=== PATIENT | male | born 1955 | race Caucasian/White ===

== ENCOUNTER 2018-10-15 19:15 | Inpatient (IN) | payer MEDICARE, OTHER ==
[2018-10-15] MEDS ORDERED: Propofol* 100 ML ONE (20:39)
[2018-10-15] MEDS ORDERED: NS 0.9% 1000 ML* 1,000 ML IV SCH (20:45)
[2018-10-15] MEDS: Norepinephrine VIAL* 4 MG in NS 0.9% 250 ML* 246 ML IV SCH (21:00)
[2018-10-15] MEDS ORDERED: Vancomycin(*) 1,000 MG in NS 0.9% 250 ML* 250 ML IVPB ONE (21:04)
--- NOTE | 2018-10-15 21:12 | ADMNOTE ---
Subjective Date of Service: 10/15/18 Interval History: code status full as per daughter source icu dr grant from transfer center and daughter unable due to concurrent intubation hpi this is a 63 yr old wm with copd on home oxygen was brought in to [facility] due to unresponsiveness. according to daughter, pt has not been getting home visit company for about one week and pt's was not the greatest provider for pt when home service is n/a. pt was intubated in the field. intial abg showed ph/pc02 7.12/80. initial head ct is neg. trop is 0.13 but no acute ekg change from [facility]. pt got versed 5/fentanyl 50 and lasix 20 mg iv from [facility]. came into icu with intial sbp 70-80s upon arrival 10/14 10- 11 pm ( called pharmacy to place levophed ) ---> pt was ordered with levophed but was never given any presssors until 510 am 10/15/2018. head ct was neg but he was not found to have a strong gag refelx or fighting against exam. as per staff, his left semiautomatic taper operator was much weaker compare to r semiautomatic taper operator ---> pt was able to raise his left hand after he was wakened up with verbal command and was unable to hold min on to this principal technical writer's hand but raise his lue against gravity about 20- 30 degree for 10 second. his inital abg done upon arrival. abg was 7.27/78/72/ 97 percent on pressure support at 2230 pm this am abg on same setting was 7.28/ 77/110/99.7 ---> spoke with pul who will call respiratory directly reg vent setting. pt got rocephin/z pack/laxis 20 iv/solumderol/versed/fentanyl 50 from [facility] copd on home oxygen arielle but non compliant with cpap dementia hyperlipidemia htn schizophrenia pshx none social hx cig smoker no etoh comes from home lives with fhx father + cad Review of Systems - Review of Systems General Comments: unable due to concurrent intubation and sedation Objective Oxygen Devices in Use Now: Mechanical Ventilator Appearance: nad Eyes: No Scleral Icterus, PERRLA Neck: NL Appearance and Movements; NL JVP, Trachea Midline, No Thyroid Enlargement, Masses Respiratory: - - equal chest wall expansion distant breath sounds throughout Cardiovascular: NL Sounds; No Murmurs; No JVD, RRR Abdominal: NL Sounds; No Tenderness; No Distention Extremities: - - trace pedal edema Result Diagrams: 10/16/18 05:00 10/16/18 05:00 EKG Data: ordered but not done was told was done in the [facility] did not show acute change ---> unable to find it in the pile Assess/Plan/Problems-Billing Assessment: this is a 63 yr old wm with hx of dementia copd on home oxygen arielle but non compliant with arielle at home was brought in due to worsening ms ---> as per daughter he has not been getting his resp treatment and follow up from the [facility]na service for at least one week. inital abg showed ph 7.12/80---> hypercapnic respiratory failure - Patient Problems (1) Acute and chronic respiratory failure ([id number]) Current Visit: Yes Status: Acute Code(s): J96.20 - ACUTE AND CHR RESP FAILURE, UNSP W HYPOXIA OR HYPERCAPNIA SNOMED Code(s): 85212188 Comment: vent support repeat abg at 5 am does not show improvement ---> called pul to contact respiratory directly for vent setting respiratory treatment solumderol instead of solucortef ( sbp wnl--- > PRESSORS WAS ORDERED AT 2200 PM BUT WAS NOT ON IT UNTIL 510 AM ---> STAFF DOES NOT START PRESSOR DESPITE ORDER IS THERE AND THIS PLASMA CUTTING MACHINE OPERATOR WAS NOT CALLED TO CANCEL OR HOLD IT ) continue zosyn ( got one dose of rocephin/ z pack from other hospital ) (2) Hypercapnic respiratory failure Current Visit: Yes Status: Acute Code(s): J96.92 - RESPIRATORY FAILURE, UNSPECIFIED WITH HYPERCAPNIA SNOMED Code(s): 892453097 Comment: vent adjustment as per pul (3) Schizophrenia Current Visit: Yes Status: Acute Code(s): F20.9 - SCHIZOPHRENIA, UNSPECIFIED SNOMED Code(s): 56004374 Comment: og tube placed will order his normal meds via og (4) AIRELLE and COPD overlap syndrome Current Visit: Yes Status: Acute Code(s): G47.33 - OBSTRUCTIVE SLEEP APNEA ( ADULT) (PEDIATRIC); J44.9 - CHRONIC OBSTRUCTIVE PULMONARY DISEASE, UNSPECIFIED SNOMED Code(s): 46291360 Comment: non compliant with his home setting machine continue intubation vent adjustment as per icu (5) Noncompliance Current Visit: Yes Status: Acute Code(s): Z91.19 - PATIENT'S NONCOMPLIANCE W OTH MEDICAL TREATMENT AND REGIMEN SNOMED Code(s): 5337625 Comment: supportive care (6) Acute respiratory acidosis Current Visit: Yes Status: Acute Code(s): E87.2 - ACIDOSIS SNOMED Code(s) : 28417030 Comment: vent support and adjustment (7) Hypotension Current Visit: Yes Status: Acute Comment: pressor was ordered at 2200 but was not on that until 510 am continue pressor/target map 55 above (8) Full code status Current Visit: Yes Status: Acute Code(s): Z78.9 - OTHER SPECIFIED HEALTH STATUS SNOMED Code(s): 277591937 (9) DVT prophylaxis Current Visit: Yes Status: Acute Code(s): VWF6218 - SNOMED Code(s): 948761935 Comment: per hospital protocol (10) LUE weakness Current Visit: Yes Status: Acute Code(s): R29.898 - OT SYMPTOMS AND SIGNS INVOLVING THE MUSCULOSKELETAL SYSTEM SNOMED Code(s): 042106861 Comment: head ct neg it is not tpa case no matter what asa 325 via og then 81 mg daily repeat head ct cartoid tele with lucina Status and Disposition: total critical care admisison 60 min followup 30 min total 90 min
[2018-10-15] MEDS ORDERED: Zosyn per Pharmacy* NOTE FOLLOW UP PRN (21:46)
[2018-10-15] MEDS ORDERED: Vancomycin per Pharmacy* NOTE FOLLOW UP PRN (21:51)
[2018-10-15] MEDS ORDERED: Piperacillin/Tazobac ADVAN(*) 3.375 GM in NS 0.9% 100 ML* 100 ML IVPB SCH (22:00)
[2018-10-15] MEDS ORDERED: Dexamethasone IV* 4 MG in NS 0.9% 50 ML* 50 ML IVPB SCH (22:00)
[2018-10-15] MEDS ORDERED: Hydrocortisone INJ* 100 MG VIAL IM SCH (22:00)
[2018-10-15] MEDS ORDERED: Dexamethasone IV* 4 MG/ML 1 ML (4 MG) IV SLOW PU SCH (22:00)
[2018-10-15] MEDS ORDERED: ZOSYN 3.375 GM x ONE DOSE over 30 miuntes IVPB ×2 (22:00)
[2018-10-15] MEDS ORDERED: Vancomycin(*) 2,000 MG in NS 0.9% 500 ML* 500 ML IVPB ONE (22:30)
[2018-10-15] MEDS: Heparin VIAL(*) 5000 UNITS/ML VIAL (FIVE THOUSAND) SUBCUT SCH (23:47)
[2018-10-15 23:57] LABS: ABS Basophils 0 10^3/ul (0-0.2); ABS Eosinophils 0 10^3/ul (0-0.6); ABS Lymphocytes 0.2 10^3/ul (1.0-4.8); ABS Monocytes 0.5 10^3/ul (0-0.8); ABS Neutrophils 14.1 10^3/ul (1.5-7.7); ABS Nucleated RBC 0 10^3/ul; Eosinophil % 0 %; Hematocrit 39 % (42-52); Hemoglobin 12.1 g/dl (14.0-18.0); Lymphocyte % 1.1 %; Mean Corpuscular HGB Conc 31 g/dl (31-36); Mean Corpuscular Hemoglobin 28 pg (27-31); Mean Corpuscular Volume 90 fL (80-94); Mean Platelet Volume 8.7 fL (7.4-10.4); Nucleated Red Blood Cells % 0.1; Platelet Count 203 10^3/ul (150-450); Red Blood Count 4.34 10^6/ul (4.00-5.40); Red Cell Distribution Width 15 % (10.5-15); White Blood Count 14.8 10^3/ul (3.5-10.8)
[2018-10-16] MEDS: Propofol* 1000 MG (10 MG/ML 100 ml) @ Per Protocol (in ICU Pyxis) IV SCH ×6 (00:02→22:05)
[2018-10-16 00:08] LABS: Albumin 3.3 g/dL (3.2-5.2); Albumin/Globulin Ratio 1.3 (1-3); BUN/Creatinine Ratio 16.1 (8-20); Calcium 8.3 mg/dL (8.6-10.3); EGFR African American 57.8 (>60); EGFR Non-African American 47.8 (>60); Globulin 2.6 g/dL (2-4); Potassium 4.2 mmol/L (3.5-5.0); Total Bilirubin 0.3 mg/dL (0.2-1.0); Total Protein 5.9 g/dL (6.4-8.9)
[2018-10-16] MEDS: Albuterol 2.5 MG/3 ML NEB.SOL* (0.083%) INH SCH ×2 (00:10→03:25)
[2018-10-16 00:14] LABS: CKMB ng/mL 6.6 ng/mL (0.6-6.3); Troponin I 0.04 ng/mL (<0.04)
[2018-10-16] MEDS ORDERED: Pantoprazole IV* 40 MG IV SCH (03:00)
[2018-10-16] MEDS: ZOSYN 3.375 GM Q8H per EXTENDED INFUSION IVPB SCH ×6 (03:06→17:38)
[2018-10-16] MEDS ORDERED: Aspirin TAB* 325 MG NG TUBE ONE (03:15)
[2018-10-16] MEDS: methylPREDNISolone SOD 40 MG* 1 ML VIAL IV SCH ×3 (03:38→18:39)
[2018-10-16] MEDS: Pantoprazole IV* 40 MG IV SCH ×2 (04:48→21:40)
[2018-10-16] MEDS: Heparin VIAL(*) 5000 UNITS/ML VIAL (FIVE THOUSAND) SUBCUT SCH ×3 (05:00→21:40)
[2018-10-16 05:29] LABS: ABS Basophils 0 10^3/ul (0-0.2); ABS Eosinophils 0 10^3/ul (0-0.6); ABS Lymphocytes 0.2 10^3/ul (1.0-4.8); ABS Monocytes 0.2 10^3/ul (0-0.8); ABS Nucleated RBC 0 10^3/ul; Eosinophil % 0 %; Hematocrit 36 % (42-52); Lymphocyte % 1.5 %; Mean Corpuscular HGB Conc 30 g/dl (31-36); Mean Corpuscular Hemoglobin 27 pg (27-31); Mean Corpuscular Volume 91 fL (80-94); Mean Platelet Volume 8.9 fL (7.4-10.4); Nucleated Red Blood Cells % 0.1; Platelet Count 189 10^3/ul (150-450); Red Blood Count 4.01 10^6/ul (4.00-5.40); Red Cell Distribution Width 15 % (10.5-15); White Blood Count 12.5 10^3/ul (3.5-10.8)
[2018-10-16 05:49] LABS: BUN/Creatinine Ratio 17.1 (8-20); Calcium 8.2 mg/dL (8.6-10.3); EGFR African American 49.7 (>60); Magnesium 1.9 mg/dL (1.9-2.7)
[2018-10-16 06:04] LABS: TSH (Thyroid Stimulating Horm) 0.14 mcIU/mL (0.34-5.60)
[2018-10-16] MEDS: Tiotropium CAP.INH* CAP.INH/18 MCG (USE ORDER SET !) INH SCH (07:33)
[2018-10-16 08:14] LABS: Troponin I 0.04 ng/mL (<0.04)
[2018-10-16] MEDS: Vancomycin(*) 1,000 MG in NS 0.9% 250 ML* 250 ML IVPB SCH ×3 (08:45→23:38)
[2018-10-16] MEDS: Aspirin 81 mg CHEW TAB* 81 MG TAB.CHEW NG TUBE SCH (08:54)
[2018-10-16] MEDS ORDERED: Spiriva Inhaler DEVICE* 1 EACH DEVICE INH ONE (09:00)
[2018-10-16] MEDS ORDERED: NS 0.9% IVPB SCH (09:00)
[2018-10-16] MEDS ORDERED: FAMOTIDINE IVPB SCH (09:00)
--- NOTE | 2018-10-16 10:25 | PN ---
Date of Service: 10/16/18 - [facility] note Critical Care Services: 10/16/18 at 10:22 am Pt seen and examined at bedside. Overnight events noted. Admission records reviewed. Case was discussed over telephone with night hospitalist and necessary ordered were provided. Pt is 63 y o m, former smoker with h/o severe COPD on home O2, delusional disorder, dementia. Pt with prior hospitalizations for hypercapnic resp failure. Pt was hospitalized at [facility] in 2016 for similar episiode with acute hypercapnic and hypoxic resp failure. Pt was transferred from [facility] ED last night. He has chronic COPD, not much functional at baseline. He has been managing with home care. As per daughter , home care services were stopped recently due to lack of insurance coverage. Pt needs frequent nebulizer therapy which was interrupted since visiting nurse services were discontinued. He is not able to care for himself given dementia and psych disorder. He has been deteriorating over past few weeks as per daughter. He was found to be unresponsive whe his arrived at home, he was less responsive in the morning when she wa leaving for work however she thought thats normal for him. EMS arrived at home and found pt to unresponsive and was having gurgling breath sounds. He was intubated in field. He had blood pressure with systolics in 80`s. He was taken to [facility]. His troponin was mildly elevated at 0.4 and no other significant lab abnormality was noted. His EKG didnot show acute ST-T wave changes. He remained hemodynamically stable with no need for pressors. His initial ABG showed severe resp acidosis with pCO2 of 143, pH of 7.11. Rpt ABG shortly after arrival in ICU showed improvement with pH of 7.27 and pCO2 of 78. Pt was moving extremities spontaneouslyy and was transferred to [facility] ICU, intubated with prn Versed and Fentanyl for sedation/pain. Ventilator settings were adjusted to improve hypercapnia. His BP dropped slightly and was given 1L IVF, was started on Levophed this am. He was noted to be not very strong with camp coordinator on right side as per overnight RN however was withdrawing all extremities to pain. Vital Signs: Temp Pulse Resp BP SpO2 FiO2 100.2 F 78 22 129/79 95 60 10/16/18 08:00 10/16/18 09:45 10/16/18 09:00 10/16/18 09:45 10/16/18 09:45 10/16 08:13 Physical Exam: Gen: Pt is sedated HEENT:Pupils pinpoint, sluggishly reactive Lungs: Rhonchi+ on auscultation Cardiac: S1, S2, regular Abdomen: Soft, BS+ Extremities: No edema Neuro: Sedated, has gag reflex, unable to assess complete neuro exam due to being on Propofol Skin: No rash Fluid Balance (Past 24 Hours): Q=2642 O= 170 Net 1977 Intake & Output 10/14/18 10/15/18 10/16/18 10/17/18 06:59 06:59 06:59 06:59 Intake Total 2148 Output Total 170 61 Balance 1977 Weight 248 lb 0.321 oz Intake: IV Fluids 1844 NSS W/ ABX 1844 Medicated IV 304 LEVOPHED 29 PROPOFOL 275 Oral 0 Output: Juarez 170 61 Labs: Laboratory Results - last 24 hr 10/15/18 10/15/18 10/15/18 22:20 23:30 23:30 WBC 14.8 H RBC 4.34 Hgb 12.1 L Hct 39 L MCV 90 MCH 28 MCHC 31 RDW 15 Plt Count 203 MPV 8.7 Neut % (Auto) 95.6 Lymph % (Auto) 1.1 Taney % (Auto) 3.2 Eos % (Auto) 0 Baso % (Auto) 0.1 Absolute Neuts (auto) 14.1 H Absolute Lymphs (auto) 0.2 L Absolute Monos (auto) 0.5 Absolute Eos (auto) 0 Absolute Basos (auto) 0 Absolute Nucleated RBC 0 Nucleated RBC % 0.1 Patient Temperature Not Reportable ABG pH 7.27 L ABG pH (Temp Correct) Not Reportable ABG pCO2 78 H* ABG pCO2 (Temp Corrct Not Reportable ABG pO2 72 L ABG pO2 (Temp Correct Not Reportable ABG HCO3 29.5 ABG O2 Saturation 97.2 ABG Base Excess 6.0 H Respiration Rate 18 O2 Delivery Device vent Ventilator Type Not Reportable Vent Mode Pcv FiO2 70 Inspiratory Time 0.8 PEEP 5 Pressure Support Not Reportable Pressure Control 25 EPAP Not Reportable IPAP Not Reportable BiPAP Not Reportable Sodium 143 Potassium 4.2 Chloride 100 L Carbon Dioxide 36 H Anion Gap 7 BUN 24 Creatinine 1.49 H Est GFR ( Amer) 57.8 Est GFR (Non-Af Amer) 47.8 BUN/Creatinine Ratio 16.1 Glucose 130 H Lactic Acid Calcium 8.3 L Magnesium Total Bilirubin 0.30 AST 13 ALT 13 Alkaline Phosphatase 55 CK-MB (CK-2) 6.6 H Troponin I 0.04 H* B-Natriuretic Peptide Total Protein 5.9 L Albumin 3.3 Globulin 2.6 Albumin/Globulin Ratio 1.3 TSH Cortisol 10/15/18 10/16/18 10/16/18 23:30 05:00 05:00 WBC 12.5 H RBC 4.01 Hgb 11.0 L Hct 36 L MCV 91 MCH 27 MCHC 30 L RDW 15 Plt Count 189 MPV 8.9 Neut % (Auto) 96.4 Lymph % (Auto) 1.5 Taney % (Auto) 1.9 Eos % (Auto) 0 Baso % (Auto) 0.2 Absolute Neuts (auto) 12.0 H Absolute Lymphs (auto) 0.2 L Absolute Monos (auto) 0.2 Absolute Eos (auto) 0 Absolute Basos (auto) 0 Absolute Nucleated RBC 0 Nucleated RBC % 0.1 Patient Temperature ABG pH ABG pH (Temp Correct) ABG pCO2 ABG pCO2 (Temp Corrct ABG pO2 ABG pO2 (Temp Correct ABG HCO3 ABG O2 Saturation ABG Base Excess Respiration Rate O2 Delivery Device Ventilator Type Vent Mode FiO2 Inspiratory Time PEEP Pressure Support Pressure Control EPAP IPAP BiPAP Sodium 142 Potassium 4.0 Chloride 102 Carbon Dioxide 36 H Anion Gap 4 BUN 29 H Creatinine 1.70 H Est GFR ( Amer) 49.7 Est GFR (Non-Af Amer) 41.0 BUN/Creatinine Ratio 17.1 Glucose 162 H Lactic Acid 1.1 Calcium 8.2 L Magnesium 1.9 Total Bilirubin AST ALT Alkaline Phosphatase CK-MB (CK-2) Troponin I 0.04 H* B-Natriuretic Peptide Total Protein Albumin Globulin Albumin/Globulin Ratio TSH 0.14 L Cortisol 6.64 10/16/18 10/16/18 05:00 05:40 WBC RBC Hgb Hct MCV MCH MCHC RDW Plt Count MPV Neut % (Auto) Lymph % (Auto) Taney % (Auto) Eos % (Auto) Baso % (Auto) Absolute Neuts (auto) Absolute Lymphs (auto) Absolute Monos (auto) Absolute Eos (auto) Absolute Basos (auto) Absolute Nucleated RBC Nucleated RBC % Patient Temperature Not Reportable ABG pH 7.28 L ABG pH (Temp Correct) Not Reportable ABG pCO2 77 H* ABG pCO2 (Temp Corrct Not Reportable ABG pO2 110 H ABG pO2 (Temp Correct Not Reportable ABG HCO3 30.1 ABG O2 Saturation 99.7 H ABG Base Excess 6.6 H Respiration Rate 18 O2 Delivery Device vent Ventilator Type Not Reportable Vent Mode pcv FiO2 75 Inspiratory Time 0.8 PEEP 5 Pressure Support Not Reportable Pressure Control 30 EPAP Not Reportable IPAP Not Reportable BiPAP Not Reportable Sodium Potassium Chloride Carbon Dioxide Anion Gap BUN Creatinine Est GFR ( Amer) Est GFR (Non-Af Amer) BUN/Creatinine Ratio Glucose Lactic Acid Calcium Magnesium Total Bilirubin AST ALT Alkaline Phosphatase CK-MB (CK-2) Troponin I B-Natriuretic Peptide 125 H Total Protein Albumin Globulin Albumin/Globulin Ratio TSH Cortisol Studies: Ct brain at outside facility: No acute abnormality noted. 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 Pt was admitted for AMS, hypercapnic and hypoxic resp failure requiring intubation 1. AMS- Metabolic versus CVA 2. Acute on chronic hypoxic and hypercapnic resp failure 3. Acute COPD exacerbatio 4. PNA, possible aspiration 5. Hypotension sec to sepsis 6.Acute Renal failure 7.Low TSH likely sick euthyroid 8.Elevated troponin- Likely demand ischemia 9. Elevated bl sugar, no known h/o DM Plan: 1. Neuro: Pt found unresponsive at home, has h/o admissions for hypercapnic resp failure, unclear if sec to hypercapnic resp failure or had trigerred by CVA. No focal findings on neuro exam. CT brain was negative, rpt CT brain pending. Received 325 mg of ASA. Is currently sedated, will do sedation vacation to assess neuro status. Keep head of bed elevated to 30 degrees. No signs of seizure. Ordered f/u CT, CTA head/neck and bubble ECHO. c/w ASA. Pt with h/o Schizophrenia and dementia. 2.Resp: Intubated for acute hypercapnic/hypoxic resp failure and AMS. Currently on PC ventialtor, PC of 33, PEEP 5, FiO2 of 50%, rate of 22, ETCO2 of 45. PPlateau of less than 30. Vent bundle ordered. Having thick secretions through ETT. 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 Will obtain CT chest, c/w ETCO 2 monitoring. Will rpt ABG and adjust vent settings accordingly. c/w nebs q 6hrs prn. 3. CVS: Hypotensive this am, requiring small dose of Levophed, not requiring now. Received 1L IVF last night. Will titrate Levophed to achieve MAP of 65. Will c/w IVF at 100cc/hr. ECHO pending. No acute changes on EKG. Cardiac history unknown at this time. Troponins mildly elevated-likely demand ischemia, rpt value unchanged. 4. GI: NPO for now. Will start feeds later today. Pt on Propofol and receiving IVF for hydration. GI PPx ordered. 5. Renal: UO picked up this am. Elevated cr with acute renal failure. No electrolyte abnormalities. Last lactate within normal limits. Monitor UO closely. Will check CK. UA ordered. 6. Endo: Bl sugars mildly elevated, will monitor closely and cover with Insulin SS if needed. On Solumedrol for acute COPD exacerbation 7. Haem: Leucocytosis sec to sepsis. Normocytic anemia, likely chronic. Monitor H&H closely 8. Musculoskeletal: Frequent turning to prevent skin breakdown. 9. Psychosocial: Family at bedside- , 2 daughters. Updated on pts condition and all questions and concerns adressed Code status: Full code, Pt has MOLST forms filled from other facility in the past for CPR and trial intubation however would not want to continue on mechanical ventilation if unable to be liberated. IV access: Rt IJ CVC(date 10/16/18) Juarez catheter to prevent skin break down and to prevent bedsores DVT px: Heparin Sq GI PPX: PPI Critical Care Time: 60 min excluding procedures most of which is spent with performing physical, adjusting vent settings, reviewing tests, updating pt`s family at bedside
--- NOTE | 2018-10-16 10:57 | PN ---
Progress Note - Progress Note Date of Service: 10/16/18 - Rt IJ central line placement Note: Procedure: Rt IJ Central Line Performed by: Gricel Daniels MD Indication: Administration of vasopressors Anesthesia: 2% Lidocaine- 3cc Procedure: A time-out was completed, verifying correct patient, procedure, site , positioning. Patients right IJ area was prepped and draped in usual sterile fashion. 2% Lidocaine was used to anesthetize the area. A Triple lumen central line was introduced over a wire via the Seldinger technique, then sutured in place. Good blood flow was noted from all ports. The patient tolerated the procedure well. Chest x-ray was ordered to assess for pneumothorax and catheter placement. No PTX noted and catheter tip at optimal position. Complications: None Blood loss: Minimal
[2018-10-16] MEDS ORDERED: Iodixanol* (CONTRAST) 320 MG/ML 100 ML SDV IV ONE (11:37)
[2018-10-16] MEDS: Chlorhexidine MOUTHWASH 0.12%* 15 ML UDC TOPICAL SCH ×4 (12:27→23:38)
[2018-10-16 12:50] LABS: ABS Basophils 0 10^3/ul (0-0.2); ABS Eosinophils 0 10^3/ul (0-0.6); ABS Lymphocytes 0.3 10^3/ul (1.0-4.8); ABS Monocytes 0.4 10^3/ul (0-0.8); ABS Neutrophils 10.5 10^3/ul (1.5-7.7); ABS Nucleated RBC 0 10^3/ul; Eosinophil % 0 %; Hematocrit 34 % (42-52); Hemoglobin 10.7 g/dl (14.0-18.0); Lymphocyte % 2.5 %; Mean Corpuscular HGB Conc 32 g/dl (31-36); Mean Corpuscular Hemoglobin 28 pg (27-31); Mean Corpuscular Volume 89 fL (80-94); Mean Platelet Volume 8.2 fL (7.4-10.4); Nucleated Red Blood Cells % 0.1; Platelet Count 196 10^3/ul (150-450); Red Blood Count 3.79 10^6/ul (4.00-5.40); Red Cell Distribution Width 15 % (10.5-15); White Blood Count 11.3 10^3/ul (3.5-10.8)
[2018-10-16 13:07] LABS: Albumin 2.9 g/dL (3.2-5.2); Albumin/Globulin Ratio 1.3 (1-3); BUN/Creatinine Ratio 20.1 (8-20); Calcium 8.2 mg/dL (8.6-10.3); EGFR African American 51.8 (>60); EGFR Non-African American 42.8 (>60); Globulin 2.3 g/dL (2-4); Potassium 3.5 mmol/L (3.5-5.0); Total Bilirubin 0.3 mg/dL (0.2-1.0); Total Protein 5.2 g/dL (6.4-8.9)
[2018-10-16 13:59] LABS: Urine Appearance Cloudy; Urine Bacteria 1+ (Absent); Urine Bilirubin Negative (Negative); Urine Blood 1+ (Negative); Urine Color Yellow; Urine Glucose Negative (Negative); Urine Ketones Negative (Negative); Urine Nitrite Negative (Negative); Urine Protein Negative (Negative); Urine Red Blood Cell 3+(>10/hpf) (Absent); Urine Specific Gravity 1.046 (1.010-1.030); Urine Squamous Epithelial Cell Present (Absent); Urine Urobilinogen Negative (Negative); Urine White Blood Cell 1+(6-10/hpf) (Absent)
[2018-10-16 13:59] LABS: Troponin I 0.05 ng/mL (<0.04)
[2018-10-16] MEDS: Norepinephrine VIAL* 4 MG in NS 0.9% 250 ML* 246 ML IV SCH (17:02)
[2018-10-16] MEDS: Acetaminophen ADULT LIQ* 650 MG/20.3 ML UDC NG TUBE PRN (21:40)
[2018-10-17] MEDS: Propofol* 1000 MG (10 MG/ML 100 ml) @ Per Protocol (in ICU Pyxis) IV SCH ×2 (01:26→07:45)
[2018-10-17] MEDS: ZOSYN 3.375 GM Q8H per EXTENDED INFUSION IVPB SCH ×6 (02:11→17:02)
[2018-10-17] MEDS: Chlorhexidine MOUTHWASH 0.12%* 15 ML UDC TOPICAL SCH ×6 (03:58→23:22)
[2018-10-17] MEDS: methylPREDNISolone SOD 40 MG* 1 ML VIAL IV SCH ×3 (03:58→21:45)
[2018-10-17] MEDS: Norepinephrine VIAL* 4 MG in NS 0.9% 250 ML* 246 ML IV SCH (05:06)
[2018-10-17] MEDS: Heparin VIAL(*) 5000 UNITS/ML VIAL (FIVE THOUSAND) SUBCUT SCH ×3 (06:47→21:44)
[2018-10-17 06:56] LABS: Hematocrit 33 % (42-52); Hemoglobin 10.4 g/dl (14.0-18.0); Mean Corpuscular HGB Conc 32 g/dl (31-36); Mean Corpuscular Hemoglobin 28 pg (27-31); Mean Corpuscular Volume 87 fL (80-94); Mean Platelet Volume 8.7 fL (7.4-10.4); Platelet Count 178 10^3/ul (150-450); Red Blood Count 3.78 10^6/ul (4.00-5.40); Red Cell Distribution Width 15 % (10.5-15); White Blood Count 12.7 10^3/ul (3.5-10.8)
[2018-10-17 07:15] LABS: BUN/Creatinine Ratio 29.4 (8-20); Calcium 8.3 mg/dL (8.6-10.3); EGFR African American 70.2 (>60); Potassium 3.5 mmol/L (3.5-5.0)
[2018-10-17 07:21] LABS: Troponin I 0.05 ng/mL (<0.04)
[2018-10-17 07:33] LABS: ABS Basophils 0 10^3/ul (0-0.2); ABS Eosinophils 0 10^3/ul (0-0.6); ABS Lymphocytes 0.4 10^3/ul (1.0-4.8); ABS Monocytes 0.6 10^3/ul (0-0.8); ABS Neutrophils 11.6 10^3/ul (1.5-7.7); ABS Nucleated RBC 0 10^3/ul; Nucleated Red Blood Cells % 0
[2018-10-17 07:36] LABS: Lymphocytes % 6 %; Monocytes % 3 %; Neutrophil % 91 %
[2018-10-17 07:38] LABS: ABS Neutrophils 11.5 10^3/ul (1.5-7.7)
[2018-10-17] MEDS: Tiotropium CAP.INH* CAP.INH/18 MCG (USE ORDER SET !) INH SCH (07:39)
[2018-10-17] MEDS: Pantoprazole IV* 40 MG IV SCH (07:41)
[2018-10-17] MEDS: Aspirin 81 mg CHEW TAB* 81 MG TAB.CHEW NG TUBE SCH (07:41)
[2018-10-17] MEDS ORDERED: Vancomycin Trough Check NOTE FOLLOW UP ONE (08:00)
[2018-10-17] MEDS: Vancomycin(*) 1,000 MG in NS 0.9% 250 ML* 250 ML IVPB SCH (09:12)
--- NOTE | 2018-10-17 09:49 | PN ---
Date of Service: 10/17/18 Critical Care Services: 63M with htn, hld, schizophrena, severe copd on home o2, ild presents with respiratory failure and was intubated at [place]. 10/17: propofol stopped this am. Patient unresponsive. Vital Signs: Temp Pulse Resp BP SpO2 FiO2 99.7 F 63 21 142/82 95 50 10/17/18 09:00 10/17/18 09:00 10/17/18 08:00 10/17/18 09:00 10/17/18 09:00 10/17 07:36 Physical Exam: Gen - intubated and sedated heent - ncat, perrl, left gaze preference? neck - no jvd cv - s1/s2, no murmur lungs - cta, no wheeze abd - soft, nt, nd ext - no cce neuro - unresponsive to verbal or painful stimuli, possible intermittent left gaze preference Fluid Balance (Past 24 Hours): I= O= Net Intake & Output 10/15/18 10/16/18 10/17/18 10/18/18 06:59 06:59 06:59 06:59 Intake Total 2148 3805.6 0 Output Total 170 1155 195 Balance 1978 2650.6 -195 Weight 112.5 kg 114.5 kg Intake: IV Fluids 1844 2118.6 ABX - VANCOMYCIN 305 ABX - ZOSYN 51.6 NSS W/ ABX 1844 1762 IVPB 817 ABX - VANCOMYCIN 537 ABX - ZOSYN 280 Medicated IV 304 840 LEVOPHED 29 132 PROPOFOL 275 708 Oral 0 0 NG Tube Irrigate Amount 30 Output: Bennett 170 1155 195 Labs: Laboratory Results - last 24 hr 10/16/18 10/16/18 10/16/18 05:00 12:40 12:40 WBC 11.3 H RBC 3.79 L Hgb 10.7 L Hct 34 L MCV 89 MCH 28 MCHC 32 RDW 15 Plt Count 196 MPV 8.2 Neut % (Auto) 93.5 Lymph % (Auto) 2.5 [place] % (Auto) 4.0 Eos % (Auto) 0 Baso % (Auto) 0 Absolute Neuts (auto) 10.5 H Absolute Lymphs (auto) 0.3 L Absolute Monos (auto) 0.4 Absolute Eos (auto) 0 Absolute Basos (auto) 0 Absolute Nucleated RBC 0 Neutrophils % Lymphocytes % Monocytes % Nucleated RBC % 0.1 Abs Neuts (Manual) Abs Lymphs (Manual) Abs Monocytes (Manual) Normal RBC Morphology Patient Temperature ABG pH ABG pH (Temp Correct) ABG pCO2 ABG pCO2 (Temp Corrct ABG pO2 ABG pO2 (Temp Correct ABG HCO3 ABG O2 Saturation ABG Base Excess Respiration Rate O2 Delivery Device Ventilator Type Vent Mode FiO2 Inspiratory Time PEEP Pressure Support Pressure Control EPAP IPAP BiPAP Sodium 141 Potassium 3.5 Chloride 103 Carbon Dioxide 33 H Anion Gap 5 BUN 33 H Creatinine 1.64 H Est GFR ( Amer) 51.8 Est GFR (Non-Af Amer) 42.8 BUN/Creatinine Ratio 20.1 H Glucose 184 H POC Glucose (mg/dL) Hemoglobin A1c 6.1 H Lactic Acid Calcium 8.2 L Total Bilirubin 0.30 AST 14 ALT 11 Alkaline Phosphatase 43 Total Creatine Kinase 294 H Troponin I 0.05 H* Total Protein 5.2 L Albumin 2.9 L Globulin 2.3 Albumin/Globulin Ratio 1.3 Urine Color Urine Appearance Urine pH Ur Specific [place] Urine Protein Urine Ketones Urine Blood Urine Nitrate Urine Bilirubin Urine Urobilinogen Ur Leukocyte Esterase Urine WBC (Auto) Urine RBC (Auto) Ur Squamous Epith Cells Urine Bacteria Urine Glucose Urine Ascorbic Acid Vancomycin Trough 10/16/18 10/16/18 10/16/18 12:40 13:00 13:23 WBC RBC Hgb Hct MCV MCH MCHC RDW Plt Count MPV Neut % (Auto) Lymph % (Auto) [place] % (Auto) Eos % (Auto) Baso % (Auto) Absolute Neuts (auto) Absolute Lymphs (auto) Absolute Monos (auto) Absolute Eos (auto) Absolute Basos (auto) Absolute Nucleated RBC Neutrophils % Lymphocytes % Monocytes % Nucleated RBC % Abs Neuts (Manual) Abs Lymphs (Manual) Abs Monocytes (Manual) Normal RBC Morphology Patient Temperature Not Reportable ABG pH 7.39 ABG pH (Temp Correct) Not Reportable ABG pCO2 56 H ABG pCO2 (Temp Corrct Not Reportable ABG pO2 80 ABG pO2 (Temp Correct Not Reportable ABG HCO3 30.4 ABG O2 Saturation 98.5 H ABG Base Excess 7.1 H Respiration Rate 22 O2 Delivery Device mech. vent Ventilator Type Not Reportable Vent Mode pcv FiO2 50 Inspiratory Time 0.7 PEEP 5 Pressure Support Not Reportable Pressure Control 33 EPAP Not Reportable IPAP Not Reportable BiPAP Not Reportable Sodium Potassium Chloride Carbon Dioxide Anion Gap BUN Creatinine Est GFR ( Amer) Est GFR (Non-Af Amer) BUN/Creatinine Ratio Glucose POC Glucose (mg/dL) Hemoglobin A1c Lactic Acid 1.1 Calcium Total Bilirubin AST ALT Alkaline Phosphatase Total Creatine Kinase Troponin I Total Protein Albumin Globulin Albumin/Globulin Ratio Urine Color Yellow Urine Appearance Cloudy Urine pH 5.0 Ur Specific [place] 1.046 H Urine Protein Negative Urine Ketones Negative Urine Blood 1+ A Urine Nitrate Negative Urine Bilirubin Negative Urine Urobilinogen Negative Ur Leukocyte Esterase Trace A Urine WBC (Auto) 1+(6-10/hpf) A Urine RBC (Auto) 3+(>10/hpf) A Ur Squamous Epith Cells Present A Urine Bacteria 1+ A Urine Glucose Negative Urine Ascorbic Acid * A Vancomycin Trough 10/16/18 10/16/18 10/17/18 18:09 20:20 00:34 WBC RBC Hgb Hct MCV MCH MCHC RDW Plt Count MPV Neut % (Auto) Lymph % (Auto) [place] % (Auto) Eos % (Auto) Baso % (Auto) Absolute Neuts (auto) Absolute Lymphs (auto) Absolute Monos (auto) Absolute Eos (auto) Absolute Basos (auto) Absolute Nucleated RBC Neutrophils % Lymphocytes % Monocytes % Nucleated RBC % Abs Neuts (Manual) Abs Lymphs (Manual) Abs Monocytes (Manual) Normal RBC Morphology Patient Temperature ABG pH ABG pH (Temp Correct) ABG pCO2 ABG pCO2 (Temp Corrct ABG pO2 ABG pO2 (Temp Correct ABG HCO3 ABG O2 Saturation ABG Base Excess Respiration Rate O2 Delivery Device Ventilator Type Vent Mode FiO2 Inspiratory Time PEEP Pressure Support Pressure Control EPAP IPAP BiPAP Sodium Potassium Chloride Carbon Dioxide Anion Gap BUN Creatinine Est GFR ( Amer) Est GFR (Non-Af Amer) BUN/Creatinine Ratio Glucose POC Glucose (mg/dL) 176 H 205 H Hemoglobin A1c Lactic Acid Calcium Total Bilirubin AST ALT Alkaline Phosphatase Total Creatine Kinase Troponin I 0.06 H* Total Protein Albumin Globulin Albumin/Globulin Ratio Urine Color Urine Appearance Urine pH Ur Specific [place] Urine Protein Urine Ketones Urine Blood Urine Nitrate Urine Bilirubin Urine Urobilinogen Ur Leukocyte Esterase Urine WBC (Auto) Urine RBC (Auto) Ur Squamous Epith Cells Urine Bacteria Urine Glucose Urine Ascorbic Acid Vancomycin Trough 10/17/18 10/17/18 10/17/18 06:35 06:44 06:45 WBC RBC Hgb Hct MCV MCH MCHC RDW Plt Count MPV Neut % (Auto) Lymph % (Auto) [place] % (Auto) Eos % (Auto) Baso % (Auto) Absolute Neuts (auto) Absolute Lymphs (auto) Absolute Monos (auto) Absolute Eos (auto) Absolute Basos (auto) Absolute Nucleated RBC Neutrophils % Lymphocytes % Monocytes % Nucleated RBC % Abs Neuts (Manual) Abs Lymphs (Manual) Abs Monocytes (Manual) Normal RBC Morphology Patient Temperature Not Reportable ABG pH 7.47 H ABG pH (Temp Correct) Not Reportable ABG pCO2 45 ABG pCO2 (Temp Corrct Not Reportable ABG pO2 78 L ABG pO2 (Temp Correct Not Reportable ABG HCO3 31.1 H ABG O2 Saturation 98.3 H ABG Base Excess 8.0 H Respiration Rate 22 O2 Delivery Device vent Ventilator Type Not Reportable Vent Mode pcv FiO2 50 Inspiratory Time 0.7 PEEP 5 Pressure Support Not Reportable Pressure Control 33 EPAP Not Reportable IPAP Not Reportable BiPAP Not Reportable Sodium 144 Potassium 3.5 Chloride 106 Carbon Dioxide 32 Anion Gap 6 BUN 37 H Creatinine 1.26 H Est GFR ( Amer) 70.2 Est GFR (Non-Af Amer) 58.0 BUN/Creatinine Ratio 29.4 H Glucose 174 H POC Glucose (mg/dL) 176 H Hemoglobin A1c Lactic Acid Calcium 8.3 L Total Bilirubin AST ALT Alkaline Phosphatase Total Creatine Kinase Troponin I 0.05 H* Total Protein Albumin Globulin Albumin/Globulin Ratio Urine Color Urine Appearance Urine pH Ur Specific [place] Urine Protein Urine Ketones Urine Blood Urine Nitrate Urine Bilirubin Urine Urobilinogen Ur Leukocyte Esterase Urine WBC (Auto) Urine RBC (Auto) Ur Squamous Epith Cells Urine Bacteria Urine Glucose Urine Ascorbic Acid Vancomycin Trough 10/17/18 10/17/18 06:45 07:54 WBC 12.7 H RBC 3.78 L Hgb 10.4 L Hct 33 L MCV 87 MCH 28 MCHC 32 RDW 15 Plt Count 178 MPV 8.7 Neut % (Auto) Not Reportable Lymph % (Auto) Not Reportable Kerr % (Auto) Not Reportable Eos % (Auto) Not Reportable Baso % (Auto) Not Reportable Absolute Neuts (auto) 11.6 H Absolute Lymphs (auto) 0.4 L Absolute Monos (auto) 0.6 Absolute Eos (auto) 0 Absolute Basos (auto) 0 Absolute Nucleated RBC 0 Neutrophils % 91 Lymphocytes % 6 Monocytes % 3 Nucleated RBC % 0 Abs Neuts (Manual) 11.5 H Abs Lymphs (Manual) 0.8 L Abs Monocytes (Manual) 0.4 Normal RBC Morphology Normal Patient Temperature ABG pH ABG pH (Temp Correct) ABG pCO2 ABG pCO2 (Temp Corrct ABG pO2 ABG pO2 (Temp Correct ABG HCO3 ABG O2 Saturation ABG Base Excess Respiration Rate O2 Delivery Device Ventilator Type Vent Mode FiO2 Inspiratory Time PEEP Pressure Support Pressure Control EPAP IPAP BiPAP Sodium Potassium Chloride Carbon Dioxide Anion Gap BUN Creatinine Est GFR ( Amer) Est GFR (Non-Af Amer) BUN/Creatinine Ratio Glucose POC Glucose (mg/dL) Hemoglobin A1c Lactic Acid Calcium Total Bilirubin AST ALT Alkaline Phosphatase Total Creatine Kinase Troponin I Total Protein Albumin Globulin Albumin/Globulin Ratio Urine Color Urine Appearance Urine pH Ur Specific [place] Urine Protein Urine Ketones Urine Blood Urine Nitrate Urine Bilirubin Urine Urobilinogen Ur Leukocyte Esterase Urine WBC (Auto) Urine RBC (Auto) Ur Squamous Epith Cells Urine Bacteria Urine Glucose Urine Ascorbic Acid Vancomycin Trough 21.7 Studies: CXR 10/15 IMPRESSION: #. Stigmata of chronic obstructive pulmonary disease. Linear basilar atelectasis. CT Chest 10/16 IMPRESSION: #. The constellation of findings is most consistent with advanced chronic obstructive pulmonary disease with associated interstitial fibrosis. The appearance is similar to a chest radiograph from December 22, 2015. #. Trace bilateral dependent pleural effusions and proportional basilar atelectasis. CTA Head 10/16 HEAD ANGIOGRAM IMPRESSION: Negative CT angiogram of the head. Impression: 63M with htn, hld, schizophrena, severe copd on home o2, ild presents with respiratory failure and was intubated at [place]. Plan: Neuro - AMS - thought to be 2/2 hypercapnea, however, pco2 improved and patient remains unresponsive - will check EEG, MRI brain - neuro consult when testing completed CV - htn, hld - bp elevated this am - will restart home meds pulm - respiratory failure - 2/2 copd/ild - c/w nebs q4h - steroids - wean vent as tolerated id - gram+ bacteremia - unclear source - awaiting speciation - empiric vanco/zosyn gi - start tube feeds renal - ckd? - monitor lytes - monitor i/o heme - monitor cbc endo - check fs, niss lines - rij tlc, bennett ppx - gi/dvt full code Critical Care Time: 65 mins
[2018-10-17] MEDS: Atorvastatin* 20 MG TAB PO SCH (10:18)
[2018-10-17] MEDS: Donepezil TAB* 5 MG PO SCH (10:18)
[2018-10-17] MEDS: Sertraline* 100 MG TAB PO SCH (10:18)
[2018-10-17] MEDS: Metoprolol Tartrate TAB* 25 MG PO SCH ×2 (10:30→20:40)
[2018-10-17] MEDS ORDERED: Lisinopril TAB* 10 MG PO ONE (10:34)
[2018-10-17] MEDS ORDERED: fentaNYL INFUSION 50 MCG/ML* 2,500 MCG/50 ML BAG IV SCH (11:00)
[2018-10-17] MEDS ORDERED: Lisinopril TAB* 10 MG PO SCH (11:00)
[2018-10-17] MEDS: Vancomycin(*) 750 MG in NS 0.9% 250 ML* 250 ML IVPB SCH ×2 (14:27→21:45)
[2018-10-17] MEDS: OLANzapine TAB* 10 MG PO SCH (20:40)
[2018-10-18] MEDS: ZOSYN 3.375 GM Q8H per EXTENDED INFUSION IVPB SCH ×4 (02:18→10:59)
[2018-10-18 04:53] LABS: ABS Basophils 0 10^3/ul (0-0.2); ABS Eosinophils 0.1 10^3/ul (0-0.6); ABS Lymphocytes 0.5 10^3/ul (1.0-4.8); ABS Monocytes 0.9 10^3/ul (0-0.8); ABS Neutrophils 8.5 10^3/ul (1.5-7.7); ABS Nucleated RBC 0 10^3/ul; Eosinophil % 0.5 %; Hematocrit 34 % (42-52); Lymphocyte % 4.6 %; Mean Corpuscular HGB Conc 32 g/dl (31-36); Mean Corpuscular Hemoglobin 28 pg (27-31); Mean Corpuscular Volume 87 fL (80-94); Mean Platelet Volume 8.4 fL (7.4-10.4); Nucleated Red Blood Cells % 0; Platelet Count 165 10^3/ul (150-450); Red Blood Count 3.93 10^6/ul (4.00-5.40); Red Cell Distribution Width 15 % (10.5-15)
[2018-10-18 05:00] LABS: Calcium 8.3 mg/dL (8.6-10.3); Magnesium 2.4 mg/dL (1.9-2.7); Potassium 3.9 mmol/L (3.5-5.0)
[2018-10-18 05:05] LABS: BUN/Creatinine Ratio 36.4 (8-20); EGFR African American 92.7 (>60); EGFR Non-African American 76.6 (>60)
[2018-10-18] MEDS: Heparin VIAL(*) 5000 UNITS/ML VIAL (FIVE THOUSAND) SUBCUT SCH ×3 (05:37→20:56)
[2018-10-18] MEDS: Vancomycin(*) 750 MG in NS 0.9% 250 ML* 250 ML IVPB SCH ×3 (05:37→20:57)
[2018-10-18] MEDS: Chlorhexidine MOUTHWASH 0.12%* 15 ML UDC TOPICAL SCH ×2 (05:37→09:02)
[2018-10-18] MEDS: Tiotropium CAP.INH* CAP.INH/18 MCG (USE ORDER SET !) INH SCH (08:43)
--- NOTE | 2018-10-18 08:45 | PN ---
Date of Service: 10/18/18 Critical Care Services: 63M with htn, hld, schizophrena, severe copd on home o2, ild presents with respiratory failure and was intubated at [place]. 10/17: propofol stopped this am. Patient unresponsive. 10/18: Patient more responsive this am. Will try for sbt and extubation if possible. Vital Signs: Temp Pulse Resp BP SpO2 FiO2 98.1 F 72 20 162/101 96 40 10/18/18 07:00 10/18/18 07:00 10/18/18 07:42 10/18/18 07:00 10/18/18 07:00 10/18 07:42 Physical Exam: Gen - intubated and sedated heent - ncat, perrl neck - no jvd cv - s1/s2, no murmur lungs - cta, no wheeze abd - soft, nt, nd ext - no cce neuro - lethargic, arousable, following commands Fluid Balance (Past 24 Hours): I= O= Net Intake & Output 10/16/18 10/17/18 10/18/18 10/19/18 06:59 06:59 06:59 06:59 Intake Total 2148 3805.6 2475 Output Total 170 1155 2035 100 Balance 1977 2650.6 440 -100 Weight 112.5 kg 114.5 kg 115.5 kg Intake: IV Fluids 1844 2118.6 1803 ABX - VANCOMYCIN 305 500 ABX - ZOSYN 51.6 323 NS 902 NSS W/ ABX 1844 1762 78 IVPB 817 285 ABX - VANCOMYCIN 537 285 ABX - ZOSYN 280 Medicated IV 304 840 57 LEVOPHED 29 132 PROPOFOL 275 708 57 Oral 0 200 Tube Feeding Flush Amount 100 NG Tube Irrigate Amount 30 30 Output: Bennett 170 1155 2035 100 Other: Date of Last Bowel 10/18/18 10/18/18 Movement # Bowel Movements 1 Estimated Stool Amount Large Labs: Laboratory Results - last 24 hr 10/17/18 10/17/18 10/17/18 07:54 12:31 18:13 WBC RBC Hgb Hct MCV MCH MCHC RDW Plt Count MPV Neut % (Auto) Lymph % (Auto) [place] % (Auto) Eos % (Auto) Baso % (Auto) Absolute Neuts (auto) Absolute Lymphs (auto) Absolute Monos (auto) Absolute Eos (auto) Absolute Basos (auto) Absolute Nucleated RBC Nucleated RBC % Sodium Potassium Chloride Carbon Dioxide Anion Gap BUN Creatinine Est GFR ( Amer) Est GFR (Non-Af Amer) BUN/Creatinine Ratio Glucose POC Glucose (mg/dL) 160 H 190 H Calcium Magnesium Vancomycin Trough 21.7 10/17/18 10/18/18 10/18/18 23:22 04:35 04:35 WBC 10.0 RBC 3.93 L Hgb 11.0 L Hct 34 L MCV 87 MCH 28 MCHC 32 RDW 15 Plt Count 165 MPV 8.4 Neut % (Auto) 85.1 Lymph % (Auto) 4.6 [place] % (Auto) 9.5 Eos % (Auto) 0.5 Baso % (Auto) 0.3 Absolute Neuts (auto) 8.5 H Absolute Lymphs (auto) 0.5 L Absolute Monos (auto) 0.9 H Absolute Eos (auto) 0.1 Absolute Basos (auto) 0 Absolute Nucleated RBC 0 Nucleated RBC % 0 Sodium 149 H Potassium 3.9 Chloride 112 H Carbon Dioxide 33 H Anion Gap 4 BUN 36 H Creatinine 0.99 Est GFR ( Amer) 92.7 Est GFR (Non-Af Amer) 76.6 BUN/Creatinine Ratio 36.4 H Glucose 204 H POC Glucose (mg/dL) 154 H Calcium 8.3 L Magnesium 2.4 Vancomycin Trough Studies: CXR 10/15 IMPRESSION: #. Stigmata of chronic obstructive pulmonary disease. Linear basilar atelectasis. CT Chest 10/16 IMPRESSION: #. The constellation of findings is most consistent with advanced chronic obstructive pulmonary disease with associated interstitial fibrosis. The appearance is similar to a chest radiograph from December 22, 2015. #. Trace bilateral dependent pleural effusions and proportional basilar atelectasis. CTA Head 10/16 HEAD ANGIOGRAM IMPRESSION: Negative CT angiogram of the head. Impression: 63M with htn, hld, schizophrena, severe copd on home o2, ild presents with respiratory failure and was intubated at [place]. Plan: Neuro - AMS - improved mental status this am - c/w olanzapine/seertraline/donepezil CV - htn, hld - bp elevated - c/w asa/statin/acei/betablocker - tte pending pulm - respiratory failure - 2/2 copd/ild - c/w nebs q4h - steroid taper - wean vent as tolerated id - gram+ bacteremia - unclear source - awaiting speciation - empiric vanco/zosyn gi - start tube feeds renal - ckd?, hypernatremia - monitor lytes - monitor i/o - increase free water via ogt heme - monitor cbc endo - check fs, niss lines - rij tlc, bennett ppx - gi/dvt full code Critical Care Time: 50 mins
[2018-10-18] MEDS ORDERED: Lansoprazole susp Kit 3 MG/ML (15 MG = 5 ML) PO SCH (09:00)
[2018-10-18] MEDS: methylPREDNISolone SOD 40 MG* 1 ML VIAL IV SCH ×2 (09:02→20:56)
[2018-10-18] MEDS: Lisinopril TAB* 10 MG PO SCH (09:02)
[2018-10-18] MEDS: Atorvastatin* 20 MG TAB PO SCH (09:02)
[2018-10-18] MEDS: OLANzapine TAB* 10 MG PO SCH ×2 (09:03→20:56)
[2018-10-18] MEDS: Aspirin 81 mg CHEW TAB* 81 MG TAB.CHEW NG TUBE SCH (09:03)
[2018-10-18] MEDS: Metoprolol Tartrate TAB* 25 MG PO SCH (09:03)
[2018-10-18] MEDS: Donepezil TAB* 5 MG PO SCH (09:04)
[2018-10-18] MEDS: Sertraline* 100 MG TAB PO SCH (09:05)
--- NOTE | 2018-10-18 10:27 | ECHO ---
Patient: KIRAN OH [facility] Rec#: [id number] : 1955 Date: 10/18/2018 Age: 63y Height: 168 cm / 66.1 in Weight: 112.5 kg / 248.0 lbs Sex: M BSA: 2.2 Room#: ICU 1 Admit Date#: 10/15/2018 Type: Inpatient Referring: KARLA BROOKS Reading: Donovan Cortez MD [employer] Educator: Vanessa Brush RN RDCS Transthoracic Echocardiogram Indication: CVA BP: 162/101 HR: 80 Rhythm: NSR Findings History: HTN, HLD, schizophrenia, severe COPD, [place], dementia Technical Comments: The study is technically limited due to the patient's history of COPD. The study is technically limited due to patient being intubated and on a ventilator. Left Ventricle: The left ventricular chamber size is normal. Mild concentric left ventricular hypertrophy is observed. Global left ventricular wall motion and contractility are within normal limits. There is normal left ventricular systolic function. The estimated ejection fraction is 55-60%. The assessment of diastolic function is non-diagnostic. Left Atrium: The left atrium is mild to moderately dilated. Right Ventricle: The right ventricular chamber size and systolic function are within normal limits. Right Atrium: The right atrium is mildly dilated. The bubble study is negative. A patent foramen ovale is not demonstrated with color Doppler and agitated contrast. Aortic Valve: The aortic valve structure is not well visualized. The aortic valve leaflets are mildly thickened. There is no evidence of aortic regurgitation. There is mild aortic stenosis. The mean gradient of the aortic valve is 10 mmHg. The peak instantaneous gradient of the aortic valve is 20 mmHg. The aortic valve area, by VTI's, is calculated at 1.9 cm2. Mitral Valve: The mitral valve leaflets are mildly thickened. There is trace to mild mitral regurgitation. Tricuspid Valve: The tricuspid valve leaflets are normal. There is mild tricuspid regurgitation. There is evidence of severe pulmonary hypertension. Pulmonic Valve: The pulmonic valve structure is not well visualized. There is no evidence of pulmonic regurgitation. There is no pulmonic stenosis. Pericardium: There is no significant pericardial effusion. A pericardial fat pad is visualized. Aorta: The ascending aorta is not well visualized. The aortic arch is not well visualized. There is mild dilatation of the aortic root. Pulmonary Artery: The main pulmonary artery is not well visualized. Venous: Unable to accurately comment on the size collapsibility of the IVC as the patient in known to be on mechanical ventilation. Contrast: Normal saline was used as contrast for the bubble study. Image 1. Conclusions There is normal left ventricular systolic function. The estimated ejection fraction is 55-60%. Global left ventricular wall motion and contractility are within normal limits. The left ventricular chamber size is normal. Mild concentric left ventricular hypertrophy is observed. The left atrium is mild to moderately dilated. The right atrium is mildly dilated. A patent foramen ovale is not demonstrated with color Doppler and agitated contrast. There is mild aortic stenosis. There is mild tricuspid regurgitation. There is evidence of severe pulmonary hypertension with estimated PA systolic pressure of 69 mm Hg. There is mild dilatation of the aortic root. There is no prior echocardiogram available to compare with at this time. Measurements Name Value Normal Range RVDdMajor (2D) 3.6 cm (2.2 - 4.4) RAd ISD 4CH 5.1 cm (3.4 - 4.9) RA (A4C)W 4.3 cm (2.9 - 4.6) IVSd (2D) 1.1 cm (0.6 - 1) LVPWd (2D) 1.1 cm (0.6 - 1) LVIDd (2D) 4.6 cm (3.6 - 5.4) Aortic Annulus 2.1 cm (1.4 - 2.6) Ao root diameter (2D) 3.6 cm (2.1 - 3.5) LA dimension (AP) 2D 4.6 cm (2.3 - 3.8) LAd ISD 4CH 6.1 cm (2.9 - 5.3) LA ISD 4CH W 4.2 cm (2.5 - 4.5) Name Value Normal Range LA ESV BP (A/L) index 28.5 ml/m2 - Name Value Normal Range MV E-wave Vmax 0.89 m/sec - MV deceleration time 190 msec - MV A-wave Vmax 1.1 m/sec - MV E:A ratio 0.8 ratio - LV septal e' Vmax 0.08 m/sec - LV lateral e' Vmax 0.09 m/sec - LV E:e' septal ratio 11.1 ratio - LV E:e' lateral ratio 9.9 ratio - Name Value Normal Range AV Vmax 2.2 m/sec - AV VTI 40.5 cm - AV peak gradient 20 mmHg - AV mean gradient 10 mmHg - LVOT diameter 2 cm - LVOT Vmax 1.2 m/sec - LVOT VTI 24.2 cm - LVOT peak gradient 6 mmHg - LVOT mean gradient 3 mmHg - DOI (VTI) 0.6 ratio - DOI (Vmax) 0.55 ratio - BERTRAND (continuity Vmax) 1.7 cm2 - BERTRAND (continuity VTI) 1.9 cm2 - Name Value Normal Range TR Vmax 3.9 m/sec - TR peak gradient 61 mmHg - RAP 8 mmHg - RVSP 69 mmHg - Name Value Normal Range PV Vmax 1.1 m/sec -
[2018-10-18] MEDS: Metoprolol Succinate XL TAB* 25 MG PO SCH (10:56)
[2018-10-18] MEDS: hydrALAZINE IV* 20 MG/ML VIAL IV SLOW PU PRN ×3 (10:59→23:34)
[2018-10-18] MEDS ORDERED: Hydrochlorothiazide TAB* 25 MG PO SCH (11:00)
[2018-10-18] MEDS ORDERED: Furosemide IV* 10 MG/ML VIAL (40 MG) IV SLOW PU ONE (13:51)
[2018-10-18] MEDS ORDERED: NS 0.45% 1000 ML BAG* 1,000 ML IV SCH (14:00)
[2018-10-19] MEDS ORDERED: Metoprolol Tartrate IV* 1 MG/ML 5 ML VIAL IV PRN (01:37)
[2018-10-19] MEDS: Heparin VIAL(*) 5000 UNITS/ML VIAL (FIVE THOUSAND) SUBCUT SCH ×3 (05:21→21:07)
[2018-10-19] MEDS: hydrALAZINE IV* 20 MG/ML VIAL IV SLOW PU PRN (05:22)
[2018-10-19 05:24] LABS: Hematocrit 37 % (42-52); Hemoglobin 11.7 g/dl (14.0-18.0); Mean Corpuscular HGB Conc 32 g/dl (31-36); Mean Corpuscular Hemoglobin 28 pg (27-31); Mean Corpuscular Volume 87 fL (80-94); Mean Platelet Volume 8.4 fL (7.4-10.4); Platelet Count 179 10^3/ul (150-450); Red Blood Count 4.24 10^6/ul (4.00-5.40); Red Cell Distribution Width 15 % (10.5-15); White Blood Count 12.5 10^3/ul (3.5-10.8)
[2018-10-19 05:41] LABS: BUN/Creatinine Ratio 35.6 (8-20); Calcium 8.8 mg/dL (8.6-10.3); EGFR African American 107.6 (>60); EGFR Non-African American 88.9 (>60); Magnesium 2.3 mg/dL (1.9-2.7); Potassium 3.3 mmol/L (3.5-5.0)
[2018-10-19 05:58] LABS: Vancomycin Trough 17.2 mcg/mL
[2018-10-19] MEDS ORDERED: Vancomycin Trough Check NOTE FOLLOW UP ONE (06:00)
[2018-10-19] MEDS: Vancomycin(*) 750 MG in NS 0.9% 250 ML* 250 ML IVPB SCH ×3 (06:07→21:07)
[2018-10-19 06:49] LABS: ABS Basophils 0 10^3/ul (0-0.2); ABS Eosinophils 0 10^3/ul (0-0.6); ABS Lymphocytes 0.9 10^3/ul (1.0-4.8); ABS Monocytes 1.7 10^3/ul (0-0.8); ABS Neutrophils 10.5 10^3/ul (1.5-7.7); ABS Nucleated RBC 0 10^3/ul; Eosinophil % 0 %; Lymphocyte % 7.2 %; Nucleated Red Blood Cells % 0
[2018-10-19] MEDS: Tiotropium CAP.INH* CAP.INH/18 MCG (USE ORDER SET !) INH SCH (07:14)
--- NOTE | 2018-10-19 08:13 | PN ---
Date of Service: 10/19/18 Critical Care Services: 63M with htn, hld, schizophrena, severe copd on home o2, ild presents with respiratory failure and was intubated at [place]. 10/17: propofol stopped this am. Patient unresponsive. 10/18: Patient more responsive this am. Will try for sbt and extubation if possible. 10/19: extubated yesterday to bipap. becoming hypernatremic. Vital Signs: Temp Pulse Resp BP SpO2 FiO2 98.4 F 87 17 164/90 96 30 10/19/18 03:40 10/19/18 06:00 10/19/18 06:00 10/19/18 06:00 10/19/18 06:00 10/19 03:12 Physical Exam: Gen - on bipap, lethargic heent - ncat, perrl neck - no jvd cv - s1/s2, no murmur lungs - cta, no wheeze abd - soft, nt, nd ext - no cce neuro - lethargic, arousable, following commands Fluid Balance (Past 24 Hours): I= O= Net Intake & Output 10/17/18 10/18/18 10/19/18 10/20/18 06:59 06:59 06:59 06:59 Intake Total 3805.6 2475 1077 Output Total 1155 2035 4985 Balance 2650.6 440 -3908 Weight 114.5 kg 115.5 kg 110.4 kg Intake: IV Fluids 2118.6 1803 403 ABX - VANCOMYCIN 305 500 265 ABX - ZOSYN 51.6 323 NS 902 138 NSS W/ ABX 1762 78 IVPB 817 285 674 ABX - VANCOMYCIN 537 285 570 ABX - ZOSYN 280 104 Medicated IV 840 57 LEVOPHED 132 PROPOFOL 708 57 Oral 200 Tube Feeding Flush Amount 100 NG Tube Irrigate Amount 30 30 Output: Bennett 1155 2035 4985 Other: Date of Last Bowel 10/18/18 10/18/18 Movement # Bowel Movements 1 Estimated Stool Amount Large Medium Labs: Laboratory Results - last 24 hr 10/17/18 10/18/18 10/18/18 06:45 12:09 18:24 WBC RBC Hgb Hct MCV MCH MCHC RDW Plt Count MPV Neut % (Auto) Lymph % (Auto) [place] % (Auto) Eos % (Auto) Baso % (Auto) Absolute Neuts (auto) Absolute Lymphs (auto) Absolute Monos (auto) Absolute Eos (auto) Absolute Basos (auto) Absolute Nucleated RBC Nucleated RBC % Hem Pathologist Commnt Sodium Potassium Chloride Carbon Dioxide Anion Gap BUN Creatinine Est GFR ( Amer) Est GFR (Non-Af Amer) BUN/Creatinine Ratio Glucose POC Glucose (mg/dL) 127 H 131 H Calcium Magnesium Vancomycin Trough 10/19/18 10/19/18 10/19/18 00:37 05:05 05:05 WBC 12.5 H RBC 4.24 Hgb 11.7 L Hct 37 L MCV 87 MCH 28 MCHC 32 RDW 15 Plt Count 179 MPV 8.4 Neut % (Auto) 79.7 Lymph % (Auto) 7.2 [place] % (Auto) 12.7 Eos % (Auto) 0 Baso % (Auto) 0.4 Absolute Neuts (auto) 10.5 H Absolute Lymphs (auto) 0.9 L Absolute Monos (auto) 1.7 H Absolute Eos (auto) 0 Absolute Basos (auto) 0 Absolute Nucleated RBC 0 Nucleated RBC % 0 Hem Pathologist Commnt Sodium 155 H Potassium 3.3 L Chloride 110 Carbon Dioxide 40 H Anion Gap 5 BUN 31 H Creatinine 0.87 Est GFR ( Amer) 107.6 Est GFR (Non-Af Amer) 88.9 BUN/Creatinine Ratio 35.6 H Glucose 127 H POC Glucose (mg/dL) 129 H Calcium 8.8 Magnesium 2.3 Vancomycin Trough 17.2 Studies: CXR 10/15 IMPRESSION: #. Stigmata of chronic obstructive pulmonary disease. Linear basilar atelectasis. CT Chest 10/16 IMPRESSION: #. The constellation of findings is most consistent with advanced chronic obstructive pulmonary disease with associated interstitial fibrosis. The appearance is similar to a chest radiograph from December 22, 2015. #. Trace bilateral dependent pleural effusions and proportional basilar atelectasis. CTA Head 10/16 HEAD ANGIOGRAM IMPRESSION: Negative CT angiogram of the head. Impression: 63M with htn, hld, schizophrena, severe copd on home o2, ild presents with respiratory failure and was intubated at [place]. Plan: Neuro - AMS - improved mental status this am - c/w olanzapine/seertraline/donepezil CV - htn, hld, pulm htn - bp elevated - c/w asa/statin/acei/betablocker - pulm htn on tte, likely 2/2 lung disease - normal ef - responded well to lasix yesterday pulm - respiratory failure - 2/2 copd/ild - c/w nebs q4h - steroid taper - extubated to bipap id - staph epi and hominis in 3/4 bottles - likely contaminant but will treat for 7 days with vanco - zosyn stopped gi - swallow eval renal - ckd?, hypernatremia - monitor lytes - monitor i/o - d5w @50/hr, repeat bmp in afternoon - replete potassium heme - monitor cbc endo - check fs, niss lines - rij tlc, bennett ppx - gi/dvt full code Critical Care Time: 45 mins
[2018-10-19] MEDS ORDERED: D5W 500 ML BAG* 500 ML IV SCH (09:00)
[2018-10-19] MEDS: methylPREDNISolone SOD 40 MG* 1 ML VIAL IV SCH (09:05)
[2018-10-19] MEDS ORDERED: D5W 1000 ML BAG* 500 ML IV SCH (09:05)
[2018-10-19] MEDS ORDERED: D5W 1000 ML BAG* 1,000 ML IV SCH (09:06)
[2018-10-19] MEDS: KCL 20 MEQ/100 ML IVPREMIX* 20 MEQ/100 ML BAG IV SCH ×3 (09:07→11:38)
[2018-10-19] MEDS: OLANzapine TAB* 10 MG PO SCH ×2 (10:05→20:08)
[2018-10-19] MEDS: Lisinopril TAB* 10 MG PO SCH (10:05)
[2018-10-19] MEDS: Donepezil TAB* 5 MG PO SCH (10:05)
[2018-10-19] MEDS: Atorvastatin* 20 MG TAB PO SCH (10:05)
[2018-10-19] MEDS: Sertraline* 100 MG TAB PO SCH (10:05)
[2018-10-19] MEDS: Metoprolol Succinate XL TAB* 25 MG PO SCH (10:05)
[2018-10-19] MEDS: Aspirin 81 mg CHEW TAB* 81 MG TAB.CHEW NG TUBE SCH (10:05)
[2018-10-19] MEDS: Albuterol/Ipratropium NEB.SOL* Albuterol 2.5 MG/Ipratropium 0.5 MG 3 ML INH PRN (13:56)
[2018-10-19 14:21] LABS: BUN/Creatinine Ratio 34.4 (8-20); Calcium 9.1 mg/dL (8.6-10.3); EGFR African American 99.6 (>60); EGFR Non-African American 82.3 (>60); Potassium 3.8 mmol/L (3.5-5.0)
[2018-10-19] MEDS: Metoprolol Tartrate TAB* 25 MG PO SCH (20:08)
[2018-10-20] MEDS: Heparin VIAL(*) 5000 UNITS/ML VIAL (FIVE THOUSAND) SUBCUT SCH ×3 (05:19→20:34)
[2018-10-20] MEDS: Vancomycin(*) 750 MG in NS 0.9% 250 ML* 250 ML IVPB SCH ×3 (05:19→21:24)
[2018-10-20 05:35] LABS: Hematocrit 34 % (42-52); Mean Corpuscular HGB Conc 32 g/dl (31-36); Mean Corpuscular Hemoglobin 28 pg (27-31); Mean Corpuscular Volume 87 fL (80-94); Mean Platelet Volume 8.4 fL (7.4-10.4); Platelet Count 150 10^3/ul (150-450); Red Blood Count 3.94 10^6/ul (4.00-5.40); Red Cell Distribution Width 15 % (10.5-15); White Blood Count 12.5 10^3/ul (3.5-10.8)
[2018-10-20 05:50] LABS: Calcium 8.6 mg/dL (8.6-10.3); EGFR Non-African American 92.6 (>60); Magnesium 2.1 mg/dL (1.9-2.7); Potassium 3.2 mmol/L (3.5-5.0)
[2018-10-20 06:25] LABS: Immature Granulocytes 3 % (0-9); Lymphocytes % 7 %; Metamyelocytes % 2 % (0-2); Microcytosis 1+; Monocytes % 6 %; Myelocytes % 1 % (0-1); Neutrophil % 82 %
[2018-10-20 06:26] LABS: ABS Basophils 0.1 10^3/ul (0-0.2); ABS Eosinophils 0.2 10^3/ul (0-0.6); ABS Lymphocytes 1.3 10^3/ul (1.0-4.8); ABS Monocytes 1.7 10^3/ul (0-0.8); ABS Neutrophils 9.4 10^3/ul (1.5-7.7); ABS Nucleated RBC 0 10^3/ul
[2018-10-20] MEDS: ZOSYN 3.375 GM Q8H per EXTENDED INFUSION IVPB SCH ×4 (07:24→07:25)
[2018-10-20] MEDS: Tiotropium CAP.INH* CAP.INH/18 MCG (USE ORDER SET !) INH SCH (08:05)
--- NOTE | 2018-10-20 08:31 | PN ---
Date of Service: 10/20/18 Critical Care Services: 63M with htn, hld, schizophrena, severe copd on home o2, ild presents with respiratory failure and was intubated at [facility]. 10/17: propofol stopped this am. Patient unresponsive. 10/18: Patient more responsive this am. Will try for sbt and extubation if possible. 10/19: extubated yesterday to bipap. becoming hypernatremic. 10/20: did well on NC most of yesterday. Went back on bipap in afternoon. overall improving. Vital Signs: Temp Pulse Resp BP SpO2 FiO2 98.6 F 76 18 167/105 95 30 10/20/18 07:47 10/20/18 08:05 10/20/18 08:05 10/20/18 07:00 10/20/18 08:05 10/19 17:26 Physical Exam: Gen - nad heent - ncat, perrl neck - no jvd cv - s1/s2, no murmur lungs - cta, no wheeze abd - soft, nt, nd ext - no cce neuro - confused, but following commands Fluid Balance (Past 24 Hours): I= O= Net Intake & Output 10/18/18 10/19/18 10/20/18 10/21/18 06:59 06:59 06:59 06:59 Intake Total 2475 1077 4571 240 Output Total 2034 4985 2054 Balance 440 -3905 2516 240 Weight 115.5 kg 110.4 kg 112.1 kg Intake: IV Fluids 7597 902 8498 ABX - VANCOMYCIN 500 265 ABX - ZOSYN 323 D5W 1207 NS 902 138 306 NSS W/ ABX 78 IVPB 285 674 788 ABX - VANCOMYCIN 285 570 788 ABX - ZOSYN 104 Medicated IV 57 PROPOFOL 57 Oral 200 2270 240 Tube Feeding Flush Amount 100 NG Tube Irrigate Amount 30 Output: Bennett 2034 4984 2054 Other: Date of Last Bowel 10/18/18 10/18/18 Movement # Bowel Movements 1 Estimated Stool Amount Large Medium Large Labs: Laboratory Results - last 24 hr 10/19/18 10/19/18 10/19/18 13:07 13:54 18:02 WBC RBC Hgb Hct MCV MCH MCHC RDW Plt Count MPV Neut % (Auto) Lymph % (Auto) [place] % (Auto) Eos % (Auto) Baso % (Auto) Absolute Neuts (auto) Absolute Lymphs (auto) Absolute Monos (auto) Absolute Eos (auto) Absolute Basos (auto) Absolute Nucleated RBC Immature Gran % Neutrophils % Lymphocytes % Monocytes % Eosinophils % Metamyelocytes % Myelocytes % Nucleated RBC % Normal RBC Morphology Microcytosis Sodium 152 H Potassium 3.8 Chloride 110 Carbon Dioxide 37 H Anion Gap 5 BUN 32 H Creatinine 0.93 Est GFR ( Amer) 99.6 Est GFR (Non-Af Amer) 82.3 BUN/Creatinine Ratio 34.4 H Glucose 272 H POC Glucose (mg/dL) 147 H 162 H Calcium 9.1 Magnesium 10/19/18 10/20/18 10/20/18 23:40 05:17 05:18 WBC RBC Hgb Hct MCV MCH MCHC RDW Plt Count MPV Neut % (Auto) Lymph % (Auto) [place] % (Auto) Eos % (Auto) Baso % (Auto) Absolute Neuts (auto) Absolute Lymphs (auto) Absolute Monos (auto) Absolute Eos (auto) Absolute Basos (auto) Absolute Nucleated RBC Immature Gran % Neutrophils % Lymphocytes % Monocytes % Eosinophils % Metamyelocytes % Myelocytes % Nucleated RBC % Normal RBC Morphology Microcytosis Sodium 153 H Potassium 3.2 L Chloride 108 Carbon Dioxide 40 H Anion Gap 5 BUN 26 H Creatinine 0.84 Est GFR ( Amer) 112.0 Est GFR (Non-Af Amer) 92.6 BUN/Creatinine Ratio 31.0 H Glucose 121 H POC Glucose (mg/dL) 92 121 H Calcium 8.6 Magnesium 2.1 10/20/18 05:18 WBC 12.5 H RBC 3.94 L Hgb 11.0 L Hct 34 L MCV 87 MCH 28 MCHC 32 RDW 15 Plt Count 150 MPV 8.4 Neut % (Auto) Not Reportable Lymph % (Auto) Not Reportable [place] % (Auto) Not Reportable Eos % (Auto) Not Reportable Baso % (Auto) Not Reportable Absolute Neuts (auto) 9.4 H Absolute Lymphs (auto) 1.3 Absolute Monos (auto) 1.7 H Absolute Eos (auto) 0.2 Absolute Basos (auto) 0.1 Absolute Nucleated RBC 0 Immature Gran % 3 Neutrophils % 82 Lymphocytes % 7 Monocytes % 6 Eosinophils % 2 Metamyelocytes % 2 Myelocytes % 1 Nucleated RBC % Not Reportable Normal RBC Morphology Not Reportable Microcytosis 1+ Sodium Potassium Chloride Carbon Dioxide Anion Gap BUN Creatinine Est GFR ( Amer) Est GFR (Non-Af Amer) BUN/Creatinine Ratio Glucose POC Glucose (mg/dL) Calcium Magnesium Studies: CXR 10/15 IMPRESSION: #. Stigmata of chronic obstructive pulmonary disease. Linear basilar atelectasis. CT Chest 10/16 IMPRESSION: #. The constellation of findings is most consistent with advanced chronic obstructive pulmonary disease with associated interstitial fibrosis. The appearance is similar to a chest radiograph from December 22, 2015. #. Trace bilateral dependent pleural effusions and proportional basilar atelectasis. CTA Head 10/16 HEAD ANGIOGRAM IMPRESSION: Negative CT angiogram of the head. Impression: 63M with htn, hld, schizophrena, severe copd on home o2, ild presents with respiratory failure and was intubated at [facility]. Plan: Neuro - AMS - improved mental status this am - c/w olanzapine/seertraline/donepezil CV - htn, hld, pulm htn - bp elevated - c/w asa/statin/acei/betablocker - pulm htn on tte, likely 2/2 lung disease - normal ef pulm - respiratory failure - 2/2 copd/ild - c/w nebs q4h - steroid taper - bipap prn id - staph epi and hominis in 3/4 bottles - likely contaminant but will treat for 7 days with vanco - zosyn stopped gi - swallow eval renal - hypernatremia - monitor lytes - monitor i/o - d5w - encourage po intake heme - monitor cbc endo - check fs, niss lines - rij tlc, bennett ppx - gi/dvt full code Possible transfer to floor today
[2018-10-20] MEDS: KCL 20 MEQ/100 ML IVPREMIX* 20 MEQ/100 ML BAG IV SCH ×3 (08:50→13:09)
[2018-10-20] MEDS: OLANzapine TAB* 10 MG PO SCH ×2 (08:53→20:34)
[2018-10-20] MEDS: Atorvastatin* 20 MG TAB PO SCH (08:53)
[2018-10-20] MEDS: Metoprolol Tartrate TAB* 25 MG PO SCH ×2 (08:53→20:30)
[2018-10-20] MEDS: methylPREDNISolone SOD 40 MG* 1 ML VIAL IV SCH (08:54)
[2018-10-20] MEDS: Donepezil TAB* 5 MG PO SCH (08:54)
[2018-10-20] MEDS: Lisinopril TAB* 10 MG PO SCH (08:54)
[2018-10-20] MEDS: Sertraline* 100 MG TAB PO SCH (08:54)
[2018-10-20] MEDS: Aspirin 81 mg CHEW TAB* 81 MG TAB.CHEW NG TUBE SCH (08:54)
[2018-10-20] MEDS ORDERED: D5W 500 ML BAG* 500 ML IV SCH (09:00)
[2018-10-21] MEDS: hydrALAZINE IV* 20 MG/ML VIAL IV SLOW PU PRN (01:42)
[2018-10-21] MEDS: Vancomycin(*) 750 MG in NS 0.9% 250 ML* 250 ML IVPB SCH ×3 (05:27→22:07)
[2018-10-21] MEDS: Heparin VIAL(*) 5000 UNITS/ML VIAL (FIVE THOUSAND) SUBCUT SCH ×3 (05:27→22:07)
[2018-10-21 06:10] LABS: BUN/Creatinine Ratio 23.5 (8-20); Calcium 8.7 mg/dL (8.6-10.3); EGFR African American 116.8 (>60); EGFR Non-African American 96.6 (>60); Magnesium 1.9 mg/dL (1.9-2.7); Potassium 3.3 mmol/L (3.5-5.0)
[2018-10-21] MEDS: Donepezil TAB* 5 MG PO SCH (07:43)
[2018-10-21] MEDS: Aspirin 81 mg CHEW TAB* 81 MG TAB.CHEW NG TUBE SCH (07:43)
[2018-10-21] MEDS: Lisinopril TAB* 10 MG PO SCH (07:43)
[2018-10-21] MEDS: Metoprolol Tartrate TAB* 25 MG PO SCH ×2 (07:43→20:42)
[2018-10-21] MEDS: Atorvastatin* 20 MG TAB PO SCH (07:44)
[2018-10-21] MEDS: Sertraline* 100 MG TAB PO SCH (07:44)
[2018-10-21] MEDS: methylPREDNISolone SOD 40 MG* 1 ML VIAL IV SCH (07:45)
[2018-10-21] MEDS: OLANzapine TAB* 10 MG PO SCH ×2 (07:54→20:42)
[2018-10-21] MEDS: Acetaminophen ADULT LIQ* 650 MG/20.3 ML UDC NG TUBE PRN (08:14)
[2018-10-21] MEDS: Tiotropium CAP.INH* CAP.INH/18 MCG (USE ORDER SET !) INH SCH (08:17)
--- NOTE | 2018-10-21 08:45 | PN ---
Date of Service: 10/21/18 Critical Care Services: 63M with htn, hld, schizophrena, severe copd on home o2, ild presents with respiratory failure and was intubated at [place]. 10/17: propofol stopped this am. Patient unresponsive. 10/18: Patient more responsive this am. Will try for sbt and extubation if possible. 10/19: extubated yesterday to bipap. becoming hypernatremic. 10/20: did well on NC most of yesterday. Went back on bipap in afternoon. overall improving. 10/21: up for transfer Vital Signs: Temp Pulse Resp BP SpO2 FiO2 99.2 F 82 30 169/118 90 37 10/21/18 07:30 10/21/18 08:00 10/21/18 08:00 10/21/18 07:01 10/21/18 08:00 10/21 03:16 Physical Exam: Gen - nad heent - ncat, perrl neck - no jvd cv - s1/s2, no murmur lungs - cta, no wheeze abd - soft, nt, nd ext - no cce neuro - non-focal Fluid Balance (Past 24 Hours): I= O= Net Intake & Output 10/19/18 10/20/18 10/21/18 10/22/18 06:59 06:59 06:59 06:59 Intake Total 1077 4571 3959 Output Total 4985 2055 1870 Balance -3902 7526 2089 Weight 110.4 kg 112.1 kg 115 kg Intake: IV Fluids 403 1513 637 ABX - VANCOMYCIN 265 D5W 1207 611 NS 138 306 26 IVPB 674 788 813 ABX - VANCOMYCIN 570 788 813 ABX - ZOSYN 104 Medicated IV 309 KCL 20 mEq 309 Oral 2270 2200 Output: Urine 1525 Juarez 4985 2055 345 Other: Date of Last Bowel 10/18/18 10/21/18 Movement # Bowel Movements 1 1 Estimated Stool Amount Medium Large Medium Medium Labs: Laboratory Results - last 24 hr 10/20/18 10/20/18 10/21/18 05:18 12:10 05:35 Hem Pathologist Commnt Sodium 148 H Potassium 3.3 L Chloride 105 Carbon Dioxide 37 H Anion Gap 6 BUN 19 Creatinine 0.81 Est GFR ( Amer) 116.8 Est GFR (Non-Af Amer) 96.6 BUN/Creatinine Ratio 23.5 H Glucose 105 H POC Glucose (mg/dL) 185 H Calcium 8.7 Magnesium 1.9 Studies: CXR 10/15 IMPRESSION: #. Stigmata of chronic obstructive pulmonary disease. Linear basilar atelectasis. CT Chest 10/16 IMPRESSION: #. The constellation of findings is most consistent with advanced chronic obstructive pulmonary disease with associated interstitial fibrosis. The appearance is similar to a chest radiograph from December 22, 2015. #. Trace bilateral dependent pleural effusions and proportional basilar atelectasis. CTA Head 10/16 HEAD ANGIOGRAM IMPRESSION: Negative CT angiogram of the head. Impression: 63M with htn, hld, schizophrena, severe copd on home o2, ild presents with respiratory failure and was intubated at [place]. Plan: Neuro - AMS - improved mental status this am - c/w olanzapine/seertraline/donepezil CV - htn, hld, pulm htn - bp elevated - c/w asa/statin/acei/betablocker - pulm htn on tte, likely 2/2 lung disease - normal ef pulm - respiratory failure - 2/2 copd/ild - c/w nebs q4h - steroid taper - bipap prn id - staph epi and hominis in 3/4 bottles - likely contaminant but will treat for 7 days with vanco - zosyn stopped gi - diet as tolerated renal - hypernatremia - monitor lytes - monitor i/o - sodium improving heme - monitor cbc endo - check fs, niss lines - piv ppx - gi/dvt full code transfer to floor today
[2018-10-21] MEDS: Potassium Chloride LIQUID* 20 MEQ PACKET PO SCH ×2 (09:45→13:52)
[2018-10-21] MEDS ORDERED: Potassium Chlor TAB* 20 MEQ TAB.ER PO ONE (16:44)
[2018-10-22] MEDS: hydrALAZINE IV* 20 MG/ML VIAL IV SLOW PU PRN (02:22)
[2018-10-22] MEDS: Acetaminophen ADULT LIQ* 650 MG/20.3 ML UDC NG TUBE PRN (04:09)
[2018-10-22 05:06] LABS: Calcium 8.3 mg/dL (8.6-10.3); Magnesium 1.8 mg/dL (1.9-2.7); Potassium 3.5 mmol/L (3.5-5.0)
[2018-10-22 05:11] LABS: BUN/Creatinine Ratio 25.9 (8-20); EGFR African American 116.8 (>60); EGFR Non-African American 96.6 (>60)
[2018-10-22] MEDS: Heparin VIAL(*) 5000 UNITS/ML VIAL (FIVE THOUSAND) SUBCUT SCH ×3 (06:16→21:32)
[2018-10-22] MEDS ORDERED: Magnesium Sulfate 1 GM IV* 1 GM/100 ML BAG IV ONE (08:33)
--- NOTE | 2018-10-22 08:37 | PN ---
Date of Service: 10/22/18 Critical Care Services: 63M with htn, hld, schizophrena, severe copd on home o2, ild presents with respiratory failure and was intubated at [place]. 10/17: propofol stopped this am. Patient unresponsive. 10/18: Patient more responsive this am. Will try for sbt and extubation if possible. 10/19: extubated yesterday to bipap. becoming hypernatremic. 10/20: did well on NC most of yesterday. Went back on bipap in afternoon. overall improving. 10/21: up for transfer 10/22: doing well. awaiting floor bed. Vital Signs: Temp Pulse Resp BP SpO2 FiO2 98.6 F 83 27 154/93 90 36 10/22/18 07:33 10/22/18 07:00 10/22/18 07:00 10/22/18 04:01 10/22/18 07:00 10/22 03:38 Physical Exam: Gen - nad heent - ncat, perrl neck - no jvd cv - s1/s2, no murmur lungs - cta, no wheeze abd - soft, nt, nd ext - no cce neuro - non-focal Fluid Balance (Past 24 Hours): I= O= Net Intake & Output 10/20/18 10/21/18 10/22/18 10/23/18 06:59 06:59 06:59 06:59 Intake Total 4571 3959 1039.4 Output Total 2055 1870 1475 Balance 2516 2089 -435.6 Weight 112.1 kg 115 kg Intake: IV Fluids 1513 637 9.4 D5W 1207 611 NS 306 26 9.4 IVPB 788 813 250 ABX - VANCOMYCIN 788 813 250 Medicated IV 309 KCL 20 mEq 309 Oral 2270 2200 780 Output: Urine 1525 1475 Juarez 2055 345 Other: Date of Last Bowel 10/21/18 Movement # Bowel Movements 1 1 Estimated Stool Amount Large Medium Medium Labs: Laboratory Results - last 24 hr 10/22/18 04:47 Sodium 142 Potassium 3.5 Chloride 105 Carbon Dioxide 31 Anion Gap 6 BUN 21 Creatinine 0.81 Est GFR ( Amer) 116.8 Est GFR (Non-Af Amer) 96.6 BUN/Creatinine Ratio 25.9 H Glucose 129 H Calcium 8.3 L Magnesium 1.8 L Studies: CXR 10/15 IMPRESSION: #. Stigmata of chronic obstructive pulmonary disease. Linear basilar atelectasis. CT Chest 10/16 IMPRESSION: #. The constellation of findings is most consistent with advanced chronic obstructive pulmonary disease with associated interstitial fibrosis. The appearance is similar to a chest radiograph from December 22, 2015. #. Trace bilateral dependent pleural effusions and proportional basilar atelectasis. CTA Head 10/16 HEAD ANGIOGRAM IMPRESSION: Negative CT angiogram of the head. Impression: 63M with htn, hld, schizophrena, severe copd on home o2, ild presents with respiratory failure and was intubated at [place]. Plan: Neuro - AMS - improved mental status this am - c/w olanzapine/seertraline/donepezil CV - htn, hld, pulm htn - bp elevated - c/w asa/statin/acei/betablocker - pulm htn on tte, likely 2/2 lung disease - normal ef pulm - respiratory failure - 2/2 copd/ild - c/w nebs q4h - steroid taper - bipap prn id - staph epi and hominis in 3/4 bottles - completed 7 days of vanco gi - diet as tolerated renal - - monitor lytes - monitor i/o heme - monitor cbc endo - fs ok lines - piv ppx - gi/dvt full code transfer to floor today
[2018-10-22] MEDS: Tiotropium CAP.INH* CAP.INH/18 MCG (USE ORDER SET !) INH SCH (08:43)
[2018-10-22] MEDS: Atorvastatin* 20 MG TAB PO SCH (09:17)
[2018-10-22] MEDS: Donepezil TAB* 5 MG PO SCH (09:17)
[2018-10-22] MEDS: Aspirin 81 mg CHEW TAB* 81 MG TAB.CHEW NG TUBE SCH (09:17)
[2018-10-22] MEDS: Lisinopril TAB* 10 MG PO SCH (09:17)
[2018-10-22] MEDS: Sertraline* 100 MG TAB PO SCH (09:17)
[2018-10-22] MEDS: OLANzapine TAB* 10 MG PO SCH ×2 (09:17→20:18)
[2018-10-22] MEDS: Potassium Chloride LIQUID* 20 MEQ PACKET PO SCH ×2 (09:17→13:46)
[2018-10-22] MEDS: Metoprolol Tartrate TAB* 25 MG PO SCH ×2 (09:17→20:18)
[2018-10-22] MEDS ORDERED: Benzocaine/Menthol LOZ* 1 LOZENGE PO PRN (18:10)
--- NOTE | 2018-10-23 05:57 | PN ---
Progress Note - Progress Note Date of Service: 10/23/18 Note: Event note: Called to see patient, desaturated to 84% oxygen. Post nebulizer and 30 l/min oxygen maintaining O2sat 90%. Patient able to say a few words, seems confused. Says he is a little SOB, no chest pain. Has not been tolerating BiPAP on the floor, tears it off. Selected Entries 10/23/18 10/23/18 00:03 01:12 Temperature 36.3 C Pulse Rate 82 81 Respiratory 32 20 Rate Blood Pressure 139/80 (mmHg) O2 Sat by Pulse 84 94 Oximetry Oxygen Flow 4 Rate Lungs: rales at bases bilat, no wheezes Heart: RRR, no murmur No resp distress, no diaphoresis. Discussed case w/ Dr. Davies. He will accept back in ICU on NIPPV.
[2018-10-23] MEDS: Heparin VIAL(*) 5000 UNITS/ML VIAL (FIVE THOUSAND) SUBCUT SCH ×3 (05:59→21:38)
[2018-10-23] MEDS ORDERED: Haloperidol INJ IV/IM* 5 MG/ML AMP IV SLOW PU ONE (06:00)
[2018-10-23] MEDS: Albuterol/Ipratropium NEB.SOL* Albuterol 2.5 MG/Ipratropium 0.5 MG 3 ML INH PRN (06:35)
[2018-10-23] MEDS: Tiotropium CAP.INH* CAP.INH/18 MCG (USE ORDER SET !) INH SCH (07:00)
[2018-10-23 07:13] LABS: BUN/Creatinine Ratio 17.2 (8-20); Calcium 8.4 mg/dL (8.6-10.3); EGFR African American 99.6 (>60); EGFR Non-African American 82.3 (>60); Magnesium 1.9 mg/dL (1.9-2.7); Potassium 3.5 mmol/L (3.5-5.0)
[2018-10-23 08:10] LABS: Hematocrit 34 % (42-52); Hemoglobin 10.9 g/dl (14.0-18.0); Mean Corpuscular HGB Conc 32 g/dl (31-36); Mean Corpuscular Hemoglobin 28 pg (27-31); Mean Corpuscular Volume 87 fL (80-94); Mean Platelet Volume 9.9 fL (7.4-10.4); Platelet Count 141 10^3/ul (150-450); Red Blood Count 3.93 10^6/ul (4.00-5.40); Red Cell Distribution Width 15 % (10.5-15); White Blood Count 15.9 10^3/ul (3.5-10.8)
[2018-10-23] MEDS ORDERED: Piperacillin/Tazobac ADVAN(*) 3.375 GM in NS 0.9% 100 ML* 100 ML IVPB ONE (08:28)
--- NOTE | 2018-10-23 08:41 | PN ---
Date of Service: 10/23/18 Critical Care Services: 63M with htn, hld, schizophrena, severe copd on home o2, ild presents with respiratory failure and was intubated at [facility]. 10/17: propofol stopped this am. Patient unresponsive. 10/18: Patient more responsive this am. Will try for sbt and extubation if possible. 10/19: extubated yesterday to bipap. becoming hypernatremic. 10/20: did well on NC most of yesterday. Went back on bipap in afternoon. overall improving. 10/21: up for transfer 10/22: doing well. awaiting floor bed. 10/23: Did not wear bipap on the floor and decompensated requiring transfer back to ICU. New infiltrate on CXR. Vital Signs: Temp Pulse Resp BP SpO2 FiO2 98.3 F 89 26 154/89 90 100 10/23/18 07:42 10/23/18 07:31 10/23/18 07:31 10/23/18 07:31 10/23/18 07:10/23 06:33 Physical Exam: Gen - nad heent - ncat, perrl neck - no jvd cv - s1/s2, no murmur lungs - cta, no wheeze abd - soft, nt, nd ext - no cce neuro - non-focal Fluid Balance (Past 24 Hours): I= O= Net Intake & Output 10/21/18 10/22/18 10/23/18 10/24/18 06:59 06:59 06:59 06:59 Intake Total 3959 1039.4 840 Output Total 1870 1475 2100 Balance 2089 -435.6 -1260 Weight 115 kg Intake: IV Fluids 637 9.4 D5W 611 NS 26 9.4 IVPB 813 250 ABX - VANCOMYCIN 813 250 Medicated IV 309 KCL 20 mEq 309 Oral 2200 780 840 Output: Urine 1525 1475 2100 Juarez 345 Other: Date of Last Bowel 10/21/18 10/22/18 Movement # Bowel Movements 1 1 0 Estimated Stool Amount Medium Medium Small Labs: Laboratory Results - last 24 hr 10/23/18 10/23/18 10/23/18 06:33 06:40 06:45 WBC 15.9 H RBC 3.93 L Hgb 10.9 L Hct 34 L MCV 87 MCH 28 MCHC 32 RDW 15 Plt Count 141 L MPV 9.9 Patient Temperature Not Reportable ABG pH 7.45 ABG pCO2 54 H ABG pO2 130 H ABG HCO3 33.8 H ABG O2 Saturation 99.6 H ABG Base Excess 11.4 H Respiration Rate Not Reportable O2 Delivery Device bipap Ventilator Type Not Reportable Vent Mode Not Reportable FiO2 100 Inspiratory Time Not Reportable PEEP Not Reportable Pressure Support Not Reportable Pressure Control Not Reportable EPAP 5 IPAP 10 BiPAP Not Reportable Sodium 145 Potassium 3.5 Chloride 105 Carbon Dioxide 33 H Anion Gap 7 BUN 16 Creatinine 0.93 Est GFR ( Amer) 99.6 Est GFR (Non-Af Amer) 82.3 BUN/Creatinine Ratio 17.2 Glucose 114 H Calcium 8.4 L Magnesium 1.9 Studies: CXR 10/15 IMPRESSION: #. Stigmata of chronic obstructive pulmonary disease. Linear basilar atelectasis. CT Chest 10/16 IMPRESSION: #. The constellation of findings is most consistent with advanced chronic obstructive pulmonary disease with associated interstitial fibrosis. The appearance is similar to a chest radiograph from December 22, 2015. #. Trace bilateral dependent pleural effusions and proportional basilar atelectasis. CTA Head 10/16 HEAD ANGIOGRAM IMPRESSION: Negative CT angiogram of the head. Impression: 63M with htn, hld, schizophrena, severe copd on home o2, ild presents with respiratory failure and was intubated at [facility]. Plan: Neuro - AMS - improved mental status this am - c/w olanzapine/seertraline/donepezil CV - htn, hld, pulm htn - bp elevated - c/w asa/statin/acei/betablocker - pulm htn on tte, likely 2/2 lung disease - normal ef pulm - respiratory failure - 2/2 copd/ild - c/w nebs q4h - steroid taper - bipap prn id - new infiltrate on cxr - wbc increased - restart vanc zosyn - repeat cultures gi - diet as tolerated renal - - monitor lytes - monitor i/o heme - monitor cbc endo - fs ok lines - piv ppx - gi/dvt full code Critical Care Time: 55 mins
[2018-10-23] MEDS ORDERED: Zosyn per Pharmacy* NOTE FOLLOW UP SCH (09:00)
[2018-10-23] MEDS ORDERED: Vancomycin(*) 1,000 MG VIAL IVPB SCH (09:00)
[2018-10-23] MEDS ORDERED: Vancomycin(*) 1,750 MG in NS 0.9% 500 ML* 500 ML IVPB ONE (09:30)
[2018-10-23] MEDS: Metoprolol Tartrate TAB* 25 MG PO SCH ×2 (09:57→21:38)
[2018-10-23] MEDS: Lisinopril TAB* 10 MG PO SCH (09:57)
[2018-10-23] MEDS: Donepezil TAB* 5 MG PO SCH (09:57)
[2018-10-23] MEDS: Aspirin 81 mg CHEW TAB* 81 MG TAB.CHEW NG TUBE SCH (09:57)
[2018-10-23] MEDS: Sertraline* 100 MG TAB PO SCH (09:57)
[2018-10-23] MEDS: Atorvastatin* 20 MG TAB PO SCH (09:57)
[2018-10-23] MEDS ORDERED: Furosemide IV* 10 MG/ML 2 ML VIAL (20 MG) IV SLOW PU ONE (10:06)
[2018-10-23] MEDS: OLANzapine TAB* 10 MG PO SCH ×2 (11:22→21:38)
[2018-10-23] MEDS ORDERED: Vancomycin per Pharmacy* NOTE FOLLOW UP PRN (11:47)
[2018-10-23] MEDS: ZOSYN 3.375 GM Q8H per EXTENDED INFUSION IVPB SCH ×4 (15:17→23:32)
[2018-10-23] MEDS: Vancomycin(*) 750 MG in NS 0.9% 250 ML* 250 ML IVPB SCH (21:35)
[2018-10-24] MEDS: Vancomycin(*) 750 MG in NS 0.9% 250 ML* 250 ML IVPB SCH ×3 (05:08→20:46)
[2018-10-24 05:32] LABS: Hematocrit 32 % (42-52); Hemoglobin 10.2 g/dl (14.0-18.0); Mean Corpuscular HGB Conc 32 g/dl (31-36); Mean Corpuscular Hemoglobin 28 pg (27-31); Mean Corpuscular Volume 88 fL (80-94); Mean Platelet Volume 9.3 fL (7.4-10.4); Platelet Count 154 10^3/ul (150-450); Red Blood Count 3.67 10^6/ul (4.00-5.40); Red Cell Distribution Width 15 % (10.5-15); White Blood Count 14.8 10^3/ul (3.5-10.8)
[2018-10-24 05:46] LABS: BUN/Creatinine Ratio 15.5 (8-20); Calcium 8.2 mg/dL (8.6-10.3); EGFR African American 88.5 (>60); EGFR Non-African American 73.2 (>60); Magnesium 1.9 mg/dL (1.9-2.7); Potassium 3.4 mmol/L (3.5-5.0)
[2018-10-24 05:52] LABS: ABS Basophils 0.1 10^3/ul (0-0.2); ABS Eosinophils 0.3 10^3/ul (0-0.6); ABS Lymphocytes 1.3 10^3/ul (1.0-4.8); ABS Monocytes 1.5 10^3/ul (0-0.8); ABS Neutrophils 11.6 10^3/ul (1.5-7.7)
[2018-10-24 05:54] LABS: Lymphocytes % 7 %; Monocytes % 7 %; Neutrophil % 86 %
[2018-10-24 05:55] LABS: ABS Neutrophils 12.7 10^3/ul (1.5-7.7)
[2018-10-24] MEDS: Heparin VIAL(*) 5000 UNITS/ML VIAL (FIVE THOUSAND) SUBCUT SCH ×3 (06:39→20:41)
[2018-10-24] MEDS: ZOSYN 3.375 GM Q8H per EXTENDED INFUSION IVPB SCH ×6 (06:39→22:37)
--- NOTE | 2018-10-24 09:46 | PN ---
Date of Service: 10/24/18 - HD 9 Critical Care Services: 63 yo M with HTN, HLD, schizophrenia, severe COPD on home O2 presented on 10/16 to [facility] with acute on chronic hypercapneic respiratory failure requiring intubation 10/17: Sedation vacation, remains unresponsive 10/18: improving mental status. Passed SBT and extubated 10/19: on BiPAP. increasing hypernatremia 10/20: weaned to NC. 10/22: transfer to floor 10/23: did not wear BiPAP overnight with subsequent decompensation. Transferred back to ICU. New infiltrate on CXR 10/24: no overnight events Vital Signs: Temp Pulse Resp BP SpO2 FiO2 98.9 F 70 22 108/74 97 70 10/24/18 03:20 10/24/18 08:01 10/24/18 08:01 10/24/18 08:01 10/24/18 08:00 10/24 04:00 Physical Exam: Gen:resting comfortably HEENT: intact, moist mucus membranes Lungs: clear, distant bilaterally Cardiac: RRR Abdomen: soft, nontender Extremities: warm, dry, bilateral edema present Neuro: alert and oriented. conversant Fluid Balance (Past 24 Hours): I= O= Net Intake & Output 10/22/18 10/23/18 10/24/18 10/25/18 06:59 06:59 06:59 06:59 Intake Total 1039.4 840 1775 Output Total 1475 2100 1999 Balance -435.6 -1260 -225 Weight 257 lb 15.053 oz Intake: IV Fluids 9.4 615 ABX 500 NS 9.4 115 IVPB 250 760 ABX - VANCOMYCIN 250 550 ABX - ZOSYN 210 Oral 780 840 400 Output: Urine 1475 2100 1999 Other: Estimated Void Medium Date of Last Bowel 10/21/18 10/22/18 Movement # Bowel Movements 1 0 Estimated Stool Amount Medium Small # Voids 1 ADLs: Meal Record Start: 10/15/18 20: 48 Freq: , Status: Inactive Protocol: Created 10/15/18 20:48 System (Rec: 10/15/18 20:48 System ICU-C12) Document 10/17/18 09:00 AYJ2481 (Rec: 10/17/18 09:16 SMD5633 ICU-C10) Document 10/17/18 13:00 BCY0284 (Rec: 10/17/18 14:02 BAB9322 ICU-C10) Document 10/17/18 18:00 ZVT2197 (Rec: 10/17/18 18:04 UDQ1047 ICU-C10) Document 10/18/18 12:51 JCB8000 (Rec: 10/18/18 12:51 AXU1253 ICU-C16) Document 10/18/18 18:00 XUJ2085 (Rec: 10/18/18 18:16 BWE8415 ICU-C16) Document 10/19/18 13:20 YRL1365 (Rec: 10/19/18 13:26 SFE5846 ICU-C14) Document 10/19/18 18:00 MAL9048 (Rec: 10/19/18 18:29 FZH9728 ICU-C06) Document 10/20/18 09:00 YGO0556 (Rec: 10/20/18 10:50 NRW3175 ICU-C10) Document 10/20/18 14:12 SBD5045 (Rec: 10/20/18 14:13 EBU2467 ICU-C10) Document 10/20/18 18:00 LRT6050 (Rec: 10/20/18 18:02 CEN5929 ICU-C10) Document 10/21/18 09:00 CPB9413 (Rec: 10/21/18 11:29 URT5457 ICU-C16) ADLs: Meal Record Start: 10/21/18 12: 46 Freq: DAILY@0900,1400,1800 Status: Complete Protocol: Created 10/21/18 12:46 GTM1118 (Rec: 10/21/18 12:46 PGR8371 ICU-C06) Document 10/21/18 14:00 RJZ7738 (Rec: 10/21/18 14:12 NND2817 ICU-C06) Document 10/21/18 18:00 LYN1577 (Rec: 10/21/18 19:31 LKX5218 ICU-C07) Document 10/22/18 09:00 OYR4287 (Rec: 10/22/18 12:47 WUE1487 MED-C13) Document 10/22/18 14:00 AVQ5855 (Rec: 10/22/18 15:02 STK3505 MED-C15) Document 10/22/18 18:00 HBP7378 (Rec: 10/22/18 22:38 CFC6119 MED-C02) ADLs: Meal Record Start: 10/23/18 06: 30 Freq: 09,13,18 Status: Active Protocol: Created 10/23/18 06:30 VRG0872 (Rec: 10/23/18 06:30 LTH2774 ICU-M30) Document 10/23/18 10:00 VEW8749 (Rec: 10/23/18 10:57 LHM3348 ICU-C15) Document 10/23/18 13:00 LXY4680 (Rec: 10/23/18 18:22 TVM6926 ICU-C15) Document 10/23/18 20:00 GRD5496 (Rec: 10/23/18 21:14 AYM2665 ICU-C15) Intake and Output Start: 10/15/18 20: 48 Freq: Q4HR Status: Inactive Protocol: Created 10/15/18 20:48 System (Rec: 10/15/18 20:48 System ICU-C12) Document 10/15/18 23:00 XKP9685 (Rec: 10/16/18 00:36 TLZ4872 ICU-C16) Document 10/16/18 00:00 HUI8661 (Rec: 10/16/18 00:36 JVU4789 ICU-C16) Document 10/16/18 00:41 YOG8977 (Rec: 10/16/18 00:41 YNX4797 ICU-C16) Document 10/16/18 02:00 HRK3302 (Rec: 10/16/18 02:18 MFZ9124 ICU-C16) Document 10/16/18 03:00 LRU0747 (Rec: 10/16/18 04:15 KMI9352 ICU-C16) Document 10/16/18 04:00 MBF8140 (Rec: 10/16/18 04:15 QXP2114 ICU-C16) Document 10/16/18 05:00 QPQ1954 (Rec: 10/16/18 06:00 PBT6179 ICU-C16) Document 10/16/18 06:00 HKK1576 (Rec: 10/16/18 06:56 TAO7858 ICU-C16) Document 10/16/18 07:00 XAD6901 (Rec: 10/16/18 07:00 MQW4703 ICU-C15) Document 10/16/18 07:42 XWC9061 (Rec: 12/29/18 07:42 BMN2821 ICU-M28) Document 10/16/18 08:00 ANJ6078 (Rec: 10/16/18 09:56 RCH9402 ICU-C15) Document 10/16/18 11:00 NWT2363 (Rec: 10/16/18 13:11 GYU9133 ICU-M28) Document 10/16/18 12:00 YQZ0683 (Rec: 10/16/18 13:21 QCU8756 ICU-M28) Document 10/16/18 13:00 EAL6517 (Rec: 10/16/18 13:41 OYJ4501 ICU-M28) Document 10/16/18 14:00 KBQ6687 (Rec: 10/16/18 14:35 NVX9004 ICU-C15) Document 10/16/18 15:00 CHT7448 (Rec: 10/16/18 16:54 BOC5384 ICU-M28) Document 10/16/18 16:00 XDM3787 (Rec: 10/16/18 16:54 NLY9550 ICU-M28) Document 10/16/18 17:00 SYE2563 (Rec: 10/16/18 17:12 FVI7123 ICU-C15) Document 10/16/18 18:00 DMZ3388 (Rec: 10/16/18 18:15 TEB6288 ICU-C15) Document 10/16/18 20:00 VBG9153 (Rec: 10/16/18 20:23 TCK5663 ICU-M28) Document 10/16/18 21:00 JPU6499 (Rec: 10/16/18 22:03 UBN4408 ICU-C10) Document 10/16/18 22:00 PSZ0984 (Rec: 10/16/18 22:03 AWF8714 ICU-C10) Document 10/16/18 23:00 UYR7153 (Rec: 10/17/18 00:45 OXR4755 ICU-C10) Document 10/17/18 00:00 MLR5646 (Rec: 10/17/18 00:45 YBY3209 ICU-C10) Document 10/17/18 01:00 AZF4351 (Rec: 10/17/18 01:08 LLZ8768 ICU-C10) Document 10/17/18 02:00 DZV5822 (Rec: 10/17/18 02:02 ZER3308 ICU-C10) Document 10/17/18 03:00 QQC6227 (Rec: 10/17/18 04:15 OVN4854 ICU-C10) Document 10/17/18 04:00 TAH5608 (Rec: 10/17/18 04:15 CPS1929 ICU-C10) Document 10/17/18 05:00 SXJ4639 (Rec: 10/17/18 07:05 OTC6075 ICU-C10) Document 10/17/18 06:00 KES7716 (Rec: 10/17/18 07:05 VGK4682 ICU-C10) Document 10/17/18 07:00 AHA3473 (Rec: 10/17/18 07:05 AEE0385 ICU-C10) Document 10/17/18 08:00 QWT6333 (Rec: 10/17/18 09:11 DSM7480 ICU-C10) Document 10/17/18 09:00 GKE7602 (Rec: 10/17/18 09:11 ICX2726 ICU-C10) Document 10/17/18 10:00 HMX2735 (Rec: 10/17/18 10:51 NWA1206 ICU-M28) Document 10/17/18 10:51 KBV7365 (Rec: 10/17/18 10:51 LEJ9235 ICU-M28) Document 10/17/18 13:04 XTN4728 (Rec: 10/17/18 13:06 KAY6472 ICU-C25) Document 10/17/18 14:00 ZUR0171 (Rec: 10/17/18 14:02 WFA0529 ICU-C10) Document 10/17/18 15:00 JUV1609 (Rec: 10/17/18 15:02 YER0466 ICU-M28) Document 10/17/18 16:00 TWM4243 (Rec: 10/17/18 17:05 HPE7333 ICU-M28) Document 10/17/18 17:00 HIA1265 (Rec: 10/17/18 17:05 HIP7415 ICU-M28) Document 10/17/18 18:00 TMH3786 (Rec: 10/17/18 18:15 FQB3018 ICU-M28) Document 10/17/18 19:00 AWT0566 (Rec: 10/17/18 20:54 PNX7724 ICU-C15) Document 10/17/18 20:00 IOH9404 (Rec: 10/17/18 23:39 SUZ1298 ICU-C15) Document 10/17/18 21:00 HVX7290 (Rec: 10/17/18 23:40 KSG4714 ICU-C15) Document 10/17/18 22:00 YPT7695 (Rec: 10/17/18 23:43 RLT6976 ICU-C15) Document 10/17/18 23:00 MPU1114 (Rec: 10/17/18 23:44 HCO0469 ICU-C15) Document 10/18/18 01:00 LRV4359 (Rec: 10/18/18 01:10 NPF6482 ICU-C15) Document 10/18/18 02:00 VSB0999 (Rec: 10/18/18 02:13 HMP7631 ICU-C15) Document 10/18/18 03:00 AUV0274 (Rec: 10/18/18 03:03 ULV3051 ICU-C15) Document 10/18/18 04:00 LDP4837 (Rec: 10/18/18 04:46 IBV2504 ICU-C15) Document 10/18/18 05:00 XLZ9322 (Rec: 10/18/18 05:37 BQK6973 ICU-M28) Document 10/18/18 06:00 VVP3230 (Rec: 10/18/18 06:09 JIX8756 ICU-C15) Document 10/18/18 07:00 AWW6764 (Rec: 10/18/18 07:41 TTE5454 ICU-C16) Document 10/18/18 07:42 AEY2786 (Rec: 10/18/18 07:56 GVD9476 ICU-C16) Document 10/18/18 09:00 BKC4679 (Rec: 10/18/18 10:17 HZV7987 ICU-C16) Document 10/18/18 10:00 FRF7382 (Rec: 10/18/18 10:17 YXB0126 ICU-C16) Document 10/18/18 11:00 MVB7529 (Rec: 10/18/18 12:18 ERG0626 ICU-C16) Document 10/18/18 12:00 KTH6787 (Rec: 10/18/18 12:18 NLQ7424 ICU-C16) Document 10/18/18 13:00 FGI8871 (Rec: 10/18/18 14:12 TJC0830 ICU-C16) Document 10/18/18 14:00 SWZ5194 (Rec: 10/18/18 14:12 AWV9427 ICU-C16) Document 10/18/18 15:00 JOP9617 (Rec: 10/18/18 15:00 ONP2003 ICU-C16) Document 10/18/18 15:34 AUE8502 (Rec: 10/18/18 16:11 CZE1206 ICU-C16) Document 10/18/18 16:24 VVC7256 (Rec: 10/18/18 16:24 IHM1817 ICU-C16) Document 10/18/18 17:00 OUS2369 (Rec: 10/18/18 18:14 NFP4535 ICU-C16) Document 10/18/18 18:00 NLO6079 (Rec: 10/18/18 18:14 VIJ5495 ICU-C16) Document 10/18/18 19:00 ZAD9135 (Rec: 10/18/18 19:04 DMY9203 ICU-C16) Document 10/18/18 20:00 CRR5734 (Rec: 10/18/18 21:09 PGW0713 ICU-C16) Document 10/18/18 21:00 XPK1146 (Rec: 10/18/18 21:09 LJB0117 ICU-C16) Document 10/18/18 22:00 FRZ3337 (Rec: 10/18/18 22:30 AIJ7464 ICU-C16) Document 10/18/18 23:41 TPO1772 (Rec: 10/18/18 23:41 WIV1069 ICU-M28) Document 10/19/18 00:38 JQU3352 (Rec: 10/19/18 00:39 TWK4842 ICU-M28) Document 10/19/18 01:28 ZLJ7203 (Rec: 10/19/18 01:28 LRD2233 ICU-C10) Document 10/19/18 03:13 NUL3069 (Rec: 10/19/18 03:13 MZQ2895 ICU-C10) Document 10/19/18 04:42 VAP7371 (Rec: 10/19/18 04:43 OPC3787 ICU-C10) Document 10/19/18 06:23 TMZ0718 (Rec: 10/19/18 06:23 PKD6920 ICU-C10) Document 10/19/18 09:00 GLN2803 (Rec: 10/19/18 09:01 ZUG2700 ICU-C10) Document 10/19/18 11:00 AXV9655 (Rec: 10/19/18 11:12 LRP1998 ICU-C10) Document 10/19/18 13:00 VUV3911 (Rec: 10/19/18 13:12 IUJ5101 ICU-M28) Document 10/19/18 14:00 PWJ3240 (Rec: 10/19/18 18:18 OGB4141 ISDEMO-M03 ) Document 10/19/18 16:21 OXK3513 (Rec: 10/19/18 16:22 QMH2306 ICU-C10) Document 10/19/18 19:00 XXW9017 (Rec: 10/19/18 19:22 LGX7611 ICU-C16) Document 10/19/18 20:00 NYO6087 (Rec: 10/19/18 20:51 DEQ4554 ICU-C16) Document 10/19/18 21:00 DAO4570 (Rec: 10/19/18 21:21 JOB9117 ICU-C16) Document 10/19/18 22:00 OJC2722 (Rec: 10/19/18 22:15 SJL4606 ICU-C16) Document 10/19/18 23:00 VYJ6613 (Rec: 10/20/18 00:14 FVY6834 ICU-C16) Document 10/20/18 00:00 HUS7541 (Rec: 10/20/18 00:20 CNJ0304 ICU-C16) Document 10/20/18 00:57 DIR1700 (Rec: 10/20/18 00:57 TXG2373 ICU-C16) Document 10/20/18 01:53 BBM2451 (Rec: 10/20/18 01:53 JPU9940 ICU-C16) Document 10/20/18 02:28 KYP5884 (Rec: 10/20/18 02:28 OWE0331 ICU-C16) Document 10/20/18 03:00 LJC3209 (Rec: 10/20/18 03:26 OOA3783 ICU-C16) Document 10/20/18 03:26 ASM4459 (Rec: 10/20/18 03:26 TAP9337 ICU-C16) Document 10/20/18 05:25 NJS4117 (Rec: 10/20/18 05:25 XXR3285 ICU-C16) Document 10/20/18 06:00 DOL6378 (Rec: 10/20/18 06:19 NYD8638 ICU-C16) Document 10/20/18 07:00 EPL3954 (Rec: 10/20/18 07:43 NOJ5064 ICU-C10) Document 10/20/18 10:48 SCX9660 (Rec: 10/20/18 10:48 CMZ9573 ICU-C10) Document 10/20/18 17:38 QXO3052 (Rec: 10/20/18 17:40 ZZZ6656 ICU-C10) Document 10/20/18 19:52 NKZ7712 (Rec: 10/20/18 20:10 NAR4092 ICU-C16) Document 10/20/18 23:33 GKJ6664 (Rec: 10/20/18 23:33 DYE8581 ICU-C16) Document 10/21/18 04:00 OPT4559 (Rec: 10/21/18 04:07 ZEH4757 ICU-C16) Document 10/21/18 05:42 CQT4237 (Rec: 10/21/18 05:42 MFX8380 ICU-M28) Document 10/21/18 08:34 ODE5591 (Rec: 10/21/18 08:34 GKT1361 ICU-C16) Intake and Output Start: 10/21/18 12: 46 Freq: DAILY@0600,1400,2200 Status: Complete Protocol: Created 10/21/18 12:46 SKO0044 (Rec: 10/21/18 12:46 CIZ2007 ICU-C06) Document 10/21/18 14:00 ZJN0695 (Rec: 10/21/18 15:26 VIF7028 ICU-C56) Document 10/22/18 06:00 QJQ5081 (Rec: 10/22/18 06:16 CPE9640 ICU-C07) Document 10/22/18 10:21 ETR5753 (Rec: 10/22/18 10:21 QGC3875 ICU-C07) Document 10/22/18 14:00 BUE3929 (Rec: 10/22/18 15:23 BDD4676 MED-C13) Document 10/22/18 22:00 UDX5000 (Rec: 10/22/18 22:43 TIY3709 MED-C02) Intake and Output Start: 10/23/18 06: 30 Freq: Q1HR Status: Active Protocol: Created 10/23/18 06:30 IKJ9571 (Rec: 10/23/18 06:30 CJP9653 ICU-M30) Document 10/23/18 10:00 PRB0648 (Rec: 10/23/18 10:57 HIR6807 ICU-C15) Document 10/23/18 12:00 FWY4730 (Rec: 10/23/18 12:23 HZQ0133 ICU-C20) Document 10/23/18 16:00 KVN4186 (Rec: 10/23/18 17:48 GOV7627 ICU-C15) Document 10/23/18 21:00 MVU8286 (Rec: 10/23/18 21:14 DKX8950 ICU-C15) Document 10/23/18 22:00 DEY3458 (Rec: 10/23/18 22:57 QTS4161 ICU-C15) Document 10/23/18 23:07 ZOM1581 (Rec: 10/23/18 23:07 BEA1549 ICU-M32) Document 10/24/18 05:00 VFP7936 (Rec: 10/24/18 05:38 HMP4118 ICU-C15) Document 10/24/18 06:00 XBL7175 (Rec: 10/24/18 06:19 TYU8330 ICU-C15) Labs: Laboratory Results - last 24 hr 10/23/18 10/24/18 10/24/18 09:20 05:22 05:22 WBC 14.8 H RBC 3.67 L Hgb 10.2 L Hct 32 L MCV 88 MCH 28 MCHC 32 RDW 15 Plt Count 154 MPV 9.3 Neut % (Auto) Not Reportable Lymph % (Auto) Not Reportable [place] % (Auto) Not Reportable Eos % (Auto) Not Reportable Baso % (Auto) Not Reportable Absolute Neuts (auto) 11.6 H Absolute Lymphs (auto) 1.3 Absolute Monos (auto) 1.5 H Absolute Eos (auto) 0.3 Absolute Basos (auto) 0.1 Absolute Nucleated RBC Not Reportable Neutrophils % 86 Lymphocytes % 7 Monocytes % 7 Nucleated RBC % Not Reportable Abs Neuts (Manual) 12.7 H Abs Lymphs (Manual) 1.0 Abs Monocytes (Manual) 1.0 H Normal RBC Morphology Normal Sodium 144 Potassium 3.4 L Chloride 104 Carbon Dioxide 36 H Anion Gap 4 BUN 16 Creatinine 1.03 Est GFR ( Amer) 88.5 Est GFR (Non-Af Amer) 73.2 BUN/Creatinine Ratio 15.5 Glucose 114 H Lactic Acid 0.8 Calcium 8.2 L Magnesium 1.9 Nutrition: Bedside swallow eval to assess for aspiration. heart healthy diet if passes. Impression: 63 yo M with HTN, HLD, shcizophrenia, severe COPD with home O2 requirement, presented with acute on chronic hypercapneic respiratory failure; intubated at [facility]. Plan: Acute on chronic hypercapneic respiratory failure - improving ABG 7.45/54/130/33.8/11.4/99.6, at baseline continue BiPAP at night and as needed. COPD exacerbation - improving continue bronchodilators, steroids, antibiotics New aspiration pneumonia with sepsis- stable WBC 14.8 from 15.9 CXR on 10/23 with increased RLL infiltrate as compared to 10/16 CXR continue Zosyn and Vancomycin. Repeat cultures pending. Nursing bedside swallow eval today. If fails, will plan for speech eval tomorrow. Schizophrenia, chronic - stable continue home olanzapine, sertraline, donepezil HTN - stable continue home Lisinopril and Metoprolol Pulmonary HTN identified on TTE, felt to be likely secondary to chronic, advanced lung disease HLD - continue home Atorvastatin Anemia - stable Hgb 10.2 from 10.9; follow trend Hypernatremia - resolved Na 144 from 145, follow trend Hypokalemia K 3.4, replace Hyperglycemia - BG 114, monitor, start SSI if > 180 Pulmonary edema received Lasix x 1 yesterday, repeat today check ProBNP DVT prophylaxis: SQ Heparin Critical Care Time: 45 min
[2018-10-24] MEDS: Aspirin 81 mg CHEW TAB* 81 MG TAB.CHEW NG TUBE SCH (09:54)
[2018-10-24] MEDS: Lisinopril TAB* 10 MG PO SCH (09:54)
[2018-10-24] MEDS: Sertraline* 100 MG TAB PO SCH (09:54)
[2018-10-24] MEDS: Atorvastatin* 20 MG TAB PO SCH (09:54)
[2018-10-24] MEDS: OLANzapine TAB* 10 MG PO SCH ×2 (09:54→20:40)
[2018-10-24] MEDS: Donepezil TAB* 5 MG PO SCH (09:54)
[2018-10-24] MEDS: Metoprolol Tartrate TAB* 25 MG PO SCH ×2 (09:54→20:40)
[2018-10-24] MEDS ORDERED: Furosemide IV* 10 MG/ML VIAL (40 MG) IV ONE (10:27)
[2018-10-24] MEDS ORDERED: Vancomycin Trough Check NOTE FOLLOW UP ONE (13:00)
[2018-10-24] MEDS: Tiotropium CAP.INH* CAP.INH/18 MCG (USE ORDER SET !) INH SCH (13:19)
[2018-10-24] MEDS: Docusate CAP* 100 MG PO SCH ×2 (14:00→20:40)
[2018-10-24 22:59] LABS: Activated Partial Thrombo Time 30.2 seconds (26.0-36.3); INR 1.13 (0.77-1.02)
[2018-10-25] MEDS: Vancomycin(*) 750 MG in NS 0.9% 250 ML* 250 ML IVPB SCH ×3 (05:19→21:32)
[2018-10-25] MEDS: Heparin VIAL(*) 5000 UNITS/ML VIAL (FIVE THOUSAND) SUBCUT SCH ×3 (06:21→21:32)
--- NOTE | 2018-10-25 07:28 | PN ---
Date of Service: 10/25/18 - HD 11 Critical Care Services: 63 yo M with HTN, HLD, schizophrenia, severe COPD on home O2 presented on 10/16 to [facility] with acute on chronic hypercapneic respiratory failure requiring intubation 10/17: Sedation vacation, remains unresponsive 10/18: Improving mental status. Passed SBT and extubated 10/19: On BiPAP, increasing hypernatremia 10/20: Weaned to NC 10/22: Transferred to floor 10/23: Did not wear BiPAP overnight with subsequent decompensation. Transferred back to ICU. New infiltrate on CXR 10/25: Overnight developed hemoptysis. Switched from BiPAP to Highflow/ vapotherm. INR normal. ASA and Heparin SQ held. Vital Signs: Temp Pulse Resp BP SpO2 FiO2 97.9 F 97 29 127/84 92 100 10/25/18 04:00 10/25/18 06:01 10/25/18 06:01 10/25/18 06:00 10/25/18 06:01 10/25 04:00 Physical Exam: Gen: alert, conversant HEENT: Vapotherm cannula in place Lungs: distant but clear bilaterally Cardiac: RRR Abdomen: soft, nontender Extremities: warm, dry, moderate edema Neuro: alert and oriented Fluid Balance (Past 24 Hours): I= O= Net Intake & Output 10/23/18 10/24/18 10/25/18 10/26/18 06:59 06:59 06:59 06:59 Intake Total 840 1775 2730 Output Total 2099 1999 2949 Balance -1260 -225 -220 Weight 257 lb 15.053 oz 257 lb 7.999 oz Intake: IV Fluids 615 63 ABX 500 NS 115 63 IVPB 760 747 ABX - VANCOMYCIN 550 512 ABX - ZOSYN 210 235 Oral 276 775 1534 Output: Urine 2099 1999 2950 Other: Estimated Void Medium Medium Date of Last Bowel 10/22/18 Movement # Bowel Movements 0 Estimated Stool Amount Small Large # Voids 1 0 ADLs: Meal Record Start: 10/15/18 20: 48 Freq: ,, Status: Inactive Protocol: Created 10/15/18 20:48 System (Rec: 10/15/18 20:48 System ICU-C12) Document 10/17/18 09:00 JYF1570 (Rec: 10/17/18 09:16 CWA5603 ICU-C10) Document 10/17/18 13:00 CNK4451 (Rec: 10/17/18 14:02 MOO5992 ICU-C10) Document 10/17/18 18:00 NKP5827 (Rec: 10/17/18 18:04 CLI9967 ICU-C10) Document 10/18/18 12:51 VLO6460 (Rec: 10/18/18 12:51 HTC6238 ICU-C16) Document 10/18/18 18:00 RYQ8768 (Rec: 10/18/18 18:16 DIP9217 ICU-C16) Document 10/19/18 13:20 LIP7864 (Rec: 10/19/18 13:26 NRE5025 ICU-C14) Document 10/19/18 18:00 ZLL7496 (Rec: 10/19/18 18:29 PLV1866 ICU-C06) Document 10/20/18 09:00 FFK9011 (Rec: 10/20/18 10:50 QTQ0695 ICU-C10) Document 10/20/18 14:12 UWN3105 (Rec: 10/20/18 14:13 TPH9023 ICU-C10) Document 10/20/18 18:00 IQY1034 (Rec: 10/20/18 18:02 VIB6781 ICU-C10) Document 10/21/18 09:00 TPN8958 (Rec: 10/21/18 11:29 NGP1289 ICU-C16) ADLs: Meal Record Start: 10/21/18 12: 46 Freq: DAILY@0900,1400,1800 Status: Complete Protocol: Created 10/21/18 12:46 BFU1150 (Rec: 10/21/18 12:46 HDV4212 ICU-C06) Document 10/21/18 14:00 XWP9665 (Rec: 10/21/18 14:12 VJV0682 ICU-C06) Document 10/21/18 18:00 RNP6913 (Rec: 10/21/18 19:31 DME9937 ICU-C07) Document 10/22/18 09:00 PHF1014 (Rec: 10/22/18 12:47 TTG1621 MED-C13) Document 10/22/18 14:00 QYL5583 (Rec: 10/22/18 15:02 HBU3036 MED-C15) Document 10/22/18 18:00 RSJ2074 (Rec: 10/22/18 22:38 ALA7530 MED-C02) ADLs: Meal Record Start: 10/23/18 06: 30 Freq: 09,13,18 Status: Active Protocol: Created 10/23/18 06:30 NOW9832 (Rec: 10/23/18 06:30 HQC4171 ICU-M30) Document 10/23/18 10:00 ZLG5253 (Rec: 10/23/18 10:57 BKJ2062 ICU-C15) Document 10/23/18 13:00 YSH9712 (Rec: 10/23/18 18:22 LNT1879 ICU-C15) Document 10/23/18 20:00 MDB3528 (Rec: 10/23/18 21:14 AEX4148 ICU-C15) Document 10/24/18 10:54 FWN0888 (Rec: 10/24/18 10:54 TCP3060 ICU-C15) Document 10/24/18 13:00 CPH1825 (Rec: 10/24/18 14:21 BLY8087 ICU-C15) Document 10/24/18 19:13 YIE8541 (Rec: 10/24/18 19:14 GXF5370 ICU-C16) Intake and Output Start: 10/15/18 20: 48 Freq: Q4HR Status: Inactive Protocol: Created 10/15/18 20:48 System (Rec: 10/15/18 20:48 System ICU-C12) Document 10/15/18 23:00 YCA3792 (Rec: 10/16/18 00:36 BXK2659 ICU-C16) Document 10/16/18 00:00 YCD8299 (Rec: 10/16/18 00:36 GUV3133 ICU-C16) Document 10/16/18 00:41 WIR2900 (Rec: 10/16/18 00:41 CXD6759 ICU-C16) Document 10/16/18 02:00 AON7575 (Rec: 10/16/18 02:18 SDG9629 ICU-C16) Document 10/16/18 03:00 XVI3078 (Rec: 10/16/18 04:15 BNL4282 ICU-C16) Document 10/16/18 04:00 CXD7931 (Rec: 10/16/18 04:15 FQQ4588 ICU-C16) Document 10/16/18 05:00 DMG2183 (Rec: 10/16/18 06:00 GUF2579 ICU-C16) Document 10/16/18 06:00 PXH8393 (Rec: 10/16/18 06:56 QJA9711 ICU-C16) Document 10/16/18 07:00 GEY8340 (Rec: 10/16/18 07:00 MWI2523 ICU-C15) Document 10/16/18 07:42 EAZ7784 (Rec: 10/16/18 07:42 LEG3978 ICU-M28) Document 10/16/18 08:00 UKS9010 (Rec: 10/16/18 09:56 EZW9785 ICU-C15) Document 10/16/18 11:00 YKL9564 (Rec: 10/16/18 13:11 CBR8099 ICU-M28) Document 10/16/18 12:00 AXW4219 (Rec: 10/16/18 13:21 BAJ0335 ICU-M28) Document 10/16/18 13:00 XTL0837 (Rec: 10/16/18 13:41 TWV5513 ICU-M28) Document 10/16/18 14:00 APE0963 (Rec: 10/16/18 14:35 OXX3835 ICU-C15) Document 10/16/18 15:00 KSE2107 (Rec: 10/16/18 16:54 PDX1827 ICU-M28) Document 10/16/18 16:00 TFF8850 (Rec: 10/16/18 16:54 WWR3783 ICU-M28) Document 10/16/18 17:00 JAU0457 (Rec: 10/16/18 17:12 HDB0202 ICU-C15) Document 10/16/18 18:00 QCY3524 (Rec: 10/16/18 18:15 ARS7391 ICU-C15) Document 10/16/18 20:00 TCI3446 (Rec: 10/16/18 20:23 QKX7756 ICU-M28) Document 10/16/18 21:00 TEV9434 (Rec: 10/16/18 22:03 UMX6211 ICU-C10) Document 10/16/18 22:00 HWA4686 (Rec: 10/16/18 22:03 UYD9713 ICU-C10) Document 10/16/18 23:00 IDB9540 (Rec: 10/17/18 00:45 CDB2086 ICU-C10) Document 10/17/18 00:00 USU3826 (Rec: 10/17/18 00:45 PRA7746 ICU-C10) Document 10/17/18 01:00 UJM4977 (Rec: 10/17/18 01:08 AYW0715 ICU-C10) Document 10/17/18 02:00 JPZ2879 (Rec: 10/17/18 02:02 NSJ5049 ICU-C10) Document 10/17/18 03:00 KRT5229 (Rec: 10/17/18 04:15 IYX8458 ICU-C10) Document 10/17/18 04:00 SSB6204 (Rec: 10/17/18 04:15 FUQ2732 ICU-C10) Document 10/17/18 05:00 VLD7068 (Rec: 10/17/18 07:05 LEZ8059 ICU-C10) Document 10/17/18 06:00 WRU5819 (Rec: 10/17/18 07:05 ISZ8183 ICU-C10) Document 10/17/18 07:00 LIQ3353 (Rec: 10/17/18 07:05 VAL2102 ICU-C10) Document 10/17/18 08:00 IUW9515 (Rec: 10/17/18 09:11 PHW5289 ICU-C10) Document 10/17/18 09:00 JWR2776 (Rec: 10/17/18 09:11 RDB5621 ICU-C10) Document 10/17/18 10:00 LIF5588 (Rec: 10/17/18 10:51 VCQ6436 ICU-M28) Document 10/17/18 10:51 PKC6483 (Rec: 10/17/18 10:51 PFV7455 ICU-M28) Document 10/17/18 13:04 PJP4981 (Rec: 10/17/18 13:06 IKX5033 ICU-C25) Document 10/17/18 14:00 FEF6445 (Rec: 10/17/18 14:02 FXJ0144 ICU-C10) Document 10/17/18 15:00 NFD8007 (Rec: 10/17/18 15:02 LVR0855 ICU-M28) Document 10/17/18 16:00 MDQ4818 (Rec: 10/17/18 17:05 SKI7895 ICU-M28) Document 10/17/18 17:00 YVS4762 (Rec: 10/17/18 17:05 ONE3961 ICU-M28) Document 10/17/18 18:00 RCL2131 (Rec: 10/17/18 18:15 QQP6616 ICU-M28) Document 10/17/18 19:00 KZP4351 (Rec: 10/17/18 20:54 LWR9558 ICU-C15) Document 10/17/18 20:00 NYC4943 (Rec: 10/17/18 23:39 PQP7491 ICU-C15) Document 10/17/18 21:00 JJR6955 (Rec: 10/17/18 23:40 IEU8713 ICU-C15) Document 10/17/18 22:00 XOC6936 (Rec: 10/17/18 23:43 EVJ7642 ICU-C15) Document 10/17/18 23:00 IXX1018 (Rec: 10/17/18 23:44 ZMH5378 ICU-C15) Document 10/18/18 01:00 FPR1267 (Rec: 10/18/18 01:10 XOJ3010 ICU-C15) Document 10/18/18 02:00 DMS7206 (Rec: 10/18/18 02:13 AGK2034 ICU-C15) Document 10/18/18 03:00 KDK8223 (Rec: 10/18/18 03:03 KAY5973 ICU-C15) Document 10/18/18 04:00 SLY4789 (Rec: 10/18/18 04:46 LFO1304 ICU-C15) Document 10/18/18 05:00 ATI8836 (Rec: 10/18/18 05:37 UTO7227 ICU-M28) Document 10/18/18 06:00 MTV1699 (Rec: 10/18/18 06:09 VRE7299 ICU-C15) Document 10/18/18 07:00 HUD9148 (Rec: 10/18/18 07:41 VRZ2555 ICU-C16) Document 10/18/18 07:42 CHI2401 (Rec: 10/18/18 07:56 MRS0846 ICU-C16) Document 10/18/18 09:00 ZIV3798 (Rec: 10/18/18 10:17 YVQ2995 ICU-C16) Document 10/18/18 10:00 RXN4275 (Rec: 10/18/18 10:17 DQB4605 ICU-C16) Document 10/18/18 11:00 RBB8920 (Rec: 10/18/18 12:18 ONO0216 ICU-C16) Document 10/18/18 12:00 EMF3291 (Rec: 10/18/18 12:18 EMN8629 ICU-C16) Document 10/18/18 13:00 CSK4873 (Rec: 10/18/18 14:12 MAE6320 ICU-C16) Document 10/18/18 14:00 HQC0913 (Rec: 10/18/18 14:12 FTR6915 ICU-C16) Document 10/18/18 15:00 JRH2645 (Rec: 10/18/18 15:00 OMB8376 ICU-C16) Document 10/18/18 15:34 BHC6836 (Rec: 10/18/18 16:11 HKT9676 ICU-C16) Document 10/18/18 16:24 ABK1864 (Rec: 10/18/18 16:24 EOS2170 ICU-C16) Document 10/18/18 17:00 OWG4653 (Rec: 10/18/18 18:14 NLL6667 ICU-C16) Document 10/18/18 18:00 IGV9263 (Rec: 10/18/18 18:14 OOQ4215 ICU-C16) Document 10/18/18 19:00 VOE4866 (Rec: 10/18/18 19:04 PBJ2733 ICU-C16) Document 10/18/18 20:00 AEG5894 (Rec: 10/18/18 21:09 BBF8078 ICU-C16) Document 10/18/18 21:00 NXK9209 (Rec: 10/18/18 21:09 WZL8348 ICU-C16) Document 10/18/18 22:00 WXG5885 (Rec: 10/18/18 22:30 SUF6721 ICU-C16) Document 10/18/18 23:41 WIQ4295 (Rec: 10/18/18 23:41 FGM9921 ICU-M28) Document 10/19/18 00:38 FGW1995 (Rec: 10/19/18 00:39 JOO2604 ICU-M28) Document 10/19/18 01:28 ZII4592 (Rec: 10/19/18 01:28 HZT4448 ICU-C10) Document 10/19/18 03:13 MUT0747 (Rec: 10/19/18 03:13 ZNL1156 ICU-C10) Document 10/19/18 04:42 TPP3331 (Rec: 10/19/18 04:43 FVM7246 ICU-C10) Document 10/19/18 06:23 ARR6189 (Rec: 10/19/18 06:23 VOH6521 ICU-C10) Document 10/19/18 09:00 DUW5207 (Rec: 10/19/18 09:01 JMG5788 ICU-C10) Document 10/19/18 11:00 OFG7000 (Rec: 10/19/18 11:12 HCV2567 ICU-C10) Document 10/19/18 13:00 BGI0646 (Rec: 10/19/18 13:12 UZA9091 ICU-M28) Document 10/19/18 14:00 CCE4731 (Rec: 10/19/18 18:18 YHS9564 ISDECT-M03 ) Document 10/19/18 16:21 SWD7729 (Rec: 10/19/18 16:22 EEB7628 ICU-C10) Document 10/19/18 19:00 ODF5861 (Rec: 10/19/18 19:22 AIE8922 ICU-C16) Document 10/19/18 20:00 BDR3442 (Rec: 10/19/18 20:51 VFF1673 ICU-C16) Document 10/19/18 21:00 LWT5103 (Rec: 10/19/18 21:21 CIN5939 ICU-C16) Document 10/19/18 22:00 NNX5830 (Rec: 10/19/18 22:15 OUR6539 ICU-C16) Document 10/19/18 23:00 AYO6510 (Rec: 10/20/18 00:14 UEK2403 ICU-C16) Document 10/20/18 00:00 TIF1311 (Rec: 10/20/18 00:20 NHS5984 ICU-C16) Document 10/20/18 00:57 KRX4696 (Rec: 10/20/18 00:57 YWV2619 ICU-C16) Document 10/20/18 01:53 OZZ2735 (Rec: 10/20/18 01:53 EYS3011 ICU-C16) Document 10/20/18 02:28 RWD9439 (Rec: 10/20/18 02:28 JTB8879 ICU-C16) Document 10/20/18 03:00 PLS7632 (Rec: 10/20/18 03:26 ZJO9878 ICU-C16) Document 10/20/18 03:26 HQH8917 (Rec: 10/20/18 03:26 OOA6189 ICU-C16) Document 10/20/18 05:25 FBJ5592 (Rec: 10/20/18 05:25 EBS3647 ICU-C16) Document 10/20/18 06:00 WNS1782 (Rec: 10/20/18 06:19 EIY0491 ICU-C16) Document 10/20/18 07:00 FUN6149 (Rec: 10/20/18 07:43 GTT7229 ICU-C10) Document 10/20/18 10:48 UJI6208 (Rec: 10/20/18 10:48 FTP5569 ICU-C10) Document 10/20/18 17:38 PEI5714 (Rec: 10/20/18 17:40 MMG6094 ICU-C10) Document 10/20/18 19:52 AFR5715 (Rec: 10/20/18 20:10 KVB2008 ICU-C16) Document 10/20/18 23:33 SCO5826 (Rec: 10/20/18 23:33 ENU8692 ICU-C16) Document 10/21/18 04:00 LSQ2265 (Rec: 10/21/18 04:07 NNQ0139 ICU-C16) Document 10/21/18 05:42 DQO5329 (Rec: 10/21/18 05:42 RWB5176 ICU-M28) Document 10/21/18 08:34 ZEZ4909 (Rec: 10/21/18 08:34 AWH8428 ICU-C16) Intake and Output Start: 10/21/18 12: 46 Freq: DAILY@0600,1400,2200 Status: Complete Protocol: Created 10/21/18 12:46 FMG9125 (Rec: 10/21/18 12:46 MCT1081 ICU-C06) Document 10/21/18 14:00 BNI2984 (Rec: 10/21/18 15:26 IUY1636 ICU-C56) Document 10/22/18 06:00 VQY9211 (Rec: 10/22/18 06:16 ODD7193 ICU-C07) Document 10/22/18 10:21 YHP5937 (Rec: 10/22/18 10:21 AXN1102 ICU-C07) Document 10/22/18 14:00 THZ6563 (Rec: 10/22/18 15:23 LQK5405 MED-C13) Document 10/22/18 22:00 RBK5339 (Rec: 10/22/18 22:43 FUU2427 MED-C02) Intake and Output Start: 10/23/18 06: 30 Freq: Q1HR Status: Active Protocol: Created 10/23/18 06:30 PZC3511 (Rec: 10/23/18 06:30 ZSP4262 ICU-M30) Document 10/23/18 10:00 ZXK7581 (Rec: 10/23/18 10:57 DWF4792 ICU-C15) Document 10/23/18 12:00 NAJ0654 (Rec: 10/23/18 12:23 NRE5229 ICU-C20) Document 10/23/18 16:00 MNE1275 (Rec: 10/23/18 17:48 SKI3936 ICU-C15) Document 10/23/18 21:00 IQP6241 (Rec: 10/23/18 21:14 CLQ3525 ICU-C15) Document 10/23/18 22:00 MYZ1120 (Rec: 10/23/18 22:57 JYW7184 ICU-C15) Document 10/23/18 23:07 LZM0600 (Rec: 10/23/18 23:07 TQZ6537 ICU-M32) Document 10/24/18 05:00 PPF9304 (Rec: 10/24/18 05:38 BEP3353 ICU-C15) Document 10/24/18 06:00 ERE4294 (Rec: 10/24/18 06:19 WTT1372 ICU-C15) Document 10/24/18 10:00 MXD8495 (Rec: 10/24/18 10:13 WPG4792 ICU-C15) Document 10/24/18 12:00 ATY0473 (Rec: 10/24/18 12:25 PEF6492 ICU-C15) Document 10/24/18 14:44 PXX8470 (Rec: 10/24/18 14:44 FLT2955 ICU-C15) Document 10/24/18 17:29 PFE3250 (Rec: 10/24/18 17:30 QCJ9478 ICU-C15) Document 10/25/18 01:18 LNQ0298 (Rec: 10/25/18 01:18 PED5376 ICU-C16) Document 10/25/18 02:00 VHJ5315 (Rec: 10/25/18 02:05 GVD6953 ICU-C16) Document 10/25/18 03:00 OCY7669 (Rec: 10/25/18 03:17 BRM9232 ICU-C16) Document 10/25/18 04:00 MJT8802 (Rec: 10/25/18 04:34 KOL7093 ICU-C16) Document 10/25/18 05:00 WPN0796 (Rec: 10/25/18 05:43 JLK9927 ICU-C16) Document 10/25/18 05:56 XKM3368 (Rec: 10/25/18 05:56 PUS8196 ICU-C16) Labs: Laboratory Results - last 24 hr 10/24/18 10/24/18 10/25/18 12:35 22:45 06:35 INR (Anticoag Therapy) 1.13 H APTT 30.2 B-Natriuretic Peptide 280 H Vancomycin Trough 17.3 Studies: 1/7 AM CXR completed, prelim review shows improving left sided interstitial infitrates. Increased left perihilar density. Final read pending 10/24 venous duplex bilateral lower extremities - no DVT. 10/23 CXR - worsening pulmonary edema as compared to 10/16 vs early pneumonitis or ARDS 10/16 CT head - NAD 10/16 CTA head - NAD 10/16 CT chest - advanced COPD with associated interstitial fibrosis. Trace bilateral pleural effusions and atelectasis Nutrition: NPO until respiratory status improved Impression: 63 yo M admitted 10/16 with acute on chronic respiratory failure requiring intubation secondary to COPD exacerbation. Initially did well and was weaned from vent on 10/18 however developed pulmonary edema secondary to CHF and was transferred back to ICU 10/23 for BiPAP. Overnight has developed hemoptysis. Plan: Cardiovascular: (1) Sinus tachycardia; (2) Labile BPs; (3) Chronic HTN; (4) Pulmonary HTN secondary to advanced lung disease; (5) HLD; (6) Likely acute on chronic diastolic CHF -- HR 73-119 -- SBP 92-156 -- Telemetry -- TTE 10/16: LVEF 55-60%. Unable to assess diastolic dysfunction. Pulmonary artery HTN -- ProBNP 280, follow trend -- ASA - held -- Atorvastatin -- Lisinopril, Metoprolol -- PRN Hydralazine for goal SBP < 160 -- Schedule Lasix BID x 3 days for diuresis Home meds: None Pulmonary: (1) Acute on chronic hypoxic and hypercapneic respiratory failure; ( 2) COPD exacerbation; (3) aspirationpneumonia; (4) H[place]; (5) Hemoptysis; (6) Pulmonary edema, cardiac cause -- RR 17-41 -- sats 80-98 -- Switched to vapotherm from BiPAP after onset of hemoptysis, wean as able -- CXR: Increased RLL perihilar density. improvement in left intersitital infiltrates -- PRN Duonebs -- Spiriva -- Continue bronchodilators, steriods and antibiotics for COPD exacerbation -- continue broadspectrum abx for aspiration pneumonia Home meds: Mometasone/formoterol, Spiriva, albuterol Gastrointestinal: No acute issues -- diet: NPO until respiratory status stabilized -- bowel regimen: Colace -- ulcer prophylaxis: Protonix Home meds: Colace Endocrine: (1) Hyperglycemia -- monitor BGs -- start SSI if BG> 180 -- Solumedrol for COPD exacerbation Home meds: Prednisone Renal: (1) Hypernatremia, resolved; (2) Hypokalemia -- UOP: 123 ml/hr -- I/O:2730/2950 -- BMP pending -- IVF: HL Home meds: None Infectious disease: (1) Sepsis; (2) Aspiration pneumonia -- Tmax 99.6 -- WBC 14.8 yesterday, repeat pending -- Micro 10/23 Blood NGTD 10/16 blood Negative Urine negative Sputum Normal estefanía Blood staph. likely contaminant -- ABX Zosyn Vancomycin Home meds: None Neurologic: (1) Chronic delusional disorder/schizophrenia -- Tylenol as needed -- Aricept -- Zyprexa -- Zoloft Home meds: Zoloft, Zyprexa, Tylenol Hematological: (1) Anemia -- CBC pending -- Coags PT 30.2 INR 1.13 -- DVT prophylaxis: SCDs. Heparin held secondary to hemoptysis Home meds: None Metabolic: No acute issues Home meds: None Deep vein thrombosis prophylaxis: SCDs. Heparin held secondary to hemoptysis Dietary: Protonix Condition: Critical Prognosis: Guarded Code status: Full Disposition: continue ICU Care. If hemoptysis worsens will need to assess for transfer needs as no angioembolization available at [place] Cumulative time spent in the care of this patient (excluding any procedure time) : at least 60 minutes. Patient care included clinical interview (with patient and/or family), bedside exam of the patient, review of labs, x-rays, and other ancillary data, coordination of (respiratory, nursing care, review of patient's records, discussion regarding patients management with involved consultants, primary physician, pharmacists, and other healthcare personnel (dietary, case management , physical/occupational therapy etc.) Critical Care Time:
[2018-10-25] MEDS: Aspirin 81 mg CHEW TAB* 81 MG TAB.CHEW NG TUBE SCH (07:39)
[2018-10-25] MEDS: Acetaminophen ADULT LIQ* 650 MG/20.3 ML UDC NG TUBE PRN (07:58)
[2018-10-25] MEDS: ZOSYN 3.375 GM Q8H per EXTENDED INFUSION IVPB SCH ×2 (07:58)
[2018-10-25] MEDS ORDERED: hydrALAZINE IV* 20 MG/ML VIAL IV SLOW PU PRN (08:03)
[2018-10-25] MEDS: Tiotropium CAP.INH* CAP.INH/18 MCG (USE ORDER SET !) INH SCH (08:08)
[2018-10-25] MEDS: Furosemide IV* 10 MG/ML VIAL (40 MG) IV SCH ×2 (08:37→16:16)
[2018-10-25] MEDS: methylPREDNISolone SOD 40 MG* 1 ML VIAL IV SCH ×2 (08:37→16:16)
[2018-10-25] MEDS: Lisinopril TAB* 10 MG PO SCH (09:28)
[2018-10-25] MEDS: Donepezil TAB* 5 MG PO SCH (09:28)
[2018-10-25] MEDS: Pantoprazole TAB * 40 MG TAB PO SCH (09:29)
[2018-10-25] MEDS: OLANzapine TAB* 10 MG PO SCH ×2 (09:29→21:31)
[2018-10-25] MEDS: Docusate CAP* 100 MG PO SCH ×2 (09:29→21:31)
[2018-10-25] MEDS: Atorvastatin* 20 MG TAB PO SCH (09:29)
[2018-10-25] MEDS: Sertraline* 100 MG TAB PO SCH (09:29)
[2018-10-25] MEDS: Metoprolol Tartrate TAB* 25 MG PO SCH ×2 (09:29→21:31)
[2018-10-25] MEDS: Cefepime* 2 GM in Dextrose 50mL Q12H (Duplex) IV SCH (14:10)
[2018-10-25] MEDS ORDERED: Morphine VIAL* 4 MG/ML VIAL (1 ml vial) ONE (17:27)
[2018-10-25] MEDS ORDERED: Morphine VIAL* 4 MG/ML VIAL (1 ml vial) IV ONE (18:00)
[2018-10-26] MEDS: methylPREDNISolone SOD 40 MG* 1 ML VIAL IV SCH ×3 (01:23→15:41)
[2018-10-26] MEDS: Cefepime* 2 GM in Dextrose 50mL Q12H (Duplex) IV SCH ×2 (01:26→14:27)
[2018-10-26] MEDS ORDERED: Vancomycin Trough Check NOTE FOLLOW UP ONE (04:30)
[2018-10-26] MEDS: Vancomycin(*) 750 MG in NS 0.9% 250 ML* 250 ML IVPB SCH ×3 (05:00→20:52)
[2018-10-26] MEDS: Heparin VIAL(*) 5000 UNITS/ML VIAL (FIVE THOUSAND) SUBCUT SCH (05:56)
[2018-10-26 06:09] LABS: Hematocrit 29 % (42-52); Mean Corpuscular HGB Conc 31 g/dl (31-36); Mean Corpuscular Hemoglobin 27 pg (27-31); Mean Corpuscular Volume 87 fL (80-94); Mean Platelet Volume 9.5 fL (7.4-10.4); Platelet Count 221 10^3/ul (150-450); Red Cell Distribution Width 15 % (10.5-15); White Blood Count 16.5 10^3/ul (3.5-10.8)
[2018-10-26 06:29] LABS: INR 1.05 (0.77-1.02)
[2018-10-26 06:47] LABS: BUN/Creatinine Ratio 21.5 (8-20); EGFR African American 99.6 (>60); EGFR Non-African American 82.3 (>60); Magnesium 2.1 mg/dL (1.9-2.7); Potassium 3.2 mmol/L (3.5-5.0)
--- NOTE | 2018-10-26 08:19 | PN ---
Date of Service: 10/26/18 - 12 Critical Care Services: 63 yo M with HTN, HLD, schizophrenia, severe COPD on home O2 presented on 10/16 to [facility] with acute on chronic hypercapneic respiratory failure requiring intubation 10/17: Sedation vacation, remains unresponsive 10/18: Improving mental status. Passed SBT and extubated 10/19: On BiPAP, increasing hypernatremia 10/20: Weaned to NC 10/22: Transferred to floor 10/23: Did not wear BiPAP overnight with subsequent decompensation. Transferred back to ICU. New infiltrate on CXR 10/25: Overnight developed hemoptysis. Switched from BiPAP to Highflow/ vapotherm. INR normal. ASA and Heparin SQ held. Family updated at beside 10/26: Required BiPAP again overnight for low sats. No further hemoptysis. Vital Signs: Temp Pulse Resp BP SpO2 FiO2 98.5 F 81 17 144/106 90 100 10/26/18 07:37 10/26/18 07:00 10/26/18 07:00 10/26/18 07:00 10/26/18 07:00 10/26 04:00 Physical Exam: Gen: alert, conversant. asking for water HEENT: BiPAP mask in place Lungs: distant bilaterally. no wheezing or crackles Cardiac: RRR Abdomen: soft, obese, nontender Extremities: warm, dry, edema present Neuro: alert and oriented Fluid Balance (Past 24 Hours): I= O= Net Intake & Output 10/24/18 10/25/18 10/26/18 10/27/18 06:59 06:59 06:59 06:59 Intake Total 177 2730 1138 Output Total 1999 2950 3750 250 Balance -225 -220 -2612 -250 Weight 257 lb 15.053 oz 257 lb 7.999 oz 250 lb 14.177 oz Intake: IV Fluids 615 63 171 ABX 500 NS 115 63 171 IVPB 760 747 767 ABX - VANCOMYCIN 550 512 607 ABX - ZOSYN 210 235 160 Oral 400 1920 200 Output: Urine 1999 2950 2950 250 Juarez 800 Other: Estimated Void Medium Medium Date of Last Bowel 10/25/18 Movement # Bowel Movements 1 Estimated Stool Amount Large Large # Voids 1 0 0 ADLs: Meal Record Start: 12/28/18 20: 48 Freq: 09,13,18 Status: Inactive Protocol: Created 10/15/18 20:48 System (Rec: 10/15/18 20:48 System ICU-C12) Document 10/17/18 09:00 TUT2501 (Rec: 10/17/18 09:16 AWP4890 ICU-C10) Document 10/17/18 13:00 OTO7311 (Rec: 10/17/18 14:02 RNL3631 ICU-C10) Document 10/17/18 18:00 ZRK2304 (Rec: 10/17/18 18:04 LNF7736 ICU-C10) Document 10/18/18 12:51 TMS3129 (Rec: 10/18/18 12:51 NDA0090 ICU-C16) Document 10/18/18 18:00 LSU2789 (Rec: 10/18/18 18:16 ADO8771 ICU-C16) Document 10/19/18 13:20 QTC3466 (Rec: 10/19/18 13:26 RRW3658 ICU-C14) Document 10/19/18 18:00 SVA4777 (Rec: 10/19/18 18:29 INN6745 ICU-C06) Document 10/20/18 09:00 ZPV8490 (Rec: 10/20/18 10:50 DMD6999 ICU-C10) Document 10/20/18 14:12 GLJ1382 (Rec: 10/20/18 14:13 DIV7966 ICU-C10) Document 10/20/18 18:00 MLZ3366 (Rec: 10/20/18 18:02 FRK0423 ICU-C10) Document 10/21/18 09:00 CNX8555 (Rec: 10/21/18 11:29 CUE1149 ICU-C16) ADLs: Meal Record Start: 10/21/18 12: 46 Freq: DAILY@0900,1400,1800 Status: Complete Protocol: Created 10/21/18 12:46 ATY0349 (Rec: 10/21/18 12:46 JQG8835 ICU-C06) Document 10/21/18 14:00 PVG2620 (Rec: 10/21/18 14:12 MPP4610 ICU-C06) Document 10/21/18 18:00 KCB5789 (Rec: 10/21/18 19:31 UHO1047 ICU-C07) Document 10/22/18 09:00 ZVW0406 (Rec: 10/22/18 12:47 RAE6301 MED-C13) Document 10/22/18 14:00 MJB5829 (Rec: 10/22/18 15:02 FVZ6922 MED-C15) Document 10/22/18 18:00 NHL9070 (Rec: 10/22/18 22:38 UKO3168 MED-C02) ADLs: Meal Record Start: 10/23/18 06: 30 Freq: 09,13,18 Status: Active Protocol: Created 10/23/18 06:30 DWE1575 (Rec: 10/23/18 06:30 BTV9454 ICU-M30) Document 10/23/18 10:00 QMN6659 (Rec: 10/23/18 10:57 ZLA9467 ICU-C15) Document 10/23/18 13:00 JIZ0531 (Rec: 10/23/18 18:22 IZD7255 ICU-C15) Document 10/23/18 20:00 TDV4105 (Rec: 10/23/18 21:14 OHJ7783 ICU-C15) Document 10/24/18 10:54 GHA5292 (Rec: 10/24/18 10:54 CKS6762 ICU-C15) Document 10/24/18 13:00 HKP9971 (Rec: 10/24/18 14:21 SKC3599 ICU-C15) Document 10/24/18 19:13 RBL4520 (Rec: 10/24/18 19:14 PPK2373 ICU-C16) Document 10/25/18 08:27 FBC5164 (Rec: 10/25/18 08:27 LON5086 ICU-C15) Document 10/25/18 13:00 RAT1004 (Rec: 10/25/18 13:04 TZK2679 ICU-C15) Document 10/25/18 14:04 HAD3832 (Rec: 10/25/18 14:05 CXC7784 ICU-C20) Document 10/25/18 19:50 AIW0319 (Rec: 10/25/18 19:50 OBY6538 ICU-C16) Intake and Output Start: 10/15/18 20: 48 Freq: Q4HR Status: Inactive Protocol: Created 10/15/18 20:48 System (Rec: 10/15/18 20:48 System ICU-C12) Document 10/15/18 23:00 OFF8774 (Rec: 10/16/18 00:36 NZG0419 ICU-C16) Document 10/16/18 00:00 QFX9084 (Rec: 10/16/18 00:36 DVA9512 ICU-C16) Document 10/16/18 00:41 FJH6666 (Rec: 10/16/18 00:41 ZLU7222 ICU-C16) Document 10/16/18 02:00 ONX7810 (Rec: 10/16/18 02:18 HDN0486 ICU-C16) Document 10/16/18 03:00 TPQ3218 (Rec: 10/16/18 04:15 JHV6260 ICU-C16) Document 10/16/18 04:00 RIW3535 (Rec: 10/16/18 04:15 CBA1499 ICU-C16) Document 10/16/18 05:00 ESV0343 (Rec: 10/16/18 06:00 PMX6710 ICU-C16) Document 10/16/18 06:00 KAM5007 (Rec: 10/16/18 06:56 PSP2566 ICU-C16) Document 10/16/18 07:00 KHP2913 (Rec: 10/16/18 07:00 NQS0663 ICU-C15) Document 10/16/18 07:42 APD1751 (Rec: 10/16/18 07:42 OQZ6687 ICU-M28) Document 10/16/18 08:00 IKR5131 (Rec: 10/16/18 09:56 GLQ3518 ICU-C15) Document 10/16/18 11:00 VTZ4682 (Rec: 10/16/18 13:11 RUP4187 ICU-M28) Document 10/16/18 12:00 YMW9337 (Rec: 10/16/18 13:21 SRR2612 ICU-M28) Document 10/16/18 13:00 LWX1989 (Rec: 10/16/18 13:41 YMQ6848 ICU-M28) Document 10/16/18 14:00 ZDM1128 (Rec: 10/16/18 14:35 YHL4924 ICU-C15) Document 10/16/18 15:00 CTZ2743 (Rec: 10/16/18 16:54 GZA6035 ICU-M28) Document 10/16/18 16:00 USO1368 (Rec: 10/16/18 16:54 BAO1549 ICU-M28) Document 10/16/18 17:00 KGX1390 (Rec: 10/16/18 17:12 ZKP4027 ICU-C15) Document 10/16/18 18:00 KSZ9964 (Rec: 10/16/18 18:15 CUR6350 ICU-C15) Document 10/16/18 20:00 IZC2283 (Rec: 10/16/18 20:23 XZR6994 ICU-M28) Document 10/16/18 21:00 JUF1786 (Rec: 10/16/18 22:03 BVI8527 ICU-C10) Document 10/16/18 22:00 QSL1019 (Rec: 10/16/18 22:03 KJI4549 ICU-C10) Document 10/16/18 23:00 TJN9598 (Rec: 10/17/18 00:45 RHX8699 ICU-C10) Document 10/17/18 00:00 XSA3255 (Rec: 10/17/18 00:45 RXC9136 ICU-C10) Document 10/17/18 01:00 NUV8345 (Rec: 10/17/18 01:08 BOE0020 ICU-C10) Document 10/17/18 02:00 TIS6538 (Rec: 10/17/18 02:02 GZG0155 ICU-C10) Document 10/17/18 03:00 AAE8241 (Rec: 10/17/18 04:15 CSX2350 ICU-C10) Document 10/17/18 04:00 XUJ6881 (Rec: 10/17/18 04:15 TXH0994 ICU-C10) Document 10/17/18 05:00 VCN1318 (Rec: 10/17/18 07:05 PFO4123 ICU-C10) Document 10/17/18 06:00 ZQO8308 (Rec: 10/17/18 07:05 VWR2015 ICU-C10) Document 10/17/18 07:00 PZR8621 (Rec: 10/17/18 07:05 YKM6679 ICU-C10) Document 10/17/18 08:00 KZK0726 (Rec: 10/17/18 09:11 EMD8316 ICU-C10) Document 10/17/18 09:00 SSM6132 (Rec: 10/17/18 09:11 EGE8172 ICU-C10) Document 10/17/18 10:00 UPJ8804 (Rec: 10/17/18 10:51 DSP2894 ICU-M28) Document 10/17/18 10:51 KDB3006 (Rec: 10/17/18 10:51 LZE6405 ICU-M28) Document 10/17/18 13:04 OKL4379 (Rec: 10/17/18 13:06 ATT8657 ICU-C25) Document 10/17/18 14:00 MLC3540 (Rec: 10/17/18 14:02 KDQ8504 ICU-C10) Document 10/17/18 15:00 OAF1080 (Rec: 10/17/18 15:02 XOU8491 ICU-M28) Document 10/17/18 16:00 AYG6180 (Rec: 10/17/18 17:05 GOE4102 ICU-M28) Document 10/17/18 17:00 KRE4386 (Rec: 10/17/18 17:05 GVN3788 ICU-M28) Document 10/17/18 18:00 OUQ8712 (Rec: 10/17/18 18:15 DEO5417 ICU-M28) Document 10/17/18 19:00 RIY0569 (Rec: 10/17/18 20:54 GCP9253 ICU-C15) Document 10/17/18 20:00 LGU5973 (Rec: 10/17/18 23:39 OOD9394 ICU-C15) Document 10/17/18 21:00 WJS3822 (Rec: 10/17/18 23:40 YNK9411 ICU-C15) Document 10/17/18 22:00 STV8608 (Rec: 10/17/18 23:43 ARE4113 ICU-C15) Document 10/17/18 23:00 LFF8034 (Rec: 10/17/18 23:44 UUF2667 ICU-C15) Document 10/18/18 01:00 VNN0150 (Rec: 10/18/18 01:10 VAA2728 ICU-C15) Document 10/18/18 02:00 OJE2600 (Rec: 10/18/18 02:13 CYP8032 ICU-C15) Document 10/18/18 03:00 ZSF3302 (Rec: 10/18/18 03:03 AYJ7245 ICU-C15) Document 10/18/18 04:00 SAF6166 (Rec: 10/18/18 04:46 HSF3756 ICU-C15) Document 10/18/18 05:00 SMD4130 (Rec: 10/18/18 05:37 KFW0571 ICU-M28) Document 10/18/18 06:00 VOU6585 (Rec: 10/18/18 06:09 HPL4295 ICU-C15) Document 10/18/18 07:00 QMI4252 (Rec: 10/18/18 07:41 DQY9348 ICU-C16) Document 10/18/18 07:42 BOA8311 (Rec: 10/18/18 07:56 BSW2673 ICU-C16) Document 10/18/18 09:00 EAF7653 (Rec: 10/18/18 10:17 HTZ3828 ICU-C16) Document 10/18/18 10:00 TDA4978 (Rec: 10/18/18 10:17 GRY1359 ICU-C16) Document 10/18/18 11:00 OMW3968 (Rec: 10/18/18 12:18 JUK2395 ICU-C16) Document 10/18/18 12:00 XBS6310 (Rec: 10/18/18 12:18 URN9467 ICU-C16) Document 10/18/18 13:00 YLG8374 (Rec: 10/18/18 14:12 KPR1338 ICU-C16) Document 10/18/18 14:00 GJL0753 (Rec: 10/18/18 14:12 SAH5478 ICU-C16) Document 10/18/18 15:00 NEV8157 (Rec: 10/18/18 15:00 QRK4112 ICU-C16) Document 10/18/18 15:34 TUB2806 (Rec: 10/18/18 16:11 DOZ3893 ICU-C16) Document 10/18/18 16:24 ELJ4390 (Rec: 10/18/18 16:24 RTK2700 ICU-C16) Document 10/18/18 17:00 NFF6672 (Rec: 10/18/18 18:14 FYZ7115 ICU-C16) Document 10/18/18 18:00 FYG2354 (Rec: 10/18/18 18:14 JSP0721 ICU-C16) Document 10/18/18 19:00 EPN1228 (Rec: 10/18/18 19:04 BDE8844 ICU-C16) Document 10/18/18 20:00 RNF4417 (Rec: 10/18/18 21:09 ZDM9796 ICU-C16) Document 10/18/18 21:00 KMM7498 (Rec: 10/18/18 21:09 TPP5430 ICU-C16) Document 10/18/18 22:00 DKQ4921 (Rec: 10/18/18 22:30 OVK3542 ICU-C16) Document 10/18/18 23:41 PXG6578 (Rec: 10/18/18 23:41 ASP0827 ICU-M28) Document 10/19/18 00:38 UIH8737 (Rec: 10/19/18 00:39 ITQ8362 ICU-M28) Document 10/19/18 01:28 BUI2599 (Rec: 10/19/18 01:28 IKB3226 ICU-C10) Document 10/19/18 03:13 CZZ7864 (Rec: 10/19/18 03:13 RIB6838 ICU-C10) Document 10/19/18 04:42 OEN8988 (Rec: 10/19/18 04:43 IGM3044 ICU-C10) Document 10/19/18 06:23 CAF6685 (Rec: 10/19/18 06:23 FLN4033 ICU-C10) Document 10/19/18 09:00 FAU5856 (Rec: 10/19/18 09:01 DTE9183 ICU-C10) Document 10/19/18 11:00 MWB7185 (Rec: 10/19/18 11:12 KBB8144 ICU-C10) Document 10/19/18 13:00 GGG6351 (Rec: 10/19/18 13:12 JQW1128 ICU-M28) Document 10/19/18 14:00 IWL4045 (Rec: 10/19/18 18:18 FEW5905 ISDEMO-M03 ) Document 10/19/18 16:21 QEL4884 (Rec: 10/19/18 16:22 LOM8801 ICU-C10) Document 10/19/18 19:00 IFZ8215 (Rec: 10/19/18 19:22 CIA1157 ICU-C16) Document 10/19/18 20:00 VUZ4041 (Rec: 10/19/18 20:51 RHB9882 ICU-C16) Document 10/19/18 21:00 NDD3595 (Rec: 10/19/18 21:21 MDP0543 ICU-C16) Document 10/19/18 22:00 DET0891 (Rec: 10/19/18 22:15 LCU7592 ICU-C16) Document 10/19/18 23:00 CJI2700 (Rec: 10/20/18 00:14 KXG4892 ICU-C16) Document 10/20/18 00:00 IJY6730 (Rec: 10/20/18 00:20 DZU0283 ICU-C16) Document 10/20/18 00:57 FVU7628 (Rec: 10/20/18 00:57 KMJ6757 ICU-C16) Document 10/20/18 01:53 UNN7058 (Rec: 10/20/18 01:53 RPA2229 ICU-C16) Document 10/20/18 02:28 GPN2253 (Rec: 10/20/18 02:28 JYD6317 ICU-C16) Document 10/20/18 03:00 MMZ7415 (Rec: 10/20/18 03:26 AYS5967 ICU-C16) Document 10/20/18 03:26 KGW7416 (Rec: 10/20/18 03:26 RDE1407 ICU-C16) Document 10/20/18 05:25 HCZ3348 (Rec: 10/20/18 05:25 HKU6912 ICU-C16) Document 10/20/18 06:00 ADE9894 (Rec: 10/20/18 06:19 JRV7791 ICU-C16) Document 10/20/18 07:00 BPD2649 (Rec: 10/20/18 07:43 RJB1975 ICU-C10) Document 10/20/18 10:48 PVG0457 (Rec: 10/20/18 10:48 ATT7367 ICU-C10) Document 10/20/18 17:38 ADO3925 (Rec: 10/20/18 17:40 YQL7445 ICU-C10) Document 10/20/18 19:52 ZVI8961 (Rec: 10/20/18 20:10 XVX6371 ICU-C16) Document 10/20/18 23:33 DSU3072 (Rec: 10/20/18 23:33 PQA3691 ICU-C16) Document 10/21/18 04:00 OEN5609 (Rec: 10/21/18 04:07 APB5856 ICU-C16) Document 10/21/18 05:42 RZQ3486 (Rec: 10/21/18 05:42 WTM8970 ICU-M28) Document 10/21/18 08:34 OJA5104 (Rec: 10/21/18 08:34 ONB1770 ICU-C16) Intake and Output Start: 10/21/18 12: 46 Freq: DAILY@0600,1400,2200 Status: Complete Protocol: Created 10/21/18 12:46 SLG0451 (Rec: 10/21/18 12:46 LTL7806 ICU-C06) Document 10/21/18 14:00 BAQ1810 (Rec: 10/21/18 15:26 BUU1611 ICU-C56) Document 10/22/18 06:00 SAA0435 (Rec: 10/22/18 06:16 WSD9876 ICU-C07) Document 10/22/18 10:21 URB6482 (Rec: 10/22/18 10:21 AHQ8585 ICU-C07) Document 10/22/18 14:00 KJY9691 (Rec: 10/22/18 15:23 SUL1712 MED-C13) Document 10/22/18 22:00 PJQ5986 (Rec: 10/22/18 22:43 MWV2456 MED-C02) Intake and Output Start: 10/23/18 06: 30 Freq: Q4HR Status: Active Protocol: Created 10/23/18 06:30 SWP8865 (Rec: 10/23/18 06:30 RQS5621 ICU-M30) Document 10/23/18 10:00 HGC1557 (Rec: 10/23/18 10:57 KUG5591 ICU-C15) Document 10/23/18 12:00 KFE6719 (Rec: 10/23/18 12:23 LEQ7244 ICU-C20) Document 10/23/18 16:00 MET7985 (Rec: 10/23/18 17:48 BCV1785 ICU-C15) Document 10/23/18 21:00 PSZ7377 (Rec: 10/23/18 21:14 OKR9422 ICU-C15) Document 10/23/18 22:00 GRN5217 (Rec: 10/23/18 22:57 YRE4873 ICU-C15) Document 10/23/18 23:07 OEZ6439 (Rec: 10/23/18 23:07 IDZ1782 ICU-M32) Document 10/24/18 05:00 AXB2766 (Rec: 10/24/18 05:38 HFX2687 ICU-C15) Document 10/24/18 06:00 MZK8630 (Rec: 10/24/18 06:19 BVU1387 ICU-C15) Document 10/24/18 10:00 PEZ9599 (Rec: 10/24/18 10:13 YHB0423 ICU-C15) Document 10/24/18 12:00 QPG5636 (Rec: 10/24/18 12:25 MFQ2044 ICU-C15) Document 10/24/18 14:44 GSW1387 (Rec: 10/24/18 14:44 WPI1259 ICU-C15) Document 10/24/18 17:29 CFN0884 (Rec: 10/24/18 17:30 BOY7300 ICU-C15) Document 10/25/18 01:18 MNR4790 (Rec: 10/25/18 01:18 DFM5708 ICU-C16) Document 10/25/18 02:00 YBS5649 (Rec: 10/25/18 02:05 EWM5834 ICU-C16) Document 10/25/18 03:00 FVQ2523 (Rec: 10/25/18 03:17 ABF9271 ICU-C16) Document 10/25/18 04:00 NWF0983 (Rec: 10/25/18 04:34 HBG9824 ICU-C16) Document 10/25/18 05:00 MSX3310 (Rec: 10/25/18 05:43 BYP7666 ICU-C16) Document 10/25/18 05:56 BZH4740 (Rec: 10/25/18 05:56 DZI2521 ICU-C16) Document 10/25/18 09:33 KVP4696 (Rec: 10/25/18 09:33 FGZ9829 ICU-C15) Document 10/25/18 09:36 ZNF1933 (Rec: 10/25/18 09:36 GPB2615 ICU-C15) Document 10/25/18 12:36 DJL5903 (Rec: 10/25/18 12:36 FOP8658 ICU-C15) Document 10/25/18 17:44 SAD7506 (Rec: 10/25/18 17:44 UYB9692 ICU-C15) Document 10/25/18 18:31 PIF4551 (Rec: 10/25/18 18:31 OOA9233 ICU-C15) Document 10/25/18 20:00 FIT6927 (Rec: 10/25/18 20:45 GNZ1874 ICU-C16) Document 10/26/18 00:00 YCC3970 (Rec: 10/26/18 01:05 CLY4812 ICU-C16) Document 10/26/18 04:00 LLI0810 (Rec: 10/26/18 04:12 UWU1075 ICU-C16) Document 10/26/18 05:08 MIP8501 (Rec: 10/26/18 05:08 EXR0829 ICU-C16) Document 10/26/18 08:00 AGU0940 (Rec: 10/26/18 08:09 FEW2668 ICU-C14) Labs: Laboratory Results - last 24 hr 10/24/18 10/26/18 10/26/18 05:22 04:00 05:55 WBC RBC Hgb Hct MCV MCH MCHC RDW Plt Count MPV Hem Pathologist Commnt INR (Anticoag Therapy) Sodium 143 Potassium 3.2 L Chloride 99 L Carbon Dioxide 37 H Anion Gap 7 BUN 20 Creatinine 0.93 Est GFR ( Amer) 99.6 Est GFR (Non-Af Amer) 82.3 BUN/Creatinine Ratio 21.5 H Glucose 168 H Calcium 8.0 L Magnesium 2.1 B-Natriuretic Peptide Vancomycin Trough 18.9 10/26/18 10/26/18 10/26/18 05:55 05:55 05:55 WBC 16.5 H RBC 3.30 L Hgb 9.0 L Hct 29 L MCV 87 MCH 27 MCHC 31 RDW 15 Plt Count 221 MPV 9.5 Hem Pathologist Commnt INR (Anticoag Therapy) 1.05 H Sodium Potassium Chloride Carbon Dioxide Anion Gap BUN Creatinine Est GFR ( Amer) Est GFR (Non-Af Amer) BUN/Creatinine Ratio Glucose Calcium Magnesium B-Natriuretic Peptide 264 H Vancomycin Trough Studies: 10/26 CXR - Bronchopneumonia with signficant interval worsening. Underlying advanced COPD 10/25 CXR -pulmonary edema vs multifocal pneumonia. Pleural effusion +/- consolidation of LLL. Aeration unchanged from 10/23 10/24 venous duplex bilateral lower extremities - no DVT. 10/23 CXR - worsening pulmonary edema as compared to 10/16 vs early pneumonitis or ARDS 10/16 CT head - NAD 10/16 CTA head - NAD 10/16 CT chest - advanced COPD with associated interstitial fibrosis. Trace bilateral pleural effusions and atelectasis Nutrition: NPO while on BiPAP. Impression: 63 yo M admitted 10/16 with acute on chronic respiratory failure requiring intubation secondary to COPD exacerbation. Initially did well and was weaned from vent on 10/18 however developed pulmonary edema secondary to CHF and was transferred back to ICU 10/23 for BiPAP. Developed Hemoptysis on 10/25 which resolved later that day with transition to vapotherm. Required return to BiPAP again last evening for hypoxia. Plan: Cardiovascular: (1) Sinus tachycardia; (2) Labile BPs, resolved; (3) Chronic HTN; (4) Pulmonary HTN secondary to advanced lung disease; (5) HLD; (6) Likely acute on chronic diastolic CHF -- HR 72-101 -- SBP 99-148 -- Telemetry -- TTE 10/16: LVEF 55-60%. Unable to assess diastolic dysfunction. Pulmonary artery HTN -- ProBNP 264 from 280, follow trend -- ASA - discontinued secondary to hemopthysis -- Atorvastatin -- Lisinopril, Metoprolol -- PRN Hydralazine for goal SBP < 160 -- Schedule Lasix BID x 3 days for diuresis Home meds: None Pulmonary: (1) Acute on chronic hypoxic and hypercapneic respiratory failure; ( 2) COPD exacerbation; (3) aspiration pneumonia; (4) HAMILTON; (5) Hemoptysis, resolved; (6) Pulmonary edema, cardiac cause -- RR 17- 34 -- sats 87-95 on BiPAP overnight -- Switched to vapotherm from BiPAP after onset of hemoptysis, wean as able -- CXR: Increased RLL perihilar density. improvement in left intersitital infiltrates -- PRN Duonebs -- Spiriva -- Continue bronchodilators, steriods and antibiotics for COPD exacerbation -- continue broadspectrum abx for aspiration pneumonia Home meds: Mometasone/formoterol, Spiriva, albuterol Gastrointestinal: No acute issues -- diet: NPO until respiratory status stabilized -- bowel regimen: Colace -- ulcer prophylaxis: Protonix Home meds: Colace Endocrine: (1) Hyperglycemia -- monitor BGs -- start SSI if BG> 180 -- Solumedrol for COPD exacerbation Home meds: Prednisone Renal: (1) Hypernatremia, resolved; (2) Hypokalemia; (3) Hypocalemia; (4) hypervolemia -- UOP: 156 ml/hr -- I/O:1138/3750. Net (-) 2L -- Cr 0.93 from 1.03 -- Lytes Na 143 from 144 K 3.2, replacement ordered Ca 8.0, replacement ordered Mag 2.1 -- IVF: HL -- Lasix for diuresis Home meds: None Infectious disease: (1) Sepsis; (2) Aspiration pneumonia -- Tmax 98.5 -- WBC 16.5 from 14.8 -- Micro / Blood NGTD 10/16 blood Negative Urine negative Sputum Normal estefanía Blood staph. likely contaminant -- ABX Cefepime Vancomycin Home meds: None Neurologic: (1) Chronic delusional disorder/schizophrenia -- Tylenol as needed -- Aricept -- Zyprexa -- Zoloft Home meds: Zoloft, Zyprexa, Tylenol Hematological: (1) Anemia -- Hgb 9.0 from 10.2 -- Plt 221 from 154 -- Coags INR 1.05 -- DVT prophylaxis: SCDs. Heparin held secondary to hemoptysis Home meds: None Metabolic: No acute issues Home meds: None Deep vein thrombosis prophylaxis: SCDs. Heparin held secondary to hemoptysis Dietary: Protonix Condition: Critical Prognosis: Guarded Code status: Full Disposition: continue ICU Care. Cumulative time spent in the care of this patient (excluding any procedure time) : at least 50 minutes. Patient care included clinical interview (with patient and/or family), bedside exam of the patient, review of labs, x-rays, and other ancillary data, coordination of (respiratory, nursing care, review of patient's records, discussion regarding patients management with involved consultants, primary physician, pharmacists, and other healthcare personnel (dietary, case management , physical/occupational therapy etc.) Critical Care Time: 50
[2018-10-26] MEDS ORDERED: Calcium Gluconate INJ* 1 GM in NS 0.9% 50 ML* 50 ML IVPB ONE (08:26)
[2018-10-26] MEDS: Atorvastatin* 20 MG TAB PO SCH (08:36)
[2018-10-26] MEDS: Donepezil TAB* 5 MG PO SCH (08:37)
[2018-10-26] MEDS: Furosemide IV* 10 MG/ML VIAL (40 MG) IV SCH ×2 (08:37→20:49)
[2018-10-26] MEDS: Sertraline* 100 MG TAB PO SCH (08:37)
[2018-10-26] MEDS: Pantoprazole TAB * 40 MG TAB PO SCH (08:37)
[2018-10-26] MEDS: Metoprolol Tartrate TAB* 25 MG PO SCH ×2 (08:37→20:47)
[2018-10-26] MEDS: Lisinopril TAB* 10 MG PO SCH (08:37)
[2018-10-26] MEDS: Docusate CAP* 100 MG PO SCH ×2 (08:37→20:47)
[2018-10-26] MEDS: KCL 10 MEQ/50 ML IVPREMIX* 10 MEQ/50 ML BAG IV SCH ×4 (08:47→13:22)
[2018-10-26] MEDS: OLANzapine TAB* 10 MG PO SCH ×2 (08:47→20:47)
[2018-10-26] MEDS: Tiotropium CAP.INH* CAP.INH/18 MCG (USE ORDER SET !) INH SCH (09:34)
--- NOTE | 2018-10-26 11:50 | PN ---
Progress Note - Progress Note Date of Service: 10/26/18 - clarification of documentation Note: Chart reviewed regarding question of sepsis on admission While the patient did have a minimally elevated HR and RR, I feel that these findings would be better explained by the COPD exacerbation that was his reason for admission than by an additional septic state. The next several days clinical course from admission also corresponds better with that expected from a COPD exacerbation. Thus I do not feel in retrospect that he was septic on admission.
[2018-10-26 15:33] LABS: Calcium 8.7 mg/dL (8.6-10.3); EGFR African American 82.1 (>60); EGFR Non-African American 67.8 (>60); Potassium 3.2 mmol/L (3.5-5.0)
[2018-10-26] MEDS: KCL 20 MEQ/100 ML IVPREMIX* 20 MEQ/100 ML BAG IV SCH ×3 (16:39→22:02)
[2018-10-26 20:22] LABS: BUN/Creatinine Ratio 21.8 (8-20); Calcium 8.4 mg/dL (8.6-10.3); EGFR Non-African American 61.9 (>60); Potassium 3.6 mmol/L (3.5-5.0)
[2018-10-26] MEDS ORDERED: LORazepam INJ* 2 MG/ML 1 ML VIAL IV PUSH ONE (20:40)
[2018-10-26] MEDS ORDERED: LORazepam INJ* 2 MG/ML 1 ML VIAL ONE (20:41)
[2018-10-27] MEDS: methylPREDNISolone SOD 40 MG* 1 ML VIAL IV SCH ×3 (01:25→17:21)
[2018-10-27] MEDS: Cefepime* 2 GM in Dextrose 50mL Q12H (Duplex) IV SCH ×2 (01:47→14:03)
[2018-10-27] MEDS: Vancomycin(*) 750 MG in NS 0.9% 250 ML* 250 ML IVPB SCH ×3 (04:30→20:53)
[2018-10-27 05:46] LABS: Hematocrit 28 % (42-52); Hemoglobin 8.9 g/dl (14.0-18.0); Mean Corpuscular HGB Conc 31 g/dl (31-36); Mean Corpuscular Hemoglobin 27 pg (27-31); Mean Corpuscular Volume 87 fL (80-94); Mean Platelet Volume 9.1 fL (7.4-10.4); Platelet Count 282 10^3/ul (150-450); Red Blood Count 3.25 10^6/ul (4.00-5.40); Red Cell Distribution Width 16 % (10.5-15); White Blood Count 23.7 10^3/ul (3.5-10.8)
[2018-10-27] MEDS ORDERED: Acetaminophen ADULT LIQ* 650 MG/20.3 ML UDC PO PRN (06:01)
[2018-10-27 06:02] LABS: BUN/Creatinine Ratio 27.7 (8-20); EGFR African American 90.6 (>60); EGFR Non-African American 74.9 (>60); Magnesium 1.8 mg/dL (1.9-2.7); Potassium 3.3 mmol/L (3.5-5.0)
[2018-10-27] MEDS: Albuterol/Ipratropium NEB.SOL* Albuterol 2.5 MG/Ipratropium 0.5 MG 3 ML INH PRN ×2 (06:08→21:18)
[2018-10-27 06:14] LABS: INR 1.05 (0.77-1.02)
[2018-10-27] MEDS: Lisinopril TAB* 10 MG PO SCH (08:25)
[2018-10-27] MEDS: Docusate CAP* 100 MG PO SCH ×2 (08:25→19:52)
[2018-10-27] MEDS: Donepezil TAB* 5 MG PO SCH (08:26)
[2018-10-27] MEDS: OLANzapine TAB* 10 MG PO SCH ×2 (08:26→20:53)
[2018-10-27] MEDS: Metoprolol Tartrate TAB* 25 MG PO SCH ×2 (08:26→20:53)
[2018-10-27] MEDS: Sertraline* 100 MG TAB PO SCH (08:26)
[2018-10-27] MEDS: Pantoprazole TAB * 40 MG TAB PO SCH (08:26)
[2018-10-27] MEDS: Atorvastatin* 20 MG TAB PO SCH (08:26)
[2018-10-27] MEDS: Furosemide IV* 10 MG/ML VIAL (40 MG) IV SCH ×3 (08:26→20:53)
--- NOTE | 2018-10-27 08:28 | PN ---
Date of Service: 10/27/18 - HD 13 Critical Care Services: 63 yo M with HTN, HLD, schizophrenia, severe COPD on home O2 presented on 10/16 to [facility] with acute on chronic hypercapneic respiratory failure requiring intubation 10/17: Sedation vacation, remains unresponsive 10/18: Improving mental status. Passed SBT and extubated 10/19: On BiPAP, increasing hypernatremia 10/20: Weaned to NC 10/22: Transferred to floor 10/23: Did not wear BiPAP overnight with subsequent decompensation. Transferred back to ICU. New infiltrate on CXR 10/25: Overnight developed hemoptysis. Switched from BiPAP to Highflow/ vapotherm. INR normal. ASA and Heparin SQ held. Family updated at beside 10/26: Required BiPAP again overnight for low sats. No further hemoptysis. AM CXR with worsened pulmonary edema likely due to being off BiPAP the prior day. Lasix increased 10/27: No overnight events Vital Signs: Temp Pulse Resp BP SpO2 FiO2 99 F 97 18 145/90 96 100 10/27/18 07:56 10/27/18 06:13 10/27/18 06:13 10/27/18 06:01 10/27/18 06:13 10/27 06:13 Physical Exam: Gen: alert, conversant HEENT: Vapotherm cannula in place Lungs: Improved air movement bilaterally. Scattered expiratory wheezes Cardiac: RRR Abdomen: Soft NTND Extremities: Warm, dry, improving edema Neuro: alert and oriented Fluid Balance (Past 24 Hours): I= O= Net Intake & Output 10/25/18 10/26/18 10/27/18 10/28/18 06:59 06:59 06:59 06:59 Intake Total 2730 1138 1985 Output Total 2950 3750 4875 Balance -220 -2612 -2890 Weight 257 lb 7.999 oz 250 lb 14.177 oz 250 lb 7.122 oz Intake: IV Fluids 63 171 855 ABX 243 NS 63 171 612 IVPB 747 767 576 ABX - VANCOMYCIN 512 607 516 ABX - ZOSYN 235 160 Cefepime 60 Medicated IV 314 KCL 20 mEq 314 Oral 1920 200 240 Output: Urine 2950 2950 4875 Juarez 800 Other: Estimated Void Medium Date of Last Bowel 10/25/18 Movement # Bowel Movements 1 Estimated Stool Amount Large Large Large # Voids 0 0 0 ADLs: Meal Record Start: 10/15/18 20: 48 Freq: 09,13,18 Status: Inactive Protocol: Created 10/15/18 20:48 System (Rec: 10/15/18 20:48 System ICU-C12) Document 10/17/18 09:00 VVL6466 (Rec: 10/17/18 09:16 OLS9416 ICU-C10) Document 10/17/18 13:00 YFF1200 (Rec: 10/17/18 14:02 YGL1717 ICU-C10) Document 10/17/18 18:00 WFE8703 (Rec: 10/17/18 18:04 INH0218 ICU-C10) Document 10/18/18 12:51 QWL3138 (Rec: 10/18/18 12:51 ABO3876 ICU-C16) Document 10/18/18 18:00 SSQ3149 (Rec: 10/18/18 18:16 EER9543 ICU-C16) Document 10/19/18 13:20 CPY2086 (Rec: 10/19/18 13:26 YEH2360 ICU-C14) Document 10/19/18 18:00 PHA6352 (Rec: 10/19/18 18:29 NEN1807 ICU-C06) Document 10/20/18 09:00 JAK8228 (Rec: 10/20/18 10:50 NNR5835 ICU-C10) Document 10/20/18 14:12 JLT0394 (Rec: 10/20/18 14:13 BBV8703 ICU-C10) Document 10/20/18 18:00 FXC6841 (Rec: 10/20/18 18:02 YEA0378 ICU-C10) Document 10/21/18 09:00 ECV8218 (Rec: 10/21/18 11:29 ZXC1766 ICU-C16) ADLs: Meal Record Start: 10/21/18 12: 46 Freq: DAILY@0900,1400,1800 Status: Complete Protocol: Created 10/21/18 12:46 PIJ1003 (Rec: 10/21/18 12:46 KBI1929 ICU-C06) Document 10/21/18 14:00 BBY3739 (Rec: 10/21/18 14:12 NQB7276 ICU-C06) Document 10/21/18 18:00 BBK3409 (Rec: 10/21/18 19:31 TVK8254 ICU-C07) Document 10/22/18 09:00 PAS0359 (Rec: 10/22/18 12:47 QKQ5591 MED-C13) Document 10/22/18 14:00 URJ7383 (Rec: 10/22/18 15:02 SOG1724 MED-C15) Document 10/22/18 18:00 HOJ3653 (Rec: 10/22/18 22:38 JVW5383 MED-C02) ADLs: Meal Record Start: 10/23/18 06: 30 Freq: 09,13,18 Status: Active Protocol: Created 10/23/18 06:30 NLP5705 (Rec: 10/23/18 06:30 DGL8863 ICU-M30) Document 10/23/18 10:00 HTP1944 (Rec: 10/23/18 10:57 QKT2339 ICU-C15) Document 10/23/18 13:00 BLC9668 (Rec: 10/23/18 18:22 DMA8189 ICU-C15) Document 10/23/18 20:00 QHD8863 (Rec: 10/23/18 21:14 QJA5574 ICU-C15) Document 10/24/18 10:54 IAK3017 (Rec: 10/24/18 10:54 VBE8143 ICU-C15) Document 10/24/18 13:00 KAV5367 (Rec: 10/24/18 14:21 NWZ4055 ICU-C15) Document 10/24/18 19:13 WQC7278 (Rec: 10/24/18 19:14 CNV9317 ICU-C16) Document 10/25/18 08:27 ZZH8265 (Rec: 10/25/18 08:27 TUZ7264 ICU-C15) Document 10/25/18 13:00 OEV6951 (Rec: 10/25/18 13:04 JRO1868 ICU-C15) Document 10/25/18 14:04 UFJ0770 (Rec: 10/25/18 14:05 WGB9991 ICU-C20) Document 10/25/18 19:50 SHF7688 (Rec: 10/25/18 19:50 RIR0702 ICU-C16) Document 10/26/18 09:00 ZQN8539 (Rec: 10/26/18 10:41 YIJ7069 ICU-C15) Document 10/26/18 13:00 LFM1332 (Rec: 10/26/18 13:26 DGP7422 ICU-C15) Document 10/26/18 18:00 CMS0441 (Rec: 10/26/18 18:08 HNE8354 ICU-C15) Intake and Output Start: 10/15/18 20: 48 Freq: Q4HR Status: Inactive Protocol: Created 10/15/18 20:48 System (Rec: 10/15/18 20:48 System ICU-C12) Document 10/15/18 23:00 BWJ4528 (Rec: 10/16/18 00:36 YJX7334 ICU-C16) Document 10/16/18 00:00 OEN5626 (Rec: 10/16/18 00:36 OYK2771 ICU-C16) Document 10/16/18 00:41 LST9898 (Rec: 10/16/18 00:41 BWA0628 ICU-C16) Document 10/16/18 02:00 XXH7523 (Rec: 10/16/18 02:18 BWB6306 ICU-C16) Document 10/16/18 03:00 VQY6502 (Rec: 10/16/18 04:15 GVY4282 ICU-C16) Document 10/16/18 04:00 EHC6251 (Rec: 10/16/18 04:15 MXF0545 ICU-C16) Document 10/16/18 05:00 NAQ4972 (Rec: 10/16/18 06:00 MDJ7325 ICU-C16) Document 10/16/18 06:00 AEE1441 (Rec: 10/16/18 06:56 UAD3444 ICU-C16) Document 10/16/18 07:00 WNG1746 (Rec: 10/16/18 07:00 GCM9690 ICU-C15) Document 10/16/18 07:42 FUH4220 (Rec: 10/16/18 07:42 FWJ3118 ICU-M28) Document 10/16/18 08:00 UTR7501 (Rec: 10/16/18 09:56 UTZ9304 ICU-C15) Document 10/16/18 11:00 TSV4360 (Rec: 10/16/18 13:11 RXH7651 ICU-M28) Document 10/16/18 12:00 RLL7745 (Rec: 10/16/18 13:21 KZV1926 ICU-M28) Document 10/16/18 13:00 CVS2077 (Rec: 10/16/18 13:41 FOF0136 ICU-M28) Document 10/16/18 14:00 RYJ2891 (Rec: 10/16/18 14:35 OQY5078 ICU-C15) Document 10/16/18 15:00 PRU7898 (Rec: 10/16/18 16:54 XWN6598 ICU-M28) Document 10/16/18 16:00 NPT6362 (Rec: 10/16/18 16:54 CPH8272 ICU-M28) Document 10/16/18 17:00 WXM0685 (Rec: 10/16/18 17:12 ZLU2414 ICU-C15) Document 10/16/18 18:00 BGJ5864 (Rec: 10/16/18 18:15 GFX8178 ICU-C15) Document 10/16/18 20:00 EZG2396 (Rec: 10/16/18 20:23 YUC2753 ICU-M28) Document 10/16/18 21:00 ADA5852 (Rec: 10/16/18 22:03 PVP2782 ICU-C10) Document 10/16/18 22:00 CRJ9153 (Rec: 10/16/18 22:03 VHV3777 ICU-C10) Document 10/16/18 23:00 PQM3890 (Rec: 10/17/18 00:45 MYH3365 ICU-C10) Document 10/17/18 00:00 DXC5484 (Rec: 10/17/18 00:45 MPC2115 ICU-C10) Document 10/17/18 01:00 UJR6276 (Rec: 10/17/18 01:08 NCD0587 ICU-C10) Document 10/17/18 02:00 TDL0474 (Rec: 10/17/18 02:02 ZXU6902 ICU-C10) Document 10/17/18 03:00 IFA9704 (Rec: 10/17/18 04:15 IGX8014 ICU-C10) Document 10/17/18 04:00 UDF9281 (Rec: 10/17/18 04:15 XTS8000 ICU-C10) Document 10/17/18 05:00 UIO6884 (Rec: 10/17/18 07:05 BQX6213 ICU-C10) Document 10/17/18 06:00 TGX0327 (Rec: 10/17/18 07:05 NHC9969 ICU-C10) Document 10/17/18 07:00 ENB4808 (Rec: 10/17/18 07:05 ISV9151 ICU-C10) Document 10/17/18 08:00 PAK1031 (Rec: 10/17/18 09:11 BQJ6723 ICU-C10) Document 10/17/18 09:00 PUH8882 (Rec: 10/17/18 09:11 DJW6452 ICU-C10) Document 10/17/18 10:00 PQG9039 (Rec: 10/17/18 10:51 HPJ7270 ICU-M28) Document 10/17/18 10:51 ZRT4877 (Rec: 10/17/18 10:51 BAQ1555 ICU-M28) Document 10/17/18 13:04 QGH5355 (Rec: 10/17/18 13:06 QGZ1689 ICU-C25) Document 10/17/18 14:00 LCQ5993 (Rec: 10/17/18 14:02 LJM9340 ICU-C10) Document 10/17/18 15:00 TPN8618 (Rec: 10/17/18 15:02 QCV8185 ICU-M28) Document 10/17/18 16:00 QYP6096 (Rec: 10/17/18 17:05 EQQ6931 ICU-M28) Document 10/17/18 17:00 BZF7742 (Rec: 10/17/18 17:05 JLG4694 ICU-M28) Document 10/17/18 18:00 CIR0706 (Rec: 10/17/18 18:15 OJV1395 ICU-M28) Document 10/17/18 19:00 XXD8566 (Rec: 10/17/18 20:54 XKS5281 ICU-C15) Document 10/17/18 20:00 DUI5549 (Rec: 10/17/18 23:39 TPV1517 ICU-C15) Document 10/17/18 21:00 EEN5348 (Rec: 10/17/18 23:40 OLR7680 ICU-C15) Document 10/17/18 22:00 ZKI7170 (Rec: 10/17/18 23:43 ANS5754 ICU-C15) Document 10/17/18 23:00 IDR2472 (Rec: 10/17/18 23:44 ROC7549 ICU-C15) Document 10/18/18 01:00 GCZ0718 (Rec: 10/18/18 01:10 NOA9596 ICU-C15) Document 10/18/18 02:00 RMX3090 (Rec: 10/18/18 02:13 OTC4050 ICU-C15) Document 10/18/18 03:00 JAQ8680 (Rec: 10/18/18 03:03 YMR9520 ICU-C15) Document 10/18/18 04:00 IEM8346 (Rec: 10/18/18 04:46 MLM8072 ICU-C15) Document 10/18/18 05:00 PZN1767 (Rec: 10/18/18 05:37 LPD9315 ICU-M28) Document 10/18/18 06:00 IOQ8550 (Rec: 10/18/18 06:09 JSL9738 ICU-C15) Document 10/18/18 07:00 NQF3097 (Rec: 10/18/18 07:41 LXP9806 ICU-C16) Document 10/18/18 07:42 DCC4977 (Rec: 10/18/18 07:56 WZU5154 ICU-C16) Document 10/18/18 09:00 YAD0310 (Rec: 10/18/18 10:17 PWK7962 ICU-C16) Document 10/18/18 10:00 GMV5169 (Rec: 10/18/18 10:17 NVV3257 ICU-C16) Document 10/18/18 11:00 OQW9555 (Rec: 10/18/18 12:18 YLS5152 ICU-C16) Document 10/18/18 12:00 AHD3726 (Rec: 10/18/18 12:18 CYB5267 ICU-C16) Document 10/18/18 13:00 ZGH9774 (Rec: 10/18/18 14:12 ZWK8602 ICU-C16) Document 10/18/18 14:00 PLU2393 (Rec: 10/18/18 14:12 HAS6339 ICU-C16) Document 10/18/18 15:00 CUF4330 (Rec: 10/18/18 15:00 UBJ9467 ICU-C16) Document 10/18/18 15:34 VHQ3494 (Rec: 10/18/18 16:11 STK7841 ICU-C16) Document 10/18/18 16:24 VCN1909 (Rec: 10/18/18 16:24 UIN7785 ICU-C16) Document 10/18/18 17:00 XYV7945 (Rec: 10/18/18 18:14 TNA3313 ICU-C16) Document 10/18/18 18:00 CON2703 (Rec: 10/18/18 18:14 CXU5634 ICU-C16) Document 10/18/18 19:00 PAI4633 (Rec: 10/18/18 19:04 WYX8021 ICU-C16) Document 10/18/18 20:00 PWG8684 (Rec: 10/18/18 21:09 ZLS7215 ICU-C16) Document 10/18/18 21:00 QOE1436 (Rec: 10/18/18 21:09 HPW7755 ICU-C16) Document 10/18/18 22:00 KQQ3239 (Rec: 10/18/18 22:30 FZL1326 ICU-C16) Document 10/18/18 23:41 QXO3202 (Rec: 10/18/18 23:41 NQQ3487 ICU-M28) Document 10/19/18 00:38 WVZ0719 (Rec: 10/19/18 00:39 GFV4214 ICU-M28) Document 10/19/18 01:28 RYQ2168 (Rec: 10/19/18 01:28 XXP0337 ICU-C10) Document 10/19/18 03:13 SDL3160 (Rec: 10/19/18 03:13 EEG7694 ICU-C10) Document 10/19/18 04:42 BWP8996 (Rec: 10/19/18 04:43 QON8851 ICU-C10) Document 10/19/18 06:23 QXC3210 (Rec: 10/19/18 06:23 YDU5157 ICU-C10) Document 10/19/18 09:00 HRB1962 (Rec: 10/19/18 09:01 ZAV0553 ICU-C10) Document 10/19/18 11:00 LVB7788 (Rec: 10/19/18 11:12 IYK9729 ICU-C10) Document 10/19/18 13:00 RTU9608 (Rec: 10/19/18 13:12 XIZ2059 ICU-M28) Document 10/19/18 14:00 EOP7457 (Rec: 10/19/18 18:18 NLC7263 ISDEMO-M03 ) Document 10/19/18 16:21 HGO7186 (Rec: 10/19/18 16:22 SUO6908 ICU-C10) Document 10/19/18 19:00 QHN7501 (Rec: 10/19/18 19:22 GVJ8711 ICU-C16) Document 10/19/18 20:00 QFQ4744 (Rec: 10/19/18 20:51 GKA2451 ICU-C16) Document 10/19/18 21:00 PLO1123 (Rec: 10/19/18 21:21 UPM6950 ICU-C16) Document 10/19/18 22:00 GMP3728 (Rec: 10/19/18 22:15 RAQ7137 ICU-C16) Document 10/19/18 23:00 TEY9812 (Rec: 10/20/18 00:14 ABE4390 ICU-C16) Document 10/20/18 00:00 UAA1245 (Rec: 10/20/18 00:20 WOC2988 ICU-C16) Document 10/20/18 00:57 MYR3969 (Rec: 10/20/18 00:57 GZN9360 ICU-C16) Document 10/20/18 01:53 YNK4715 (Rec: 10/20/18 01:53 PQR9499 ICU-C16) Document 10/20/18 02:28 FKI2876 (Rec: 10/20/18 02:28 ZKD0950 ICU-C16) Document 10/20/18 03:00 NDP6318 (Rec: 10/20/18 03:26 YCL5490 ICU-C16) Document 10/20/18 03:26 SNR8484 (Rec: 10/20/18 03:26 AVA1988 ICU-C16) Document 10/20/18 05:25 ORT8521 (Rec: 10/20/18 05:25 GOM6354 ICU-C16) Document 10/20/18 06:00 FPM8483 (Rec: 10/20/18 06:19 GFJ2303 ICU-C16) Document 10/20/18 07:00 UYR6075 (Rec: 10/20/18 07:43 LUU4363 ICU-C10) Document 10/20/18 10:48 HOR5367 (Rec: 10/20/18 10:48 CJB7056 ICU-C10) Document 10/20/18 17:38 TMT7860 (Rec: 10/20/18 17:40 PSM1345 ICU-C10) Document 10/20/18 19:52 ZLN1843 (Rec: 10/20/18 20:10 SSD3251 ICU-C16) Document 10/20/18 23:33 RTM5542 (Rec: 10/20/18 23:33 WBZ9625 ICU-C16) Document 10/21/18 04:00 PUK4295 (Rec: 10/21/18 04:07 QEX2933 ICU-C16) Document 10/21/18 05:42 GCQ3795 (Rec: 10/21/18 05:42 WFV8528 ICU-M28) Document 10/21/18 08:34 GUQ7132 (Rec: 10/21/18 08:34 WPB8809 ICU-C16) Intake and Output Start: 10/21/18 12: 46 Freq: DAILY@0600,1400,2200 Status: Complete Protocol: Created 10/21/18 12:46 JFQ0089 (Rec: 10/21/18 12:46 TPW5834 ICU-C06) Document 10/21/18 14:00 JHM7047 (Rec: 10/21/18 15:26 PPA8197 ICU-C56) Document 10/22/18 06:00 FHJ0895 (Rec: 10/22/18 06:16 DQM3216 ICU-C07) Document 10/22/18 10:21 TWK5449 (Rec: 10/22/18 10:21 AMZ6884 ICU-C07) Document 10/22/18 14:00 QCA7533 (Rec: 10/22/18 15:23 UJL2200 MED-C13) Document 10/22/18 22:00 RXK5849 (Rec: 10/22/18 22:43 DHK2854 MED-C02) Intake and Output Start: 10/23/18 06: 30 Freq: Q4HR Status: Active Protocol: Created 10/23/18 06:30 MGW5410 (Rec: 10/23/18 06:30 NBU1863 ICU-M30) Document 10/23/18 10:00 XPL1001 (Rec: 10/23/18 10:57 JUX5997 ICU-C15) Document 10/23/18 12:00 ZNY6409 (Rec: 10/23/18 12:23 EPC1048 ICU-C20) Document 10/23/18 16:00 YBR1694 (Rec: 10/23/18 17:48 HIL8517 ICU-C15) Document 10/23/18 21:00 WOZ1328 (Rec: 10/23/18 21:14 DEI8540 ICU-C15) Document 10/23/18 22:00 UAN8476 (Rec: 10/23/18 22:57 TZL7573 ICU-C15) Document 10/23/18 23:07 UJM8891 (Rec: 10/23/18 23:07 TVD1163 ICU-M32) Document 10/24/18 05:00 ZZN0796 (Rec: 10/24/18 05:38 JYS0507 ICU-C15) Document 10/24/18 06:00 DLN6373 (Rec: 10/24/18 06:19 NFK8456 ICU-C15) Document 10/24/18 10:00 SNM8462 (Rec: 10/24/18 10:13 XXT3278 ICU-C15) Document 10/24/18 12:00 PZB3055 (Rec: 10/24/18 12:25 HWU8591 ICU-C15) Document 10/24/18 14:44 ZSM6087 (Rec: 10/24/18 14:44 SJN9167 ICU-C15) Document 10/24/18 17:29 MTT0215 (Rec: 10/24/18 17:30 TTB6548 ICU-C15) Document 10/25/18 01:18 PYW4235 (Rec: 10/25/18 01:18 XDE5301 ICU-C16) Document 10/25/18 02:00 QEP3151 (Rec: 10/25/18 02:05 BTB1323 ICU-C16) Document 10/25/18 03:00 LFB1326 (Rec: 10/25/18 03:17 FZL0059 ICU-C16) Document 10/25/18 04:00 JNL6242 (Rec: 10/25/18 04:34 OGP8497 ICU-C16) Document 10/25/18 05:00 ROR7663 (Rec: 10/25/18 05:43 CZM0950 ICU-C16) Document 10/25/18 05:56 FCQ1079 (Rec: 10/25/18 05:56 NCP8345 ICU-C16) Document 10/25/18 09:33 JWZ3730 (Rec: 10/25/18 09:33 SVP7425 ICU-C15) Document 10/25/18 09:36 NTL0262 (Rec: 10/25/18 09:36 KYT6085 ICU-C15) Document 10/25/18 12:36 HSC6932 (Rec: 10/25/18 12:36 EQA9833 ICU-C15) Document 10/25/18 17:44 JGF6249 (Rec: 10/25/18 17:44 JWV8830 ICU-C15) Document 10/25/18 18:31 AYV9719 (Rec: 10/25/18 18:31 QPC7242 ICU-C15) Document 10/25/18 20:00 TRW7324 (Rec: 10/25/18 20:45 MWI9934 ICU-C16) Document 10/26/18 00:00 MIT5540 (Rec: 10/26/18 01:05 URY8493 ICU-C16) Document 10/26/18 04:00 YXY9801 (Rec: 10/26/18 04:12 DFI2386 ICU-C16) Document 10/26/18 05:08 CXS2433 (Rec: 10/26/18 05:08 WTS6128 ICU-C16) Document 10/26/18 08:00 CWI3247 (Rec: 10/26/18 08:09 OEZ9553 ICU-C14) Document 10/26/18 09:11 THR8198 (Rec: 10/26/18 09:12 NKD6100 ICU-C25) Document 10/26/18 12:00 WIJ6956 (Rec: 10/26/18 12:37 FPC5527 ICU-C15) Document 10/26/18 13:13 UXJ4976 (Rec: 10/26/18 13:13 WND5514 ICU-C16) Document 10/26/18 16:00 TXU0294 (Rec: 10/26/18 16:56 CCY0016 ICU-C15) Document 10/26/18 20:35 DEJ8731 (Rec: 10/26/18 20:35 ORL0422 ICU-M32) Document 10/26/18 22:17 KQE8643 (Rec: 10/26/18 22:17 FIS5895 ICU-C16) Document 10/27/18 00:28 GWD5428 (Rec: 10/27/18 00:28 SUV2041 ICU-C12) Document 10/27/18 02:57 SNN8712 (Rec: 10/27/18 02:57 YIQ7742 ICU-C14) Document 10/27/18 03:00 MIE5200 (Rec: 10/27/18 03:00 IZD4475 ICU-C14) Document 10/27/18 04:00 GTC9528 (Rec: 10/27/18 04:17 XVR3871 ICU-C16) Document 10/27/18 05:05 UXW4377 (Rec: 10/27/18 05:06 LIC9901 ICU-C14) Document 10/27/18 06:43 WSU6801 (Rec: 10/27/18 06:43 MSF9925 ICU-M32) Labs: Laboratory Results - last 24 hr 10/26/18 10/26/18 10/26/18 14:59 19:15 19:50 WBC RBC Hgb Hct MCV MCH MCHC RDW Plt Count MPV INR (Anticoag Therapy) Sodium 145 Cancelled 144 Potassium 3.2 L Cancelled 3.6 Chloride 100 L Cancelled 102 Carbon Dioxide 40 H Cancelled 36 H Anion Gap 5 Cancelled 6 BUN 22 Cancelled 26 H Creatinine 1.10 Cancelled 1.19 H Est GFR ( Amer) 82.1 Cancelled 75.0 Est GFR (Non-Af Amer) 67.8 Cancelled 61.9 BUN/Creatinine Ratio 20.0 Cancelled 21.8 H Glucose 240 H Cancelled 292 H Calcium 8.7 Cancelled 8.4 L Magnesium B-Natriuretic Peptide 10/27/18 10/27/18 10/27/18 05:35 05:35 05:35 WBC 23.7 H RBC 3.25 L Hgb 8.9 L Hct 28 L MCV 87 MCH 27 MCHC 31 RDW 16 H Plt Count 282 MPV 9.1 INR (Anticoag Therapy) Sodium 142 Potassium 3.3 L Chloride 99 L Carbon Dioxide 38 H Anion Gap 5 BUN 28 H Creatinine 1.01 Est GFR ( Amer) 90.6 Est GFR (Non-Af Amer) 74.9 BUN/Creatinine Ratio 27.7 H Glucose 164 H Calcium 8.0 L Magnesium 1.8 L B-Natriuretic Peptide 218 H 10/27/18 05:55 WBC RBC Hgb Hct MCV MCH MCHC RDW Plt Count MPV INR (Anticoag Therapy) 1.05 H Sodium Potassium Chloride Carbon Dioxide Anion Gap BUN Creatinine Est GFR ( Amer) Est GFR (Non-Af Amer) BUN/Creatinine Ratio Glucose Calcium Magnesium B-Natriuretic Peptide Studies: 10/26 CXR - Bronchopneumonia with signficant interval worsening. Underlying advanced COPD 10/25 CXR -pulmonary edema vs multifocal pneumonia. Pleural effusion +/- consolidation of LLL. Aeration unchanged from 10/23 10/24 venous duplex bilateral lower extremities - no DVT. 10/23 CXR - worsening pulmonary edema as compared to 10/16 vs early pneumonitis or ARDS 10/16 CT head - NAD 10/16 CTA head - NAD 10/16 CT chest - advanced COPD with associated interstitial fibrosis. Trace bilateral pleural effusions and atelectasis Nutrition: Heart healthy when on breaks from BiPAP Impression: 63 yo M admitted 10/16 with acute on chronic respiratory failure requiring intubation secondary to COPD exacerbation. Initially did well and was weaned from vent on 10/18 however developed pulmonary edema secondary to CHF and was transferred back to ICU 10/23 for BiPAP. Self limited episode of hemoptypsis. Aggressively diuresing for pulmonary edema due to CHF exacerbation which is limiting liberation from BiPAP Plan: Cardiovascular: (1) Sinus tachycardia, improving; (2) Labile BPs (3) Chronic HTN; (4) Pulmonary HTN secondary to advanced lung disease; (5) HLD; (6) Likely acute on chronic diastolic CHF -- HR 71-100 -- SBP 87-165 -- Telemetry -- TTE 10/16: LVEF 55-60%. Unable to assess diastolic dysfunction. Pulmonary artery HTN -- ProBNP 218 from 264 from 280, follow trend -- ASA - discontinued secondary to hemopthysis -- Atorvastatin -- Lisinopril, Metoprolol -- PRN Hydralazine for goal SBP < 160 -- Schedule Lasix TID for diuresis, until liberated from BiPAP and BNP normalized/more improved Home meds: None Pulmonary: (1) Acute on chronic hypoxic and hypercapneic respiratory failure; ( 2) COPD exacerbation; (3) aspiration pneumonia; (4) [place]; (5) Hemoptysis, resolved; (6) Pulmonary edema, cardiac cause -- RR 15-30 -- sats 88-100 on BiPAP with rest periods -- CXR: Increased RLL perihilar density. improvement in left intersitital infiltrates -- PRN Duonebs -- Spiriva -- Continue bronchodilators, steriods and antibiotics for COPD exacerbation -- continue broadspectrum abx for aspiration pneumonia Home meds: Mometasone/formoterol, Spiriva, albuterol Gastrointestinal: No acute issues -- diet: NPO until respiratory status stabilized -- bowel regimen: Colace -- ulcer prophylaxis: Protonix Home meds: Colace Endocrine: (1) Hyperglycemia -- monitor BGs -- start SSI if BG> 180 -- Solumedrol for COPD exacerbation Home meds: Prednisone Renal: (1) Hypernatremia, resolved; (2) Hypokalemia; (3) Hypocalemia; (4) Hypomagnesemia; (5) hypervolemia -- UOP: 156 ml/hr -- I/O:. Net (-) 2.9L -- Cr 1.01 from 1.19 -- Lytes Na 142 from 143 K 3.3, replacement ordered Ca 8.0, replacement ordered Mag 1.8, replacement ordered -- IVF: HL -- Lasix for diuresis Home meds: None Infectious disease: (1) Sepsis; (2) Aspiration pneumonia -- Tmax 99.5 -- WBC 23.7 from 16.5, but net negative by quite a bit, increase likley due to hemoconcentration -- Micro 1/5 Blood NGTD 10/16 blood Negative Urine negative Sputum Normal estefanía Blood staph. likely contaminant -- ABX Cefepime Vancomycin Home meds: None Neurologic: (1) Chronic delusional disorder/schizophrenia -- Tylenol as needed -- Aricept -- Zyprexa -- Zoloft Home meds: Zoloft, Zyprexa, Tylenol Hematological: (1) Anemia -- Hgb 8.9 from 9.0 -- Plt 282 from 221 -- Coags INR 1.05 from 1.05 -- DVT prophylaxis: SCDs. Heparin held secondary to hemoptysis Home meds: None Metabolic: No acute issues Home meds: None Deep vein thrombosis prophylaxis: SCDs. Heparin held secondary to hemoptysis Dietary: Protonix Condition: Critical Prognosis: Guarded Code status: Full Disposition: continue ICU Care. Cumulative time spent in the care of this patient (excluding any procedure time) : at least 40 minutes. Patient care included clinical interview (with patient and/or family), bedside exam of the patient, review of labs, x-rays, and other ancillary data, coordination of (respiratory, nursing care, review of patient's records, discussion regarding patients management with involved consultants, primary physician, pharmacists, and other healthcare personnel (dietary, case management , physical/occupational therapy etc.) Critical Care Time: 40
[2018-10-27] MEDS ORDERED: Magnesium Sulfate 1 GM IV* 1 GM/100 ML BAG IV ONE (09:00)
[2018-10-27] MEDS ORDERED: Calcium Gluconate INJ* 1 GM in NS 0.9% 50 ML* 50 ML IVPB ONE (09:00)
[2018-10-27] MEDS: Tiotropium CAP.INH* CAP.INH/18 MCG (USE ORDER SET !) INH SCH (09:19)
[2018-10-27] MEDS: KCL 20 MEQ/100 ML IVPREMIX* 20 MEQ/100 ML BAG IV SCH ×3 (09:31→12:56)
[2018-10-27] MEDS: Enoxaparin(*) 40 MG/0.4 ML SYR SUBCUT SCH (17:22)
[2018-10-28] MEDS: Cefepime* 2 GM in Dextrose 50mL Q12H (Duplex) IV SCH ×2 (01:44→14:08)
[2018-10-28] MEDS: methylPREDNISolone SOD 40 MG* 1 ML VIAL IV SCH ×2 (01:44→15:15)
[2018-10-28] MEDS: Nicotine PATCH 7 MG/24 HR* PATCH TRANSDERM SCH ×2 (02:24→11:29)
[2018-10-28] MEDS ORDERED: Vancomycin Trough Check NOTE FOLLOW UP ONE (04:30)
[2018-10-28 04:33] LABS: Hematocrit 27 % (42-52); Hemoglobin 8.3 g/dl (14.0-18.0); Mean Corpuscular HGB Conc 31 g/dl (31-36); Mean Corpuscular Hemoglobin 27 pg (27-31); Mean Corpuscular Volume 87 fL (80-94); Mean Platelet Volume 8.9 fL (7.4-10.4); Platelet Count 270 10^3/ul (150-450); Red Blood Count 3.13 10^6/ul (4.00-5.40); Red Cell Distribution Width 15 % (10.5-15)
[2018-10-28 04:47] LABS: BUN/Creatinine Ratio 26.9 (8-20); EGFR African American 87.6 (>60); EGFR Non-African American 72.4 (>60); Magnesium 1.8 mg/dL (1.9-2.7); Potassium 3.2 mmol/L (3.5-5.0)
[2018-10-28] MEDS ORDERED: Magnesium Sulfate 2 GM IV* 2 GM/50 ML BAG IVPB ONE (06:00)
[2018-10-28] MEDS: Vancomycin(*) 750 MG in NS 0.9% 250 ML* 250 ML IVPB SCH (06:17)
[2018-10-28] MEDS: KCL 20 MEQ/100 ML IVPREMIX* 20 MEQ/100 ML BAG IV SCH ×7 (06:41→19:37)
[2018-10-28] MEDS ORDERED: Magnesium Sulfate 1 GM IV* 1 GM/100 ML BAG IV ONE (08:44)
[2018-10-28] MEDS ORDERED: Calcium Gluconate INJ* 1 GM in NS 0.9% 50 ML* 50 ML IVPB ONE (08:44)
--- NOTE | 2018-10-28 08:50 | PN ---
Date of Service: 10/28/18 - HD 14 Critical Care Services: 63 yo M with HTN, HLD, schizophrenia, severe COPD on home O2 presented on 10/16 to [facility] with acute on chronic hypercapneic respiratory failure requiring intubation 10/17: Sedation vacation, remains unresponsive 10/18: Improving mental status. Passed SBT and extubated 10/19: On BiPAP, increasing hypernatremia 10/20: Weaned to NC 10/22: Transferred to floor 10/23: Did not wear BiPAP overnight with subsequent decompensation. Transferred back to ICU. New infiltrate on CXR 10/25: Overnight developed hemoptysis. Switched from BiPAP to Highflow/ vapotherm. INR normal. ASA and Heparin SQ held. Family updated at beside 10/26: Required BiPAP again overnight for low sats. No further hemoptysis. AM CXR with worsened pulmonary edema likely due to being off BiPAP the prior day. Lasix increased 10/27: Tolerating vapotherm throughout the day and BiPAP at night. Diuresing well 10/28: no overnight events Vital Signs: Temp Pulse Resp BP SpO2 FiO2 98.9 F 81 28 153/98 89 100 10/28/18 08:19 10/28/18 06:01 10/28/18 06:01 10/28/18 06:01 10/28/18 06:01 10/28 04:00 Physical Exam: Gen: alert, sitting up in chair chatting with on phone HEENT: high flow NC in place Lungs: nonlabored breathing Cardiac: RRR Abdomen: non distended Extremities: moving equally. improving peripheral edema Neuro: alert, conversant Fluid Balance (Past 24 Hours): I= O= Net Intake & Output 10/26/18 10/27/18 10/28/18 10/29/18 06:59 06:59 06:59 06:59 Intake Total 1138 1985 4575 Output Total 8253 9437 4610 Balance -2612 -2890 -50 Weight 250 lb 14.177 oz 250 lb 7.122 oz 253 lb 8.505 oz Intake: IV Fluids 171 855 844 ABX 243 ABX - VANCOMYCIN 436 Cefepime 110 NS 171 612 298 IVPB 767 576 248 ABX - VANCOMYCIN 607 516 ABX - ZOSYN 160 Cefepime 60 NSS W/ ABX 248 Medicated IV 314 298 KCL 20 mEq 314 298 Oral 641 081 6143 Tube Feeding Flush Amount 0 NG Tube Irrigate Amount 0 Output: Urine 2950 4875 4625 Juarez 800 Other: Date of Last Bowel 10/25/18 Movement # Bowel Movements 1 Estimated Stool Amount Large Large Large # Voids 0 0 ADLs: Meal Record Start: 10/15/18 20: 48 Freq: 09,13,18 Status: Inactive Protocol: Created 10/15/18 20:48 System (Rec: 10/15/18 20:48 System ICU-C12) Document 10/17/18 09:00 GNB0521 (Rec: 10/17/18 09:16 TRK1167 ICU-C10) Document 10/17/18 13:00 ZNE8365 (Rec: 10/17/18 14:02 PGO2841 ICU-C10) Document 10/17/18 18:00 JBY8805 (Rec: 10/17/18 18:04 HRP1978 ICU-C10) Document 10/18/18 12:51 HDQ5687 (Rec: 10/18/18 12:51 CSS9031 ICU-C16) Document 10/18/18 18:00 NCE2196 (Rec: 10/18/18 18:16 YMZ7536 ICU-C16) Document 10/19/18 13:20 JTW6855 (Rec: 10/19/18 13:26 HTX8113 ICU-C14) Document 10/19/18 18:00 DFV1355 (Rec: 10/19/18 18:29 BIB0134 ICU-C06) Document 10/20/18 09:00 BGZ7922 (Rec: 10/20/18 10:50 DFS7269 ICU-C10) Document 10/20/18 14:12 GQD4660 (Rec: 10/20/18 14:13 TQM2623 ICU-C10) Document 10/20/18 18:00 EPC2572 (Rec: 10/20/18 18:02 FSW3992 ICU-C10) Document 10/21/18 09:00 RQO4924 (Rec: 10/21/18 11:29 RNY9309 ICU-C16) ADLs: Meal Record Start: 10/21/18 12: 46 Freq: DAILY@0900,1400,1800 Status: Complete Protocol: Created 10/21/18 12:46 JAE4623 (Rec: 10/21/18 12:46 CRK8862 ICU-C06) Document 10/21/18 14:00 LUZ7071 (Rec: 10/21/18 14:12 ZKM9879 ICU-C06) Document 10/21/18 18:00 INL5598 (Rec: 10/21/18 19:31 MKY1198 ICU-C07) Document 10/22/18 09:00 LXB3099 (Rec: 10/22/18 12:47 JFJ3498 MED-C13) Document 10/22/18 14:00 UMX4727 (Rec: 10/22/18 15:02 LZR8560 MED-C15) Document 10/22/18 18:00 FGY6825 (Rec: 10/22/18 22:38 VZT1486 MED-C02) ADLs: Meal Record Start: 10/23/18 06: 30 Freq: 09,13,18 Status: Active Protocol: Created 10/23/18 06:30 WOB2790 (Rec: 10/23/18 06:30 GMM3105 ICU-M30) Document 10/23/18 10:00 OTA7183 (Rec: 10/23/18 10:57 XJF7740 ICU-C15) Document 10/23/18 13:00 JRM1510 (Rec: 10/23/18 18:22 YWX3170 ICU-C15) Document 10/23/18 20:00 AZW6923 (Rec: 10/23/18 21:14 YPN8081 ICU-C15) Document 10/24/18 10:54 QOP6419 (Rec: 10/24/18 10:54 ZFX5342 ICU-C15) Document 10/24/18 13:00 CZV1998 (Rec: 10/24/18 14:21 ZQJ6567 ICU-C15) Document 10/24/18 19:13 HRN6570 (Rec: 10/24/18 19:14 OGZ0909 ICU-C16) Document 10/25/18 08:27 YCR7015 (Rec: 10/25/18 08:27 WVP7256 ICU-C15) Document 10/25/18 13:00 MRC7608 (Rec: 10/25/18 13:04 GIY4276 ICU-C15) Document 10/25/18 14:04 VNA3604 (Rec: 10/25/18 14:05 ZEN2439 ICU-C20) Document 10/25/18 19:50 ZPM1973 (Rec: 10/25/18 19:50 DTQ9311 ICU-C16) Document 10/26/18 09:00 IWB0080 (Rec: 10/26/18 10:41 CET8326 ICU-C15) Document 10/26/18 13:00 PYY9721 (Rec: 10/26/18 13:26 YYW7133 ICU-C15) Document 10/26/18 18:00 UDT1194 (Rec: 10/26/18 18:08 XEN5748 ICU-C15) Document 10/27/18 09:58 PRA5758 (Rec: 10/27/18 09:59 YUQ0474 ICU-M31) Document 10/27/18 13:00 OQF5376 (Rec: 10/27/18 14:30 SWU9522 ICU-C11) Document 10/27/18 18:00 JVG8283 (Rec: 10/27/18 18:36 WOY2958 ICU-C15) Intake and Output Start: 10/15/18 20: 48 Freq: Q4HR Status: Inactive Protocol: Created 10/15/18 20:48 System (Rec: 10/15/18 20:48 System ICU-C12) Document 10/15/18 23:00 TRF0450 (Rec: 10/16/18 00:36 UFK5276 ICU-C16) Document 10/16/18 00:00 KLI5509 (Rec: 10/16/18 00:36 UMO1913 ICU-C16) Document 10/16/18 00:41 MRM2882 (Rec: 10/16/18 00:41 WWQ5124 ICU-C16) Document 10/16/18 02:00 LHQ7018 (Rec: 10/16/18 02:18 OEM0352 ICU-C16) Document 10/16/18 03:00 JIM1480 (Rec: 10/16/18 04:15 UIU4403 ICU-C16) Document 10/16/18 04:00 PEG2392 (Rec: 10/16/18 04:15 MML6405 ICU-C16) Document 10/16/18 05:00 HRB1370 (Rec: 10/16/18 06:00 AQD0295 ICU-C16) Document 10/16/18 06:00 QEO5008 (Rec: 10/16/18 06:56 WLF1834 ICU-C16) Document 10/16/18 07:00 ESB4602 (Rec: 10/16/18 07:00 GNB8436 ICU-C15) Document 10/16/18 07:42 PXP8386 (Rec: 10/16/18 07:42 SEE6215 ICU-M28) Document 10/16/18 08:00 WSX1861 (Rec: 10/16/18 09:56 ODR4318 ICU-C15) Document 10/16/18 11:00 UPU7221 (Rec: 10/16/18 13:11 UHY7436 ICU-M28) Document 10/16/18 12:00 EZF5277 (Rec: 10/16/18 13:21 FIY4242 ICU-M28) Document 10/16/18 13:00 ONT5394 (Rec: 10/16/18 13:41 CIM7778 ICU-M28) Document 10/16/18 14:00 LLU7262 (Rec: 10/16/18 14:35 OVX4259 ICU-C15) Document 10/16/18 15:00 JUX6149 (Rec: 10/16/18 16:54 JPU8157 ICU-M28) Document 10/16/18 16:00 ZJL5648 (Rec: 10/16/18 16:54 TGR4208 ICU-M28) Document 10/16/18 17:00 WWD9752 (Rec: 10/16/18 17:12 YXI6323 ICU-C15) Document 10/16/18 18:00 NOM5729 (Rec: 10/16/18 18:15 LNN4325 ICU-C15) Document 10/16/18 20:00 HGQ4741 (Rec: 10/16/18 20:23 XYD9171 ICU-M28) Document 10/16/18 21:00 DAD2580 (Rec: 10/16/18 22:03 EOH6154 ICU-C10) Document 10/16/18 22:00 CEV5457 (Rec: 10/16/18 22:03 VDU0448 ICU-C10) Document 10/16/18 23:00 JAY0395 (Rec: 10/17/18 00:45 NJZ3111 ICU-C10) Document 10/17/18 00:00 IDF5340 (Rec: 10/17/18 00:45 TZM0312 ICU-C10) Document 10/17/18 01:00 HGD0182 (Rec: 10/17/18 01:08 DZW0215 ICU-C10) Document 10/17/18 02:00 IKQ0101 (Rec: 10/17/18 02:02 EAK6880 ICU-C10) Document 10/17/18 03:00 OBX9340 (Rec: 10/17/18 04:15 EMT2029 ICU-C10) Document 10/17/18 04:00 CKL3787 (Rec: 10/17/18 04:15 UHE8488 ICU-C10) Document 10/17/18 05:00 FFM1748 (Rec: 10/17/18 07:05 IUU0881 ICU-C10) Document 10/17/18 06:00 FWT2565 (Rec: 10/17/18 07:05 VIW2843 ICU-C10) Document 10/17/18 07:00 TTM3098 (Rec: 10/17/18 07:05 IJO5830 ICU-C10) Document 10/17/18 08:00 NDP9354 (Rec: 10/17/18 09:11 SMS8707 ICU-C10) Document 10/17/18 09:00 BFK4117 (Rec: 10/17/18 09:11 EJA3801 ICU-C10) Document 10/17/18 10:00 FRV4645 (Rec: 10/17/18 10:51 UON2263 ICU-M28) Document 10/17/18 10:51 WCX7971 (Rec: 10/17/18 10:51 OLM8027 ICU-M28) Document 10/17/18 13:04 SUY8655 (Rec: 10/17/18 13:06 CNQ2281 ICU-C25) Document 10/17/18 14:00 IIJ8740 (Rec: 10/17/18 14:02 XZR6713 ICU-C10) Document 10/17/18 15:00 YDW7938 (Rec: 10/17/18 15:02 NIS5413 ICU-M28) Document 10/17/18 16:00 TUU9010 (Rec: 10/17/18 17:05 ESI3400 ICU-M28) Document 10/17/18 17:00 TTP5105 (Rec: 10/17/18 17:05 YYR1217 ICU-M28) Document 10/17/18 18:00 KMI6248 (Rec: 10/17/18 18:15 XDC3169 ICU-M28) Document 10/17/18 19:00 BRA9028 (Rec: 10/17/18 20:54 HEE8152 ICU-C15) Document 10/17/18 20:00 FAW0708 (Rec: 10/17/18 23:39 FGB3812 ICU-C15) Document 10/17/18 21:00 SUE5462 (Rec: 10/17/18 23:40 WCP7861 ICU-C15) Document 10/17/18 22:00 UNZ3121 (Rec: 10/17/18 23:43 PNM3907 ICU-C15) Document 10/17/18 23:00 BHP4858 (Rec: 10/17/18 23:44 HEL8209 ICU-C15) Document 10/18/18 01:00 QDS4413 (Rec: 10/18/18 01:10 XKI4719 ICU-C15) Document 10/18/18 02:00 LTV6690 (Rec: 10/18/18 02:13 KWD3267 ICU-C15) Document 10/18/18 03:00 UEC7654 (Rec: 10/18/18 03:03 OWR2188 ICU-C15) Document 10/18/18 04:00 QWS7007 (Rec: 10/18/18 04:46 FZF2978 ICU-C15) Document 10/18/18 05:00 VWR8966 (Rec: 10/18/18 05:37 ZUR4190 ICU-M28) Document 10/18/18 06:00 POI8734 (Rec: 10/18/18 06:09 GPO2860 ICU-C15) Document 10/18/18 07:00 AMH9155 (Rec: 10/18/18 07:41 TDE5250 ICU-C16) Document 10/18/18 07:42 SFY8611 (Rec: 10/18/18 07:56 GXZ8032 ICU-C16) Document 10/18/18 09:00 QVV9205 (Rec: 10/18/18 10:17 ECR5389 ICU-C16) Document 10/18/18 10:00 PFJ1371 (Rec: 10/18/18 10:17 NFU0876 ICU-C16) Document 10/18/18 11:00 CPT4299 (Rec: 10/18/18 12:18 WOC7401 ICU-C16) Document 10/18/18 12:00 GBR5566 (Rec: 10/18/18 12:18 NQA8382 ICU-C16) Document 10/18/18 13:00 JSJ0836 (Rec: 10/18/18 14:12 GKF5424 ICU-C16) Document 10/18/18 14:00 YVF4181 (Rec: 10/18/18 14:12 ZXT4998 ICU-C16) Document 10/18/18 15:00 EPX3058 (Rec: 10/18/18 15:00 JHS5836 ICU-C16) Document 10/18/18 15:34 TBL3505 (Rec: 10/18/18 16:11 FVL5641 ICU-C16) Document 10/18/18 16:24 DRZ7203 (Rec: 10/18/18 16:24 TIE1962 ICU-C16) Document 10/18/18 17:00 BEY2906 (Rec: 10/18/18 18:14 XAO5783 ICU-C16) Document 10/18/18 18:00 IAQ8239 (Rec: 10/18/18 18:14 AJY0086 ICU-C16) Document 10/18/18 19:00 UMH5510 (Rec: 10/18/18 19:04 ERP2334 ICU-C16) Document 10/18/18 20:00 EHI1117 (Rec: 10/18/18 21:09 ATR9737 ICU-C16) Document 10/18/18 21:00 QZP9373 (Rec: 10/18/18 21:09 SKM9126 ICU-C16) Document 10/18/18 22:00 CXA2805 (Rec: 10/18/18 22:30 EGV7874 ICU-C16) Document 10/18/18 23:41 KXS7130 (Rec: 10/18/18 23:41 UUE7301 ICU-M28) Document 10/19/18 00:38 HBD8660 (Rec: 10/19/18 00:39 HXY0047 ICU-M28) Document 10/19/18 01:28 JUF4180 (Rec: 10/19/18 01:28 RNA1330 ICU-C10) Document 10/19/18 03:13 PNE2602 (Rec: 10/19/18 03:13 PJP7815 ICU-C10) Document 10/19/18 04:42 ZRO6116 (Rec: 10/19/18 04:43 NSU2832 ICU-C10) Document 10/19/18 06:23 QKL1381 (Rec: 10/19/18 06:23 GAN0388 ICU-C10) Document 10/19/18 09:00 SPX6448 (Rec: 10/19/18 09:01 HHB6294 ICU-C10) Document 10/19/18 11:00 WIE2904 (Rec: 10/19/18 11:12 GEV2307 ICU-C10) Document 10/19/18 13:00 DES6061 (Rec: 10/19/18 13:12 MRV1543 ICU-M28) Document 10/19/18 14:00 EWZ5180 (Rec: 10/19/18 18:18 DPV3778 ISDEMO-M03 ) Document 10/19/18 16:21 RTX5417 (Rec: 10/19/18 16:22 HEH3379 ICU-C10) Document 10/19/18 19:00 CEM8264 (Rec: 10/19/18 19:22 BVC2689 ICU-C16) Document 10/19/18 20:00 XGQ0853 (Rec: 10/19/18 20:51 DGV6841 ICU-C16) Document 10/19/18 21:00 DPV4636 (Rec: 10/19/18 21:21 FRQ3105 ICU-C16) Document 10/19/18 22:00 REZ1776 (Rec: 10/19/18 22:15 UAT2454 ICU-C16) Document 10/19/18 23:00 OMN4379 (Rec: 10/20/18 00:14 VIT4079 ICU-C16) Document 10/20/18 00:00 ASF6223 (Rec: 10/20/18 00:20 FIX7312 ICU-C16) Document 10/20/18 00:57 QPX0055 (Rec: 10/20/18 00:57 EXI6495 ICU-C16) Document 10/20/18 01:53 ONU2895 (Rec: 10/20/18 01:53 GCA9312 ICU-C16) Document 10/20/18 02:28 XWP4122 (Rec: 10/20/18 02:28 WDQ9273 ICU-C16) Document 10/20/18 03:00 ESL1921 (Rec: 10/20/18 03:26 PRU0781 ICU-C16) Document 10/20/18 03:26 FYA7494 (Rec: 10/20/18 03:26 YCZ7425 ICU-C16) Document 10/20/18 05:25 LVD0126 (Rec: 10/20/18 05:25 NFI7237 ICU-C16) Document 10/20/18 06:00 JND7478 (Rec: 10/20/18 06:19 JKG3347 ICU-C16) Document 10/20/18 07:00 NEZ2781 (Rec: 10/20/18 07:43 GQJ5350 ICU-C10) Document 10/20/18 10:48 EGA4854 (Rec: 10/20/18 10:48 WPS5392 ICU-C10) Document 10/20/18 17:38 XWI0824 (Rec: 10/20/18 17:40 VWQ4286 ICU-C10) Document 10/20/18 19:52 OND2099 (Rec: 10/20/18 20:10 EGU0351 ICU-C16) Document 10/20/18 23:33 NFP4665 (Rec: 10/20/18 23:33 OIP8169 ICU-C16) Document 10/21/18 04:00 TDG2111 (Rec: 10/21/18 04:07 QBE8821 ICU-C16) Document 10/21/18 05:42 QPJ6872 (Rec: 10/21/18 05:42 UGC7098 ICU-M28) Document 10/21/18 08:34 HAQ5296 (Rec: 10/21/18 08:34 JSI9168 ICU-C16) Intake and Output Start: 10/21/18 12: 46 Freq: DAILY@0600,1400,2200 Status: Complete Protocol: Created 10/21/18 12:46 ZQH1993 (Rec: 10/21/18 12:46 KVW2123 ICU-C06) Document 10/21/18 14:00 BLW6779 (Rec: 10/21/18 15:26 NAG3334 ICU-C56) Document 10/22/18 06:00 WHJ0861 (Rec: 10/22/18 06:16 CBZ5962 ICU-C07) Document 10/22/18 10:21 MWZ6568 (Rec: 10/22/18 10:21 WXS7080 ICU-C07) Document 10/22/18 14:00 EDO0579 (Rec: 10/22/18 15:23 VUO3390 MED-C13) Document 10/22/18 22:00 LDP9176 (Rec: 10/22/18 22:43 LDV9791 MED-C02) Intake and Output Start: 10/23/18 06: 30 Freq: Q4HR Status: Active Protocol: Created 10/23/18 06:30 CGZ0055 (Rec: 10/23/18 06:30 VEL7710 ICU-M30) Document 10/23/18 10:00 UEZ5609 (Rec: 10/23/18 10:57 BQC9893 ICU-C15) Document 10/23/18 12:00 ABR7938 (Rec: 10/23/18 12:23 MGU5980 ICU-C20) Document 10/23/18 16:00 NFD4443 (Rec: 10/23/18 17:48 QKH2447 ICU-C15) Document 10/23/18 21:00 XFS9074 (Rec: 10/23/18 21:14 IES0929 ICU-C15) Document 10/23/18 22:00 BVY9586 (Rec: 10/23/18 22:57 HOT7952 ICU-C15) Document 10/23/18 23:07 RSK4395 (Rec: 10/23/18 23:07 VWW8595 ICU-M32) Document 10/24/18 05:00 JFS7316 (Rec: 10/24/18 05:38 YHZ9043 ICU-C15) Document 10/24/18 06:00 XIF3149 (Rec: 10/24/18 06:19 LWG3580 ICU-C15) Document 10/24/18 10:00 RHR9396 (Rec: 10/24/18 10:13 PNS2498 ICU-C15) Document 10/24/18 12:00 WAH5323 (Rec: 10/24/18 12:25 VYH5831 ICU-C15) Document 10/24/18 14:44 JYR3590 (Rec: 10/24/18 14:44 ZKM7791 ICU-C15) Document 10/24/18 17:29 CTJ8281 (Rec: 10/24/18 17:30 BHM7138 ICU-C15) Document 10/25/18 01:18 UUD0371 (Rec: 10/25/18 01:18 ICU-C16) Document 10/25/18 02:00 ACR3260 (Rec: 10/25/18 02:05 JFV2086 ICU-C16) Document 10/25/18 03:00 FQP0296 (Rec: 10/25/18 03:17 VYS3152 ICU-C16) Document 10/25/18 04:00 MTW6086 (Rec: 10/25/18 04:34 PFZ0783 ICU-C16) Document 10/25/18 05:00 AOP3499 (Rec: 10/25/18 05:43 TAE7424 ICU-C16) Document 10/25/18 05:56 MGX2694 (Rec: 10/25/18 05:56 VAA2502 ICU-C16) Document 10/25/18 09:33 UAQ5931 (Rec: 10/25/18 09:33 ZUT1781 ICU-C15) Document 10/25/18 09:36 HSS2090 (Rec: 10/25/18 09:36 XCK2184 ICU-C15) Document 10/25/18 12:36 TPP2665 (Rec: 10/25/18 12:36 YDS1170 ICU-C15) Document 10/25/18 17:44 RWF9464 (Rec: 10/25/18 17:44 TGD3364 ICU-C15) Document 10/25/18 18:31 WED2562 (Rec: 10/25/18 18:31 TWC0135 ICU-C15) Document 10/25/18 20:00 XCA3571 (Rec: 10/25/18 20:45 YRH9344 ICU-C16) Document 10/26/18 00:00 GAO8514 (Rec: 10/26/18 01:05 CYZ9126 ICU-C16) Document 10/26/18 04:00 ZUC8943 (Rec: 10/26/18 04:12 KGU1985 ICU-C16) Document 10/26/18 05:08 RPZ4111 (Rec: 10/26/18 05:08 GYZ3650 ICU-C16) Document 10/26/18 08:00 FII2014 (Rec: 10/26/18 08:09 MBR2834 ICU-C14) Document 10/26/18 09:11 VKH1711 (Rec: 10/26/18 09:12 VNN1137 ICU-C25) Document 10/26/18 12:00 YPG0596 (Rec: 10/26/18 12:37 HTC8496 ICU-C15) Document 10/26/18 13:13 HUS4932 (Rec: 10/26/18 13:13 YME0928 ICU-C16) Document 10/26/18 16:00 MMD9440 (Rec: 10/26/18 16:56 WQZ6325 ICU-C15) Document 10/26/18 20:35 BMR2380 (Rec: 10/26/18 20:35 HCV6507 ICU-M32) Document 10/26/18 22:17 CNE6331 (Rec: 10/26/18 22:17 EIV1570 ICU-C16) Document 10/27/18 00:28 MOE5989 (Rec: 10/27/18 00:28 UXZ3974 ICU-C12) Document 10/27/18 02:57 XEX8071 (Rec: 10/27/18 02:57 WXM1345 ICU-C14) Document 10/27/18 03:00 TXH7715 (Rec: 10/27/18 03:00 QNX1174 ICU-C14) Document 10/27/18 04:00 SFE1599 (Rec: 10/27/18 04:17 VTW9389 ICU-C16) Document 10/27/18 05:05 BZW7373 (Rec: 10/27/18 05:06 URU3803 ICU-C14) Document 10/27/18 06:43 SKW5818 (Rec: 10/27/18 06:43 TVN9743 ICU-M32) Document 10/27/18 10:40 RSG3800 (Rec: 10/27/18 10:41 GQR6521 ICU-C11) Document 10/27/18 12:00 QAR6325 (Rec: 10/27/18 12:30 MDO9106 ICU-L03) Document 10/27/18 14:47 IHI4034 (Rec: 10/27/18 14:47 YAT7113 ICU-C15) Document 10/27/18 16:00 ASL8921 (Rec: 10/27/18 16:50 KRC7184 ICU-C15) Document 10/27/18 17:18 NKS3469 (Rec: 10/27/18 17:18 GPE0671 ICU-M31) Document 10/27/18 20:00 AQJ7383 (Rec: 10/27/18 20:27 RCO8117 ICU-C12) Document 10/27/18 23:11 JHD2634 (Rec: 10/27/18 23:12 SNS6551 ICU-C12) Document 10/27/18 23:31 EHX2972 (Rec: 10/27/18 23:31 QHI2967 ICU-C14) Document 10/28/18 02:37 XWM6742 (Rec: 10/28/18 02:49 CKX0406 ICU-C12) Document 10/28/18 04:00 ZWW9512 (Rec: 10/28/18 05:31 BMC1507 ICU-C12) Document 10/28/18 06:17 ATO0491 (Rec: 10/28/18 06:17 XPA9887 ICU-C14) Labs: Laboratory Results - last 24 hr 10/28/18 10/28/18 10/28/18 04:21 04:21 04:21 WBC 18.0 H RBC 3.13 L Hgb 8.3 L Hct 27 L MCV 87 MCH 27 MCHC 31 RDW 15 Plt Count 270 MPV 8.9 Sodium 140 Potassium 3.2 L Chloride 96 L Carbon Dioxide 38 H Anion Gap 6 BUN 28 H Creatinine 1.04 Est GFR ( Amer) 87.6 Est GFR (Non-Af Amer) 72.4 BUN/Creatinine Ratio 26.9 H Glucose 215 H Calcium 8.0 L Magnesium 1.8 L B-Natriuretic Peptide 235 H Vancomycin Trough 10/28/18 05:14 WBC RBC Hgb Hct MCV MCH MCHC RDW Plt Count MPV Sodium Potassium Chloride Carbon Dioxide Anion Gap BUN Creatinine Est GFR ( Amer) Est GFR (Non-Af Amer) BUN/Creatinine Ratio Glucose Calcium Magnesium B-Natriuretic Peptide Vancomycin Trough 18.9 Studies: 10/28 CXR - bilateral infiltrates demonstrating slight progression suggestive of pneumonia, less likely pulmonary edema 10/26 CXR - Bronchopneumonia with signficant interval worsening. Underlying advanced COPD 10/25 CXR -pulmonary edema vs multifocal pneumonia. Pleural effusion +/- consolidation of LLL. Aeration unchanged from 10/23 10/24 venous duplex bilateral lower extremities - no DVT. 10/23 CXR - worsening pulmonary edema as compared to 10/16 vs early pneumonitis or ARDS 10/16 CT head - NAD 10/16 CTA head - NAD 10/16 CT chest - advanced COPD with associated interstitial fibrosis. Trace bilateral pleural effusions and atelectasis Nutrition: heart healthy diet Impression: 63 yo M admitted 10/16 with acute on chronic respiratory failure requiring intubation secondary to COPD exacerbation. Initially did well and was weaned from vent on 10/18 however developed pulmonary edema secondary to CHF and was transferred back to ICU 10/23 for BiPAP. Self limited episode of hemoptypsis. Aggressively diuresing for pulmonary edema due to CHF exacerbation which is limiting liberation from BiPAP. On antibiotics to cover for possible contributing pneumonia. Plan: Cardiovascular: (1) Sinus tachycardia, improving; (2) Labile BPs (3) Chronic HTN; (4) Pulmonary HTN secondary to advanced lung disease; (5) HLD; (6) Likely acute on chronic diastolic CHF -- HR 70-117 -- SBP 82-172 -- Telemetry -- TTE 10/16: LVEF 55-60%. Unable to assess diastolic dysfunction. Pulmonary artery HTN -- ProBNP 235 from 218 from 264 follow trend -- Atorvastatin -- ASA -- Lisinopril, Metoprolol -- PRN Hydralazine for goal SBP < 160 -- Scheduled Lasix TID for diuresis, until liberated from BiPAP and BNP normalized/more improved Home meds: None Pulmonary: (1) Acute on chronic hypoxic and hypercapneic respiratory failure, improfing; (2) COPD exacerbation, improving; (3) aspiration pneumonia; (4) [place]; (5) Hemoptysis, resolved; (6) Pulmonary edema, cardiac cause -- RR 10-38 -- sats 87-98 -- on BiPAP at night and vapotherm during day -- CXR: Increased intersitital markings at bases. no pleural effusion. Worsened appearance possibly due to loss of positive pressure ventilation as now on vapotherm during day. Clinical patient appears improved. -- PRN Duonebs -- Spiriva -- Continue bronchodilators, steriods and antibiotics for COPD exacerbation. Start steriod taper as no longer wheezing -- continue broadspectrum abx for aspiration pneumonia -- incentive spirometry Home meds: Mometasone/formoterol, Spiriva, albuterol Gastrointestinal: No acute issues -- diet: NPO until respiratory status stabilized -- bowel regimen: Colace -- ulcer prophylaxis: Protonix Home meds: Colace Endocrine: (1) Hyperglycemia -- monitor BGs -- start SSI if BG> 180 -- Solumedrol for COPD exacerbation, start taper Home meds: Prednisone Renal: (1) Hypernatremia, resolved; (2) Hypokalemia; (3) Hypocalemia; (4) Hypomagnesemia; (5) hypervolemia, improving -- UOP: 193 ml/hr -- I/O:4575/4625 (mostly PO intake) -- Cr 1.04 from 1.01 -- Lytes Na 140 from 142 K 3.2, replacement ordered Ca 8.0, replacement ordered Mag 1.8, replacement ordered -- IVF: HL -- Lasix for diuresis Home meds: None Infectious disease: (1) Sepsis, improving; (2) Aspiration pneumonia -- Tmax 99.9 -- WBC 18.0 from 23.7 -- Micro 10/23 Blood NGTD 10/16 blood Negative Urine negative Sputum Normal estefanía Blood staph. likely contaminant -- ABX Cefepime Vancomycin Home meds: None Neurologic: (1) Chronic delusional disorder/schizophrenia -- Tylenol as needed -- Aricept -- Zyprexa -- Zoloft -- PT following Home meds: Zoloft, Zyprexa, Tylenol Hematological: (1) Anemia, stable -- Hgb 8.3 from 8.9 -- Plt 270 from 282 -- DVT prophylaxis: SCDs. Heparin held secondary to hemoptysis Home meds: None Metabolic: No acute issues Home meds: None Deep vein thrombosis prophylaxis: SCDs. Heparin held secondary to hemoptysis Dietary: Protonix Condition: Critical Prognosis: Guarded Code status: Full Disposition: continue ICU Care. Cumulative time spent in the care of this patient (excluding any procedure time) : at least 40 minutes. Patient care included clinical interview (with patient and/or family), bedside exam of the patient, review of labs, x-rays, and other ancillary data, coordination of (respiratory, nursing care, review of patient's records, discussion regarding patients management with involved consultants, primary physician, pharmacists, and other healthcare personnel (dietary, case management , physical/occupational therapy etc.) Critical Care Time: 40
[2018-10-28] MEDS: Tiotropium CAP.INH* CAP.INH/18 MCG (USE ORDER SET !) INH SCH (09:03)
[2018-10-28] MEDS: Aspirin EC TAB* 81 MG TAB.EC PO SCH (09:38)
[2018-10-28] MEDS: Donepezil TAB* 5 MG PO SCH (09:38)
[2018-10-28] MEDS: Atorvastatin* 20 MG TAB PO SCH (09:38)
[2018-10-28] MEDS: Docusate CAP* 100 MG PO SCH ×2 (09:38→20:50)
[2018-10-28] MEDS: Furosemide IV* 10 MG/ML VIAL (40 MG) IV SCH ×3 (09:39→20:43)
[2018-10-28] MEDS: Lisinopril TAB* 10 MG PO SCH (09:39)
[2018-10-28] MEDS: Metoprolol Tartrate TAB* 25 MG PO SCH ×2 (09:40→20:43)
[2018-10-28] MEDS: Pantoprazole TAB * 40 MG TAB PO SCH (09:41)
[2018-10-28] MEDS: Sertraline* 100 MG TAB PO SCH (09:41)
[2018-10-28] MEDS: OLANzapine TAB* 10 MG PO SCH ×2 (11:32→20:50)
[2018-10-28] MEDS ORDERED: Potassium Chlor TAB* 20 MEQ TAB.ER PO ONE ×2 (12:00→18:30)
[2018-10-28] MEDS: Nicotine Patch Removal NOTE FOLLOW UP SCH ×2 (15:42→20:43)
[2018-10-28 16:10] LABS: BUN/Creatinine Ratio 26.4 (8-20); Calcium 8.2 mg/dL (8.6-10.3); EGFR African American 85.7 (>60); EGFR Non-African American 70.8 (>60); Magnesium 2.4 mg/dL (1.9-2.7); Potassium 3.4 mmol/L (3.5-5.0)
[2018-10-28] MEDS ORDERED: NS 0.9% 250 ML* 250 ML ONE (18:15)
[2018-10-28] MEDS: Enoxaparin(*) 40 MG/0.4 ML SYR SUBCUT SCH (18:26)
[2018-10-28] MEDS: Vancomycin(*) 1,000 MG in NS 0.9% 250 ML* 250 ML IVPB SCH (18:27)
[2018-10-28] MEDS: Nicotine GUM* 2 MG PO PRN (19:53)
[2018-10-29] MEDS: methylPREDNISolone SOD 40 MG* 1 ML VIAL IV SCH ×2 (01:59→13:06)
[2018-10-29] MEDS: Cefepime* 2 GM in Dextrose 50mL Q12H (Duplex) IV SCH ×2 (01:59→13:06)
[2018-10-29] MEDS: Nicotine GUM* 2 MG PO PRN ×3 (05:28→18:37)
[2018-10-29 05:39] LABS: Hematocrit 29 % (42-52); Hemoglobin 9.2 g/dl (14.0-18.0); Mean Corpuscular HGB Conc 32 g/dl (31-36); Mean Corpuscular Hemoglobin 27 pg (27-31); Mean Corpuscular Volume 86 fL (80-94); Mean Platelet Volume 8.8 fL (7.4-10.4); Platelet Count 290 10^3/ul (150-450); Red Blood Count 3.35 10^6/ul (4.00-5.40); Red Cell Distribution Width 15 % (10.5-15); White Blood Count 17.5 10^3/ul (3.5-10.8)
[2018-10-29 05:55] LABS: Calcium 8.5 mg/dL (8.6-10.3); Magnesium 2.2 mg/dL (1.9-2.7); Potassium 3.8 mmol/L (3.5-5.0)
[2018-10-29 06:00] LABS: BUN/Creatinine Ratio 28.3 (8-20); EGFR African American 92.7 (>60); EGFR Non-African American 76.6 (>60)
[2018-10-29] MEDS: Vancomycin(*) 1,000 MG in NS 0.9% 250 ML* 250 ML IVPB SCH ×2 (06:04→17:01)
[2018-10-29] MEDS: Nicotine PATCH 7 MG/24 HR* PATCH TRANSDERM SCH (08:31)
[2018-10-29] MEDS: Docusate CAP* 100 MG PO SCH ×2 (08:31→20:21)
[2018-10-29] MEDS: Lisinopril TAB* 10 MG PO SCH (08:31)
[2018-10-29] MEDS: Metoprolol Tartrate TAB* 25 MG PO SCH (08:31)
[2018-10-29] MEDS: OLANzapine TAB* 10 MG PO SCH ×2 (08:32→20:21)
[2018-10-29] MEDS: Aspirin EC TAB* 81 MG TAB.EC PO SCH (08:32)
[2018-10-29] MEDS: Atorvastatin* 20 MG TAB PO SCH (08:32)
[2018-10-29] MEDS: Donepezil TAB* 5 MG PO SCH (08:32)
[2018-10-29] MEDS: Sertraline* 100 MG TAB PO SCH (08:32)
[2018-10-29] MEDS: Furosemide IV* 10 MG/ML VIAL (40 MG) IV SCH ×3 (08:33→20:20)
[2018-10-29] MEDS: Pantoprazole TAB * 40 MG TAB PO SCH (08:33)
[2018-10-29] MEDS: Tiotropium CAP.INH* CAP.INH/18 MCG (USE ORDER SET !) INH SCH (10:58)
--- NOTE | 2018-10-29 11:34 | PN ---
Date of Service: 10/29/18 Critical Care Services: 63 yo M with HTN, HLD, schizophrenia, severe COPD on home O2 presented on 10/16 to [facility] with acute on chronic hypercapneic respiratory failure requiring intubation 10/17: Sedation vacation, remains unresponsive 10/18: Improving mental status. Passed SBT and extubated 10/19: On BiPAP, increasing hypernatremia 10/20: Weaned to NC 10/22: Transferred to floor 10/23: Did not wear BiPAP overnight with subsequent decompensation. Transferred back to ICU. New infiltrate on CXR 10/25: Overnight developed hemoptysis. Switched from BiPAP to Highflow/ vapotherm. INR normal. ASA and Heparin SQ held. Family updated at beside 10/26: Required BiPAP again overnight for low sats. No further hemoptysis. AM CXR with worsened pulmonary edema likely due to being off BiPAP the prior day. Lasix increased 10/27: Tolerating vapotherm throughout the day and BiPAP at night. Diuresing well 10/29: no overnight events Vital Signs: Temp Pulse Resp BP SpO2 FiO2 97.7 F 84 32 93/62 91 90 10/29/18 08:00 10/29/18 10:10/29/18 10:10/29/18 10:00 10/29/18 10:10/29 10:15 Physical Exam: Gen: Sitting up in chair playing cards HEENT: Vapotherm cannula in place Lungs: nonlabored breathing Cardiac: RRR Abdomen: nondistended Extremities: moving equally. improving edema Neuro: alert, oriented. Fluid Balance (Past 24 Hours): I= O= Net Intake & Output 10/27/18 10/28/18 10/29/18 10/30/18 06:59 06:59 06:59 06:59 Intake Total 1985 8539 7769 480 Output Total 1951 9972 1240 Balance -2890 -50 -1174 480 Weight 250 lb 7.122 oz 253 lb 8.505 oz Intake: IV Fluids 855 844 861 ABX 243 ABX - VANCOMYCIN 436 Cefepime 110 746 NS 612 298 115 IVPB 576 248 250 ABX - VANCOMYCIN 516 250 Cefepime 60 NSS W/ ABX 248 Medicated IV 314 298 200 KCL 20 mEq 314 298 200 Oral 240 3185 2340 480 Tube Feeding Flush Amount 0 0 NG Tube Irrigate Amount 0 0 Output: Urine 2291 1976 7422 Other: Estimated Void Large Estimated Stool Amount Large Large # Voids 0 1 ADLs: Meal Record Start: 10/15/18 20: 48 Freq: 09,13,18 Status: Inactive Protocol: Created 10/15/18 20:48 System (Rec: 10/15/18 20:48 System ICU-C12) Document 10/17/18 09:00 HBD6990 (Rec: 10/17/18 09:16 VEO8926 ICU-C10) Document 10/17/18 13:00 WOZ7707 (Rec: 10/17/18 14:02 OST2550 ICU-C10) Document 10/17/18 18:00 SKC8732 (Rec: 10/17/18 18:04 XQA1438 ICU-C10) Document 10/18/18 12:51 NAD7048 (Rec: 10/18/18 12:51 NEI8305 ICU-C16) Document 10/18/18 18:00 PJH2362 (Rec: 10/18/18 18:16 KPR1824 ICU-C16) Document 10/19/18 13:20 DZP4414 (Rec: 10/19/18 13:26 ZDR3464 ICU-C14) Document 10/19/18 18:00 HYV1628 (Rec: 10/19/18 18:29 LPE5380 ICU-C06) Document 10/20/18 09:00 BYW6801 (Rec: 10/20/18 10:50 IZV3357 ICU-C10) Document 10/20/18 14:12 OGI2573 (Rec: 10/20/18 14:13 ZVA3981 ICU-C10) Document 10/20/18 18:00 IID0902 (Rec: 10/20/18 18:02 BKF8988 ICU-C10) Document 10/21/18 09:00 RUR7103 (Rec: 10/21/18 11:29 UTX7817 ICU-C16) ADLs: Meal Record Start: 10/21/18 12: 46 Freq: DAILY@0900,1400,1800 Status: Complete Protocol: Created 10/21/18 12:46 TJR3870 (Rec: 10/21/18 12:46 MZQ1658 ICU-C06) Document 10/21/18 14:00 FLE0395 (Rec: 10/21/18 14:12 TZH4229 ICU-C06) Document 10/21/18 18:00 PHP3610 (Rec: 10/21/18 19:31 XQH5709 ICU-C07) Document 10/22/18 09:00 CRO6399 (Rec: 10/22/18 12:47 OUV7241 MED-C13) Document 10/22/18 14:00 NNZ1240 (Rec: 10/22/18 15:02 LMV2214 MED-C15) Document 10/22/18 18:00 OLP7707 (Rec: 10/22/18 22:38 UFR9559 MED-C02) ADLs: Meal Record Start: 10/23/18 06: 30 Freq: 09,13,18 Status: Active Protocol: Created 10/23/18 06:30 MOH6781 (Rec: 10/23/18 06:30 LKK2502 ICU-M30) Document 10/23/18 10:00 YWV5657 (Rec: 10/23/18 10:57 BTM0528 ICU-C15) Document 10/23/18 13:00 XMR4413 (Rec: 10/23/18 18:22 FVH9785 ICU-C15) Document 10/23/18 20:00 ZNC4566 (Rec: 10/23/18 21:14 JAR4845 ICU-C15) Document 10/24/18 10:54 TLX5508 (Rec: 10/24/18 10:54 REZ7959 ICU-C15) Document 10/24/18 13:00 URH3726 (Rec: 10/24/18 14:21 SBY0778 ICU-C15) Document 10/24/18 19:13 TAA0625 (Rec: 10/24/18 19:14 RSS9755 ICU-C16) Document 10/25/18 08:27 MJC0051 (Rec: 10/25/18 08:27 RWZ1286 ICU-C15) Document 10/25/18 13:00 RNN3203 (Rec: 10/25/18 13:04 SRX6592 ICU-C15) Document 10/25/18 14:04 NSQ6348 (Rec: 10/25/18 14:05 NUB7168 ICU-C20) Document 10/25/18 19:50 IKY2074 (Rec: 10/25/18 19:50 GOT0475 ICU-C16) Document 10/26/18 09:00 XNN5176 (Rec: 10/26/18 10:41 VMR7627 ICU-C15) Document 10/26/18 13:00 VUV9391 (Rec: 10/26/18 13:26 GBS0272 ICU-C15) Document 10/26/18 18:00 QOL0830 (Rec: 10/26/18 18:08 KFS5075 ICU-C15) Document 10/27/18 09:58 ZTK9932 (Rec: 10/27/18 09:59 JVA9149 ICU-M31) Document 10/27/18 13:00 YUT2997 (Rec: 10/27/18 14:30 ZBZ5119 ICU-C11) Document 10/27/18 18:00 HHM6931 (Rec: 10/27/18 18:36 ARS4030 ICU-C15) Document 10/28/18 09:00 QUF1293 (Rec: 10/28/18 10:17 EAJ0314 ICU-C12) Document 10/28/18 14:00 DII7472 (Rec: 10/28/18 14:01 LFU0500 ICU-C10) Document 10/28/18 18:00 UMC1744 (Rec: 10/28/18 18:38 XAN2672 ICU-M31) Document 10/29/18 09:00 FML5193 (Rec: 10/29/18 10:27 FED0229 ICU-C15) Intake and Output Start: 10/15/18 20: 48 Freq: Q4HR Status: Inactive Protocol: Created 10/15/18 20:48 System (Rec: 10/15/18 20:48 System ICU-C12) Document 10/15/18 23:00 UQZ9336 (Rec: 10/16/18 00:36 VHV3696 ICU-C16) Document 10/16/18 00:00 POV9932 (Rec: 10/16/18 00:36 OKQ2339 ICU-C16) Document 10/16/18 00:41 NLB9607 (Rec: 10/16/18 00:41 FNP8617 ICU-C16) Document 10/16/18 02:00 APO2855 (Rec: 10/16/18 02:18 UHP5783 ICU-C16) Document 10/16/18 03:00 AKD4960 (Rec: 10/16/18 04:15 RRI2872 ICU-C16) Document 10/16/18 04:00 PAN9493 (Rec: 10/16/18 04:15 ELA9543 ICU-C16) Document 10/16/18 05:00 EVP4378 (Rec: 10/16/18 06:00 PKG7263 ICU-C16) Document 10/16/18 06:00 NBZ8840 (Rec: 10/16/18 06:56 WHB6743 ICU-C16) Document 10/16/18 07:00 VNT5332 (Rec: 10/16/18 07:00 OHX7472 ICU-C15) Document 10/16/18 07:42 STT2634 (Rec: 10/16/18 07:42 BPR9471 ICU-M28) Document 10/16/18 08:00 VDS6975 (Rec: 10/16/18 09:56 DCB7833 ICU-C15) Document 10/16/18 11:00 ZYX3473 (Rec: 10/16/18 13:11 PEA2586 ICU-M28) Document 10/16/18 12:00 JPJ2337 (Rec: 10/16/18 13:21 ZFL6057 ICU-M28) Document 10/16/18 13:00 WVO8117 (Rec: 10/16/18 13:41 LQN0614 ICU-M28) Document 10/16/18 14:00 MLR5022 (Rec: 10/16/18 14:35 NOV5923 ICU-C15) Document 10/16/18 15:00 FXL7930 (Rec: 10/16/18 16:54 GVC6336 ICU-M28) Document 10/16/18 16:00 KZV6248 (Rec: 10/16/18 16:54 WEY9704 ICU-M28) Document 10/16/18 17:00 ZGK1671 (Rec: 10/16/18 17:12 WTT4626 ICU-C15) Document 10/16/18 18:00 ZJC1064 (Rec: 10/16/18 18:15 JJN7001 ICU-C15) Document 10/16/18 20:00 CGJ8589 (Rec: 10/16/18 20:23 XRW3283 ICU-M28) Document 10/16/18 21:00 EKE7369 (Rec: 10/16/18 22:03 MUJ2925 ICU-C10) Document 10/16/18 22:00 FUX0904 (Rec: 10/16/18 22:03 TWB5320 ICU-C10) Document 10/16/18 23:00 ZVW6920 (Rec: 10/17/18 00:45 CPQ9423 ICU-C10) Document 10/17/18 00:00 EIV1713 (Rec: 10/17/18 00:45 OYZ8343 ICU-C10) Document 10/17/18 01:00 LZG4747 (Rec: 10/17/18 01:08 PAD6224 ICU-C10) Document 10/17/18 02:00 PIT6073 (Rec: 10/17/18 02:02 WJM9139 ICU-C10) Document 10/17/18 03:00 RUU4672 (Rec: 10/17/18 04:15 LJL7930 ICU-C10) Document 10/17/18 04:00 WTM1599 (Rec: 10/17/18 04:15 ZAE5483 ICU-C10) Document 10/17/18 05:00 OTA9899 (Rec: 10/17/18 07:05 YFS9982 ICU-C10) Document 10/17/18 06:00 NYE4742 (Rec: 10/17/18 07:05 LRH8369 ICU-C10) Document 10/17/18 07:00 OYF8351 (Rec: 10/17/18 07:05 KPW2052 ICU-C10) Document 10/17/18 08:00 EFP9455 (Rec: 10/17/18 09:11 URT4085 ICU-C10) Document 10/17/18 09:00 OWA8753 (Rec: 10/17/18 09:11 MUO0611 ICU-C10) Document 10/17/18 10:00 DHK9866 (Rec: 10/17/18 10:51 AXL3177 ICU-M28) Document 10/17/18 10:51 BIZ8349 (Rec: 10/17/18 10:51 PHR6491 ICU-M28) Document 10/17/18 13:04 JGG8862 (Rec: 10/17/18 13:06 CNF1353 ICU-C25) Document 10/17/18 14:00 YES9347 (Rec: 10/17/18 14:02 YPY8346 ICU-C10) Document 12/30/18 15:00 LEI3656 (Rec: 10/17/18 15:02 IVJ9198 ICU-M28) Document 10/17/18 16:00 WAD7361 (Rec: 10/17/18 17:05 MKT4689 ICU-M28) Document 10/17/18 17:00 DSQ2816 (Rec: 10/17/18 17:05 MIP3480 ICU-M28) Document 10/17/18 18:00 XGK3705 (Rec: 10/17/18 18:15 CGU8245 ICU-M28) Document 10/17/18 19:00 OCS8858 (Rec: 10/17/18 20:54 QPP6327 ICU-C15) Document 10/17/18 20:00 ZBL9215 (Rec: 10/17/18 23:39 QFO5668 ICU-C15) Document 10/17/18 21:00 WAN2753 (Rec: 10/17/18 23:40 GRH5793 ICU-C15) Document 10/17/18 22:00 HOA5240 (Rec: 10/17/18 23:43 SHY3087 ICU-C15) Document 10/17/18 23:00 MLL4397 (Rec: 10/17/18 23:44 DMH8814 ICU-C15) Document 10/18/18 01:00 JTL0522 (Rec: 10/18/18 01:10 NBL8466 ICU-C15) Document 10/18/18 02:00 TTM3450 (Rec: 10/18/18 02:13 SFX4443 ICU-C15) Document 10/18/18 03:00 REV5182 (Rec: 10/18/18 03:03 KOI8239 ICU-C15) Document 10/18/18 04:00 MAK9748 (Rec: 10/18/18 04:46 VZQ1419 ICU-C15) Document 10/18/18 05:00 YAG6623 (Rec: 10/18/18 05:37 ZYA3292 ICU-M28) Document 10/18/18 06:00 OJH4803 (Rec: 10/18/18 06:09 MVX3478 ICU-C15) Document 10/18/18 07:00 GXQ2857 (Rec: 10/18/18 07:41 XOY2179 ICU-C16) Document 10/18/18 07:42 CDP9482 (Rec: 10/18/18 07:56 QCB0194 ICU-C16) Document 10/18/18 09:00 KNV1324 (Rec: 10/18/18 10:17 AON7348 ICU-C16) Document 10/18/18 10:00 MCZ7565 (Rec: 10/18/18 10:17 HIX1788 ICU-C16) Document 10/18/18 11:00 WFC5267 (Rec: 10/18/18 12:18 MQH4529 ICU-C16) Document 10/18/18 12:00 VRG9194 (Rec: 10/18/18 12:18 KJM3890 ICU-C16) Document 10/18/18 13:00 OWM8103 (Rec: 10/18/18 14:12 CCV1771 ICU-C16) Document 10/18/18 14:00 ICA6820 (Rec: 10/18/18 14:12 NYD5097 ICU-C16) Document 10/18/18 15:00 IFR4173 (Rec: 10/18/18 15:00 ALW5849 ICU-C16) Document 10/18/18 15:34 BZW3656 (Rec: 10/18/18 16:11 KKC3323 ICU-C16) Document 10/18/18 16:24 UYY4787 (Rec: 10/18/18 16:24 QHM8367 ICU-C16) Document 10/18/18 17:00 CJB0334 (Rec: 10/18/18 18:14 DUG8629 ICU-C16) Document 10/18/18 18:00 CMJ9977 (Rec: 10/18/18 18:14 HDS6505 ICU-C16) Document 10/18/18 19:00 KYA8515 (Rec: 10/18/18 19:04 GNS2880 ICU-C16) Document 10/18/18 20:00 AQJ1536 (Rec: 10/18/18 21:09 PQU7595 ICU-C16) Document 10/18/18 21:00 YOZ5462 (Rec: 10/18/18 21:09 YGU9389 ICU-C16) Document 10/18/18 22:00 PDN5331 (Rec: 10/18/18 22:30 ZQJ7168 ICU-C16) Document 10/18/18 23:41 AIZ4225 (Rec: 10/18/18 23:41 NAB8404 ICU-M28) Document 10/19/18 00:38 GFA0681 (Rec: 10/19/18 00:39 NQM5856 ICU-M28) Document 10/19/18 01:28 MUJ0851 (Rec: 10/19/18 01:28 BFL6375 ICU-C10) Document 10/19/18 03:13 PUG2311 (Rec: 10/19/18 03:13 XJT3276 ICU-C10) Document 10/19/18 04:42 RPD8733 (Rec: 10/19/18 04:43 XZU4526 ICU-C10) Document 10/19/18 06:23 SVE3432 (Rec: 10/19/18 06:23 MAO4342 ICU-C10) Document 10/19/18 09:00 YZQ2002 (Rec: 10/19/18 09:01 PVO8723 ICU-C10) Document 10/19/18 11:00 VPQ9409 (Rec: 10/19/18 11:12 YMO3013 ICU-C10) Document 10/19/18 13:00 EPH1528 (Rec: 10/19/18 13:12 XQC4101 ICU-M28) Document 10/19/18 14:00 WRO3086 (Rec: 10/19/18 18:18 ZXQ9881 [facility]-M03 ) Document 10/19/18 16:21 FUM8568 (Rec: 10/19/18 16:22 GJC1154 ICU-C10) Document 10/19/18 19:00 QZB0456 (Rec: 10/19/18 19:22 EUC8928 ICU-C16) Document 10/19/18 20:00 NVX4814 (Rec: 10/19/18 20:51 SRV4931 ICU-C16) Document 10/19/18 21:00 FYS6258 (Rec: 10/19/18 21:21 CQF1549 ICU-C16) Document 10/19/18 22:00 VRA5675 (Rec: 10/19/18 22:15 NWH2137 ICU-C16) Document 10/19/18 23:00 SHT1187 (Rec: 10/20/18 00:14 OKR9803 ICU-C16) Document 10/20/18 00:00 WBI9423 (Rec: 10/20/18 00:20 IGO8806 ICU-C16) Document 10/20/18 00:57 TXI0203 (Rec: 10/20/18 00:57 DNI7720 ICU-C16) Document 10/20/18 01:53 NID3319 (Rec: 10/20/18 01:53 QAW6215 ICU-C16) Document 10/20/18 02:28 FFK5156 (Rec: 10/20/18 02:28 VWR7846 ICU-C16) Document 10/20/18 03:00 BOW9106 (Rec: 10/20/18 03:26 WHC7398 ICU-C16) Document 10/20/18 03:26 VIB0180 (Rec: 10/20/18 03:26 NGJ2976 ICU-C16) Document 10/20/18 05:25 VJK6512 (Rec: 10/20/18 05:25 MNS2605 ICU-C16) Document 10/20/18 06:00 YPF8725 (Rec: 10/20/18 06:19 FOS4667 ICU-C16) Document 10/20/18 07:00 BRU0849 (Rec: 10/20/18 07:43 WJI5573 ICU-C10) Document 10/20/18 10:48 VWW0873 (Rec: 10/20/18 10:48 ZKN6988 ICU-C10) Document 10/20/18 17:38 FBF2501 (Rec: 10/20/18 17:40 ELO9105 ICU-C10) Document 10/20/18 19:52 WLK6781 (Rec: 10/20/18 20:10 VBP3602 ICU-C16) Document 10/20/18 23:33 MUH9545 (Rec: 10/20/18 23:33 JNV8254 ICU-C16) Document 10/21/18 04:00 NSP1949 (Rec: 10/21/18 04:07 UIW0135 ICU-C16) Document 10/21/18 05:42 OUJ5759 (Rec: 10/21/18 05:42 ZPX8849 ICU-M28) Document 10/21/18 08:34 XRX3984 (Rec: 10/21/18 08:34 KPD1005 ICU-C16) Intake and Output Start: 10/21/18 12: 46 Freq: DAILY@0600,1400,2200 Status: Complete Protocol: Created 10/21/18 12:46 WST2672 (Rec: 10/21/18 12:46 KKE5041 ICU-C06) Document 10/21/18 14:00 HVY8972 (Rec: 10/21/18 15:26 TZY6687 ICU-C56) Document 10/22/18 06:00 XWC1212 (Rec: 10/22/18 06:16 UUR3474 ICU-C07) Document 10/22/18 10:21 SWO9535 (Rec: 10/22/18 10:21 IAO0643 ICU-C07) Document 10/22/18 14:00 NUM4697 (Rec: 10/22/18 15:23 GFE4899 MED-C13) Document 10/22/18 22:00 YTQ9330 (Rec: 10/22/18 22:43 NUD6774 MED-C02) Intake and Output Start: 10/23/18 06: 30 Freq: Q4HR Status: Active Protocol: Created 10/23/18 06:30 XPH9295 (Rec: 10/23/18 06:30 EYK6725 ICU-M30) Document 10/23/18 10:00 STD4873 (Rec: 10/23/18 10:57 CXA4823 ICU-C15) Document 10/23/18 12:00 KAL3923 (Rec: 10/23/18 12:23 LTQ6059 ICU-C20) Document 10/23/18 16:00 KDP1943 (Rec: 10/23/18 17:48 QZM3056 ICU-C15) Document 10/23/18 21:00 MYD9118 (Rec: 10/23/18 21:14 SOE0522 ICU-C15) Document 10/23/18 22:00 XVJ5154 (Rec: 10/23/18 22:57 TLW7858 ICU-C15) Document 10/23/18 23:07 FQP3516 (Rec: 10/23/18 23:07 VDC3696 ICU-M32) Document 10/24/18 05:00 VST0536 (Rec: 10/24/18 05:38 DGV0285 ICU-C15) Document 10/24/18 06:00 IXQ8032 (Rec: 10/24/18 06:19 ZSQ6880 ICU-C15) Document 10/24/18 10:00 DFE6811 (Rec: 10/24/18 10:13 YTN8750 ICU-C15) Document 10/24/18 12:00 HGR6520 (Rec: 10/24/18 12:25 TPL0267 ICU-C15) Document 10/24/18 14:44 KBA6334 (Rec: 10/24/18 14:44 VVQ7972 ICU-C15) Document 10/24/18 17:29 ERG6622 (Rec: 10/24/18 17:30 BBG4664 ICU-C15) Document 10/25/18 01:18 IOE2304 (Rec: 10/25/18 01:18 HIE8774 ICU-C16) Document 10/25/18 02:00 NMZ2746 (Rec: 10/25/18 02:05 VDA9282 ICU-C16) Document 10/25/18 03:00 STF0301 (Rec: 10/25/18 03:17 DWX7573 ICU-C16) Document 10/25/18 04:00 JPR3074 (Rec: 10/25/18 04:34 EGQ8223 ICU-C16) Document 10/25/18 05:00 CTH1572 (Rec: 10/25/18 05:43 MJR9505 ICU-C16) Document 10/25/18 05:56 EMH6764 (Rec: 10/25/18 05:56 LHF6638 ICU-C16) Document 10/25/18 09:33 HVT8450 (Rec: 10/25/18 09:33 ECU5108 ICU-C15) Document 10/25/18 09:36 XQT9117 (Rec: 10/25/18 09:36 LRZ1178 ICU-C15) Document 10/25/18 12:36 QEQ5705 (Rec: 10/25/18 12:36 YHI1097 ICU-C15) Document 10/25/18 17:44 XLT6823 (Rec: 10/25/18 17:44 WBU0968 ICU-C15) Document 10/25/18 18:31 IOM7378 (Rec: 10/25/18 18:31 KTW7334 ICU-C15) Document 10/25/18 20:00 OED3997 (Rec: 10/25/18 20:45 IUQ6118 ICU-C16) Document 10/26/18 00:00 IPS1225 (Rec: 10/26/18 01:05 VBM9678 ICU-C16) Document 10/26/18 04:00 IVQ7238 (Rec: 10/26/18 04:12 IPN7272 ICU-C16) Document 10/26/18 05:08 UPW5468 (Rec: 10/26/18 05:08 VWU4257 ICU-C16) Document 10/26/18 08:00 QIM6872 (Rec: 10/26/18 08:09 XNJ8727 ICU-C14) Document 10/26/18 09:11 LPI9048 (Rec: 10/26/18 09:12 RQY6667 ICU-C25) Document 10/26/18 12:00 SOH0595 (Rec: 10/26/18 12:37 CDK5453 ICU-C15) Document 10/26/18 13:13 QHL6873 (Rec: 10/26/18 13:13 OCV1861 ICU-C16) Document 10/26/18 16:00 HKM2960 (Rec: 10/26/18 16:56 XYE4705 ICU-C15) Document 10/26/18 20:35 ZUO0822 (Rec: 10/26/18 20:35 PUV6286 ICU-M32) Document 10/26/18 22:17 BHO8149 (Rec: 10/26/18 22:17 XNH5754 ICU-C16) Document 10/27/18 00:28 GSA4586 (Rec: 10/27/18 00:28 EUY2677 ICU-C12) Document 10/27/18 02:57 ERJ5369 (Rec: 10/27/18 02:57 KTO4434 ICU-C14) Document 10/27/18 03:00 UUY9418 (Rec: 10/27/18 03:00 ASO8544 ICU-C14) Document 10/27/18 04:00 NBV4472 (Rec: 10/27/18 04:17 CMZ2567 ICU-C16) Document 10/27/18 05:05 GSW9736 (Rec: 10/27/18 05:06 ODI3564 ICU-C14) Document 10/27/18 06:43 GIK4000 (Rec: 10/27/18 06:43 VYG0968 ICU-M32) Document 10/27/18 10:40 WCA2316 (Rec: 10/27/18 10:41 PVY8436 ICU-C11) Document 10/27/18 12:00 MYQ6493 (Rec: 10/27/18 12:30 HSI4006 ICU-L03) Document 10/27/18 14:47 PBQ1357 (Rec: 10/27/18 14:47 GVV7385 ICU-C15) Document 10/27/18 16:00 CUM1490 (Rec: 10/27/18 16:50 GPP4664 ICU-C15) Document 10/27/18 17:18 NMT2206 (Rec: 10/27/18 17:18 TQN3842 ICU-M31) Document 10/27/18 20:00 EPI1674 (Rec: 10/27/18 20:27 EHW2725 ICU-C12) Document 10/27/18 23:11 EWX4742 (Rec: 10/27/18 23:12 ISB2312 ICU-C12) Document 10/27/18 23:31 KPX4057 (Rec: 10/27/18 23:31 YLR0670 ICU-C14) Document 10/28/18 02:37 VHY2070 (Rec: 10/28/18 02:49 AII5840 ICU-C12) Document 10/28/18 04:00 CQH1572 (Rec: 10/28/18 05:31 VUL0719 ICU-C12) Document 10/28/18 06:17 JAP4139 (Rec: 10/28/18 06:17 GNM6955 ICU-C14) Document 10/28/18 08:00 MMI3633 (Rec: 10/28/18 11:04 RNW0896 ICU-C12) Document 10/28/18 10:00 UDU9365 (Rec: 10/28/18 11:04 CBQ9884 ICU-C12) Document 10/28/18 11:43 GDO8871 (Rec: 10/28/18 11:43 REU1021 ICU-C12) Document 10/28/18 14:00 SBV8121 (Rec: 10/28/18 14:00 HOU9490 ICU-C10) Document 10/28/18 15:57 SAC1832 (Rec: 10/28/18 15:58 OEK5067 ICU-C12) Document 10/28/18 17:36 GXM4375 (Rec: 10/28/18 17:37 MTX1659 ICU-L03) Document 10/28/18 18:39 URS8376 (Rec: 10/28/18 18:39 AHA2956 ICU-M31) Document 10/28/18 20:00 FGX5783 (Rec: 10/28/18 22:16 TOA8211 ICU-C15) Document 10/28/18 22:56 FKR1765 (Rec: 10/28/18 22:57 JIR8221 ICU-C15) Document 10/29/18 00:00 CFG2430 (Rec: 10/29/18 01:34 IEM6457 ICU-C15) Document 10/29/18 04:00 DEP9218 (Rec: 10/29/18 05:02 QYF5389 ICU-C15) Document 10/29/18 08:15 QSJ1896 (Rec: 10/29/18 10:21 KGJ9700 ICU-C15) Labs: Laboratory Results - last 24 hr 10/28/18 10/29/18 10/29/18 15:28 05:28 05:28 WBC RBC Hgb Hct MCV MCH MCHC RDW Plt Count MPV Sodium 142 141 Potassium 3.4 L 3.8 Chloride 96 L 94 L Carbon Dioxide 41 H* 42 H* Anion Gap 5 5 BUN 28 H 28 H Creatinine 1.06 0.99 Est GFR ( Amer) 85.7 92.7 Est GFR (Non-Af Amer) 70.8 76.6 BUN/Creatinine Ratio 26.4 H 28.3 H Glucose 194 H 152 H Calcium 8.2 L 8.5 L Magnesium 2.4 2.2 B-Natriuretic Peptide 217 H 10/29/18 05:28 WBC 17.5 H RBC 3.35 L Hgb 9.2 L Hct 29 L MCV 86 MCH 27 MCHC 32 RDW 15 Plt Count 290 MPV 8.8 Sodium Potassium Chloride Carbon Dioxide Anion Gap BUN Creatinine Est GFR ( Amer) Est GFR (Non-Af Amer) BUN/Creatinine Ratio Glucose Calcium Magnesium B-Natriuretic Peptide Studies: 10/28 CXR - bilateral infiltrates demonstrating slight progression suggestive of pneumonia, less likely pulmonary edema 10/26 CXR - Bronchopneumonia with signficant interval worsening. Underlying advanced COPD 10/25 CXR -pulmonary edema vs multifocal pneumonia. Pleural effusion +/- consolidation of LLL. Aeration unchanged from 10/23 10/24 venous duplex bilateral lower extremities - no DVT. 10/23 CXR - worsening pulmonary edema as compared to 10/16 vs early pneumonitis or ARDS 10/16 CT head - NAD 10/16 CTA head - NAD 10/16 CT chest - advanced COPD with associated interstitial fibrosis. Trace bilateral pleural effusions and atelectasis Nutrition: heart healthy diet Fluid restriction 2L Impression: 63 yo M admitted 10/16 with acute on chronic respiratory failure requiring intubation secondary to COPD exacerbation. Initially did well and was weaned from vent on 10/18 however developed pulmonary edema secondary to CHF and was transferred back to ICU 10/23 for BiPAP. Self limited episode of hemoptypsis. Aggressively diuresing for pulmonary edema due to CHF exacerbation which is limiting liberation from BiPAP. On antibiotics to cover for possible contributing pneumonia. Plan: Cardiovascular: (1) Sinus tachycardia, improving; (2) Labile BPs (3) Chronic HTN; (4) Pulmonary HTN secondary to advanced lung disease; (5) HLD; (6) Likely acute on chronic diastolic CHF -- HR 65-100 -- SBP 90-170 -- Telemetry -- TTE 10/16: LVEF 55-60%. Unable to assess diastolic dysfunction. Pulmonary artery HTN -- ProBNP 217 from 235 -- Atorvastatin -- ASA -- Lisinopril, Metoprolol. Increase metoprolol dose -- PRN Hydralazine for goal SBP < 160 -- Scheduled Lasix TID for diuresis, until BNP normalized/more improved Home meds: None Pulmonary: (1) Acute on chronic hypoxic and hypercapneic respiratory failure, improfing; (2) COPD exacerbation, improving; (3) aspiration pneumonia; (4) HAMILTON; (5) Hemoptysis, resolved; (6) Pulmonary edema, cardiac cause -- RR 18-35 -- sats 75-96. -- on BiPAP at night and vapotherm during day -- Vapotherm weaned to Flow rate of 30 and FiO2 90% -- Spiriva & PRN Duonebs -- Continue bronchodilators, steriods and antibiotics for COPD exacerbation. -- continue broadspectrum abx for aspiration pneumonia -- incentive spirometry -- Nicotine patch for hx of tobacco use Home meds: Mometasone/formoterol, Spiriva, albuterol Gastrointestinal: No acute issues -- diet: NPO until respiratory status stabilized -- bowel regimen: Colace -- ulcer prophylaxis: Protonix Home meds: Colace Endocrine: (1) Hyperglycemia -- monitor BGs -- start SSI if BG> 180 -- Solumedrol for COPD exacerbation, tapering Home meds: Prednisone Renal: (1) Hypernatremia, resolved; (2) Hypokalemia, resolving; (3) Hypocalemia ; (4) Hypomagnesemia, resolved; (5) hypervolemia, improving -- UOP: 201 ml/hr -- [id number] (mostly PO intake). 2L/day fluid restriction added -- Cr 1.04 from 1.01 -- Lytes Na 141 from 142 K 3.8 Ca 8.5, replacement ordered Mag 2.2 -- IVF: HL -- Calcium carbonate -- Lasix for diuresis Home meds: None Infectious disease: (1) Sepsis, improving; (2) Aspiration pneumonia -- Tmax 99.2 -- WBC 17.5 from 18.0 -- Micro 10/23 Blood Negative 10/16 blood Negative Urine negative Sputum Normal estefanía Blood staph. likely contaminant -- ABX Cefepime Vancomycin Home meds: None Neurologic: (1) Chronic delusional disorder/schizophrenia -- Tylenol as needed -- Aricept -- Zyprexa -- Zoloft -- PT following Home meds: Zoloft, Zyprexa, Tylenol Hematological: (1) Anemia, stable -- Hgb 9.2 from 8.3 -- Plt 290 from 270 -- DVT prophylaxis: SQ Lovenox Home meds: None Metabolic: No acute issues Home meds: None Deep vein thrombosis prophylaxis: SQ Lovenox Dietary: Protonix Condition: Critical Prognosis: Guarded Code status: Full Disposition: continue ICU Care. Cumulative time spent in the care of this patient (excluding any procedure time) : at least 40 minutes. Patient care included clinical interview (with patient and/or family), bedside exam of the patient, review of labs, x-rays, and other ancillary data, coordination of (respiratory, nursing care, review of patient's records, discussion regarding patients management with involved consultants, primary physician, pharmacists, and other healthcare personnel (dietary, case management , physical/occupational therapy etc.) Critical Care Time: 40
[2018-10-29] MEDS: Calcium Carbonate CHEW TAB* 500 MG (TUMS) PO SCH ×2 (13:01→20:20)
[2018-10-29] MEDS: Metoprolol Tartrate TAB* 50 mg PO SCH (20:21)
[2018-10-29] MEDS: Nicotine Patch Removal NOTE FOLLOW UP SCH (20:22)
[2018-10-30] MEDS: Cefepime* 2 GM in Dextrose 50mL Q12H (Duplex) IV SCH ×2 (02:17→13:57)
[2018-10-30] MEDS: methylPREDNISolone SOD 40 MG* 1 ML VIAL IV SCH ×2 (02:17→13:54)
[2018-10-30 05:27] LABS: Hematocrit 29 % (42-52); Hemoglobin 9.5 g/dl (14.0-18.0); Mean Corpuscular HGB Conc 33 g/dl (31-36); Mean Corpuscular Hemoglobin 29 pg (27-31); Mean Corpuscular Volume 87 fL (80-94); Mean Platelet Volume 8.7 fL (7.4-10.4); Platelet Count 288 10^3/ul (150-450); Red Blood Count 3.31 10^6/ul (4.00-5.40); Red Cell Distribution Width 15 % (10.5-15); White Blood Count 18.7 10^3/ul (3.5-10.8)
[2018-10-30 05:45] LABS: BUN/Creatinine Ratio 32.3 (8-20); Blood Urea Nitrogen 30 mg/dL (6-24); Calcium 8.4 mg/dL (8.6-10.3); Chloride 92 mmol/L (101-111); EGFR African American 99.6 (>60); EGFR Non-African American 82.3 (>60); Glucose 151 mg/dL (70-100); Magnesium 2.1 mg/dL (1.9-2.7); Potassium 3.2 mmol/L (3.5-5.0); Sodium 141 mmol/L (135-145)
[2018-10-30] MEDS ORDERED: Vancomycin Trough Check NOTE FOLLOW UP ONE (06:00)
[2018-10-30 06:01] LABS: CO2 Carbon Dioxide 46 mmol/L (22-32); Vancomycin Trough 17.6 mcg/mL
[2018-10-30] MEDS: Vancomycin(*) 1,000 MG in NS 0.9% 250 ML* 250 ML IVPB SCH ×2 (06:20→18:15)
[2018-10-30] MEDS ORDERED: KCL 20 MEQ/100 ML IVPREMIX* 20 MEQ/100 ML BAG ONE ×2 (08:44→11:57)
[2018-10-30] MEDS: Tiotropium CAP.INH* CAP.INH/18 MCG (USE ORDER SET !) INH SCH (08:55)
[2018-10-30] MEDS ORDERED: Metoprolol Tartrate TAB* 50 mg PO SCH (09:00)
[2018-10-30] MEDS ORDERED: Potassium Chlor TAB* 20 MEQ TAB.ER PO SCH (09:00)
[2018-10-30] MEDS: Furosemide IV* 10 MG/ML VIAL (40 MG) IV SCH ×3 (09:02→19:32)
[2018-10-30] MEDS: KCL 20 MEQ/100 ML IVPREMIX* 20 MEQ/100 ML BAG IV SCH ×3 (09:08→13:04)
[2018-10-30] MEDS: Nicotine PATCH 7 MG/24 HR* PATCH TRANSDERM SCH (09:08)
[2018-10-30] MEDS: Calcium Carbonate CHEW TAB* 500 MG (TUMS) PO SCH ×2 (09:11→19:32)
[2018-10-30] MEDS: Lisinopril TAB* 10 MG PO SCH (09:11)
[2018-10-30] MEDS: Pantoprazole TAB * 40 MG TAB PO SCH (09:12)
[2018-10-30] MEDS: OLANzapine TAB* 10 MG PO SCH ×2 (09:12→19:32)
[2018-10-30] MEDS: Sertraline* 100 MG TAB PO SCH (09:12)
[2018-10-30] MEDS: Docusate CAP* 100 MG PO SCH ×2 (09:12→19:33)
[2018-10-30] MEDS: Metoprolol Tartrate TAB* 50 mg PO SCH (09:15)
[2018-10-30] MEDS: Donepezil TAB* 5 MG PO SCH (09:16)
[2018-10-30] MEDS: Atorvastatin* 20 MG TAB PO SCH (09:16)
[2018-10-30] MEDS: Nicotine GUM* 2 MG PO PRN ×3 (09:21→19:36)
--- NOTE | 2018-10-30 12:47 | PN ---
Date of Service: 10/30/18 Critical Care Services: 63 yo M with HTN, HLD, schizophrenia, severe COPD on home O2 presented on 10/16 to [facility] with acute on chronic hypercapneic respiratory failure requiring intubation 10/17: Sedation vacation, remains unresponsive 10/18: Improving mental status. Passed SBT and extubated 10/19: On BiPAP, increasing hypernatremia 10/20: Weaned to NC 10/22: Transferred to floor 10/23: Did not wear BiPAP overnight with subsequent decompensation. Transferred back to ICU. New infiltrate on CXR 10/25: Overnight developed hemoptysis. Switched from BiPAP to Highflow/ vapotherm. INR normal. ASA and Heparin SQ held. Family updated at beside 10/26: Required BiPAP again overnight for low sats. No further hemoptysis. AM CXR with worsened pulmonary edema likely due to being off BiPAP the prior day. Lasix increased 10/27: Tolerating vapotherm throughout the day and BiPAP at night. Diuresing well 10/29: Fluid restriction (2L) initiated 10/30: No overnight events Vital Signs: Temp Pulse Resp BP SpO2 FiO2 98.4 F 58 24 126/83 99 100 10/30/18 07:39 10/30/18 07:00 10/30/18 07:39 10/30/18 07:00 10/30/18 07:50 10/30 00:21 Physical Exam: Gen: sleeping comfortably HEENT: BiPAP in place Lungs: distant bilaterally Cardiac: RRR Abdomen: soft, NTND Extremities: warm, dry, edema improving Neuro: awakens to voice Fluid Balance (Past 24 Hours): I= O= Net Intake & Output 10/28/18 10/29/18 10/30/18 10/31/18 06:59 06:59 06:59 06:59 Intake Total 7982 3667 3831 Output Total 8653 8167 4130 Balance -50 -1174 -874 Weight 253 lb 8.505 oz 249 lb 8.136 oz Intake: IV Fluids 844 861 41 ABX - VANCOMYCIN 436 Cefepime 110 746 41 NS 298 115 IVPB 248 250 350 ABX - VANCOMYCIN 250 250 Cefepime 100 NSS W/ ABX 248 Medicated IV 298 200 KCL 20 mEq 298 200 Oral 3185 2340 2000 Tube Feeding Flush Amount 0 0 0 NG Tube Irrigate Amount 0 0 0 Output: Urine 8366 8029 3088 Other: Estimated Void Large Medium # Bowel Movements 1 Estimated Stool Amount Large Medium # Voids 1 ADLs: Meal Record Start: 10/15/18 20: 48 Freq: 09,13,18 Status: Inactive Protocol: Created 10/15/18 20:48 System (Rec: 10/15/18 20:48 System ICU-C12) Document 10/17/18 09:00 BUH5444 (Rec: 10/17/18 09:16 SPA2680 ICU-C10) Document 10/17/18 13:00 WCP8517 (Rec: 10/17/18 14:02 GLJ1155 ICU-C10) Document 10/17/18 18:00 BYG4945 (Rec: 10/17/18 18:04 ZJX7822 ICU-C10) Document 10/18/18 12:51 BNI0193 (Rec: 10/18/18 12:51 YCF4122 ICU-C16) Document 10/18/18 18:00 PAX0290 (Rec: 10/18/18 18:16 GKN0993 ICU-C16) Document 10/19/18 13:20 NNS5871 (Rec: 10/19/18 13:26 NTR1711 ICU-C14) Document 10/19/18 18:00 QCH7409 (Rec: 10/19/18 18:29 ZRB9888 ICU-C06) Document 10/20/18 09:00 GGM2903 (Rec: 10/20/18 10:50 JKL7906 ICU-C10) Document 10/20/18 14:12 KAU7482 (Rec: 10/20/18 14:13 PKY0920 ICU-C10) Document 10/20/18 18:00 KFE0773 (Rec: 10/20/18 18:02 ABZ2574 ICU-C10) Document 10/21/18 09:00 WML8421 (Rec: 10/21/18 11:29 SXV4188 ICU-C16) ADLs: Meal Record Start: 10/21/18 12: 46 Freq: DAILY@0900,1400,1800 Status: Complete Protocol: Created 10/21/18 12:46 RUQ4559 (Rec: 10/21/18 12:46 KKO6695 ICU-C06) Document 10/21/18 14:00 MYH9589 (Rec: 10/21/18 14:12 KNT3569 ICU-C06) Document 10/21/18 18:00 RYJ3396 (Rec: 10/21/18 19:31 ITP8019 ICU-C07) Document 10/22/18 09:00 RUU6183 (Rec: 10/22/18 12:47 LBE9068 MED-C13) Document 10/22/18 14:00 TRX1215 (Rec: 10/22/18 15:02 LGW2829 MED-C15) Document 10/22/18 18:00 NGN7250 (Rec: 10/22/18 22:38 VHU1895 MED-C02) ADLs: Meal Record Start: 10/23/18 06: 30 Freq: 09,13,18 Status: Active Protocol: Created 10/23/18 06:30 IBH7274 (Rec: 10/23/18 06:30 OIO8041 ICU-M30) Document 10/23/18 10:00 MNR3572 (Rec: 10/23/18 10:57 TJY4082 ICU-C15) Document 10/23/18 13:00 AIV8181 (Rec: 10/23/18 18:22 RVK7402 ICU-C15) Document 10/23/18 20:00 KLR0620 (Rec: 10/23/18 21:14 PCT5477 ICU-C15) Document 10/24/18 10:54 LFI7382 (Rec: 10/24/18 10:54 VTV5583 ICU-C15) Document 10/24/18 13:00 NGH3496 (Rec: 10/24/18 14:21 RRG7830 ICU-C15) Document 10/24/18 19:13 TPR8659 (Rec: 10/24/18 19:14 HDM0834 ICU-C16) Document 10/25/18 08:27 VHK4725 (Rec: 10/25/18 08:27 MUZ7314 ICU-C15) Document 10/25/18 13:00 ZKW8438 (Rec: 10/25/18 13:04 LRK3110 ICU-C15) Document 10/25/18 14:04 AXH4439 (Rec: 10/25/18 14:05 DPC4299 ICU-C20) Document 10/25/18 19:50 TQN3646 (Rec: 10/25/18 19:50 RIK8267 ICU-C16) Document 10/26/18 09:00 UVG0496 (Rec: 10/26/18 10:41 ICP2354 ICU-C15) Document 10/26/18 13:00 WXE3326 (Rec: 10/26/18 13:26 FPE2214 ICU-C15) Document 10/26/18 18:00 FVD0046 (Rec: 10/26/18 18:08 QVW0158 ICU-C15) Document 10/27/18 09:58 SZU0790 (Rec: 10/27/18 09:59 NJZ1755 ICU-M31) Document 10/27/18 13:00 LXU5546 (Rec: 10/27/18 14:30 DRE7610 ICU-C11) Document 10/27/18 18:00 ILR6764 (Rec: 10/27/18 18:36 PEB6521 ICU-C15) Document 10/28/18 09:00 RAZ2342 (Rec: 10/28/18 10:17 YGP9789 ICU-C12) Document 10/28/18 14:00 BCI1522 (Rec: 10/28/18 14:01 XPM8843 ICU-C10) Document 10/28/18 18:00 EMG7218 (Rec: 10/28/18 18:38 XWQ9547 ICU-M31) Document 10/29/18 09:00 YIM4078 (Rec: 10/29/18 10:27 WPT9719 ICU-C15) Document 10/29/18 18:00 TYL7468 (Rec: 10/29/18 18:20 TTX9916 ICU-C20) Intake and Output Start: 10/15/18 20: 48 Freq: Q4HR Status: Inactive Protocol: Created 10/15/18 20:48 System (Rec: 10/15/18 20:48 System ICU-C12) Document 10/15/18 23:00 CXY7680 (Rec: 10/16/18 00:36 RAF9097 ICU-C16) Document 10/16/18 00:00 ICB9934 (Rec: 10/16/18 00:36 FEW3360 ICU-C16) Document 10/16/18 00:41 GEQ8665 (Rec: 10/16/18 00:41 NQW5237 ICU-C16) Document 10/16/18 02:00 WER7982 (Rec: 10/16/18 02:18 TLX3585 ICU-C16) Document 10/16/18 03:00 TYY6470 (Rec: 10/16/18 04:15 UKP0234 ICU-C16) Document 10/16/18 04:00 DHU5044 (Rec: 10/16/18 04:15 YZE4338 ICU-C16) Document 10/16/18 05:00 ZML6116 (Rec: 10/16/18 06:00 BSY6829 ICU-C16) Document 10/16/18 06:00 NFW5990 (Rec: 10/16/18 06:56 GFA1377 ICU-C16) Document 10/16/18 07:00 KQO4605 (Rec: 10/16/18 07:00 ZMR8688 ICU-C15) Document 10/16/18 07:42 SQV7935 (Rec: 10/16/18 07:42 EDB2892 ICU-M28) Document 10/16/18 08:00 WOW7626 (Rec: 10/16/18 09:56 WGP9581 ICU-C15) Document 10/16/18 11:00 CGU3305 (Rec: 10/16/18 13:11 XDE8406 ICU-M28) Document 10/16/18 12:00 RIR9261 (Rec: 10/16/18 13:21 ZUB7563 ICU-M28) Document 10/16/18 13:00 IZT4918 (Rec: 10/16/18 13:41 ZVB1364 ICU-M28) Document 10/16/18 14:00 GNQ6234 (Rec: 10/16/18 14:35 FDC7264 ICU-C15) Document 10/16/18 15:00 AYT1751 (Rec: 10/16/18 16:54 TTY7416 ICU-M28) Document 10/16/18 16:00 RJL5048 (Rec: 10/16/18 16:54 ZKP7264 ICU-M28) Document 10/16/18 17:00 LYG3974 (Rec: 10/16/18 17:12 GIE1953 ICU-C15) Document 10/16/18 18:00 KQD5716 (Rec: 10/16/18 18:15 BJF4434 ICU-C15) Document 10/16/18 20:00 ZEV0299 (Rec: 10/16/18 20:23 XIJ4417 ICU-M28) Document 10/16/18 21:00 YNI1852 (Rec: 10/16/18 22:03 CAZ7016 ICU-C10) Document 10/16/18 22:00 QDW5414 (Rec: 10/16/18 22:03 SVJ5627 ICU-C10) Document 10/16/18 23:00 JZJ7218 (Rec: 10/17/18 00:45 MSZ7439 ICU-C10) Document 10/17/18 00:00 FSQ9537 (Rec: 10/17/18 00:45 AAI1355 ICU-C10) Document 10/17/18 01:00 ZNI7180 (Rec: 10/17/18 01:08 KOR4401 ICU-C10) Document 10/17/18 02:00 LMQ1052 (Rec: 10/17/18 02:02 MFL6811 ICU-C10) Document 10/17/18 03:00 VUR6370 (Rec: 10/17/18 04:15 BGQ3718 ICU-C10) Document 10/17/18 04:00 FOB9372 (Rec: 10/17/18 04:15 YSI2312 ICU-C10) Document 10/17/18 05:00 MXX1651 (Rec: 10/17/18 07:05 YYW2360 ICU-C10) Document 10/17/18 06:00 ARH0196 (Rec: 10/17/18 07:05 TXB6281 ICU-C10) Document 10/17/18 07:00 ENG4427 (Rec: 10/17/18 07:05 EWE6038 ICU-C10) Document 10/17/18 08:00 DIE2891 (Rec: 10/17/18 09:11 TEP2754 ICU-C10) Document 10/17/18 09:00 CTU2593 (Rec: 10/17/18 09:11 XVB4875 ICU-C10) Document 10/17/18 10:00 HRZ9126 (Rec: 10/17/18 10:51 CAF8170 ICU-M28) Document 10/17/18 10:51 ZUO5726 (Rec: 10/17/18 10:51 KOS9529 ICU-M28) Document 10/17/18 13:04 NEM5676 (Rec: 10/17/18 13:06 QVY3715 ICU-C25) Document 12/30/18 14:00 UXS7058 (Rec: 10/17/18 14:02 QSZ8466 ICU-C10) Document 10/17/18 15:00 IXP7435 (Rec: 10/17/18 15:02 WJH4859 ICU-M28) Document 10/17/18 16:00 ESP4238 (Rec: 10/17/18 17:05 RCW9407 ICU-M28) Document 10/17/18 17:00 YHN9111 (Rec: 10/17/18 17:05 MHM0440 ICU-M28) Document 10/17/18 18:00 FNZ9209 (Rec: 10/17/18 18:15 CET3399 ICU-M28) Document 10/17/18 19:00 KIL2786 (Rec: 10/17/18 20:54 TCI7817 ICU-C15) Document 10/17/18 20:00 ZKX2329 (Rec: 10/17/18 23:39 HDE7298 ICU-C15) Document 10/17/18 21:00 VIP1738 (Rec: 10/17/18 23:40 KBE8890 ICU-C15) Document 10/17/18 22:00 ZPI6931 (Rec: 10/17/18 23:43 TQZ4508 ICU-C15) Document 10/17/18 23:00 GMP3327 (Rec: 10/17/18 23:44 DLE4114 ICU-C15) Document 10/18/18 01:00 NCG5282 (Rec: 10/18/18 01:10 QBR4826 ICU-C15) Document 10/18/18 02:00 JBY2656 (Rec: 10/18/18 02:13 HDQ4819 ICU-C15) Document 10/18/18 03:00 LGH5890 (Rec: 10/18/18 03:03 WFT3105 ICU-C15) Document 10/18/18 04:00 WIQ7448 (Rec: 10/18/18 04:46 RQQ5605 ICU-C15) Document 10/18/18 05:00 BGI1798 (Rec: 10/18/18 05:37 PYP1928 ICU-M28) Document 10/18/18 06:00 INK0828 (Rec: 10/18/18 06:09 XCK6229 ICU-C15) Document 10/18/18 07:00 FGJ8138 (Rec: 10/18/18 07:41 OGO2866 ICU-C16) Document 10/18/18 07:42 AMM0279 (Rec: 10/18/18 07:56 EFI0464 ICU-C16) Document 10/18/18 09:00 KJY0934 (Rec: 10/18/18 10:17 LCL1352 ICU-C16) Document 10/18/18 10:00 QUI0234 (Rec: 10/18/18 10:17 VCT1260 ICU-C16) Document 10/18/18 11:00 VDX2521 (Rec: 10/18/18 12:18 SWW7484 ICU-C16) Document 10/18/18 12:00 QYE2293 (Rec: 10/18/18 12:18 OJM4334 ICU-C16) Document 10/18/18 13:00 VXR3831 (Rec: 10/18/18 14:12 CJP9203 ICU-C16) Document 10/18/18 14:00 IKK2819 (Rec: 10/18/18 14:12 HMR1864 ICU-C16) Document 10/18/18 15:00 VZV4460 (Rec: 10/18/18 15:00 XVS8659 ICU-C16) Document 10/18/18 15:34 NPA9005 (Rec: 10/18/18 16:11 XYC6535 ICU-C16) Document 10/18/18 16:24 YWI8880 (Rec: 10/18/18 16:24 WZH6775 ICU-C16) Document 10/18/18 17:00 WWW6409 (Rec: 10/18/18 18:14 DKZ5164 ICU-C16) Document 10/18/18 18:00 NXM5323 (Rec: 10/18/18 18:14 TTZ6237 ICU-C16) Document 10/18/18 19:00 RSE0370 (Rec: 10/18/18 19:04 URX2940 ICU-C16) Document 10/18/18 20:00 LLH0786 (Rec: 10/18/18 21:09 OTW5490 ICU-C16) Document 10/18/18 21:00 WQI9183 (Rec: 10/18/18 21:09 IAF8111 ICU-C16) Document 10/18/18 22:00 UQZ0018 (Rec: 10/18/18 22:30 UYS7298 ICU-C16) Document 10/18/18 23:41 TLT1729 (Rec: 10/18/18 23:41 EEJ9646 ICU-M28) Document 10/19/18 00:38 ROL0078 (Rec: 10/19/18 00:39 GXX0416 ICU-M28) Document 10/19/18 01:28 RLH0261 (Rec: 10/19/18 01:28 EAS4124 ICU-C10) Document 10/19/18 03:13 MWN5088 (Rec: 10/19/18 03:13 PSZ6275 ICU-C10) Document 10/19/18 04:42 GKV3597 (Rec: 10/19/18 04:43 IVJ4622 ICU-C10) Document 10/19/18 06:23 FBG7760 (Rec: 10/19/18 06:23 AOL6055 ICU-C10) Document 10/19/18 09:00 ELH1393 (Rec: 10/19/18 09:01 NNE6669 ICU-C10) Document 10/19/18 11:00 UQI2955 (Rec: 10/19/18 11:12 GRQ0755 ICU-C10) Document 10/19/18 13:00 DHO7994 (Rec: 10/19/18 13:12 GBB5405 ICU-M28) Document 10/19/18 14:00 HZP7189 (Rec: 10/19/18 18:18 NTC3173 ISDEMO-M03 ) Document 10/19/18 16:21 FMA0832 (Rec: 10/19/18 16:22 NZD7275 ICU-C10) Document 10/19/18 19:00 XYU9815 (Rec: 10/19/18 19:22 UGK7723 ICU-C16) Document 10/19/18 20:00 HEF4742 (Rec: 10/19/18 20:51 HTN8585 ICU-C16) Document 10/19/18 21:00 BRL3581 (Rec: 10/19/18 21:21 JJA1134 ICU-C16) Document 10/19/18 22:00 ZBJ3000 (Rec: 10/19/18 22:15 SOM7683 ICU-C16) Document 10/19/18 23:00 YEH4238 (Rec: 10/20/18 00:14 THW7538 ICU-C16) Document 10/20/18 00:00 WPO4717 (Rec: 10/20/18 00:20 PCM5940 ICU-C16) Document 10/20/18 00:57 MGT4551 (Rec: 10/20/18 00:57 UHG3120 ICU-C16) Document 10/20/18 01:53 KNY8415 (Rec: 10/20/18 01:53 WOB4174 ICU-C16) Document 10/20/18 02:28 UOF6536 (Rec: 10/20/18 02:28 RQV1817 ICU-C16) Document 10/20/18 03:00 LXR6348 (Rec: 10/20/18 03:26 FRV6322 ICU-C16) Document 10/20/18 03:26 AAW8706 (Rec: 10/20/18 03:26 MDJ1213 ICU-C16) Document 10/20/18 05:25 ONX5474 (Rec: 10/20/18 05:25 UXL5821 ICU-C16) Document 10/20/18 06:00 SPE0995 (Rec: 10/20/18 06:19 ZNB4126 ICU-C16) Document 10/20/18 07:00 FCF8360 (Rec: 10/20/18 07:43 DGK6477 ICU-C10) Document 10/20/18 10:48 JPT7590 (Rec: 10/20/18 10:48 XQA3477 ICU-C10) Document 10/20/18 17:38 PSB6712 (Rec: 10/20/18 17:40 LOF6956 ICU-C10) Document 10/20/18 19:52 ULR4872 (Rec: 10/20/18 20:10 TBZ3200 ICU-C16) Document 10/20/18 23:33 DLN6668 (Rec: 10/20/18 23:33 CMM7394 ICU-C16) Document 10/21/18 04:00 QIB1251 (Rec: 10/21/18 04:07 VIV0457 ICU-C16) Document 10/21/18 05:42 SFN3230 (Rec: 10/21/18 05:42 SED9841 ICU-M28) Document 10/21/18 08:34 JGQ1006 (Rec: 10/21/18 08:34 GCY7996 ICU-C16) Intake and Output Start: 10/21/18 12: 46 Freq: DAILY@0600,1400,2200 Status: Complete Protocol: Created 10/21/18 12:46 UDE4102 (Rec: 10/21/18 12:46 HRN0523 ICU-C06) Document 10/21/18 14:00 MRC7337 (Rec: 10/21/18 15:26 MFA3835 ICU-C56) Document 10/22/18 06:00 JIR3627 (Rec: 10/22/18 06:16 GFW9144 ICU-C07) Document 10/22/18 10:21 LRK8840 (Rec: 10/22/18 10:21 DFT8217 ICU-C07) Document 10/22/18 14:00 RLN6915 (Rec: 10/22/18 15:23 YBM8756 MED-C13) Document 10/22/18 22:00 ZPT9597 (Rec: 10/22/18 22:43 SHH3869 MED-C02) Intake and Output Start: 10/23/18 06: 30 Freq: Q4HR Status: Active Protocol: Created 10/23/18 06:30 ZQS5918 (Rec: 10/23/18 06:30 ZAJ7898 ICU-M30) Document 10/23/18 10:00 RIJ7540 (Rec: 10/23/18 10:57 PKP7665 ICU-C15) Document 10/23/18 12:00 IOW7369 (Rec: 10/23/18 12:23 LRY2769 ICU-C20) Document 10/23/18 16:00 PNQ6663 (Rec: 10/23/18 17:48 AYH7146 ICU-C15) Document 10/23/18 21:00 IKS7464 (Rec: 10/23/18 21:14 BOH8240 ICU-C15) Document 10/23/18 22:00 IQA7870 (Rec: 10/23/18 22:57 MAN6717 ICU-C15) Document 10/23/18 23:07 SWR2996 (Rec: 10/23/18 23:07 HRY0341 ICU-M32) Document 10/24/18 05:00 BQQ8211 (Rec: 10/24/18 05:38 EBX3767 ICU-C15) Document 10/24/18 06:00 HZK5416 (Rec: 10/24/18 06:19 NFZ4305 ICU-C15) Document 10/24/18 10:00 KAF9852 (Rec: 10/24/18 10:13 UFR4931 ICU-C15) Document 10/24/18 12:00 HRX1490 (Rec: 10/24/18 12:25 VEE7834 ICU-C15) Document 10/24/18 14:44 XXT4696 (Rec: 10/24/18 14:44 XHE7662 ICU-C15) Document 10/24/18 17:29 NDQ6132 (Rec: 10/24/18 17:30 CAS6166 ICU-C15) Document 10/25/18 01:18 MTJ0019 (Rec: 10/25/18 01:18 EEC7291 ICU-C16) Document 10/25/18 02:00 ESB1020 (Rec: 10/25/18 02:05 RBY0698 ICU-C16) Document 10/25/18 03:00 QAY0219 (Rec: 10/25/18 03:17 REI7347 ICU-C16) Document 10/25/18 04:00 ZQR4046 (Rec: 10/25/18 04:34 YFR1754 ICU-C16) Document 10/25/18 05:00 YIC4443 (Rec: 10/25/18 05:43 SAE9936 ICU-C16) Document 10/25/18 05:56 KBV4487 (Rec: 10/25/18 05:56 JFQ8595 ICU-C16) Document 10/25/18 09:33 XDL9723 (Rec: 10/25/18 09:33 WWP8701 ICU-C15) Document 10/25/18 09:36 PSA3124 (Rec: 10/25/18 09:36 EMB3051 ICU-C15) Document 10/25/18 12:36 NUO8268 (Rec: 10/25/18 12:36 TMJ5875 ICU-C15) Document 10/25/18 17:44 QIA3902 (Rec: 10/25/18 17:44 WXD6006 ICU-C15) Document 10/25/18 18:31 NTM0609 (Rec: 10/25/18 18:31 ORU2101 ICU-C15) Document 10/25/18 20:00 EEX0781 (Rec: 10/25/18 20:45 FQA8596 ICU-C16) Document 10/26/18 00:00 TOJ8775 (Rec: 10/26/18 01:05 BAY3231 ICU-C16) Document 10/26/18 04:00 DCJ1343 (Rec: 10/26/18 04:12 EBO4221 ICU-C16) Document 10/26/18 05:08 YFA9216 (Rec: 10/26/18 05:08 PVA4233 ICU-C16) Document 10/26/18 08:00 JBO6015 (Rec: 10/26/18 08:09 GPU4965 ICU-C14) Document 10/26/18 09:11 IAF2923 (Rec: 10/26/18 09:12 VVH5821 ICU-C25) Document 10/26/18 12:00 HLM5690 (Rec: 10/26/18 12:37 EIY9656 ICU-C15) Document 10/26/18 13:13 YMP6293 (Rec: 10/26/18 13:13 OUX5866 ICU-C16) Document 10/26/18 16:00 DVW3361 (Rec: 10/26/18 16:56 VCI9901 ICU-C15) Document 10/26/18 20:35 JNY4622 (Rec: 10/26/18 20:35 RQM8689 ICU-M32) Document 10/26/18 22:17 DLO0927 (Rec: 10/26/18 22:17 HEO4269 ICU-C16) Document 10/27/18 00:28 FSZ8806 (Rec: 10/27/18 00:28 ECO4290 ICU-C12) Document 10/27/18 02:57 IXA3174 (Rec: 10/27/18 02:57 YAM3205 ICU-C14) Document 10/27/18 03:00 KPT0234 (Rec: 10/27/18 03:00 QYQ5507 ICU-C14) Document 10/27/18 04:00 EJB8910 (Rec: 10/27/18 04:17 YBO3829 ICU-C16) Document 10/27/18 05:05 YYX6706 (Rec: 10/27/18 05:06 XIR7597 ICU-C14) Document 10/27/18 06:43 YXH2353 (Rec: 10/27/18 06:43 CVS5842 ICU-M32) Document 10/27/18 10:40 ZOF8777 (Rec: 10/27/18 10:41 YWH2972 ICU-C11) Document 10/27/18 12:00 FSB0149 (Rec: 10/27/18 12:30 EBV1443 ICU-L03) Document 10/27/18 14:47 DBS6512 (Rec: 10/27/18 14:47 QJY9039 ICU-C15) Document 10/27/18 16:00 PLL5714 (Rec: 10/27/18 16:50 VIR0261 ICU-C15) Document 10/27/18 17:18 JOL8726 (Rec: 10/27/18 17:18 FOF9911 ICU-M31) Document 10/27/18 20:00 VJI3120 (Rec: 10/27/18 20:27 JGQ4516 ICU-C12) Document 10/27/18 23:11 SMD3618 (Rec: 10/27/18 23:12 TGJ6506 ICU-C12) Document 10/27/18 23:31 NXI1127 (Rec: 10/27/18 23:31 KNS5907 ICU-C14) Document 10/28/18 02:37 ANE1763 (Rec: 10/28/18 02:49 MTD4578 ICU-C12) Document 10/28/18 04:00 HSK2858 (Rec: 10/28/18 05:31 BVD8538 ICU-C12) Document 10/28/18 06:17 SQQ7230 (Rec: 10/28/18 06:17 FGE9891 ICU-C14) Document 10/28/18 08:00 UEP1985 (Rec: 10/28/18 11:04 KQO7334 ICU-C12) Document 10/28/18 10:00 IYA2196 (Rec: 10/28/18 11:04 IGR4072 ICU-C12) Document 10/28/18 11:43 AEA7736 (Rec: 10/28/18 11:43 BWS3451 ICU-C12) Document 10/28/18 14:00 GUD9147 (Rec: 10/28/18 14:00 MLT9456 ICU-C10) Document 10/28/18 15:57 MWO1335 (Rec: 10/28/18 15:58 XZQ1044 ICU-C12) Document 10/28/18 17:36 BFC0420 (Rec: 10/28/18 17:37 XGB7931 ICU-L03) Document 10/28/18 18:39 MWV8912 (Rec: 10/28/18 18:39 ZCI3633 ICU-M31) Document 10/28/18 20:00 SGK3562 (Rec: 10/28/18 22:16 WGF0448 ICU-C15) Document 10/28/18 22:56 YWY5582 (Rec: 10/28/18 22:57 ZGY4243 ICU-C15) Document 10/29/18 00:00 PGA6724 (Rec: 10/29/18 01:34 IQD9456 ICU-C15) Document 10/29/18 04:00 XFM9086 (Rec: 10/29/18 05:02 YQZ8211 ICU-C15) Document 10/29/18 08:15 VRK2273 (Rec: 10/29/18 10:21 ZXI1820 ICU-C15) Document 10/29/18 12:00 FTD8794 (Rec: 10/29/18 12:51 XGC5059 ICU-C15) Document 10/29/18 15:01 QDM5052 (Rec: 10/29/18 15:05 HQV7312 ICU-C07) Document 10/29/18 16:14 AHK5956 (Rec: 10/29/18 16:14 OTG4684 ICU-C15) Document 10/29/18 19:41 DSO6018 (Rec: 10/29/18 19:45 FHM8481 ICU-C10) Document 10/29/18 20:28 ISU0331 (Rec: 10/29/18 20:28 OOP5197 ICU-M32) Document 10/29/18 21:28 BSW1457 (Rec: 10/29/18 21:28 GBW6842 ICU-C14) Document 10/29/18 22:32 OYF7143 (Rec: 10/29/18 22:32 HLB3116 ICU-C10) Document 10/29/18 23:07 [id number] (Rec: 10/29/18 23:07 [id number] ICU-C10) Document 10/30/18 00:00 [id number] (Rec: 10/30/18 00:17 [id number] ICU-C14) Document 10/30/18 00:55 [id number] (Rec: 10/30/18 00:55 [id number] ICU-C10) Document 10/30/18 04:08 [id number] (Rec: 10/30/18 04:10 [id number] ICU-C10) Labs: Laboratory Results - last 24 hr 10/30/18 10/30/18 10/30/18 05:17 05:17 05:17 WBC 18.7 H RBC 3.31 L Hgb 9.5 L Hct 29 L MCV 87 MCH 29 MCHC 33 RDW 15 Plt Count 288 MPV 8.7 Sodium 141 Potassium 3.2 L Chloride 92 L Carbon Dioxide 46 H* Anion Gap Not Reportable BUN 30 H Creatinine 0.93 Est GFR ( Amer) 99.6 Est GFR (Non-Af Amer) 82.3 BUN/Creatinine Ratio 32.3 H Glucose 151 H Calcium 8.4 L Magnesium 2.1 B-Natriuretic Peptide 137 H Vancomycin Trough 17.6 Studies: 10/28 CXR - bilateral infiltrates demonstrating slight progression suggestive of pneumonia, less likely pulmonary edema 10/26 CXR - Bronchopneumonia with signficant interval worsening. Underlying advanced COPD 10/25 CXR -pulmonary edema vs multifocal pneumonia. Pleural effusion +/- consolidation of LLL. Aeration unchanged from 10/23 10/24 venous duplex bilateral lower extremities - no DVT. 10/23 CXR - worsening pulmonary edema as compared to 10/16 vs early pneumonitis or ARDS 10/16 CT head - NAD 10/16 CTA head - NAD 10/16 CT chest - advanced COPD with associated interstitial fibrosis. Trace bilateral pleural effusions and atelectasis Nutrition: heart healthy diet Fluid restriction 2L Impression: 63 yo M admitted 10/16 with acute on chronic respiratory failure requiring intubation secondary to COPD exacerbation. Initially did well and was weaned from vent on 10/18 however developed pulmonary edema secondary to CHF and was transferred back to ICU 10/23 for BiPAP. Self limited episode of hemoptypsis. Aggressively diuresing for pulmonary edema due to CHF exacerbation which is limiting liberation from BiPAP. On antibiotics to cover for possible contributing pneumonia. Plan: Cardiovascular: (1) Sinus tachycardia, improving; (2) Labile BPs (3) Chronic HTN; (4) Pulmonary HTN secondary to advanced lung disease; (5) HLD; (6) Likely acute on chronic diastolic CHF -- HR 57-92 -- SBP 93-142 -- Telemetry -- TTE 10/16: LVEF 55-60%. Unable to assess diastolic dysfunction. Pulmonary artery HTN -- ProBNP 137 from 217 -- Atorvastatin -- ASA -- Lisinopril, Metoprolol -- PRN Hydralazine for goal SBP < 160 - discontinue as no longer requiring -- Scheduled Lasix TID for diuresis, until BNP normalized/more improved Home meds: None Pulmonary: (1) Acute on chronic hypoxic and hypercapneic respiratory failure, improving; (2) COPD exacerbation, improving; (3) aspiration pneumonia; (4) HAMILTON; (5) Hemoptysis, resolved; (6) Pulmonary edema, cardiac cause -- RR 16-35 -- sats 90-100. -- continue weaning vapotherm as able -- Spiriva & PRN Duonebs -- Continue bronchodilators, steriods and antibiotics for COPD exacerbation. -- continue broadspectrum abx for aspiration pneumonia x 7 days course -- incentive spirometry -- Nicotine patch for hx of tobacco use Home meds: Mometasone/formoterol, Spiriva, albuterol Gastrointestinal: No acute issues -- diet: heart health diet -- bowel regimen: Colace -- ulcer prophylaxis: Protonix Home meds: Colace Endocrine: (1) Hyperglycemia -- monitor BGs -- start SSI if BG> 180 -- Solumedrol for COPD exacerbation, tapered off Home meds: Prednisone Renal: (1) Hypernatremia, resolved; (2) Hypokalemia, resolving; (3) Hypocalemia ; (4) Hypomagnesemia, resolved; (5) hypervolemia, improving -- UOP: 100 ml/hr -- [id number] (mostly PO intake) -- Cr 1.04 from 1.01 -- Lytes Na 141 from 141 K 3.2, replacement ordered Ca 8.4, on scheduled replacement Mag 2.1 -- IVF: HL -- Calcium carbonate -- Lasix for diuresis Home meds: None Infectious disease: (1) Sepsis, improving; (2) Aspiration pneumonia -- Tmax 98.9 -- WBC 18.7 from 17.5 -- Micro / Blood Negative 10/16 blood Negative Urine negative Sputum Normal estefanía Blood staph. likely contaminant -- ABX x 7 days Cefepime Vancomycin Home meds: None Neurologic: (1) Chronic delusional disorder/schizophrenia -- Tylenol as needed - discontinue as not using -- Aricept -- Zyprexa -- Zoloft -- PT following Home meds: Zoloft, Zyprexa, Tylenol Hematological: (1) Anemia, stable -- Hgb 9.5 from 9.2 -- Plt 288 from 290 -- DVT prophylaxis: SQ Lovenox Home meds: None Metabolic: No acute issues Home meds: None Deep vein thrombosis prophylaxis: SQ Lovenox Dietary: Protonix Condition: Critical Prognosis: Guarded Code status: Full Disposition: continue ICU Care. Cumulative time spent in the care of this patient (excluding any procedure time) : at least 40 minutes. Patient care included clinical interview (with patient and/or family), bedside exam of the patient, review of labs, x-rays, and other ancillary data, coordination of (respiratory, nursing care, review of patient's records, discussion regarding patients management with involved consultants, primary physician, pharmacists, and other healthcare personnel (dietary, case management , physical/occupational therapy etc.) Critical Care Time: 40
[2018-10-30] MEDS: Potassium Chlor TAB* 20 MEQ TAB.ER PO SCH ×2 (13:51→19:33)
[2018-10-30] MEDS: Acetaminophen TAB* 325 MG PO PRN (13:53)
[2018-10-30] MEDS: Potassium Chlor TAB* 20 MEQ TAB.ER PO ONE ×2 (15:27→15:28)
[2018-10-30] MEDS: Nicotine Patch Removal NOTE FOLLOW UP SCH (20:30)
[2018-10-30] MEDS: Metoprolol Tartrate TAB* 25 MG PO SCH (22:36)
[2018-10-31] MEDS: Cefepime* 2 GM in Dextrose 50mL Q12H (Duplex) IV SCH ×2 (02:26→14:38)
[2018-10-31] MEDS: methylPREDNISolone SOD 40 MG* 1 ML VIAL IV SCH ×2 (02:26→14:39)
[2018-10-31] MEDS: Vancomycin(*) 1,000 MG in NS 0.9% 250 ML* 250 ML IVPB SCH ×2 (05:56→18:15)
[2018-10-31 06:48] LABS: Hematocrit 28 % (42-52); Hemoglobin 8.9 g/dl (14.0-18.0); Mean Corpuscular HGB Conc 31 g/dl (31-36); Mean Corpuscular Hemoglobin 27 pg (27-31); Mean Corpuscular Volume 87 fL (80-94); Platelet Count 260 10^3/ul (150-450); Red Blood Count 3.25 10^6/ul (4.00-5.40); Red Cell Distribution Width 15 % (10.5-15); White Blood Count 17.9 10^3/ul (3.5-10.8)
[2018-10-31 06:56] LABS: BUN/Creatinine Ratio 34.4 (8-20); Calcium 7.8 mg/dL (8.6-10.3); EGFR Non-African American 79.4 (>60); Magnesium 1.9 mg/dL (1.9-2.7); Potassium 3.4 mmol/L (3.5-5.0)
[2018-10-31] MEDS ORDERED: Potassium Chlor TAB* 20 MEQ TAB.ER PO ONE (07:46)
--- NOTE | 2018-10-31 07:59 | PN ---
Date of Service: 10/31/18 - HD 17 Critical Care Services: 63 yo M with HTN, HLD, schizophrenia, severe COPD on home O2 presented on 10/16 to [facility] with acute on chronic hypercapneic respiratory failure requiring intubation 10/17: Sedation vacation, remains unresponsive 10/18: Improving mental status. Passed SBT and extubated 10/19: On BiPAP, increasing hypernatremia 10/20: Weaned to NC 10/22: Transferred to floor 10/23: Did not wear BiPAP overnight with subsequent decompensation. Transferred back to ICU. New infiltrate on CXR 10/25: Overnight developed hemoptysis. Switched from BiPAP to Highflow/ vapotherm. INR normal. ASA and Heparin SQ held. Family updated at beside 10/26: Required BiPAP again overnight for low sats. No further hemoptysis. AM CXR with worsened pulmonary edema likely due to being off BiPAP the prior day. Lasix increased 10/27: Tolerating vapotherm throughout the day and BiPAP at night. Diuresing well 10/29: Fluid restriction (2L) initiated 10/31: No overnight events Vital Signs: Temp Pulse Resp BP SpO2 FiO2 98.2 F 66 15 156/79 98 100 10/31/18 07:27 10/31/18 05:01 10/31/18 06:00 10/31/18 05:01 10/31/18 05:01 10/31 04:00 Physical Exam: Gen: resting comfortably HEENT: vapotherm cannula in place Lungs: clear on left, coarse breath sounds on right. no wheezes Cardiac: RRR Abdomen: soft, nontender Extremities: warm, dry, improving edema. Neuro: alert and oriented Fluid Balance (Past 24 Hours): I= O= Net Intake & Output 10/29/18 10/30/18 10/31/18 11/01/18 06:59 06:59 06:59 06:59 Intake Total 3651 3771 3253 Output Total 5095 3021 9694 500 Balance -1174 -874 -487 -500 Weight 249 lb 8.136 oz Intake: IV Fluids 861 41 746 ABX - VANCOMYCIN 300 Cefepime 746 41 70 NS 115 118 potassium 258 IVPB 250 350 447 ABX - VANCOMYCIN 250 250 250 Cefepime 100 potassium 197 Medicated IV 200 KCL 20 mEq 200 Oral 2340 1999 206 Tube Feeding Flush Amount 0 0 NG Tube Irrigate Amount 0 0 Output: Urine 1825 2742 7861 500 Other: Estimated Void Large Medium Date of Last Bowel 10/30/2018 Movement # Bowel Movements 1 Estimated Stool Amount Medium # Voids 1 1 ADLs: Meal Record Start: 10/15/18 20: 48 Freq: 09,13,18 Status: Inactive Protocol: Created 10/15/18 20:48 System (Rec: 10/15/18 20:48 System ICU-C12) Document 10/17/18 09:00 XBX3938 (Rec: 10/17/18 09:16 KIV7491 ICU-C10) Document 10/17/18 13:00 VTW9094 (Rec: 10/17/18 14:02 KFZ7494 ICU-C10) Document 10/17/18 18:00 MYQ2152 (Rec: 10/17/18 18:04 SEL2296 ICU-C10) Document 10/18/18 12:51 ZUQ1620 (Rec: 10/18/18 12:51 MCF6789 ICU-C16) Document 10/18/18 18:00 LBN3013 (Rec: 10/18/18 18:16 SSA6696 ICU-C16) Document 10/19/18 13:20 QUK6255 (Rec: 10/19/18 13:26 ZTR0209 ICU-C14) Document 10/19/18 18:00 PWN5294 (Rec: 10/19/18 18:29 QWJ7038 ICU-C06) Document 10/20/18 09:00 JRE7906 (Rec: 10/20/18 10:50 ZCS5349 ICU-C10) Document 10/20/18 14:12 YMQ6862 (Rec: 10/20/18 14:13 SZI6574 ICU-C10) Document 10/20/18 18:00 XJW6679 (Rec: 10/20/18 18:02 VXH6247 ICU-C10) Document 10/21/18 09:00 CEN0903 (Rec: 10/21/18 11:29 SFS4841 ICU-C16) ADLs: Meal Record Start: 10/21/18 12: 46 Freq: DAILY@0900,1400,1800 Status: Complete Protocol: Created 10/21/18 12:46 KUP2373 (Rec: 10/21/18 12:46 ZRX5552 ICU-C06) Document 10/21/18 14:00 EOZ7841 (Rec: 10/21/18 14:12 PEG7431 ICU-C06) Document 10/21/18 18:00 ANU4179 (Rec: 10/21/18 19:31 GCQ0695 ICU-C07) Document 10/22/18 09:00 UWI8739 (Rec: 10/22/18 12:47 FUB2692 MED-C13) Document 10/22/18 14:00 JFL5314 (Rec: 10/22/18 15:02 FHS6422 MED-C15) Document 10/22/18 18:00 MDC3988 (Rec: 10/22/18 22:38 HVM2055 MED-C02) ADLs: Meal Record Start: 10/23/18 06: 30 Freq: 09,13,18 Status: Active Protocol: Created 10/23/18 06:30 UZT7264 (Rec: 10/23/18 06:30 QWH5984 ICU-M30) Document 10/23/18 10:00 CDT9455 (Rec: 10/23/18 10:57 HIF1223 ICU-C15) Document 10/23/18 13:00 KIE9241 (Rec: 10/23/18 18:22 RVL2358 ICU-C15) Document 10/23/18 20:00 XSV7065 (Rec: 10/23/18 21:14 PXW8922 ICU-C15) Document 10/24/18 10:54 PGW6046 (Rec: 10/24/18 10:54 IXF9391 ICU-C15) Document 10/24/18 13:00 XVU9073 (Rec: 10/24/18 14:21 MRD1361 ICU-C15) Document 10/24/18 19:13 OYZ1526 (Rec: 10/24/18 19:14 WRS8946 ICU-C16) Document 10/25/18 08:27 IGT2116 (Rec: 10/25/18 08:27 JAU3698 ICU-C15) Document 10/25/18 13:00 ETJ1919 (Rec: 10/25/18 13:04 OZB5225 ICU-C15) Document 10/25/18 14:04 YMH8579 (Rec: 10/25/18 14:05 OPM1791 ICU-C20) Document 10/25/18 19:50 NIA9766 (Rec: 10/25/18 19:50 FOZ5810 ICU-C16) Document 10/26/18 09:00 GDS2613 (Rec: 10/26/18 10:41 EFA8777 ICU-C15) Document 10/26/18 13:00 QBJ3419 (Rec: 10/26/18 13:26 BAC7560 ICU-C15) Document 10/26/18 18:00 CDL2218 (Rec: 10/26/18 18:08 MSU3843 ICU-C15) Document 10/27/18 09:58 WCN7198 (Rec: 10/27/18 09:59 PEG8798 ICU-M31) Document 10/27/18 13:00 BOF4294 (Rec: 10/27/18 14:30 CCW1856 ICU-C11) Document 10/27/18 18:00 LEP8654 (Rec: 10/27/18 18:36 DMO8888 ICU-C15) Document 10/28/18 09:00 TGX7957 (Rec: 10/28/18 10:17 XCP3830 ICU-C12) Document 10/28/18 14:00 KXU6473 (Rec: 10/28/18 14:01 SZG2887 ICU-C10) Document 10/28/18 18:00 UYB9008 (Rec: 10/28/18 18:38 BQX7589 ICU-M31) Document 10/29/18 09:00 ZYC1144 (Rec: 10/29/18 10:27 OKW8596 ICU-C15) Document 10/29/18 18:00 DUH5447 (Rec: 10/29/18 18:20 WYA3466 ICU-C20) Document 10/30/18 09:00 PLW5042 (Rec: 10/30/18 12:56 HBP0279 ICU-C15) Document 10/30/18 13:00 MVF6733 (Rec: 10/30/18 15:02 SDU5317 ICU-C15) Document 10/30/18 18:00 XJP0103 (Rec: 10/30/18 18:21 GFU6280 ICU-M31) Intake and Output Start: 10/15/18 20: 48 Freq: Q4HR Status: Inactive Protocol: Created 10/15/18 20:48 System (Rec: 10/15/18 20:48 System ICU-C12) Document 10/15/18 23:00 IQJ4581 (Rec: 10/16/18 00:36 PXH4738 ICU-C16) Document 10/16/18 00:00 SLC7784 (Rec: 10/16/18 00:36 JYQ6817 ICU-C16) Document 10/16/18 00:41 BEF9399 (Rec: 10/16/18 00:41 FMT2137 ICU-C16) Document 10/16/18 02:00 QVC4719 (Rec: 10/16/18 02:18 ITZ9640 ICU-C16) Document 10/16/18 03:00 TZS3870 (Rec: 10/16/18 04:15 ROB2368 ICU-C16) Document 10/16/18 04:00 IVG7075 (Rec: 10/16/18 04:15 KFQ7880 ICU-C16) Document 10/16/18 05:00 OCO9672 (Rec: 10/16/18 06:00 LUD6150 ICU-C16) Document 10/16/18 06:00 YMX5421 (Rec: 10/16/18 06:56 CTV2300 ICU-C16) Document 10/16/18 07:00 MTX3707 (Rec: 10/16/18 07:00 JRZ3658 ICU-C15) Document 10/16/18 07:42 GRX5167 (Rec: 10/16/18 07:42 PGW9886 ICU-M28) Document 10/16/18 08:00 LFF9610 (Rec: 10/16/18 09:56 QDL8023 ICU-C15) Document 10/16/18 11:00 VDR6665 (Rec: 10/16/18 13:11 LXC9549 ICU-M28) Document 10/16/18 12:00 AUC3471 (Rec: 10/16/18 13:21 MIG6428 ICU-M28) Document 10/16/18 13:00 GTP3161 (Rec: 10/16/18 13:41 WYM3057 ICU-M28) Document 10/16/18 14:00 DIJ0779 (Rec: 10/16/18 14:35 VBP0747 ICU-C15) Document 10/16/18 15:00 HYQ9912 (Rec: 10/16/18 16:54 NKI0274 ICU-M28) Document 10/16/18 16:00 TDV0978 (Rec: 10/16/18 16:54 ZNQ5077 ICU-M28) Document 10/16/18 17:00 EPA0787 (Rec: 10/16/18 17:12 ZPV8479 ICU-C15) Document 10/16/18 18:00 DIP6458 (Rec: 10/16/18 18:15 COV6893 ICU-C15) Document 10/16/18 20:00 QKK0634 (Rec: 10/16/18 20:23 YCC9231 ICU-M28) Document 10/16/18 21:00 UTY6017 (Rec: 10/16/18 22:03 PVK5145 ICU-C10) Document 10/16/18 22:00 PWE3974 (Rec: 10/16/18 22:03 HTO0034 ICU-C10) Document 10/16/18 23:00 EPQ4379 (Rec: 10/17/18 00:45 EIB8750 ICU-C10) Document 10/17/18 00:00 BKQ2443 (Rec: 10/17/18 00:45 YLL0498 ICU-C10) Document 10/17/18 01:00 LFE9366 (Rec: 10/17/18 01:08 HZQ7614 ICU-C10) Document 10/17/18 02:00 IXT8224 (Rec: 10/17/18 02:02 PYF9871 ICU-C10) Document 10/17/18 03:00 LZI9617 (Rec: 10/17/18 04:15 SSW3611 ICU-C10) Document 10/17/18 04:00 AHL1293 (Rec: 10/17/18 04:15 RRJ6236 ICU-C10) Document 10/17/18 05:00 EIE9151 (Rec: 10/17/18 07:05 MHY7866 ICU-C10) Document 10/17/18 06:00 DNW0416 (Rec: 10/17/18 07:05 JNT9119 ICU-C10) Document 10/17/18 07:00 LNM2198 (Rec: 10/17/18 07:05 ZWO5004 ICU-C10) Document 10/17/18 08:00 XQP5284 (Rec: 10/17/18 09:11 NUS7343 ICU-C10) Document 10/17/18 09:00 CYI9054 (Rec: 10/17/18 09:11 QHO3531 ICU-C10) Document 10/17/18 10:00 QAX2646 (Rec: 10/17/18 10:51 PLZ0773 ICU-M28) Document 10/17/18 10:51 BOM7627 (Rec: 10/17/18 10:51 AFU0281 ICU-M28) Document 10/17/18 13:04 RFH4641 (Rec: 10/17/18 13:06 MBZ7063 ICU-C25) Document 10/17/18 14:00 IWJ8848 (Rec: 10/17/18 14:02 QNC2512 ICU-C10) Document 10/17/18 15:00 ZFX8955 (Rec: 10/17/18 15:02 WGQ0123 ICU-M28) Document 10/17/18 16:00 MNJ5597 (Rec: 10/17/18 17:05 DSW7052 ICU-M28) Document 10/17/18 17:00 JRK0388 (Rec: 10/17/18 17:05 WJF8739 ICU-M28) Document 10/17/18 18:00 NWW0347 (Rec: 10/17/18 18:15 YXG5320 ICU-M28) Document 10/17/18 19:00 NMM4907 (Rec: 10/17/18 20:54 OAZ0245 ICU-C15) Document 10/17/18 20:00 LAY5488 (Rec: 10/17/18 23:39 DFB6056 ICU-C15) Document 10/17/18 21:00 LNG2817 (Rec: 10/17/18 23:40 OQI6631 ICU-C15) Document 10/17/18 22:00 CUL3876 (Rec: 10/17/18 23:43 KDH0406 ICU-C15) Document 10/17/18 23:00 VLL4117 (Rec: 10/17/18 23:44 VQV1606 ICU-C15) Document 10/18/18 01:00 CQA9391 (Rec: 10/18/18 01:10 OZF2419 ICU-C15) Document 10/18/18 02:00 XTZ0540 (Rec: 10/18/18 02:13 KBE8837 ICU-C15) Document 10/18/18 03:00 NWS0211 (Rec: 10/18/18 03:03 LHJ8958 ICU-C15) Document 10/18/18 04:00 CWC0804 (Rec: 10/18/18 04:46 XYQ7673 ICU-C15) Document 10/18/18 05:00 NSX4025 (Rec: 10/18/18 05:37 HUA5566 ICU-M28) Document 10/18/18 06:00 FZZ2866 (Rec: 10/18/18 06:09 CUY5285 ICU-C15) Document 10/18/18 07:00 ZMV7308 (Rec: 10/18/18 07:41 UTH2029 ICU-C16) Document 10/18/18 07:42 DXI5825 (Rec: 10/18/18 07:56 HWV0593 ICU-C16) Document 10/18/18 09:00 WAL0725 (Rec: 10/18/18 10:17 WFN1356 ICU-C16) Document 10/18/18 10:00 ZPC1855 (Rec: 10/18/18 10:17 FBN3425 ICU-C16) Document 10/18/18 11:00 FNQ8838 (Rec: 10/18/18 12:18 HVM3202 ICU-C16) Document 10/18/18 12:00 VSP8192 (Rec: 10/18/18 12:18 OUQ4311 ICU-C16) Document 10/18/18 13:00 HGD9651 (Rec: 10/18/18 14:12 MSA4318 ICU-C16) Document 10/18/18 14:00 CTE9989 (Rec: 10/18/18 14:12 YMZ8934 ICU-C16) Document 10/18/18 15:00 IKV0757 (Rec: 10/18/18 15:00 DJW0720 ICU-C16) Document 10/18/18 15:34 LFQ2051 (Rec: 10/18/18 16:11 VOM6000 ICU-C16) Document 10/18/18 16:24 AWE5552 (Rec: 10/18/18 16:24 TRB6266 ICU-C16) Document 10/18/18 17:00 HVP2761 (Rec: 10/18/18 18:14 OZE0937 ICU-C16) Document 10/18/18 18:00 LOB6334 (Rec: 10/18/18 18:14 BYX8258 ICU-C16) Document 10/18/18 19:00 UPE4877 (Rec: 10/18/18 19:04 BCE2363 ICU-C16) Document 10/18/18 20:00 EVD4866 (Rec: 10/18/18 21:09 RUD4938 ICU-C16) Document 10/18/18 21:00 GHM0359 (Rec: 10/18/18 21:09 PPI1590 ICU-C16) Document 10/18/18 22:00 OLQ3168 (Rec: 10/18/18 22:30 YEW3803 ICU-C16) Document 10/18/18 23:41 YLW6241 (Rec: 10/18/18 23:41 MAF9390 ICU-M28) Document 10/19/18 00:38 LPU8970 (Rec: 10/19/18 00:39 HEE4887 ICU-M28) Document 10/19/18 01:28 TFP4017 (Rec: 10/19/18 01:28 QKI7295 ICU-C10) Document 10/19/18 03:13 NOU2529 (Rec: 10/19/18 03:13 WVS0709 ICU-C10) Document 10/19/18 04:42 WBN2524 (Rec: 10/19/18 04:43 SCS3571 ICU-C10) Document 10/19/18 06:23 PGR5968 (Rec: 10/19/18 06:23 RJI5552 ICU-C10) Document 10/19/18 09:00 XFJ3396 (Rec: 10/19/18 09:01 YBM7791 ICU-C10) Document 10/19/18 11:00 RCJ6444 (Rec: 10/19/18 11:12 BYK4876 ICU-C10) Document 10/19/18 13:00 WQT4086 (Rec: 10/19/18 13:12 VLN4826 ICU-M28) Document 10/19/18 14:00 HNJ4071 (Rec: 10/19/18 18:18 WUK2960 ISDEMO-M03 ) Document 10/19/18 16:21 WJO1518 (Rec: 10/19/18 16:22 ASL0994 ICU-C10) Document 10/19/18 19:00 FBU4797 (Rec: 10/19/18 19:22 UEZ3127 ICU-C16) Document 10/19/18 20:00 TSQ4613 (Rec: 10/19/18 20:51 QED2512 ICU-C16) Document 10/19/18 21:00 EQF5322 (Rec: 10/19/18 21:21 DTY1508 ICU-C16) Document 10/19/18 22:00 ASZ0723 (Rec: 10/19/18 22:15 YNN0943 ICU-C16) Document 10/19/18 23:00 HPH1277 (Rec: 10/20/18 00:14 DBF0795 ICU-C16) Document 10/20/18 00:00 XEY6009 (Rec: 10/20/18 00:20 RGY7403 ICU-C16) Document 10/20/18 00:57 SNY1160 (Rec: 10/20/18 00:57 XGS3484 ICU-C16) Document 10/20/18 01:53 SMU6963 (Rec: 10/20/18 01:53 TRK6961 ICU-C16) Document 10/20/18 02:28 DFA3410 (Rec: 10/20/18 02:28 LMN2824 ICU-C16) Document 10/20/18 03:00 PGF8352 (Rec: 10/20/18 03:26 NGV5169 ICU-C16) Document 10/20/18 03:26 YUJ2249 (Rec: 10/20/18 03:26 ZSA6363 ICU-C16) Document 10/20/18 05:25 JFA5249 (Rec: 10/20/18 05:25 AFU9291 ICU-C16) Document 10/20/18 06:00 XQU2410 (Rec: 10/20/18 06:19 CBR8625 ICU-C16) Document 10/20/18 07:00 HCQ3113 (Rec: 10/20/18 07:43 TNI0213 ICU-C10) Document 10/20/18 10:48 KSF2753 (Rec: 10/20/18 10:48 NPE6305 ICU-C10) Document 10/20/18 17:38 PPE5293 (Rec: 10/20/18 17:40 HQA0244 ICU-C10) Document 10/20/18 19:52 LWB3897 (Rec: 10/20/18 20:10 PRX6764 ICU-C16) Document 10/20/18 23:33 AAO0776 (Rec: 10/20/18 23:33 VCN2877 ICU-C16) Document 10/21/18 04:00 WJP7257 (Rec: 10/21/18 04:07 JQI0514 ICU-C16) Document 10/21/18 05:42 FNH0714 (Rec: 10/21/18 05:42 GNX7437 ICU-M28) Document 10/21/18 08:34 EMP1470 (Rec: 10/21/18 08:34 VZT6663 ICU-C16) Intake and Output Start: 10/21/18 12: 46 Freq: DAILY@0600,1400,2200 Status: Complete Protocol: Created 10/21/18 12:46 QRL2148 (Rec: 10/21/18 12:46 OGH5957 ICU-C06) Document 10/21/18 14:00 IZQ4013 (Rec: 10/21/18 15:26 KBK9815 ICU-C56) Document 10/22/18 06:00 GSN1682 (Rec: 10/22/18 06:16 SLG6422 ICU-C07) Document 10/22/18 10:21 YAQ6323 (Rec: 10/22/18 10:21 IXA6638 ICU-C07) Document 10/22/18 14:00 ZAH2652 (Rec: 10/22/18 15:23 LKT2389 MED-C13) Document 10/22/18 22:00 UYS1697 (Rec: 10/22/18 22:43 QIY4763 MED-C02) Intake and Output Start: 10/23/18 06: 30 Freq: Q4HR Status: Active Protocol: Created 10/23/18 06:30 KRK8553 (Rec: 10/23/18 06:30 IDO7251 ICU-M30) Document 10/23/18 10:00 XQB7048 (Rec: 10/23/18 10:57 PLE5443 ICU-C15) Document 10/23/18 12:00 SBZ0068 (Rec: 10/23/18 12:23 ZWY8471 ICU-C20) Document 10/23/18 16:00 VTG3931 (Rec: 10/23/18 17:48 PSI5310 ICU-C15) Document 10/23/18 21:00 LAP7974 (Rec: 10/23/18 21:14 XXD6433 ICU-C15) Document 10/23/18 22:00 IGY7902 (Rec: 10/23/18 22:57 RUJ8763 ICU-C15) Document 10/23/18 23:07 UAU9098 (Rec: 10/23/18 23:07 GSO6260 ICU-M32) Document 10/24/18 05:00 BPS2240 (Rec: 10/24/18 05:38 DCU4461 ICU-C15) Document 10/24/18 06:00 NDS4347 (Rec: 10/24/18 06:19 SYF8791 ICU-C15) Document 10/24/18 10:00 QFH4050 (Rec: 10/24/18 10:13 NRQ6166 ICU-C15) Document 10/24/18 12:00 JRB4962 (Rec: 10/24/18 12:25 QFT2307 ICU-C15) Document 10/24/18 14:44 MDX2318 (Rec: 10/24/18 14:44 VWO6423 ICU-C15) Document 10/24/18 17:29 MMZ1883 (Rec: 10/24/18 17:30 UZO2608 ICU-C15) Document 10/25/18 01:18 DTG3173 (Rec: 10/25/18 01:18 SKT1799 ICU-C16) Document 10/25/18 02:00 AML9683 (Rec: 10/25/18 02:05 PEZ1338 ICU-C16) Document 10/25/18 03:00 LND3118 (Rec: 10/25/18 03:17 SLB4024 ICU-C16) Document 10/25/18 04:00 LDW2297 (Rec: 10/25/18 04:34 CUC5641 ICU-C16) Document 10/25/18 05:00 KSG0548 (Rec: 10/25/18 05:43 UCP3623 ICU-C16) Document 10/25/18 05:56 RKO5087 (Rec: 10/25/18 05:56 XMU4786 ICU-C16) Document 10/25/18 09:33 WHR3654 (Rec: 10/25/18 09:33 LXF9890 ICU-C15) Document 10/25/18 09:36 WDB5796 (Rec: 10/25/18 09:36 DCX3469 ICU-C15) Document 10/25/18 12:36 BEL6087 (Rec: 10/25/18 12:36 YMF9695 ICU-C15) Document 10/25/18 17:44 JPL6073 (Rec: 10/25/18 17:44 HID0559 ICU-C15) Document 10/25/18 18:31 VYY7565 (Rec: 10/25/18 18:31 SZD3384 ICU-C15) Document 10/25/18 20:00 DJG7289 (Rec: 10/25/18 20:45 KXN2148 ICU-C16) Document 10/26/18 00:00 FGA2716 (Rec: 10/26/18 01:05 FYE9329 ICU-C16) Document 10/26/18 04:00 GHC4977 (Rec: 10/26/18 04:12 KRE3027 ICU-C16) Document 10/26/18 05:08 OCV6616 (Rec: 10/26/18 05:08 CBC7983 ICU-C16) Document 10/26/18 08:00 COA6841 (Rec: 10/26/18 08:09 OBV0855 ICU-C14) Document 10/26/18 09:11 VVK3495 (Rec: 10/26/18 09:12 URN9146 ICU-C25) Document 10/26/18 12:00 TJN1144 (Rec: 10/26/18 12:37 LFN5144 ICU-C15) Document 10/26/18 13:13 FNC9234 (Rec: 10/26/18 13:13 IHO4524 ICU-C16) Document 10/26/18 16:00 LRH1512 (Rec: 10/26/18 16:56 HYP6737 ICU-C15) Document 10/26/18 20:35 FLV5354 (Rec: 10/26/18 20:35 CSO9138 ICU-M32) Document 10/26/18 22:17 FGZ4120 (Rec: 10/26/18 22:17 DJL8854 ICU-C16) Document 10/27/18 00:28 PYN5641 (Rec: 10/27/18 00:28 JRW9847 ICU-C12) Document 10/27/18 02:57 GNJ6252 (Rec: 10/27/18 02:57 SXT8625 ICU-C14) Document 10/27/18 03:00 MDS5968 (Rec: 10/27/18 03:00 YUX3753 ICU-C14) Document 10/27/18 04:00 GZO7621 (Rec: 10/27/18 04:17 AYP3680 ICU-C16) Document 10/27/18 05:05 HXM7606 (Rec: 10/27/18 05:06 XAB0532 ICU-C14) Document 10/27/18 06:43 TFK0457 (Rec: 10/27/18 06:43 FRX2503 ICU-M32) Document 10/27/18 10:40 IGZ1856 (Rec: 10/27/18 10:41 EWN0338 ICU-C11) Document 10/27/18 12:00 BJW5045 (Rec: 10/27/18 12:30 CJN0570 ICU-L03) Document 10/27/18 14:47 GJX1352 (Rec: 10/27/18 14:47 DOZ8552 ICU-C15) Document 10/27/18 16:00 VEG9308 (Rec: 10/27/18 16:50 YAU7305 ICU-C15) Document 10/27/18 17:18 GAD3702 (Rec: 10/27/18 17:18 PHE3346 ICU-M31) Document 10/27/18 20:00 KHX7769 (Rec: 10/27/18 20:27 SAI3359 ICU-C12) Document 10/27/18 23:11 FPJ4043 (Rec: 10/27/18 23:12 VTB1710 ICU-C12) Document 10/27/18 23:31 WMV8596 (Rec: 10/27/18 23:31 MQG6990 ICU-C14) Document 10/28/18 02:37 SOF8083 (Rec: 10/28/18 02:49 DAQ3979 ICU-C12) Document 10/28/18 04:00 ZPO1453 (Rec: 10/28/18 05:31 XSK6033 ICU-C12) Document 10/28/18 06:17 HZS2522 (Rec: 10/28/18 06:17 UPX2001 ICU-C14) Document 10/28/18 08:00 VHM1347 (Rec: 10/28/18 11:04 LXP3134 ICU-C12) Document 10/28/18 10:00 JBU2990 (Rec: 10/28/18 11:04 IYF1301 ICU-C12) Document 10/28/18 11:43 LQV8013 (Rec: 10/28/18 11:43 JNS5928 ICU-C12) Document 10/28/18 14:00 CFW6479 (Rec: 10/28/18 14:00 BSK2987 ICU-C10) Document 10/28/18 15:57 DYN0009 (Rec: 10/28/18 15:58 QQY5976 ICU-C12) Document 10/28/18 17:36 AYZ2012 (Rec: 10/28/18 17:37 YHA8298 ICU-L03) Document 10/28/18 18:39 WXV1030 (Rec: 10/28/18 18:39 RKY6269 ICU-M31) Document 10/28/18 20:00 QAO2997 (Rec: 10/28/18 22:16 QMI7939 ICU-C15) Document 10/28/18 22:56 WGE1124 (Rec: 10/28/18 22:57 PNK1711 ICU-C15) Document 10/29/18 00:00 RVS2656 (Rec: 10/29/18 01:34 BEX3423 ICU-C15) Document 10/29/18 04:00 CXB7142 (Rec: 10/29/18 05:02 IDD3475 ICU-C15) Document 10/29/18 08:15 QKD9606 (Rec: 10/29/18 10:21 DGW5824 ICU-C15) Document 10/29/18 12:00 LKJ3265 (Rec: 10/29/18 12:51 XBX4636 ICU-C15) Document 10/29/18 15:01 ZXL9939 (Rec: 10/29/18 15:05 RQB2168 ICU-C07) Document 10/29/18 16:14 GSH3211 (Rec: 10/29/18 16:14 HNS1422 ICU-C15) Document 10/29/18 19:41 [id number] (Rec: 10/29/18 19:45 [id number] ICU-C10) Document 10/29/18 20:28 [id number] (Rec: 10/29/18 20:28 [id number] ICU-M32) Document 10/29/18 21:28 [id number] (Rec: 10/29/18 21:28 [id number] ICU-C14) Document 10/29/18 22:32 [id number] (Rec: 10/29/18 22:32 [id number] ICU-C10) Document 10/29/18 23:07 [id number] (Rec: 10/29/18 23:07 [id number] ICU-C10) Document 10/30/18 00:00 [id number] (Rec: 10/30/18 00:17 [id number] ICU-C14) Document 10/30/18 00:55 [id number] (Rec: 10/30/18 00:55 [id number] ICU-C10) Document 10/30/18 04:08 [id number] (Rec: 10/30/18 04:10 [id number] ICU-C10) Document 10/30/18 12:00 [id number] (Rec: 10/30/18 12:51 [id number] ICU-C15) Document 10/30/18 13:40 [id number] (Rec: 10/30/18 13:40 [id number] ICU-C15) Document 10/30/18 14:04 [id number] (Rec: 10/30/18 14:04 [id number] ICU-M31) Document 10/30/18 15:36 [id number] (Rec: 10/30/18 15:36 [id number] ICU-C16) Document 10/30/18 16:00 [id number] (Rec: 10/30/18 16:17 [id number] ICU-C16) Document 10/30/18 17:19 [id number] (Rec: 10/30/18 17:19 [id number] ICU-C12) Document 10/30/18 18:17 [id number] (Rec: 10/30/18 18:19 [id number] ICU-M31) Document 10/30/18 19:45 [id number] (Rec: 10/30/18 20:21 [id number] ICU-C16) Document 10/30/18 20:59 [id number] (Rec: 10/30/18 20:59 [id number] ICU-M32) Document 10/31/18 00:00 [id number] (Rec: 10/31/18 04:23 [id number] ICU-C16) Document 10/31/18 04:00 [id number] (Rec: 10/31/18 04:58 [id number] ICU-C16) Document 10/31/18 07:27 [id number] (Rec: 10/31/18 07:27 [id number] ICU-C14) Labs: Laboratory Results - last 24 hr 10/31/18 10/31/18 10/31/18 06:25 06:25 06:25 WBC 17.9 H RBC 3.25 L Hgb 8.9 L Hct 28 L MCV 87 MCH 27 MCHC 31 RDW 15 Plt Count 260 MPV 9.0 Sodium 144 Potassium 3.4 L Chloride 100 L BUN 33 H Creatinine 0.96 Est GFR ( Amer) 96.0 Est GFR (Non-Af Amer) 79.4 BUN/Creatinine Ratio 34.4 H Glucose 175 H Calcium 7.8 L Magnesium 1.9 B-Natriuretic Peptide 83 Studies: 10/28 CXR - bilateral infiltrates demonstrating slight progression suggestive of pneumonia, less likely pulmonary edema 10/26 CXR - Bronchopneumonia with signficant interval worsening. Underlying advanced COPD 10/25 CXR -pulmonary edema vs multifocal pneumonia. Pleural effusion +/- consolidation of LLL. Aeration unchanged from 10/23 10/24 venous duplex bilateral lower extremities - no DVT. 10/23 CXR - worsening pulmonary edema as compared to 10/16 vs early pneumonitis or ARDS 10/16 CT head - NAD 10/16 CTA head - NAD 10/16 CT chest - advanced COPD with associated interstitial fibrosis. Trace bilateral pleural effusions and atelectasis Nutrition: heart healthy diet Fluid restriction 2L Impression: 63 yo M admitted 10/16 with acute on chronic respiratory failure requiring intubation secondary to COPD exacerbation. Initially did well and was weaned from vent on 10/18 however developed pulmonary edema secondary to CHF and was transferred back to ICU 10/23 for BiPAP. Self limited episode of hemoptypsis. Aggressively diuresing for pulmonary edema due to CHF exacerbation which is limiting liberation from BiPAP. On antibiotics to cover for possible contributing pneumonia. Plan: Cardiovascular: (1) Sinus tachycardia, improving; (2) Labile BPs (3) Chronic HTN; (4) Pulmonary HTN secondary to advanced lung disease; (5) HLD; (6) Likely acute on chronic diastolic CHF -- HR 64-93 -- SBP 89-166 -- Telemetry -- TTE 10/16: LVEF 55-60%. Unable to assess diastolic dysfunction. Pulmonary artery HTN -- ProBNP 83 from 137 from 217 -- Atorvastatin -- Lisinopril, Metoprolol -- Scheduled Lasix, changed to PO Home meds: None Pulmonary: (1) Acute on chronic hypoxic and hypercapneic respiratory failure, improving; (2) COPD exacerbation, improving; (3) aspiration pneumonia; (4) [place]; (5) Hemoptysis, resolved; (6) Pulmonary edema, cardiac cause -- RR 12-34 -- sats 88-99, goal 88-92 -- continue weaning vapotherm as able -- Spiriva & PRN Duonebs -- Continue bronchodilators, steriods and antibiotics for COPD exacerbation. -- continue broadspectrum abx for aspiration pneumonia x 7 days course -- incentive spirometry -- Nicotine patch for hx of tobacco use Home meds: Mometasone/formoterol, Spiriva, albuterol Gastrointestinal: No acute issues -- diet: heart health diet -- bowel regimen: Colace -- ulcer prophylaxis: Protonix Home meds: Colace Endocrine: (1) Hyperglycemia -- monitor BGs -- start SSI if BG> 180 -- Solumedrol for COPD exacerbation, taper off Home meds: Prednisone Renal: (1) Hypernatremia, resolved; (2) Hypokalemia, resolving; (3) Hypocalemia ; (4) Hypomagnesemia, resolved; (5) hypervolemia, improving -- UOP: 156 ml/hr -- I/O:3253/3740 (2L PO fluid restriction) -- Cr 1.04 from 1.01 -- Lytes Na 144 from 141 K 3.4, replacement ordered Ca 7.8, on scheduled replacement Mag 1.9 -- IVF: HL -- Calcium carbonate -- Lasix, changed to PO Home meds: None Infectious disease: (1) Sepsis, improving; (2) Aspiration pneumonia -- Tmax 99.2 -- WBC 17.9 from 18.7 -- Micro /5 Blood Negative 10/16 blood Negative Urine negative Sputum Normal estefanía Blood staph. likely contaminant -- ABX x 7 days, course ends tomorrow Cefepime Vancomycin Home meds: None Neurologic: (1) Chronic delusional disorder/schizophrenia -- Tylenol as needed - discontinue as not using -- Aricept -- Zyprexa -- Zoloft -- PT following Home meds: Zoloft, Zyprexa, Tylenol Hematological: (1) Anemia, stable -- Hgb 8.9 from 9.5 -- Plt 260 from 288 -- DVT prophylaxis: SQ Lovenox Home meds: None Metabolic: No acute issues Home meds: None Deep vein thrombosis prophylaxis: SQ Lovenox Dietary: Protonix Condition: Critical Prognosis: Guarded Code status: Full Disposition: continue ICU Care. Cumulative time spent in the care of this patient (excluding any procedure time) : at least 40 minutes. Patient care included clinical interview (with patient and/or family), bedside exam of the patient, review of labs, x-rays, and other ancillary data, coordination of (respiratory, nursing care, review of patient's records, discussion regarding patients management with involved consultants, primary physician, pharmacists, and other healthcare personnel (dietary, case management , physical/occupational therapy etc.) Critical Care Time: 40
[2018-10-31] MEDS: Tiotropium CAP.INH* CAP.INH/18 MCG (USE ORDER SET !) INH SCH (08:07)
[2018-10-31] MEDS ORDERED: acetaZOLAMIDE VIAL* 500 MG in NS 0.9% 50 ML* 50 ML IVPB ONE (09:00)
[2018-10-31] MEDS: Calcium Carbonate CHEW TAB* 500 MG (TUMS) PO SCH ×2 (09:11→20:51)
[2018-10-31] MEDS: Pantoprazole TAB * 40 MG TAB PO SCH (09:11)
[2018-10-31] MEDS: Furosemide TAB* 20 MG PO SCH ×2 (09:11→17:48)
[2018-10-31] MEDS: Sertraline* 100 MG TAB PO SCH (09:12)
[2018-10-31] MEDS: Donepezil TAB* 5 MG PO SCH (09:13)
[2018-10-31] MEDS: Atorvastatin* 20 MG TAB PO SCH (09:13)
[2018-10-31] MEDS: Docusate CAP* 100 MG PO SCH ×2 (09:13→20:53)
[2018-10-31] MEDS: Metoprolol Tartrate TAB* 25 MG PO SCH ×2 (09:13→20:51)
[2018-10-31] MEDS: Nicotine PATCH 7 MG/24 HR* PATCH TRANSDERM SCH (09:14)
[2018-10-31] MEDS: OLANzapine TAB* 10 MG PO SCH ×2 (09:14→20:53)
[2018-10-31] MEDS: KCL 20 MEQ/100 ML IVPREMIX* 20 MEQ/100 ML BAG IV SCH ×2 (09:15→11:10)
[2018-10-31] MEDS: Potassium Chlor TAB* 20 MEQ TAB.ER PO SCH ×2 (09:16→20:53)
[2018-10-31] MEDS: Lisinopril TAB* 10 MG PO SCH (09:32)
[2018-10-31] MEDS: Nicotine GUM* 2 MG PO PRN ×2 (09:58→18:15)
[2018-10-31] MEDS: Nicotine Patch Removal NOTE FOLLOW UP SCH (20:57)
[2018-11-01] MEDS: methylPREDNISolone SOD 40 MG* 1 ML VIAL IV SCH (02:46)
[2018-11-01] MEDS: Cefepime* 2 GM in Dextrose 50mL Q12H (Duplex) IV SCH (02:46)
[2018-11-01] MEDS: Vancomycin(*) 1,000 MG in NS 0.9% 250 ML* 250 ML IVPB SCH (06:35)
[2018-11-01] MEDS: Docusate CAP* 100 MG PO SCH ×2 (08:26→21:15)
[2018-11-01] MEDS: Atorvastatin* 20 MG TAB PO SCH (08:26)
[2018-11-01] MEDS: OLANzapine TAB* 10 MG PO SCH ×2 (08:26→21:16)
[2018-11-01] MEDS: Metoprolol Tartrate TAB* 25 MG PO SCH ×2 (08:26→21:15)
[2018-11-01] MEDS: Calcium Carbonate CHEW TAB* 500 MG (TUMS) PO SCH ×2 (08:26→21:16)
[2018-11-01] MEDS: Sertraline* 100 MG TAB PO SCH (08:27)
[2018-11-01] MEDS: Potassium Chlor TAB* 20 MEQ TAB.ER PO SCH ×2 (08:27→21:15)
[2018-11-01] MEDS: Furosemide TAB* 20 MG PO SCH ×2 (08:27→17:08)
[2018-11-01] MEDS: Donepezil TAB* 5 MG PO SCH (08:27)
[2018-11-01] MEDS: Lisinopril TAB* 10 MG PO SCH (08:28)
[2018-11-01] MEDS: Pantoprazole TAB * 40 MG TAB PO SCH (08:28)
[2018-11-01] MEDS: Nicotine PATCH 7 MG/24 HR* PATCH TRANSDERM SCH (08:30)
[2018-11-01] MEDS: Nicotine GUM* 2 MG PO PRN ×2 (09:12→21:35)
--- NOTE | 2018-11-01 11:29 | PN ---
Date of Service: 11/01/18 - HD 14 Critical Care Services: 63 yo M with HTN, HLD, schizophrenia, severe COPD on home O2 presented on 10/16 to [facility] with acute on chronic hypercapneic respiratory failure requiring intubation 10/17: Sedation vacation, remains unresponsive 10/18: Improving mental status. Passed SBT and extubated 10/19: On BiPAP, increasing hypernatremia 10/20: Weaned to NC 10/22: Transferred to floor 10/23: Did not wear BiPAP overnight with subsequent decompensation. Transferred back to ICU. New infiltrate on CXR 10/25: Overnight developed hemoptysis. Switched from BiPAP to Highflow/ vapotherm. INR normal. ASA and Heparin SQ held. Family updated at beside 10/26: Required BiPAP again overnight for low sats. No further hemoptysis. AM CXR with worsened pulmonary edema likely due to being off BiPAP the prior day. Lasix increased 10/27: Tolerating vapotherm throughout the day and BiPAP at night. Diuresing well 10/29: Fluid restriction (2L) initiated 10/31: Vapotherm weaned to 70% and 30 LPM during day. Vital Signs: Temp Pulse Resp BP SpO2 FiO2 97.4 F 74 26 102/73 93 70 11/01/18 07:51 11/01/18 10:30 11/01/18 10:30 11/01/18 10:30 11/01/18 10:30 11/01 08:00 Physical Exam: Gen: sitting up in bed, appears comfortable HEENT: Vapotherm cannula in place Lungs: CTAB Cardiac: RRR Abdomen: soft, NTND Extremities: warm, dry, decreasing edema Neuro: alert, conversant. Fluid Balance (Past 24 Hours): I= O= Net Intake & Output 10/30/18 10/31/18 11/01/18 11/02/18 06:59 06:59 06:59 06:59 Intake Total 2391 3253 3280.2 1070 Output Total 3265 3740 3525 725 Balance -874 -487 -244.8 345 Weight 249 lb 8.136 oz 248 lb 12.423 oz Intake: IV Fluids 41 746 683.2 ABX - VANCOMYCIN 300 307 Cefepime 41 70 NS 118 76.2 potassium 258 300 IVPB 350 447 467 ABX - VANCOMYCIN 250 250 265 Cefepime 100 potassium 197 202 Oral 2000 2060 2130 1070 Tube Feeding Flush Amount 0 0 NG Tube Irrigate Amount 0 0 Output: Urine 3173 5430 3525 300 Juarez 425 Other: Estimated Void Medium Date of Last Bowel 10/30/2018 10/30/2018 Movement # Bowel Movements 1 Estimated Stool Amount Medium Medium # Voids 1 ADLs: Meal Record Start: 10/15/18 20: 48 Freq: 09,13,18 Status: Inactive Protocol: Created 10/15/18 20:48 System (Rec: 10/15/18 20:48 System ICU-C12) Document 10/17/18 09:00 WYZ7865 (Rec: 10/17/18 09:16 RTB2781 ICU-C10) Document 10/17/18 13:00 AZZ6002 (Rec: 10/17/18 14:02 PJM1038 ICU-C10) Document 10/17/18 18:00 COQ9423 (Rec: 10/17/18 18:04 CWC4829 ICU-C10) Document 10/18/18 12:51 HPF3475 (Rec: 10/18/18 12:51 MSO7909 ICU-C16) Document 10/18/18 18:00 QJY2946 (Rec: 10/18/18 18:16 LMX4276 ICU-C16) Document 10/19/18 13:20 NUQ2799 (Rec: 10/19/18 13:26 QCV7387 ICU-C14) Document 10/19/18 18:00 XEE9281 (Rec: 10/19/18 18:29 TOK0273 ICU-C06) Document 10/20/18 09:00 TPF3716 (Rec: 10/20/18 10:50 GPR7997 ICU-C10) Document 10/20/18 14:12 KGI8706 (Rec: 10/20/18 14:13 WOD3102 ICU-C10) Document 10/20/18 18:00 HKP4984 (Rec: 10/20/18 18:02 ZXV2997 ICU-C10) Document 10/21/18 09:00 FWS0428 (Rec: 10/21/18 11:29 SXS9705 ICU-C16) ADLs: Meal Record Start: 10/21/18 12: 46 Freq: DAILY@0900,1400,1800 Status: Complete Protocol: Created 10/21/18 12:46 SJK1346 (Rec: 10/21/18 12:46 NUD9712 ICU-C06) Document 10/21/18 14:00 CGE9689 (Rec: 10/21/18 14:12 ISN6228 ICU-C06) Document 10/21/18 18:00 ACD3255 (Rec: 10/21/18 19:31 CRQ6396 ICU-C07) Document 10/22/18 09:00 USD4114 (Rec: 10/22/18 12:47 AEC0354 MED-C13) Document 10/22/18 14:00 KBJ9743 (Rec: 10/22/18 15:02 QKN1484 MED-C15) Document 10/22/18 18:00 FAA8323 (Rec: 10/22/18 22:38 RAQ9619 MED-C02) ADLs: Meal Record Start: 10/23/18 06: 30 Freq: 09,13,18 Status: Active Protocol: Created 10/23/18 06:30 JIT6815 (Rec: 10/23/18 06:30 ZNC1244 ICU-M30) Document 10/23/18 10:00 FYT0395 (Rec: 10/23/18 10:57 OCN3292 ICU-C15) Document 10/23/18 13:00 LET7962 (Rec: 10/23/18 18:22 YKF2517 ICU-C15) Document 10/23/18 20:00 WHC7640 (Rec: 10/23/18 21:14 PZR6789 ICU-C15) Document 10/24/18 10:54 FXS0933 (Rec: 10/24/18 10:54 CWS8004 ICU-C15) Document 10/24/18 13:00 ROY9918 (Rec: 10/24/18 14:21 LMC0587 ICU-C15) Document 10/24/18 19:13 MZP5993 (Rec: 10/24/18 19:14 XWA7108 ICU-C16) Document 10/25/18 08:27 JJK8129 (Rec: 10/25/18 08:27 OEO4509 ICU-C15) Document 10/25/18 13:00 BCU2339 (Rec: 10/25/18 13:04 JXA2231 ICU-C15) Document 10/25/18 14:04 KZG4072 (Rec: 10/25/18 14:05 ZSY6101 ICU-C20) Document 10/25/18 19:50 DUM1991 (Rec: 10/25/18 19:50 ZIE6331 ICU-C16) Document 10/26/18 09:00 TUK4928 (Rec: 10/26/18 10:41 NMB5583 ICU-C15) Document 10/26/18 13:00 LTN9533 (Rec: 10/26/18 13:26 SZJ8420 ICU-C15) Document 10/26/18 18:00 MWB6114 (Rec: 10/26/18 18:08 XGF7892 ICU-C15) Document 10/27/18 09:58 FIM7048 (Rec: 10/27/18 09:59 AWO8760 ICU-M31) Document 10/27/18 13:00 LRK9266 (Rec: 10/27/18 14:30 RMR1308 ICU-C11) Document 10/27/18 18:00 YRB5116 (Rec: 10/27/18 18:36 WMA5574 ICU-C15) Document 10/28/18 09:00 EPY6256 (Rec: 10/28/18 10:17 XOR5553 ICU-C12) Document 10/28/18 14:00 RHY5979 (Rec: 10/28/18 14:01 UJV1951 ICU-C10) Document 10/28/18 18:00 PTV0521 (Rec: 10/28/18 18:38 XUS6807 ICU-M31) Document 10/29/18 09:00 EUP2803 (Rec: 10/29/18 10:27 GPJ9957 ICU-C15) Document 10/29/18 18:00 HLW1659 (Rec: 10/29/18 18:20 OBD1742 ICU-C20) Document 10/30/18 09:00 URV5739 (Rec: 10/30/18 12:56 ZWX5694 ICU-C15) Document 10/30/18 13:00 NEI3821 (Rec: 10/30/18 15:02 WJF0805 ICU-C15) Document 10/30/18 18:00 RZI5624 (Rec: 10/30/18 18:21 BLL3220 ICU-M31) Document 10/31/18 09:00 XXA4528 (Rec: 10/31/18 10:20 PYH7991 ICU-C16) Document 10/31/18 13:00 YOL7118 (Rec: 10/31/18 15:16 NSS0249 ICU-C16) Document 10/31/18 18:00 RWH3128 (Rec: 10/31/18 18:23 XSN1186 ICU-C14) Document 11/01/18 09:00 YDN4191 (Rec: 11/01/18 09:15 QGW1936 ICU-C15) Intake and Output Start: 10/15/18 20: 48 Freq: Q4HR Status: Inactive Protocol: Created 10/15/18 20:48 System (Rec: 10/15/18 20:48 System ICU-C12) Document 10/15/18 23:00 ALV2468 (Rec: 10/16/18 00:36 REU9483 ICU-C16) Document 10/16/18 00:00 QCG8392 (Rec: 10/16/18 00:36 WLU8238 ICU-C16) Document 10/16/18 00:41 SDH7808 (Rec: 10/16/18 00:41 ZUZ1745 ICU-C16) Document 10/16/18 02:00 UQX8569 (Rec: 10/16/18 02:18 ZBD6399 ICU-C16) Document 10/16/18 03:00 TDC8289 (Rec: 10/16/18 04:15 LIU2287 ICU-C16) Document 10/16/18 04:00 KRR1732 (Rec: 10/16/18 04:15 UUT1900 ICU-C16) Document 10/16/18 05:00 CNS1883 (Rec: 10/16/18 06:00 ZBT9233 ICU-C16) Document 10/16/18 06:00 YXR2060 (Rec: 10/16/18 06:56 DOO2902 ICU-C16) Document 10/16/18 07:00 NTB2314 (Rec: 10/16/18 07:00 QCT0405 ICU-C15) Document 10/16/18 07:42 CVD3265 (Rec: 10/16/18 07:42 PUL6645 ICU-M28) Document 10/16/18 08:00 VSG9584 (Rec: 10/16/18 09:56 QJA1607 ICU-C15) Document 10/16/18 11:00 YUE8270 (Rec: 10/16/18 13:11 XSX3915 ICU-M28) Document 10/16/18 12:00 SVD8332 (Rec: 10/16/18 13:21 NCB4210 ICU-M28) Document 10/16/18 13:00 UVN8073 (Rec: 10/16/18 13:41 WQG2853 ICU-M28) Document 10/16/18 14:00 OZN6140 (Rec: 10/16/18 14:35 DRF5051 ICU-C15) Document 10/16/18 15:00 LRT5352 (Rec: 10/16/18 16:54 YKK5549 ICU-M28) Document 10/16/18 16:00 MSI8453 (Rec: 10/16/18 16:54 DRS5979 ICU-M28) Document 10/16/18 17:00 RKR3427 (Rec: 10/16/18 17:12 IYO8775 ICU-C15) Document 10/16/18 18:00 JDG1686 (Rec: 10/16/18 18:15 CAT6810 ICU-C15) Document 10/16/18 20:00 CYE3514 (Rec: 10/16/18 20:23 QEL2875 ICU-M28) Document 10/16/18 21:00 IEG1602 (Rec: 10/16/18 22:03 RVY2299 ICU-C10) Document 10/16/18 22:00 IJL6639 (Rec: 10/16/18 22:03 FQL3034 ICU-C10) Document 10/16/18 23:00 IOG5358 (Rec: 10/17/18 00:45 HWF9509 ICU-C10) Document 10/17/18 00:00 SZB2461 (Rec: 10/17/18 00:45 JGC2158 ICU-C10) Document 10/17/18 01:00 LTC0703 (Rec: 10/17/18 01:08 WLV7879 ICU-C10) Document 10/17/18 02:00 KDI0003 (Rec: 10/17/18 02:02 VXY0042 ICU-C10) Document 10/17/18 03:00 PCK9714 (Rec: 10/17/18 04:15 AKJ1333 ICU-C10) Document 10/17/18 04:00 SOO8790 (Rec: 10/17/18 04:15 PZX0059 ICU-C10) Document 10/17/18 05:00 FCO5158 (Rec: 10/17/18 07:05 PFN8873 ICU-C10) Document 10/17/18 06:00 UEK9398 (Rec: 10/17/18 07:05 UAA2128 ICU-C10) Document 10/17/18 07:00 CAG3278 (Rec: 10/17/18 07:05 TRG8627 ICU-C10) Document 10/17/18 08:00 VNI5790 (Rec: 10/17/18 09:11 BUN7644 ICU-C10) Document 10/17/18 09:00 AUP7896 (Rec: 10/17/18 09:11 VLC1822 ICU-C10) Document 10/17/18 10:00 UDU2726 (Rec: 10/17/18 10:51 SVD5706 ICU-M28) Document 10/17/18 10:51 SJO5936 (Rec: 10/17/18 10:51 XXF7761 ICU-M28) Document 10/17/18 13:04 MDR3367 (Rec: 10/17/18 13:06 GZS5469 ICU-C25) Document 10/17/18 14:00 ENM3679 (Rec: 10/17/18 14:02 PMC3620 ICU-C10) Document 10/17/18 15:00 VPU3040 (Rec: 10/17/18 15:02 ADB7281 ICU-M28) Document 10/17/18 16:00 VVV1540 (Rec: 10/17/18 17:05 YIP3002 ICU-M28) Document 10/17/18 17:00 LFN5846 (Rec: 10/17/18 17:05 TGS0057 ICU-M28) Document 10/17/18 18:00 JZQ0441 (Rec: 10/17/18 18:15 VLY2203 ICU-M28) Document 10/17/18 19:00 IDS3820 (Rec: 10/17/18 20:54 WUX5132 ICU-C15) Document 10/17/18 20:00 XBU1309 (Rec: 10/17/18 23:39 PKA8335 ICU-C15) Document 10/17/18 21:00 SPF1048 (Rec: 10/17/18 23:40 VBO3406 ICU-C15) Document 10/17/18 22:00 JNG8404 (Rec: 10/17/18 23:43 WTH0297 ICU-C15) Document 10/17/18 23:00 QUU8177 (Rec: 10/17/18 23:44 NHN7408 ICU-C15) Document 10/18/18 01:00 LDP9605 (Rec: 10/18/18 01:10 QVN3328 ICU-C15) Document 10/18/18 02:00 HPW4517 (Rec: 10/18/18 02:13 EYS3664 ICU-C15) Document 10/18/18 03:00 MKX4631 (Rec: 10/18/18 03:03 ABE2179 ICU-C15) Document 10/18/18 04:00 QDF9786 (Rec: 10/18/18 04:46 WQK8121 ICU-C15) Document 10/18/18 05:00 MAG0528 (Rec: 10/18/18 05:37 JXT9869 ICU-M28) Document 10/18/18 06:00 WLG5621 (Rec: 10/18/18 06:09 CLI6204 ICU-C15) Document 10/18/18 07:00 BJT6589 (Rec: 10/18/18 07:41 OOF1481 ICU-C16) Document 10/18/18 07:42 ALF0322 (Rec: 10/18/18 07:56 WRP0075 ICU-C16) Document 10/18/18 09:00 FLH3381 (Rec: 10/18/18 10:17 MGG2862 ICU-C16) Document 10/18/18 10:00 ZRL6833 (Rec: 10/18/18 10:17 MRU7846 ICU-C16) Document 10/18/18 11:00 QEG1750 (Rec: 10/18/18 12:18 UML8327 ICU-C16) Document 10/18/18 12:00 GBA7486 (Rec: 10/18/18 12:18 ZZD6425 ICU-C16) Document 10/18/18 13:00 MSC0032 (Rec: 10/18/18 14:12 QOI8439 ICU-C16) Document 10/18/18 14:00 KWT5096 (Rec: 10/18/18 14:12 CWC1197 ICU-C16) Document 10/18/18 15:00 ISZ7369 (Rec: 10/18/18 15:00 EJR9586 ICU-C16) Document 10/18/18 15:34 DNB6459 (Rec: 10/18/18 16:11 KIM9917 ICU-C16) Document 10/18/18 16:24 HEM0489 (Rec: 10/18/18 16:24 ZVC7353 ICU-C16) Document 10/18/18 17:00 VAN1869 (Rec: 10/18/18 18:14 PCH3785 ICU-C16) Document 10/18/18 18:00 ZZC9088 (Rec: 10/18/18 18:14 KMO9755 ICU-C16) Document 10/18/18 19:00 DTH9845 (Rec: 10/18/18 19:04 QZI3832 ICU-C16) Document 10/18/18 20:00 ZNC1892 (Rec: 10/18/18 21:09 UZB5564 ICU-C16) Document 10/18/18 21:00 ZCW4797 (Rec: 10/18/18 21:09 EFC0030 ICU-C16) Document 10/18/18 22:00 HVP2811 (Rec: 10/18/18 22:30 WFF8651 ICU-C16) Document 10/18/18 23:41 BPB6751 (Rec: 10/18/18 23:41 BLI9040 ICU-M28) Document 10/19/18 00:38 QQD4942 (Rec: 10/19/18 00:39 OTH1102 ICU-M28) Document 10/19/18 01:28 XLB2025 (Rec: 10/19/18 01:28 MVG7066 ICU-C10) Document 10/19/18 03:13 DJH4335 (Rec: 10/19/18 03:13 ICT7119 ICU-C10) Document 10/19/18 04:42 CJE2831 (Rec: 10/19/18 04:43 JIL1984 ICU-C10) Document 10/19/18 06:23 ZQR4822 (Rec: 10/19/18 06:23 DJI3703 ICU-C10) Document 10/19/18 09:00 PFD6657 (Rec: 10/19/18 09:01 NNG6027 ICU-C10) Document 10/19/18 11:00 AKY8507 (Rec: 10/19/18 11:12 UUG4183 ICU-C10) Document 10/19/18 13:00 KLW1295 (Rec: 10/19/18 13:12 FZO2712 ICU-M28) Document 10/19/18 14:00 FJC4204 (Rec: 10/19/18 18:18 ZSC0006 ISDEMO-M03 ) Document 10/19/18 16:21 ZIV5287 (Rec: 10/19/18 16:22 CWR6030 ICU-C10) Document 10/19/18 19:00 VRF9379 (Rec: 10/19/18 19:22 AMF0169 ICU-C16) Document 10/19/18 20:00 ADH6706 (Rec: 10/19/18 20:51 XXL7647 ICU-C16) Document 10/19/18 21:00 CCH2030 (Rec: 10/19/18 21:21 SAK5854 ICU-C16) Document 10/19/18 22:00 ZIZ0341 (Rec: 10/19/18 22:15 ZWC3665 ICU-C16) Document 10/19/18 23:00 EBG2304 (Rec: 10/20/18 00:14 HWR6485 ICU-C16) Document 10/20/18 00:00 GMS9502 (Rec: 10/20/18 00:20 HEY4853 ICU-C16) Document 10/20/18 00:57 AFE9339 (Rec: 10/20/18 00:57 IGM1031 ICU-C16) Document 10/20/18 01:53 NNE7856 (Rec: 10/20/18 01:53 PLT2821 ICU-C16) Document 10/20/18 02:28 EQK4455 (Rec: 10/20/18 02:28 HKL8972 ICU-C16) Document 10/20/18 03:00 BHA4242 (Rec: 10/20/18 03:26 QDE7389 ICU-C16) Document 10/20/18 03:26 WNY1455 (Rec: 10/20/18 03:26 WUG3783 ICU-C16) Document 10/20/18 05:25 BNR5312 (Rec: 10/20/18 05:25 HTV1564 ICU-C16) Document 10/20/18 06:00 GBM0865 (Rec: 10/20/18 06:19 PGL8132 ICU-C16) Document 10/20/18 07:00 SNZ8668 (Rec: 10/20/18 07:43 RLX4895 ICU-C10) Document 10/20/18 10:48 ZMJ1220 (Rec: 10/20/18 10:48 ZHN2737 ICU-C10) Document 10/20/18 17:38 UGU6832 (Rec: 10/20/18 17:40 YPH1983 ICU-C10) Document 10/20/18 19:52 HXU1048 (Rec: 10/20/18 20:10 BDM1472 ICU-C16) Document 10/20/18 23:33 FSJ3355 (Rec: 10/20/18 23:33 ONH5193 ICU-C16) Document 10/21/18 04:00 CED0965 (Rec: 10/21/18 04:07 WUY5811 ICU-C16) Document 10/21/18 05:42 NFP7905 (Rec: 10/21/18 05:42 JFT2146 ICU-M28) Document 10/21/18 08:34 FJM6796 (Rec: 10/21/18 08:34 BHT5079 ICU-C16) Intake and Output Start: 10/21/18 12: 46 Freq: DAILY@0600,1400,2200 Status: Complete Protocol: Created 10/21/18 12:46 OXV4109 (Rec: 10/21/18 12:46 MHF4578 ICU-C06) Document 10/21/18 14:00 FJO5186 (Rec: 10/21/18 15:26 IUR6395 ICU-C56) Document 10/22/18 06:00 HLR2588 (Rec: 10/22/18 06:16 ECZ7300 ICU-C07) Document 10/22/18 10:21 NBY3069 (Rec: 10/22/18 10:21 LQX9589 ICU-C07) Document 10/22/18 14:00 MTI1501 (Rec: 10/22/18 15:23 QIP3986 MED-C13) Document 10/22/18 22:00 SGP0029 (Rec: 10/22/18 22:43 ASH7072 MED-C02) Intake and Output Start: 10/23/18 06: 30 Freq: Q4HR Status: Active Protocol: Created 10/23/18 06:30 HES9742 (Rec: 10/23/18 06:30 NMV5613 ICU-M30) Document 10/23/18 10:00 XTI3913 (Rec: 10/23/18 10:57 VJJ4601 ICU-C15) Document 10/23/18 12:00 UVZ8823 (Rec: 10/23/18 12:23 AFS7613 ICU-C20) Document 10/23/18 16:00 VJC3645 (Rec: 10/23/18 17:48 ZOT7118 ICU-C15) Document 10/23/18 21:00 BDQ3581 (Rec: 10/23/18 21:14 BEV7033 ICU-C15) Document 10/23/18 22:00 XAO2881 (Rec: 10/23/18 22:57 BET7785 ICU-C15) Document 10/23/18 23:07 HWM0406 (Rec: 10/23/18 23:07 ZWY0173 ICU-M32) Document 10/24/18 05:00 XWJ6719 (Rec: 10/24/18 05:38 VWQ0676 ICU-C15) Document 10/24/18 06:00 YGT2210 (Rec: 10/24/18 06:19 VWH9479 ICU-C15) Document 10/24/18 10:00 FDQ5877 (Rec: 10/24/18 10:13 FHQ9971 ICU-C15) Document 10/24/18 12:00 LHH4145 (Rec: 10/24/18 12:25 EFF0245 ICU-C15) Document 10/24/18 14:44 FFT0203 (Rec: 10/24/18 14:44 MPR1059 ICU-C15) Document 10/24/18 17:29 DZV7036 (Rec: 10/24/18 17:30 RIH6440 ICU-C15) Document 10/25/18 01:18 QOH3603 (Rec: 10/25/18 01:18 NUE3689 ICU-C16) Document 10/25/18 02:00 PLE5505 (Rec: 10/25/18 02:05 YZE2381 ICU-C16) Document 10/25/18 03:00 MVL2664 (Rec: 10/25/18 03:17 BVB9208 ICU-C16) Document 10/25/18 04:00 RHR4833 (Rec: 10/25/18 04:34 LWH4417 ICU-C16) Document 10/25/18 05:00 KFM7650 (Rec: 10/25/18 05:43 WFF7957 ICU-C16) Document 10/25/18 05:56 DVL6611 (Rec: 10/25/18 05:56 AYI8305 ICU-C16) Document 10/25/18 09:33 XLY1042 (Rec: 10/25/18 09:33 VJL2578 ICU-C15) Document 10/25/18 09:36 OSC2078 (Rec: 10/25/18 09:36 PCH6927 ICU-C15) Document 10/25/18 12:36 CHH9440 (Rec: 10/25/18 12:36 PUT6663 ICU-C15) Document 10/25/18 17:44 YBD8597 (Rec: 10/25/18 17:44 PYD3194 ICU-C15) Document 10/25/18 18:31 PRZ7161 (Rec: 10/25/18 18:31 RQC9626 ICU-C15) Document 10/25/18 20:00 DHE0732 (Rec: 10/25/18 20:45 DWZ9213 ICU-C16) Document 10/26/18 00:00 VPD7938 (Rec: 10/26/18 01:05 TVT7846 ICU-C16) Document 10/26/18 04:00 OHQ6133 (Rec: 10/26/18 04:12 JYM8078 ICU-C16) Document 10/26/18 05:08 GWM3316 (Rec: 10/26/18 05:08 BSG8727 ICU-C16) Document 10/26/18 08:00 NDO6881 (Rec: 10/26/18 08:09 WBO6717 ICU-C14) Document 10/26/18 09:11 YBI1079 (Rec: 10/26/18 09:12 YRC5482 ICU-C25) Document 10/26/18 12:00 IPZ3355 (Rec: 10/26/18 12:37 IFI1438 ICU-C15) Document 10/26/18 13:13 UGU5198 (Rec: 10/26/18 13:13 RRP4854 ICU-C16) Document 10/26/18 16:00 TOF1559 (Rec: 10/26/18 16:56 UCG5067 ICU-C15) Document 10/26/18 20:35 YNP1516 (Rec: 10/26/18 20:35 ONX7446 ICU-M32) Document 10/26/18 22:17 KRW0073 (Rec: 10/26/18 22:17 ADB0400 ICU-C16) Document 10/27/18 00:28 TZD0297 (Rec: 10/27/18 00:28 RIY7291 ICU-C12) Document 10/27/18 02:57 DEO7524 (Rec: 10/27/18 02:57 AMO1148 ICU-C14) Document 10/27/18 03:00 YKG4422 (Rec: 10/27/18 03:00 ONU9991 ICU-C14) Document 10/27/18 04:00 VUD0343 (Rec: 10/27/18 04:17 XED5451 ICU-C16) Document 10/27/18 05:05 PGQ9501 (Rec: 10/27/18 05:06 BUC6932 ICU-C14) Document 10/27/18 06:43 WRP7018 (Rec: 10/27/18 06:43 TSE8207 ICU-M32) Document 10/27/18 10:40 GYZ4730 (Rec: 10/27/18 10:41 XBY2961 ICU-C11) Document 10/27/18 12:00 QUM7079 (Rec: 10/27/18 12:30 SSS3803 ICU-L03) Document 10/27/18 14:47 OWI2309 (Rec: 10/27/18 14:47 KSF7334 ICU-C15) Document 10/27/18 16:00 OVR0244 (Rec: 10/27/18 16:50 KJR4209 ICU-C15) Document 10/27/18 17:18 GUC7455 (Rec: 10/27/18 17:18 RCN8913 ICU-M31) Document 10/27/18 20:00 GPU7564 (Rec: 10/27/18 20:27 NJZ7902 ICU-C12) Document 10/27/18 23:11 ZPE1644 (Rec: 10/27/18 23:12 RXV7279 ICU-C12) Document 10/27/18 23:31 EPL7351 (Rec: 10/27/18 23:31 LFY0199 ICU-C14) Document 10/28/18 02:37 LID4041 (Rec: 10/28/18 02:49 RLA5793 ICU-C12) Document 10/28/18 04:00 PSQ3555 (Rec: 10/28/18 05:31 VRS0842 ICU-C12) Document 10/28/18 06:17 JVB6985 (Rec: 10/28/18 06:17 YIW4408 ICU-C14) Document 10/28/18 08:00 KDK3701 (Rec: 10/28/18 11:04 XCQ6180 ICU-C12) Document 10/28/18 10:00 PHK0462 (Rec: 10/28/18 11:04 FLJ9134 ICU-C12) Document 10/28/18 11:43 OMV9148 (Rec: 10/28/18 11:43 LBQ9029 ICU-C12) Document 10/28/18 14:00 WIK9278 (Rec: 10/28/18 14:00 QSU1284 ICU-C10) Document 10/28/18 15:57 VUI6451 (Rec: 10/28/18 15:58 MBU7976 ICU-C12) Document 10/28/18 17:36 BFK2533 (Rec: 10/28/18 17:37 VAY4731 ICU-L03) Document 10/28/18 18:39 YAD8981 (Rec: 10/28/18 18:39 IZC9958 ICU-M31) Document 10/28/18 20:00 PVF0315 (Rec: 10/28/18 22:16 HNK4735 ICU-C15) Document 10/28/18 22:56 FJW3346 (Rec: 10/28/18 22:57 HIT9079 ICU-C15) Document 10/29/18 00:00 NUL7363 (Rec: 10/29/18 01:34 SWG8386 ICU-C15) Document 10/29/18 04:00 OGQ9474 (Rec: 10/29/18 05:02 JAT9151 ICU-C15) Document 10/29/18 08:15 LBS3684 (Rec: 10/29/18 10:21 ZVZ0002 ICU-C15) Document 10/29/18 12:00 MVG6618 (Rec: 10/29/18 12:51 [id number] ICU-C15) Document 10/29/18 15:01 UWS4675 (Rec: 10/29/18 15:05 TRN4302 ICU-C07) Document 10/29/18 16:14 [id number] (Rec: 10/29/18 16:14 HKC2876 ICU-C15) Document 10/29/18 19:41 [id number] (Rec: 10/29/18 19:45 [id number] ICU-C10) Document 10/29/18 20:28 CJY2209 (Rec: 10/29/18 20:28 QKV3350 ICU-M32) Document 10/29/18 21:28 AON4954 (Rec: 10/29/18 21:28 LNK1304 ICU-C14) Document 10/29/18 22:32 AEU3107 (Rec: 10/29/18 22:32 CAI9404 ICU-C10) Document 10/29/18 23:07 GZO0171 (Rec: 10/29/18 23:07 LNO9676 ICU-C10) Document 10/30/18 00:00 AUH5102 (Rec: 10/30/18 00:17 SYO6755 ICU-C14) Document 10/30/18 00:55 YJT6051 (Rec: 10/30/18 00:55 OQV9609 ICU-C10) Document 10/30/18 04:08 BYZ2943 (Rec: 10/30/18 04:10 SLL2256 ICU-C10) Document 10/30/18 12:00 LQB5178 (Rec: 10/30/18 12:51 TGD7350 ICU-C15) Document 10/30/18 13:40 [id number] (Rec: 10/30/18 13:40 NRE5401 ICU-C15) Document 10/30/18 14:04 EHF8025 (Rec: 10/30/18 14:04 RIL0913 ICU-M31) Document 10/30/18 15:36 [id number] (Rec: 10/30/18 15:36 KML1309 ICU-C16) Document 10/30/18 16:00 STK5625 (Rec: 10/30/18 16:17 ETX5052 ICU-C16) Document 10/30/18 17:19 [id number] (Rec: 10/30/18 17:19 QQF2973 ICU-C12) Document 10/30/18 18:17 CFV5117 (Rec: 10/30/18 18:19 TSU8133 ICU-M31) Document 10/30/18 19:45 UHX9254 (Rec: 10/30/18 20:21 LME7671 ICU-C16) Document 10/30/18 20:59 SIB5596 (Rec: 10/30/18 20:59 RWD1986 ICU-M32) Document 10/31/18 00:00 GJM9684 (Rec: 10/31/18 04:23 XSF1487 ICU-C16) Document 10/31/18 04:00 NSN1953 (Rec: 10/31/18 04:58 FIP3270 ICU-C16) Document 10/31/18 07:00 PXK1057 (Rec: 10/31/18 09:10 LMY1677 ICU-M31) Document 10/31/18 07:27 NCI3861 (Rec: 10/31/18 07:27 HEO0812 ICU-C14) Document 10/31/18 08:00 QYP8532 (Rec: 10/31/18 09:10 ZIX3197 ICU-M31) Document 10/31/18 10:34 OUF8664 (Rec: 10/31/18 10:34 PGH8541 ICU-C14) Document 10/31/18 12:00 RIF8304 (Rec: 10/31/18 14:37 LJL9160 ICU-M31) Document 10/31/18 15:58 [id number] (Rec: 10/31/18 15:58 ZFI3315 ICU-C14) Document 10/31/18 20:00 CKD8614 (Rec: 10/31/18 20:30 OLY4287 ICU-C15) Document 10/31/18 20:57 CQR1975 (Rec: 10/31/18 20:57 DZD9805 ICU-M31) Document 10/31/18 21:53 ZWQ6094 (Rec: 10/31/18 21:53 LTK6619 ICU-C15) Document 10/31/18 22:22 VPB9093 (Rec: 10/31/18 22:22 YGD7515 ICU-C15) Document 11/01/18 00:00 VPG2205 (Rec: 11/01/18 00:13 [id number] ICU-C15) Document 11/01/18 04:00 VSM1662 (Rec: 11/01/18 05:48 CCM6449 ICU-C15) Document 11/01/18 06:11 EHQ6120 (Rec: 11/01/18 06:11 UEK5233 ICU-C10) Document 11/01/18 08:00 YOZ8409 (Rec: 11/01/18 08:34 QBH1642 ICU-M31) Document 11/01/18 08:44 [id number] (Rec: 11/01/18 08:44 GZE6103 ICU-C15) Document 11/01/18 10:53 [id number] (Rec: 11/01/18 10:53 RJB5746 ICU-C15) Labs: see below Studies: 10/28 CXR - bilateral infiltrates demonstrating slight progression suggestive of pneumonia, less likely pulmonary edema 10/26 CXR - Bronchopneumonia with signficant interval worsening. Underlying advanced COPD 10/25 CXR -pulmonary edema vs multifocal pneumonia. Pleural effusion +/- consolidation of LLL. Aeration unchanged from 10/23 10/24 venous duplex bilateral lower extremities - no DVT. 10/23 CXR - worsening pulmonary edema as compared to 10/16 vs early pneumonitis or ARDS 10/16 CT head - NAD 10/16 CTA head - NAD 10/16 CT chest - advanced COPD with associated interstitial fibrosis. Trace bilateral pleural effusions and atelectasis Nutrition: heart healthy diet Fluid restriction 2L Impression: 63 yo M admitted 10/16 with acute on chronic respiratory failure requiring intubation secondary to COPD exacerbation. Initially did well and was weaned from vent on 10/18 however developed pulmonary edema secondary to CHF and was transferred back to ICU 10/23 for BiPAP. Self limited episode of hemoptypsis. Aggressively diuresing for pulmonary edema due to CHF exacerbation which is limiting liberation from BiPAP. On antibiotics to cover for possible contributing pneumonia. Plan: Cardiovascular: (1) Sinus tachycardia, improving; (2) Labile BPs (3) Chronic HTN; (4) Pulmonary HTN secondary to advanced lung disease; (5) HLD; (6) Likely acute on chronic diastolic CHF, improving -- HR 61-109 -- SBP 87-165 -- Telemetry -- TTE 10/16: LVEF 55-60%. Unable to assess diastolic dysfunction. Pulmonary artery HTN -- ProBNP 83 from 137 from 217 -- Atorvastatin -- Lisinopril, Metoprolol -- Scheduled Lasix, changed to PO Home meds: None Pulmonary: (1) Acute on chronic hypoxic and hypercapneic respiratory failure, improving; (2) COPD exacerbation, improving; (3) aspiration pneumonia; (4) HAMILTON; (5) Hemoptysis, resolved; (6) Pulmonary edema, cardiac cause -- RR 15-31 -- sats 85-99, goal 88-92 -- continue weaning vapotherm as able -- Spiriva & PRN Duonebs -- Continue bronchodilators, steriods and antibiotics for COPD exacerbation. - steriods and Abx end today -- continue broadspectrum abx for aspiration pneumonia x 7 days course -- incentive spirometry -- Nicotine patch for hx of tobacco use Home meds: Mometasone/formoterol, Spiriva, albuterol Gastrointestinal: No acute issues -- diet: heart health diet -- bowel regimen: Colace -- ulcer prophylaxis: Protonix Home meds: Colace Endocrine: (1) Hyperglycemia -- monitor BGs -- start SSI if BG> 180 -- Solumedrol for COPD exacerbation, taper off, ends today Home meds: Prednisone Renal: (1) Hypernatremia, resolved; (2) Hypokalemia, resolving; (3) Hypocalemia ; (4) Hypomagnesemia, resolved; (5) hypervolemia, improving -- UOP: 156 ml/hr -- I/O:3280/3525 (2L PO fluid restriction) -- Cr pending -- Lytes pending -- IVF: HL -- Calcium carbonate -- Lasix, changed to PO Home meds: None Infectious disease: (1) Sepsis, improving; (2) Aspiration pneumonia -- Tmax 99.8 -- WBC pending from 17.9 -- Micro / Blood Negative 10/16 blood Negative Urine negative Sputum Normal estefanía Blood staph. likely contaminant -- ABX x 7 days, course ends today Cefepime Vancomycin Home meds: None Neurologic: (1) Chronic delusional disorder/schizophrenia -- Tylenol as needed -- Aricept -- Zyprexa -- Zoloft -- PT following Home meds: Zoloft, Zyprexa, Tylenol Hematological: (1) Anemia, stable -- Hgb pending -- Plt pending -- DVT prophylaxis: SQ Lovenox Home meds: None Metabolic: No acute issues Home meds: None Deep vein thrombosis prophylaxis: SQ Lovenox Dietary: Protonix Condition: Critical Prognosis: Guarded Code status: Full Disposition: continue ICU Care. Cumulative time spent in the care of this patient (excluding any procedure time) : at least 40 minutes. Patient care included clinical interview (with patient and/or family), bedside exam of the patient, review of labs, x-rays, and other ancillary data, coordination of (respiratory, nursing care, review of patient's records, discussion regarding patients management with involved consultants, primary physician, pharmacists, and other healthcare personnel (dietary, case management , physical/occupational therapy etc.) Critical Care Time: 40
[2018-11-01 11:48] LABS: Hematocrit 29 % (42-52); Mean Corpuscular HGB Conc 31 g/dl (31-36); Mean Corpuscular Hemoglobin 27 pg (27-31); Mean Corpuscular Volume 88 fL (80-94); Mean Platelet Volume 8.8 fL (7.4-10.4); Platelet Count 231 10^3/ul (150-450); Red Blood Count 3.31 10^6/ul (4.00-5.40); Red Cell Distribution Width 16 % (10.5-15); White Blood Count 20.8 10^3/ul (3.5-10.8)
[2018-11-01 12:02] LABS: BUN/Creatinine Ratio 35.8 (8-20); Calcium 8.7 mg/dL (8.6-10.3); EGFR African American 74.2 (>60); EGFR Non-African American 61.3 (>60); Potassium 3.6 mmol/L (3.5-5.0)
[2018-11-01] MEDS: Tiotropium CAP.INH* CAP.INH/18 MCG (USE ORDER SET !) INH SCH (14:48)
[2018-11-01] MEDS: Nicotine Patch Removal NOTE FOLLOW UP SCH (21:17)
[2018-11-01] MEDS: Acetaminophen TAB* 325 MG PO PRN (22:38)
[2018-11-02 05:52] LABS: Hematocrit 29 % (42-52); Mean Corpuscular HGB Conc 32 g/dl (31-36); Mean Corpuscular Hemoglobin 28 pg (27-31); Mean Corpuscular Volume 88 fL (80-94); Mean Platelet Volume 8.8 fL (7.4-10.4); Platelet Count 209 10^3/ul (150-450); Red Blood Count 3.25 10^6/ul (4.00-5.40); Red Cell Distribution Width 16 % (10.5-15); White Blood Count 14.9 10^3/ul (3.5-10.8)
[2018-11-02 06:07] LABS: Calcium 8.7 mg/dL (8.6-10.3); EGFR African American 69.5 (>60); EGFR Non-African American 57.5 (>60); Potassium 3.1 mmol/L (3.5-5.0)
[2018-11-02] MEDS: Furosemide TAB* 20 MG PO SCH ×2 (07:56→17:01)
[2018-11-02] MEDS: Pantoprazole TAB * 40 MG TAB PO SCH (07:56)
[2018-11-02] MEDS: Atorvastatin* 20 MG TAB PO SCH (07:56)
[2018-11-02] MEDS: OLANzapine TAB* 10 MG PO SCH ×2 (07:57→21:27)
[2018-11-02] MEDS: Donepezil TAB* 5 MG PO SCH (07:57)
[2018-11-02] MEDS: Docusate CAP* 100 MG PO SCH ×2 (07:57→21:11)
[2018-11-02] MEDS: Sertraline* 100 MG TAB PO SCH (07:57)
[2018-11-02] MEDS: Potassium Chlor TAB* 20 MEQ TAB.ER PO SCH ×2 (07:57→21:11)
[2018-11-02] MEDS: Calcium Carbonate CHEW TAB* 500 MG (TUMS) PO SCH ×2 (07:58→21:12)
[2018-11-02] MEDS: Nicotine PATCH 7 MG/24 HR* PATCH TRANSDERM SCH (07:58)
[2018-11-02] MEDS: Tiotropium CAP.INH* CAP.INH/18 MCG (USE ORDER SET !) INH SCH (09:29)
[2018-11-02] MEDS ORDERED: Potassium Chlor TAB* 20 MEQ TAB.ER PO ONE (11:00)
[2018-11-02] MEDS: Lisinopril TAB* 10 MG PO SCH (11:25)
[2018-11-02] MEDS: Metoprolol Tartrate TAB* 25 MG PO SCH ×2 (11:26→21:12)
[2018-11-02] MEDS: Nicotine GUM* 2 MG PO PRN (14:34)
[2018-11-02] MEDS: Albuterol/Ipratropium NEB.SOL* Albuterol 2.5 MG/Ipratropium 0.5 MG 3 ML INH PRN (14:57)
--- NOTE | 2018-11-02 18:26 | PN ---
Date of Service: 11/02/18 Critical Care Services: 63 yo M with HTN, HLD, schizophrenia, severe COPD on home O2 presented on 10/16 to [facility] with acute on chronic hypercapneic respiratory failure requiring intubation 10/17: Sedation vacation, remains unresponsive 10/18: Improving mental status. Passed SBT and extubated 10/19: On BiPAP, increasing hypernatremia 10/20: Weaned to NC 10/22: Transferred to floor 10/23: Did not wear BiPAP overnight with subsequent decompensation. Transferred back to ICU. New infiltrate on CXR 10/25: Overnight developed hemoptysis. Switched from BiPAP to Highflow/ vapotherm. INR normal. ASA and Heparin SQ held. Family updated at beside 10/26: Required BiPAP again overnight for low sats. No further hemoptysis. AM CXR with worsened pulmonary edema likely due to being off BiPAP the prior day. Lasix increased 10/27: Tolerating vapotherm throughout the day and BiPAP at night. Diuresing well 10/29: Fluid restriction (2L) initiated 10/31: Vapotherm weaned to 70% and 30 LPM during day. 11/02: Continues to have increased WOB but improved compared to previous days. Tolerating off vapotherm and 15L supplemental O2. No pain. No other overnight events Vital Signs: Temp Pulse Resp BP SpO2 FiO2 98.8 F 100 27 139/123 86 70 11/02/18 15:36 11/02/18 18:01 11/02/18 18:01 11/02/18 18:01 11/02/18 18:01 11/02 00:00 Physical Exam: Gen: NAD. Pleasant gentleman. Appears to have increase excursion with breathing with no accessory muscle use HEENT: NCAT. Neck midline. No LA Lungs: Air entry bilaterally. No wheezes. Coarse rales on the bases bilaterally Cardiac: S1S2 with RRR Abdomen: Obese, soft, NTND, normoactive bowel sounds Extremities: warm, dry, 1+ bilateral edema Neuro: AAO x 4. No focal deficits Fluid Balance (Past 24 Hours): I= O= Net Intake & Output 10/31/18 11/01/18 11/02/18 11/03/18 06:59 06:59 06:59 06:59 Intake Total 3253 3280.2 2540 1180 Output Total 3740 3525 3600 800 Balance -487 -244.8 -1060 380 Weight 248 lb 12.423 oz 245 lb 14.567 oz Intake: IV Fluids 746 683.2 ABX - VANCOMYCIN 300 307 Cefepime 70 NS 118 76.2 potassium 258 300 IVPB 447 467 250 ABX - VANCOMYCIN 250 265 250 potassium 197 202 Oral 2060 2130 2290 1180 Tube Feeding Flush Amount 0 NG Tube Irrigate Amount 0 Output: Urine 3740 3525 3175 800 Juarez 425 Other: Date of Last Bowel 10/30/2018 10/30/2018 11/01/18 Movement # Bowel Movements 1 Estimated Stool Amount Medium Large # Voids 1 ADLs: Meal Record Start: 10/15/18 20: 48 Freq: ,,18 Status: Inactive Protocol: Created 10/15/18 20:48 System (Rec: 10/15/18 20:48 System ICU-C12) Document 10/17/18 09:00 GXV2183 (Rec: 10/17/18 09:16 OLF5373 ICU-C10) Document 10/17/18 13:00 HSF5034 (Rec: 10/17/18 14:02 LCK8730 ICU-C10) Document 10/17/18 18:00 HKY6927 (Rec: 10/17/18 18:04 OPP9626 ICU-C10) Document 10/18/18 12:51 QSU9025 (Rec: 10/18/18 12:51 CPJ5797 ICU-C16) Document 10/18/18 18:00 PXS7577 (Rec: 10/18/18 18:16 LMF5870 ICU-C16) Document 10/19/18 13:20 BWY9052 (Rec: 10/19/18 13:26 QAN4074 ICU-C14) Document 10/19/18 18:00 PZY4953 (Rec: 10/19/18 18:29 IGI5281 ICU-C06) Document 10/20/18 09:00 TDM9131 (Rec: 10/20/18 10:50 MGO6383 ICU-C10) Document 10/20/18 14:12 ORS0546 (Rec: 10/20/18 14:13 FRC7516 ICU-C10) Document 10/20/18 18:00 ZHM6967 (Rec: 10/20/18 18:02 GYG2178 ICU-C10) Document 10/21/18 09:00 GWQ4056 (Rec: 10/21/18 11:29 KBW1268 ICU-C16) ADLs: Meal Record Start: 10/21/18 12: 46 Freq: DAILY@0900,1400,1800 Status: Complete Protocol: Created 10/21/18 12:46 YIK7720 (Rec: 10/21/18 12:46 SKS9429 ICU-C06) Document 10/21/18 14:00 QVR7993 (Rec: 10/21/18 14:12 NYM7039 ICU-C06) Document 10/21/18 18:00 SYU9662 (Rec: 10/21/18 19:31 HZG8862 ICU-C07) Document 10/22/18 09:00 ABS0814 (Rec: 10/22/18 12:47 EWO2095 MED-C13) Document 10/22/18 14:00 IVP6252 (Rec: 10/22/18 15:02 NUP6347 MED-C15) Document 10/22/18 18:00 VAO0523 (Rec: 10/22/18 22:38 EMI5491 MED-C02) ADLs: Meal Record Start: 10/23/18 06: 30 Freq: 09,13,18 Status: Active Protocol: Created 10/23/18 06:30 LFO5390 (Rec: 10/23/18 06:30 XOI3997 ICU-M30) Document 10/23/18 10:00 NQE5426 (Rec: 10/23/18 10:57 TYF8344 ICU-C15) Document 10/23/18 13:00 TSG9728 (Rec: 10/23/18 18:22 FMO4358 ICU-C15) Document 10/23/18 20:00 ZDP8095 (Rec: 10/23/18 21:14 PYK2348 ICU-C15) Document 10/24/18 10:54 GYB9661 (Rec: 10/24/18 10:54 LTN4641 ICU-C15) Document 10/24/18 13:00 IFO8421 (Rec: 10/24/18 14:21 UTR9137 ICU-C15) Document 10/24/18 19:13 BXS6956 (Rec: 10/24/18 19:14 FJS5423 ICU-C16) Document 10/25/18 08:27 ALF9041 (Rec: 10/25/18 08:27 OKO8274 ICU-C15) Document 10/25/18 13:00 QZA9469 (Rec: 10/25/18 13:04 CRO5817 ICU-C15) Document 10/25/18 14:04 WYD1144 (Rec: 10/25/18 14:05 WHG2037 ICU-C20) Document 10/25/18 19:50 QBK6732 (Rec: 10/25/18 19:50 WUJ7005 ICU-C16) Document 10/26/18 09:00 MNS4790 (Rec: 10/26/18 10:41 TXQ4629 ICU-C15) Document 10/26/18 13:00 RMV4186 (Rec: 10/26/18 13:26 AOK6426 ICU-C15) Document 10/26/18 18:00 MBW9548 (Rec: 10/26/18 18:08 IHE1171 ICU-C15) Document 10/27/18 09:58 AVM8801 (Rec: 10/27/18 09:59 AIX7241 ICU-M31) Document 10/27/18 13:00 EAB4940 (Rec: 10/27/18 14:30 DJO2435 ICU-C11) Document 10/27/18 18:00 AGH9590 (Rec: 10/27/18 18:36 QBU5268 ICU-C15) Document 10/28/18 09:00 PRZ0501 (Rec: 10/28/18 10:17 OYX9767 ICU-C12) Document 10/28/18 14:00 IYC8909 (Rec: 10/28/18 14:01 PDT6689 ICU-C10) Document 10/28/18 18:00 HRI2761 (Rec: 10/28/18 18:38 TYD9189 ICU-M31) Document 10/29/18 09:00 RSV3858 (Rec: 10/29/18 10:27 BEW8611 ICU-C15) Document 10/29/18 18:00 RMC7600 (Rec: 10/29/18 18:20 ZEZ3079 ICU-C20) Document 10/30/18 09:00 NNQ1966 (Rec: 10/30/18 12:56 DVK1054 ICU-C15) Document 10/30/18 13:00 FIY3044 (Rec: 10/30/18 15:02 UWX3909 ICU-C15) Document 10/30/18 18:00 EQI5734 (Rec: 10/30/18 18:21 JTU4353 ICU-M31) Document 10/31/18 09:00 TDI6552 (Rec: 10/31/18 10:20 PKU8818 ICU-C16) Document 10/31/18 13:00 CMH1530 (Rec: 10/31/18 15:16 ZWX5145 ICU-C16) Document 10/31/18 18:00 JIO8333 (Rec: 10/31/18 18:23 FBP8264 ICU-C14) Document 11/01/18 09:00 DAO4693 (Rec: 11/01/18 09:15 WGL0110 ICU-C15) Document 11/01/18 13:00 DSZ9754 (Rec: 11/01/18 14:11 BQJ3577 ICU-C15) Document 11/01/18 18:00 BES9492 (Rec: 11/01/18 18:15 ORZ0880 ICU-C11) Document 11/02/18 09:00 LNV6623 (Rec: 11/02/18 09:14 NSB2797 ICU-L03) Document 11/02/18 13:00 NBI9415 (Rec: 11/02/18 13:30 VNU2158 ICU-C15) Intake and Output Start: 10/15/18 20: 48 Freq: Q4HR Status: Inactive Protocol: Created 10/15/18 20:48 System (Rec: 10/15/18 20:48 System ICU-C12) Document 10/15/18 23:00 LFE2470 (Rec: 10/16/18 00:36 LHU2005 ICU-C16) Document 10/16/18 00:00 ZUV1433 (Rec: 10/16/18 00:36 TRN3103 ICU-C16) Document 10/16/18 00:41 CEX3161 (Rec: 10/16/18 00:41 ZON1797 ICU-C16) Document 10/16/18 02:00 PTK8179 (Rec: 10/16/18 02:18 QKK0722 ICU-C16) Document 10/16/18 03:00 QBB0757 (Rec: 10/16/18 04:15 QOX7470 ICU-C16) Document 10/16/18 04:00 LVW2369 (Rec: 10/16/18 04:15 LTL4766 ICU-C16) Document 10/16/18 05:00 MCM5560 (Rec: 10/16/18 06:00 RYW7072 ICU-C16) Document 10/16/18 06:00 SAG6568 (Rec: 10/16/18 06:56 KYQ4844 ICU-C16) Document 10/16/18 07:00 PUW0538 (Rec: 10/16/18 07:00 ULI3480 ICU-C15) Document 10/16/18 07:42 JBN6284 (Rec: 10/16/18 07:42 NXW3986 ICU-M28) Document 10/16/18 08:00 FOW1890 (Rec: 10/16/18 09:56 OAU6720 ICU-C15) Document 10/16/18 11:00 FEM6470 (Rec: 10/16/18 13:11 KZA1183 ICU-M28) Document 10/16/18 12:00 ODH1517 (Rec: 10/16/18 13:21 YCE4297 ICU-M28) Document 10/16/18 13:00 FPR8782 (Rec: 10/16/18 13:41 KNC9127 ICU-M28) Document 10/16/18 14:00 LRB5043 (Rec: 10/16/18 14:35 DLS0329 ICU-C15) Document 10/16/18 15:00 OME1961 (Rec: 10/16/18 16:54 DOS0736 ICU-M28) Document 10/16/18 16:00 UYL2383 (Rec: 10/16/18 16:54 OAX2481 ICU-M28) Document 10/16/18 17:00 JQR4956 (Rec: 10/16/18 17:12 MEH1708 ICU-C15) Document 10/16/18 18:00 VFV8358 (Rec: 10/16/18 18:15 FAC6632 ICU-C15) Document 10/16/18 20:00 LSM1132 (Rec: 10/16/18 20:23 QHW7316 ICU-M28) Document 10/16/18 21:00 DHD4596 (Rec: 10/16/18 22:03 XTB0437 ICU-C10) Document 10/16/18 22:00 COL1668 (Rec: 10/16/18 22:03 LLT9405 ICU-C10) Document 10/16/18 23:00 IBN9860 (Rec: 10/17/18 00:45 QUQ3215 ICU-C10) Document 10/17/18 00:00 UYB6948 (Rec: 10/17/18 00:45 ZWM8890 ICU-C10) Document 10/17/18 01:00 AYD9145 (Rec: 10/17/18 01:08 ZDH1012 ICU-C10) Document 10/17/18 02:00 LFD6753 (Rec: 10/17/18 02:02 SVJ2650 ICU-C10) Document 10/17/18 03:00 QGF7686 (Rec: 10/17/18 04:15 JNA5528 ICU-C10) Document 10/17/18 04:00 FIJ0143 (Rec: 10/17/18 04:15 VFG9037 ICU-C10) Document 10/17/18 05:00 WIS8691 (Rec: 10/17/18 07:05 MCM0453 ICU-C10) Document 10/17/18 06:00 AJN2769 (Rec: 10/17/18 07:05 MIN1416 ICU-C10) Document 10/17/18 07:00 HNT6639 (Rec: 10/17/18 07:05 USL2534 ICU-C10) Document 10/17/18 08:00 JZK0907 (Rec: 10/17/18 09:11 CFJ3491 ICU-C10) Document 10/17/18 09:00 ELV4100 (Rec: 10/17/18 09:11 EIE8093 ICU-C10) Document 10/17/18 10:00 EAU9838 (Rec: 10/17/18 10:51 IRU6813 ICU-M28) Document 10/17/18 10:51 OAV1763 (Rec: 10/17/18 10:51 ZUI8002 ICU-M28) Document 10/17/18 13:04 MRS9085 (Rec: 10/17/18 13:06 VCC0926 ICU-C25) Document 10/17/18 14:00 OMO2451 (Rec: 10/17/18 14:02 HLL4135 ICU-C10) Document 10/17/18 15:00 MOV2268 (Rec: 10/17/18 15:02 RWQ9321 ICU-M28) Document 10/17/18 16:00 XFZ3796 (Rec: 10/17/18 17:05 BYF5607 ICU-M28) Document 10/17/18 17:00 FRX2315 (Rec: 10/17/18 17:05 TKQ9539 ICU-M28) Document 10/17/18 18:00 JIB4113 (Rec: 10/17/18 18:15 MHX9139 ICU-M28) Document 10/17/18 19:00 OIT5099 (Rec: 10/17/18 20:54 QQV4032 ICU-C15) Document 10/17/18 20:00 SZQ2112 (Rec: 10/17/18 23:39 POV5003 ICU-C15) Document 10/17/18 21:00 FEK9767 (Rec: 10/17/18 23:40 BHQ5134 ICU-C15) Document 10/17/18 22:00 OCK0235 (Rec: 10/17/18 23:43 OBV8944 ICU-C15) Document 10/17/18 23:00 WDA2673 (Rec: 10/17/18 23:44 WFX8542 ICU-C15) Document 10/18/18 01:00 KRN3260 (Rec: 10/18/18 01:10 OIU3832 ICU-C15) Document 10/18/18 02:00 PSA6389 (Rec: 10/18/18 02:13 HLE0847 ICU-C15) Document 10/18/18 03:00 QLU6158 (Rec: 10/18/18 03:03 WBM1598 ICU-C15) Document 10/18/18 04:00 SXP7279 (Rec: 10/18/18 04:46 IXJ3852 ICU-C15) Document 10/18/18 05:00 IMR8560 (Rec: 10/18/18 05:37 NKI3119 ICU-M28) Document 10/18/18 06:00 TVP2805 (Rec: 10/18/18 06:09 SDI6572 ICU-C15) Document 10/18/18 07:00 MYB0274 (Rec: 10/18/18 07:41 FDC6931 ICU-C16) Document 10/18/18 07:42 GLF6542 (Rec: 10/18/18 07:56 XOD6931 ICU-C16) Document 10/18/18 09:00 UNM4974 (Rec: 10/18/18 10:17 PCV4700 ICU-C16) Document 10/18/18 10:00 AYC9541 (Rec: 10/18/18 10:17 FYK5062 ICU-C16) Document 10/18/18 11:00 QBP7078 (Rec: 10/18/18 12:18 DMT9190 ICU-C16) Document 10/18/18 12:00 MDS8593 (Rec: 10/18/18 12:18 NCB3992 ICU-C16) Document 10/18/18 13:00 XKJ5850 (Rec: 10/18/18 14:12 YGA6291 ICU-C16) Document 10/18/18 14:00 PXZ4083 (Rec: 10/18/18 14:12 SMW4253 ICU-C16) Document 10/18/18 15:00 VHQ6768 (Rec: 10/18/18 15:00 RHS2310 ICU-C16) Document 10/18/18 15:34 PTZ7056 (Rec: 10/18/18 16:11 CMA1725 ICU-C16) Document 10/18/18 16:24 IRY0640 (Rec: 10/18/18 16:24 IXF1743 ICU-C16) Document 10/18/18 17:00 VPR6341 (Rec: 10/18/18 18:14 MNU6666 ICU-C16) Document 10/18/18 18:00 VTB8667 (Rec: 10/18/18 18:14 VCX0300 ICU-C16) Document 10/18/18 19:00 SMT9102 (Rec: 10/18/18 19:04 ORR7964 ICU-C16) Document 10/18/18 20:00 QQK9370 (Rec: 10/18/18 21:09 PQS3737 ICU-C16) Document 10/18/18 21:00 LWV4791 (Rec: 10/18/18 21:09 RRW5505 ICU-C16) Document 10/18/18 22:00 WQD3490 (Rec: 10/18/18 22:30 VIF0204 ICU-C16) Document 10/18/18 23:41 RQV6551 (Rec: 10/18/18 23:41 MMB1960 ICU-M28) Document 10/19/18 00:38 QPL8711 (Rec: 10/19/18 00:39 PHH3849 ICU-M28) Document 10/19/18 01:28 WQE8131 (Rec: 10/19/18 01:28 YFM8871 ICU-C10) Document 10/19/18 03:13 HBA2746 (Rec: 10/19/18 03:13 ZQA2250 ICU-C10) Document 10/19/18 04:42 OPX7254 (Rec: 10/19/18 04:43 XTD7050 ICU-C10) Document 10/19/18 06:23 EBP9817 (Rec: 10/19/18 06:23 BIL5125 ICU-C10) Document 10/19/18 09:00 CQS9557 (Rec: 10/19/18 09:01 ROJ9113 ICU-C10) Document 10/19/18 11:00 YRN5011 (Rec: 10/19/18 11:12 RTY4252 ICU-C10) Document 10/19/18 13:00 IUF7328 (Rec: 10/19/18 13:12 IRT8188 ICU-M28) Document 10/19/18 14:00 SEP6614 (Rec: 10/19/18 18:18 POU6880 ISDEMO-M03 ) Document 10/19/18 16:21 WFG2145 (Rec: 10/19/18 16:22 HAQ5427 ICU-C10) Document 10/19/18 19:00 GIA8657 (Rec: 10/19/18 19:22 ASL3287 ICU-C16) Document 10/19/18 20:00 KFU4026 (Rec: 10/19/18 20:51 BGQ4698 ICU-C16) Document 10/19/18 21:00 TAU5691 (Rec: 10/19/18 21:21 CZL6232 ICU-C16) Document 10/19/18 22:00 UYC5367 (Rec: 10/19/18 22:15 SLQ1126 ICU-C16) Document 10/19/18 23:00 XZM6712 (Rec: 10/20/18 00:14 JYK5606 ICU-C16) Document 10/20/18 00:00 RJR1674 (Rec: 10/20/18 00:20 GLC2753 ICU-C16) Document 10/20/18 00:57 FCA8276 (Rec: 10/20/18 00:57 WPY8367 ICU-C16) Document 10/20/18 01:53 BAK0899 (Rec: 10/20/18 01:53 ZGU3629 ICU-C16) Document 10/20/18 02:28 FJP2360 (Rec: 10/20/18 02:28 JMB3755 ICU-C16) Document 10/20/18 03:00 SJN3438 (Rec: 10/20/18 03:26 GAZ7701 ICU-C16) Document 10/20/18 03:26 BYQ3096 (Rec: 10/20/18 03:26 ANI8182 ICU-C16) Document 10/20/18 05:25 BNL9196 (Rec: 10/20/18 05:25 OYV5026 ICU-C16) Document 10/20/18 06:00 RQY8512 (Rec: 10/20/18 06:19 RNT3615 ICU-C16) Document 10/20/18 07:00 BVU2933 (Rec: 10/20/18 07:43 NMC4334 ICU-C10) Document 10/20/18 10:48 SWJ0182 (Rec: 10/20/18 10:48 HIH6059 ICU-C10) Document 10/20/18 17:38 EVK0991 (Rec: 10/20/18 17:40 QBY2381 ICU-C10) Document 10/20/18 19:52 SII7308 (Rec: 10/20/18 20:10 MAG3898 ICU-C16) Document 10/20/18 23:33 BGN0135 (Rec: 10/20/18 23:33 XLJ4641 ICU-C16) Document 10/21/18 04:00 IVB1595 (Rec: 10/21/18 04:07 LGV7011 ICU-C16) Document 10/21/18 05:42 KJJ2491 (Rec: 10/21/18 05:42 XAI8481 ICU-M28) Document 10/21/18 08:34 LVX0140 (Rec: 10/21/18 08:34 EWT0967 ICU-C16) Intake and Output Start: 10/21/18 12: 46 Freq: DAILY@0600,1400,2200 Status: Complete Protocol: Created 10/21/18 12:46 WBN3471 (Rec: 10/21/18 12:46 SQD6109 ICU-C06) Document 10/21/18 14:00 PTJ7790 (Rec: 10/21/18 15:26 AWU4267 ICU-C56) Document 10/22/18 06:00 SBF3922 (Rec: 10/22/18 06:16 WTC1353 ICU-C07) Document 10/22/18 10:21 OMT6483 (Rec: 10/22/18 10:21 XYH9980 ICU-C07) Document 10/22/18 14:00 OZD8888 (Rec: 10/22/18 15:23 VLP8863 MED-C13) Document 10/22/18 22:00 AVL5186 (Rec: 10/22/18 22:43 IQK0945 MED-C02) Intake and Output Start: 10/23/18 06: 30 Freq: Q4HR Status: Active Protocol: Created 10/23/18 06:30 CKU2063 (Rec: 10/23/18 06:30 AVC8134 ICU-M30) Document 10/23/18 10:00 QJC9368 (Rec: 10/23/18 10:57 IRN6291 ICU-C15) Document 10/23/18 12:00 WIO5483 (Rec: 10/23/18 12:23 XFG4367 ICU-C20) Document 10/23/18 16:00 GPF8000 (Rec: 10/23/18 17:48 JQP3546 ICU-C15) Document 10/23/18 21:00 HNT0661 (Rec: 10/23/18 21:14 PPL9021 ICU-C15) Document 10/23/18 22:00 ZCZ6419 (Rec: 10/23/18 22:57 DPB9528 ICU-C15) Document 10/23/18 23:07 RFY8753 (Rec: 10/23/18 23:07 QQR2834 ICU-M32) Document 10/24/18 05:00 UHZ6601 (Rec: 10/24/18 05:38 GMK7445 ICU-C15) Document 10/24/18 06:00 JRQ4586 (Rec: 10/24/18 06:19 JKT4516 ICU-C15) Document 10/24/18 10:00 IOA1050 (Rec: 10/24/18 10:13 DTA8281 ICU-C15) Document 10/24/18 12:00 PQO1549 (Rec: 10/24/18 12:25 MPC8966 ICU-C15) Document 10/24/18 14:44 NCV0507 (Rec: 10/24/18 14:44 QFF0025 ICU-C15) Document 10/24/18 17:29 VQP2865 (Rec: 10/24/18 17:30 OGX4063 ICU-C15) Document 10/25/18 01:18 IEQ5282 (Rec: 10/25/18 01:18 RYM3454 ICU-C16) Document 10/25/18 02:00 AIQ4331 (Rec: 10/25/18 02:05 NCS9764 ICU-C16) Document 10/25/18 03:00 XPY4017 (Rec: 10/25/18 03:17 QER2474 ICU-C16) Document 10/25/18 04:00 CVB7264 (Rec: 10/25/18 04:34 XLS0111 ICU-C16) Document 10/25/18 05:00 QQP4800 (Rec: 10/25/18 05:43 YFD2112 ICU-C16) Document 10/25/18 05:56 IOT9865 (Rec: 10/25/18 05:56 WDG7638 ICU-C16) Document 10/25/18 09:33 RVY0547 (Rec: 10/25/18 09:33 QAT9960 ICU-C15) Document 10/25/18 09:36 FIS8243 (Rec: 10/25/18 09:36 BFX2167 ICU-C15) Document 10/25/18 12:36 DWA5303 (Rec: 10/25/18 12:36 YUQ1123 ICU-C15) Document 10/25/18 17:44 HPB5120 (Rec: 10/25/18 17:44 CFG6149 ICU-C15) Document 10/25/18 18:31 MGJ7533 (Rec: 10/25/18 18:31 ZVT9616 ICU-C15) Document 10/25/18 20:00 RZQ0528 (Rec: 10/25/18 20:45 IHL5516 ICU-C16) Document 10/26/18 00:00 KKE9104 (Rec: 10/26/18 01:05 SAE2706 ICU-C16) Document 10/26/18 04:00 EJC3487 (Rec: 10/26/18 04:12 BJM3246 ICU-C16) Document 10/26/18 05:08 XCX8123 (Rec: 10/26/18 05:08 XIQ7622 ICU-C16) Document 10/26/18 08:00 SVC4226 (Rec: 10/26/18 08:09 KGO5287 ICU-C14) Document 10/26/18 09:11 UKV7989 (Rec: 10/26/18 09:12 OZU6327 ICU-C25) Document 10/26/18 12:00 BAK0829 (Rec: 10/26/18 12:37 JHC1962 ICU-C15) Document 10/26/18 13:13 FWW5067 (Rec: 10/26/18 13:13 WTC5898 ICU-C16) Document 10/26/18 16:00 EAC9231 (Rec: 10/26/18 16:56 SHK5900 ICU-C15) Document 10/26/18 20:35 ULU4943 (Rec: 10/26/18 20:35 YZN5566 ICU-M32) Document 10/26/18 22:17 ITB8802 (Rec: 10/26/18 22:17 RQG5052 ICU-C16) Document 10/27/18 00:28 QNF5927 (Rec: 10/27/18 00:28 VGR6158 ICU-C12) Document 10/27/18 02:57 ABQ5379 (Rec: 10/27/18 02:57 YJU6118 ICU-C14) Document 10/27/18 03:00 KMO0453 (Rec: 10/27/18 03:00 RZH5609 ICU-C14) Document 10/27/18 04:00 AHH1435 (Rec: 10/27/18 04:17 RMA8623 ICU-C16) Document 10/27/18 05:05 VDD4643 (Rec: 10/27/18 05:06 HJF7368 ICU-C14) Document 10/27/18 06:43 QFT1500 (Rec: 10/27/18 06:43 FXY5481 ICU-M32) Document 10/27/18 10:40 NET1422 (Rec: 10/27/18 10:41 RKV4889 ICU-C11) Document 10/27/18 12:00 NMR2259 (Rec: 10/27/18 12:30 YSX1947 ICU-L03) Document 10/27/18 14:47 JDW5289 (Rec: 10/27/18 14:47 XYC6453 ICU-C15) Document 10/27/18 16:00 YGF3431 (Rec: 10/27/18 16:50 KCF9991 ICU-C15) Document 10/27/18 17:18 PHN5616 (Rec: 10/27/18 17:18 YMO5941 ICU-M31) Document 10/27/18 20:00 BPI3550 (Rec: 10/27/18 20:27 APV6278 ICU-C12) Document 10/27/18 23:11 ATR4464 (Rec: 10/27/18 23:12 YEY0089 ICU-C12) Document 10/27/18 23:31 HJL7188 (Rec: 10/27/18 23:31 LIU3971 ICU-C14) Document 10/28/18 02:37 GPR9611 (Rec: 10/28/18 02:49 CTV2099 ICU-C12) Document 10/28/18 04:00 MFQ5378 (Rec: 10/28/18 05:31 VHH8116 ICU-C12) Document 10/28/18 06:17 ORU5086 (Rec: 10/28/18 06:17 UPB9900 ICU-C14) Document 10/28/18 08:00 GTU7513 (Rec: 10/28/18 11:04 ESF6001 ICU-C12) Document 10/28/18 10:00 ANT2143 (Rec: 10/28/18 11:04 KJN0212 ICU-C12) Document 10/28/18 11:43 LVS2772 (Rec: 10/28/18 11:43 AQU5394 ICU-C12) Document 10/28/18 14:00 ITF1567 (Rec: 10/28/18 14:00 MJZ4643 ICU-C10) Document 10/28/18 15:57 RUX4167 (Rec: 10/28/18 15:58 GCB2894 ICU-C12) Document 10/28/18 17:36 IIU5230 (Rec: 10/28/18 17:37 GIZ6177 ICU-L03) Document 10/28/18 18:39 PCV9014 (Rec: 10/28/18 18:39 XNC1857 ICU-M31) Document 10/28/18 20:00 PFX8532 (Rec: 10/28/18 22:16 RAE9671 ICU-C15) Document 10/28/18 22:56 VQN2119 (Rec: 10/28/18 22:57 NIN4044 ICU-C15) Document 10/29/18 00:00 SBI2049 (Rec: 10/29/18 01:34 JZR2340 ICU-C15) Document 10/29/18 04:00 SIN5702 (Rec: 10/29/18 05:02 TDF2054 ICU-C15) Document 10/29/18 08:15 AEP3778 (Rec: 10/29/18 10:21 BYE1126 ICU-C15) Document 10/29/18 12:00 CID1919 (Rec: 10/29/18 12:51 YMP1135 ICU-C15) Document 10/29/18 15:01 NPY6557 (Rec: 10/29/18 15:05 EWR3057 ICU-C07) Document 10/29/18 16:14 AGQ6304 (Rec: 10/29/18 16:14 XUZ2047 ICU-C15) Document 10/29/18 19:41 IVP3453 (Rec: 10/29/18 19:45 LGF6281 ICU-C10) Document 10/29/18 20:28 LIC3173 (Rec: 10/29/18 20:28 HAN4812 ICU-M32) Document 10/29/18 21:28 XNT8118 (Rec: 10/29/18 21:28 LJB9685 ICU-C14) Document 10/29/18 22:32 QXX4104 (Rec: 10/29/18 22:32 IJK2078 ICU-C10) Document 10/29/18 23:07 NRP3145 (Rec: 10/29/18 23:07 CLN7785 ICU-C10) Document 10/30/18 00:00 GPP0049 (Rec: 10/30/18 00:17 MIW9937 ICU-C14) Document 10/30/18 00:55 MSL4895 (Rec: 10/30/18 00:55 LTT0952 ICU-C10) Document 10/30/18 04:08 BNB7672 (Rec: 10/30/18 04:10 EEZ9525 ICU-C10) Document 10/30/18 12:00 TKP5655 (Rec: 10/30/18 12:51 MGU2267 ICU-C15) Document 10/30/18 13:40 KLS1253 (Rec: 10/30/18 13:40 VUR5085 ICU-C15) Document 10/30/18 14:04 VQR7614 (Rec: 10/30/18 14:04 GQB6676 ICU-M31) Document 10/30/18 15:36 VNR6946 (Rec: 10/30/18 15:36 HOZ3414 ICU-C16) Document 10/30/18 16:00 HFE5501 (Rec: 10/30/18 16:17 SMN2190 ICU-C16) Document 10/30/18 17:19 AQB3922 (Rec: 10/30/18 17:19 VEB6155 ICU-C12) Document 10/30/18 18:17 ONC0648 (Rec: 10/30/18 18:19 MTD7459 ICU-M31) Document 10/30/18 19:45 ZVQ6867 (Rec: 10/30/18 20:21 LWU7410 ICU-C16) Document 10/30/18 20:59 GLK6445 (Rec: 10/30/18 20:59 TFP2860 ICU-M32) Document 10/31/18 00:00 GBL8256 (Rec: 10/31/18 04:23 INJ7438 ICU-C16) Document 10/31/18 04:00 NUV9642 (Rec: 10/31/18 04:58 HBU2231 ICU-C16) Document 10/31/18 07:00 SHX4087 (Rec: 10/31/18 09:10 DMJ2978 ICU-M31) Document 10/31/18 07:27 OZY5564 (Rec: 10/31/18 07:27 SSJ0185 ICU-C14) Document 10/31/18 08:00 FXN5540 (Rec: 10/31/18 09:10 MAA9299 ICU-M31) Document 10/31/18 10:34 WWM6711 (Rec: 10/31/18 10:34 GAB8216 ICU-C14) Document 10/31/18 12:00 ZNS5250 (Rec: 10/31/18 14:37 DTX5885 ICU-M31) Document 10/31/18 15:58 WNR1345 (Rec: 10/31/18 15:58 ZDW0509 ICU-C14) Document 10/31/18 20:00 MFG8837 (Rec: 10/31/18 20:30 SHV1315 ICU-C15) Document 10/31/18 20:57 NSZ8170 (Rec: 10/31/18 20:57 ECK0402 ICU-M31) Document 10/31/18 21:53 WYX3807 (Rec: 10/31/18 21:53 XGU1315 ICU-C15) Document 10/31/18 22:22 DOR8790 (Rec: 10/31/18 22:22 UUV2477 ICU-C15) Document 11/01/18 00:00 VCP6116 (Rec: 11/01/18 00:13 KQQ1183 ICU-C15) Document 11/01/18 04:00 CXH8647 (Rec: 11/01/18 05:48 EUU8598 ICU-C15) Document 11/01/18 06:11 LFA8811 (Rec: 11/01/18 06:11 WLN2295 ICU-C10) Document 11/01/18 08:00 EGP7918 (Rec: 11/01/18 08:34 IWN2568 ICU-M31) Document 11/01/18 08:44 CTX9137 (Rec: 11/01/18 08:44 FXR5756 ICU-C15) Document 11/01/18 10:53 YES0212 (Rec: 11/01/18 10:53 YIE9879 ICU-C15) Document 11/01/18 11:21 MOB8388 (Rec: 11/01/18 11:21 SCF4816 ICU-C15) Document 11/01/18 11:51 HTE3119 (Rec: 11/01/18 11:51 JJK9422 ICU-C15) Document 11/01/18 17:43 SNR4859 (Rec: 11/01/18 17:44 ISI3751 ICU-C15) Document 11/01/18 18:21 WKP4893 (Rec: 11/01/18 18:21 HVF0583 ICU-C15) Document 11/01/18 20:00 TNW0107 (Rec: 11/01/18 21:40 FHM3410 ICU-C12) Document 11/01/18 21:29 CSN2551 (Rec: 11/01/18 21:40 VCM6451 ICU-C12) Document 11/01/18 22:30 TJB2935 (Rec: 11/01/18 23:37 OTR1821 ICU-C12) Document 11/01/18 23:00 IDM0683 (Rec: 11/02/18 05:16 ZSU7333 ICU-C12) Document 11/02/18 00:00 BAL1468 (Rec: 11/02/18 00:25 EQX5283 ICU-C12) Document 11/02/18 02:00 NFG9645 (Rec: 11/02/18 02:27 XQQ6453 ICU-C12) Document 11/02/18 05:15 OBA3916 (Rec: 11/02/18 05:15 BHO3190 ICU-C12) Document 11/02/18 07:35 YPJ1239 (Rec: 11/02/18 07:44 AOY3475 ICU-M31) Document 11/02/18 12:00 USF0060 (Rec: 11/02/18 12:34 UQR7975 ICU-C06) Document 11/02/18 15:06 GJH2468 (Rec: 11/02/18 15:06 FGF6606 ICU-C15) Document 11/02/18 16:00 NBL7764 (Rec: 11/02/18 16:23 FJU1281 ICU-C15) Labs: Laboratory Results - last 24 hr 11/02/18 11/02/18 11/02/18 05:40 05:40 05:40 WBC 14.9 H RBC 3.25 L Hgb 9.0 L Hct 29 L MCV 88 MCH 28 MCHC 32 RDW 16 H Plt Count 209 MPV 8.8 Sodium 142 Potassium 3.1 L Chloride 97 L Carbon Dioxide 41 H* Anion Gap 4 BUN 47 H Creatinine 1.27 H Est GFR ( Amer) 69.5 Est GFR (Non-Af Amer) 57.5 BUN/Creatinine Ratio 37.0 H Glucose 124 H Calcium 8.7 Magnesium 2.0 B-Natriuretic Peptide 59 Studies: 11/02 CXR: bilateral insterstitial markings R more dense and >L Nutrition: heart healthy diet Fluid restriction 2L/Day Impression: 63 yo M admitted 10/16 with acute on chronic respiratory failure requiring intubation secondary to COPD exacerbation. Initially did well and was weaned from vent on 10/18 however developed pulmonary edema secondary to CHF and was transferred back to ICU 10/23 for BiPAP. Self limited episode of hemoptypsis. Aggressively diuresing for pulmonary edema due to CHF exacerbation which is limiting liberation from BiPAP. On antibiotics to cover for possible contributing pneumonia. Acute on chronic respiratory failure due to hypoxemia multifocal pneumonia Emphysema AE-COPD Obesity [place] Plan: Cardiovascular: (1) Sinus tachycardia, improving; (2) Labile BPs (3) Chronic HTN; (4) Pulmonary HTN secondary to advanced lung disease; (5) HLD; (6) Likely acute on chronic diastolic CHF, improving -- TTE 10/16: LVEF 55-60%. Unable to assess diastolic dysfunction. Pulmonary artery HTN -- Atorvastatin -- Lisinopril, Metoprolol -- Scheduled Lasix, changed to PO Home meds: None Pulmonary: (1) Acute on chronic hypoxic and hypercapneic respiratory failure, improving; (2) COPD exacerbation, improving; (3) aspiration pneumonia; (4) [place]; (5) Hemoptysis, resolved; (6) Pulmonary edema, cardiac cause --weaned from vapotherm and tolerating 15L O2 11/02 --continue with diuretics and attempt net negative as tolerates -- Spiriva & PRN Duonebs -- Continue bronchodilators --s/p course of steriods and antibiotics for COPD exacerbation on 11/01 --home prednisone will be started at 40 mg and taper/maintained at 10 mg till discharge -- incentive spirometry -- Nicotine patch for hx of tobacco use Home meds: Mometasone/formoterol, Spiriva, albuterol Gastrointestinal: No acute issues -- diet: heart health diet -- bowel regimen: Colace -- ulcer prophylaxis: Protonix Home meds: Colace Endocrine: (1) Hyperglycemia -- monitor BGs -- start SSI if BG> 180 Home meds: Prednisone Renal: (1) Hypernatremia, resolved; (2) Hypokalemia, (3) Hypocalemia; (4) Hypomagnesemia, resolved; (5) hypervolemia, improving -- Lasix --replace electrolytes per protocol Home meds: None Infectious disease: (1) Sepsis, improving; (2) Aspiration pneumonia -- Micro 1/5 Blood Negative 10/16 blood Negative Urine negative Sputum Normal estefanía Blood staph. likely contaminant --Improving leukocytois 20-->14 -- ABX x 7 days, course till 11/01 Cefepime Vancomycin Home meds: None Neurologic: (1) Chronic delusional disorder/schizophrenia resolved -- Tylenol as needed -- Aricept -- Zyprexa -- Zoloft -- PT following Home meds: Zoloft, Zyprexa, Tylenol Hematological: (1) Anemia, stable -- DVT prophylaxis: SQ Lovenox Home meds: None Deep vein thrombosis prophylaxis: SQ Lovenox Dietary: Protonix Condition: stable Prognosis: Guarded Code status: Full Disposition: Telemetry Cumulative time spent in the care of this patient (excluding any procedure time) : at least 40 minutes. Patient care included clinical interview (with patient and/or family), bedside exam of the patient, review of labs, x-rays, and other ancillary data, coordination of (respiratory, nursing care, review of patient's records, discussion regarding patients management with involved consultants, primary physician, pharmacists, and other healthcare personnel (dietary, case management , physical/occupational therapy etc.)
[2018-11-02] MEDS: Nicotine Patch Removal NOTE FOLLOW UP SCH (21:21)
[2018-11-02] MEDS: KCL 20 MEQ/100 ML IVPREMIX* 20 MEQ/100 ML BAG IV SCH (21:37)
[2018-11-03 06:24] LABS: Hematocrit 28 % (42-52); Mean Corpuscular HGB Conc 32 g/dl (31-36); Mean Corpuscular Hemoglobin 28 pg (27-31); Mean Corpuscular Volume 87 fL (80-94); Mean Platelet Volume 8.9 fL (7.4-10.4); Platelet Count 192 10^3/ul (150-450); Red Blood Count 3.28 10^6/ul (4.00-5.40); Red Cell Distribution Width 16 % (10.5-15); White Blood Count 13.3 10^3/ul (3.5-10.8)
[2018-11-03 06:33] LABS: BUN/Creatinine Ratio 34.4 (8-20); Calcium 8.7 mg/dL (8.6-10.3); EGFR African American 72.8 (>60); EGFR Non-African American 60.2 (>60); Potassium 3.4 mmol/L (3.5-5.0)
[2018-11-03] MEDS: Tiotropium CAP.INH* CAP.INH/18 MCG (USE ORDER SET !) INH SCH (07:47)
[2018-11-03] MEDS ORDERED: Lisinopril TAB* 10 MG PO SCH (09:00)
[2018-11-03] MEDS: OLANzapine TAB* 10 MG PO SCH ×2 (09:48→21:06)
[2018-11-03] MEDS: Calcium Carbonate CHEW TAB* 500 MG (TUMS) PO SCH ×2 (09:48→21:09)
[2018-11-03] MEDS: Sertraline* 100 MG TAB PO SCH (09:48)
[2018-11-03] MEDS: Atorvastatin* 20 MG TAB PO SCH (09:48)
[2018-11-03] MEDS: Donepezil TAB* 5 MG PO SCH (09:48)
[2018-11-03] MEDS: Pantoprazole TAB * 40 MG TAB PO SCH (09:49)
[2018-11-03] MEDS: predniSONE TAB* 20 MG PO SCH (09:49)
[2018-11-03] MEDS: Potassium Chlor TAB* 20 MEQ TAB.ER PO SCH ×2 (09:49→21:07)
[2018-11-03] MEDS: Docusate CAP* 100 MG PO SCH ×2 (09:49→21:06)
[2018-11-03] MEDS: Nicotine PATCH 7 MG/24 HR* PATCH TRANSDERM SCH (09:51)
[2018-11-03] MEDS: Metoprolol Tartrate TAB* 25 MG PO SCH ×2 (12:47→21:07)
[2018-11-03] MEDS: Furosemide TAB* 20 MG PO SCH (12:47)
[2018-11-03] MEDS: Nicotine GUM* 2 MG PO PRN (13:11)
--- NOTE | 2018-11-03 14:49 | PN ---
Subjective Date of Service: 11/03/18 Interval History: HD# 20 on 11/03/18 63 yo M with PMH HTN, HLD, schizophrenia, GOLD 4 COPD on home O2 who presented on 10/16 to [facility] with acute on chronic hypercapnic resp failure requiring intubuation. xfe to floor 10/22, then back to ICU for BiPAP, xfr back to floor on 11/03 Overnight no acute events, BP low at 88/56 x 2 at 9AM and noon, chart review show labile BP throughout stay, lasix, lisinopril, and metop held at this time, otherwise VS 89% on RA HR 88 sinus T max 97.7. Has been largely neg in the last 3 days, though yesterday fluid balance was about even. Stooling regularly. This morning: seen working with PT, mentation and pleasant, does report some fatigue while doing exercises but generally in good spirits, asymptomatic mentation waite from a hypotension standpoint. Brief Summary of Hospitlization as noted by intensitivist: 10/17: Sedation vacation, remains unresponsive 10/18: Improving mental status. Passed SBT and extubated 10/19: On BiPAP, increasing hypernatremia 10/20: Weaned to NC 10/22: Transferred to floor 10/23: Did not wear BiPAP overnight with subsequent decompensation. Transferred back to ICU. New infiltrate on CXR 10/25: Overnight developed hemoptysis. Switched from BiPAP to Highflow/ vapotherm. INR normal. ASA and Heparin SQ held. Family updated at beside 10/26: Required BiPAP again overnight for low sats. No further hemoptysis. AM CXR with worsened pulmonary edema likely due to being off BiPAP the prior day. Lasix increased 10/27: Tolerating vapotherm throughout the day and BiPAP at night. Diuresing well 10/29: Fluid restriction (2L) initiated 10/31: Vapotherm weaned to 70% and 30 LPM during day. Objective Active Medications: Acetaminophen (Tylenol Tab*) 650 mg PO Q6H PRN PRN Reason: PAIN Last Admin: 11/01/18 22:38 Dose: 650 mg Albuterol/Ipratropium (Duoneb (Albuterol 2.5 Mg/Ipratropium 0.5 Mg)) 1 neb INH Q6H PRN PRN Reason: SOB/WHEEZING Last Admin: 11/02/18 14:57 Dose: 1 neb Atorvastatin Calcium (Lipitor*) 20 mg PO DAILY [facility] Last Admin: 11/03/18 09:48 Dose: 20 mg Calcium Carbonate (Tums*) 500 mg PO BID [facility] Last Admin: 11/03/18 09:48 Dose: 500 mg Docusate Sodium (Colace Cap*) 100 mg PO BID [facility] Last Admin: 11/03/18 09:49 Dose: 100 mg Donepezil HCl (Aricept Tab*) 10 mg PO DAILY [facility] Last Admin: 11/03/18 09:48 Dose: 10 mg Furosemide (Lasix Tab*) 60 mg PO 0800,1700 [facility] Last Admin: 11/03/18 12:47 Dose: Not Given Heparin Sodium (Porcine) (Heparin Flush Picc/Ml/Cvc(*)) 1 - 3 ml FLUSH 0600, 1800 [facility]; Protocol Last Admin: 11/03/18 05:43 Dose: 3 ml Lisinopril (Prinivil Tab*) 10 mg PO DAILY [facility] Last Admin: 11/03/18 12:47 Dose: Not Given Metoprolol Tartrate (Lopressor Tab*) 12.5 mg PO Q12HR [facility] Last Admin: 11/03/18 12:47 Dose: Not Given Nicotine (Nicotine Patch 7 Mg/24 Hr*) 1 patch TRANSDERM DAILY [facility] Last Admin: 11/03/18 09:51 Dose: 1 patch Nicotine Polacrilex (Nicotine Gum*) 2 mg PO Q2H PRN PRN Reason: CRAVING Last Admin: 11/03/18 13:11 Dose: 2 mg Olanzapine (Zyprexa Tab*) 10 mg PO BID [facility] Last Admin: 11/03/18 09:48 Dose: 10 mg Pantoprazole Sodium (Protonix Tab *) 40 mg PO DAILY [facility] Last Admin: 11/03/18 09:49 Dose: 40 mg Pharmacy Profile Note (Nicotine Patch Removal Note*) 1 note FOLLOW UP 2100 [facility] Last Admin: 11/02/18 21:21 Dose: 1 note Potassium Chloride (Klor Con Er Tab*) 20 meq PO BID [facility] Last Admin: 11/03/18 09:49 Dose: 20 meq Prednisone (Deltasone Tab*) 40 mg PO DAILY [facility] Stop: 11/04/18 09:01 Last Admin: 11/03/18 09:49 Dose: 40 mg Prednisone (Deltasone Tab*) 30 mg PO DAILY [facility] Stop: 11/06/18 09:01 Prednisone (Deltasone Tab*) 20 mg PO DAILY [facility] Stop: 11/08/18 09:01 Prednisone (Deltasone Tab*) 10 mg PO DAILY [facility] Sertraline HCl (Zoloft*) 100 mg PO DAILY [facility] Last Admin: 11/03/18 09:48 Dose: 100 mg Tiotropium Willard (Spiriva Cap.Inh*) 1 cap INH DAILY [facility] Last Admin: 11/03/18 07:47 Dose: 1 cap Vital Signs - 8 hr 11/03/18 11/03/18 11/03/18 07:20 07:51 10:06 Temperature 98.2 F Pulse Rate 90 92 Respiratory 18 18 Rate Blood Pressure 97/48 88/50 (mmHg) O2 Sat by Pulse 93 94 Oximetry 11/03/18 12:11 Temperature 97.7 F Pulse Rate 88 Respiratory 18 Rate Blood Pressure 88/56 (mmHg) O2 Sat by Pulse 89 Oximetry Oxygen Devices in Use Now: Nasal Cannula Appearance: Well appearing man doing PT in NAD Eyes: No Scleral Icterus, PERRLA Ears/Nose/Mouth/Throat: NL Teeth, Lips, Gums, Mucous Membranes Moist Neck: NL Appearance and Movements; NL JVP Respiratory: Symmetrical Chest Expansion and Respiratory Effort, Clear to Auscultation Cardiovascular: NL Sounds; No Murmurs; No JVD, RRR Abdominal: NL Sounds; No Tenderness; No Distention, No Hepatosplenomegaly Lymphatic: No Cervical Adenopathy Extremities: No Edema Skin: No Rash or Ulcers Neurological: Alert and Oriented x 3 Result Diagrams: 11/03/18 05:56 11/03/18 05:56 Microbiology and Other Data: Microbiology 10/23/18 09:32 Aerobic Blood Culture - Final Blood Venous No Growth Day 5 Anaerobic Blood Culture - Final No Growth Day 5 10/23/18 09:20 Aerobic Blood Culture - Final Blood Venous No Growth Day 5 Anaerobic Blood Culture - Final No Growth Day 5 10/16/18 15:45 Aerobic Blood Culture - Final Blood Line No Growth Day 5 Anaerobic Blood Culture - Final No Growth Day 5 10/16/18 00:20 Aerobic Blood Culture - Final Blood Venous Staphylococcus Epidermidis Anaerobic Blood Culture - Final Staphylococcus Epidermidis Staphylococcus Hominis Blood MRSA/MSSA (PCR) - Final Mrsa Negative S.aureus Negative 12/28/18 23:30 Aerobic Blood Culture - Final Blood Venous Staphylococcus Hominis#2 Staphylococcus Hominis Anaerobic Blood Culture - Final Staphylococcus Warneri Blood MRSA/MSSA (PCR) - Final Mrsa Negative S.aureus Negative 10/16/18 09:02 Gram Stain - Final Sputum Sputum Culture - Final YEAST Normal Ruby 10/16/18 13:23 Urine Culture - Final Urine No Growth (<1,000 CFU/mL) 10/15/18 23:30 Nasal Screen MRSA (PCR) - Final Nasal Mrsa Not Detected Diagnostic Imagin/15 CXR: bilateral insterstitial markings R more dense and >L EKG Data: Last EKG 10/25 [facility], Tele 11/03: Sinus tachycardia in 90's Assess/Plan/Problems-Billing Assessment: 63 yo M with PMH cognitive impairment/dementia and schizophrenia (controlled), COPD Gold Stage 4 with resultant pulm HTN (RVSP 69), HFpEF (EF 55-60% 10/05, largely R sided dz), who presented from [facility] with acute on chronic hypercarbic resp failure 2/2 PNA and COPD exacerbation. Hospital summary as per HPI. Xfer out of the ICU on 11/03. - Patient Problems (1) Hypercapnic respiratory failure Current Visit: Yes Status: Acute Code(s): J96.92 - RESPIRATORY FAILURE, UNSPECIFIED WITH HYPERCAPNIA SNOMED Code(s): 437687586 Comment: Admitted acute on chornic 2/2 to PNA and COPD exacerbation, possible CHF exacerbation - Chronic resp failure, remains on BiPAP QHS and for naps - Would like to see success with QHS BiPAP and naps on the floor before consider xfer to [facility] for swing status (2) COPD exacerbation Current Visit: No Status: Acute Code(s): J44.1 - CHRONIC OBSTRUCTIVE PULMONARY DISEASE W (ACUTE) EXACERBATION SNOMED Code(s): 652028291 Comment: - Inspector Poising suspected viral pneumonia on admission, hospital course c/b infiltrate and ? VAP - Completed 7 days Vanco/Cefipime on 11/01 - Continue steroids (on planned taper) and bronchodilators. (3) HAMILTON and COPD overlap syndrome Current Visit: Yes Status: Acute Code(s): G47.33 - OBSTRUCTIVE SLEEP APNEA ( ADULT) (PEDIATRIC); J44.9 - CHRONIC OBSTRUCTIVE PULMONARY DISEASE, UNSPECIFIED SNOMED Code(s): 57753802 Comment: - Continue BiPAP QHS and for naps, chronic retainer - Continue duonebs and tiotroprium (4) Diastolic heart failure Current Visit: Yes Status: Acute Code(s): I50.30 - UNSPECIFIED DIASTOLIC ( CONGESTIVE) HEART FAILURE SNOMED Code(s): 522042409 Comment: Echo 10/16/18 LVEF 55-60% with poorly seen diastolic fxn, e/o PAH with RVSP 69 (!) - Not on home fluid mgmt - Was on aggressive diuresis in ICU to assist in weaning, changed to PO 60 BID on 11/02, will hold today 10/24, resume at 20mg q AM 11/04, consider every other day if remains hypotensive without volume overload - On low dose BB, on statin - Lisinopril is a home med (?40mg), lowered ot 2.5 mg given persistent hypotension (5) Hypotension Current Visit: Yes Status: Acute Comment: Appears he runs baseline low, possibly related to his PAH (Type 3) - Sensitve to volume - Lower Lisinopril 10mg to 2.5mg - His BNP has trended down and last reading 11/01 was 59, Cr rising, holding Lasix today 11/03 he is not on home Lasix and will change to PO Lasix daily at 20mg (from 60 BID) given PAH is quite volume sensitive and do not want to over diurese. Euvolemic on my exam today - continue Metop 12.5 BID for presumed HFpEF - Tolerate MAP > 60 as no e/o end organ damage or mental status changes at MAP 60-65 (6) Schizophrenia Current Visit: Yes Status: Acute Code(s): F20.9 - SCHIZOPHRENIA, UNSPECIFIED SNOMED Code(s): 55339274 Comment: With baseline dementia and cognitive impairment as well - Home Olanzapine, home sertraline - Still working on home med rec (7) DVT prophylaxis Current Visit: Yes Status: Acute Code(s): JDZ3945 - SNOMED Code(s): 546624823 Comment: Lovenox, on PPI for ulcer PPX Status and Disposition: Inpatient, has swing bed at [facility], would like to see stable on floor prior to d/c
[2018-11-03] MEDS ORDERED: Dextrose 50% Syringe 50 ML* 25 GM/50 ML SYRINGE IV PUSH PRN (16:08)
[2018-11-03] MEDS: Insulin LISPRO* 1 UNITS UNIT SUBCUT SCH ×2 (17:10→21:24)
[2018-11-03] MEDS: Nicotine Patch Removal NOTE FOLLOW UP SCH (21:11)
[2018-11-04 04:47] LABS: ABS Basophils 0.1 10^3/ul (0-0.2); ABS Eosinophils 0.2 10^3/ul (0-0.6); ABS Lymphocytes 1.4 10^3/ul (1.0-4.8); ABS Monocytes 0.9 10^3/ul (0-0.8); ABS Neutrophils 10.2 10^3/ul (1.5-7.7); ABS Nucleated RBC 0 10^3/ul; Eosinophil % 1.3 %; Hematocrit 26 % (42-52); Hemoglobin 8.1 g/dl (14.0-18.0); Lymphocyte % 11.1 %; Mean Corpuscular HGB Conc 31 g/dl (31-36); Mean Corpuscular Hemoglobin 27 pg (27-31); Mean Corpuscular Volume 87 fL (80-94); Mean Platelet Volume 9.3 fL (7.4-10.4); Nucleated Red Blood Cells % 0; Platelet Count 178 10^3/ul (150-450); Red Blood Count 2.97 10^6/ul (4.00-5.40); Red Cell Distribution Width 15 % (10.5-15); White Blood Count 12.7 10^3/ul (3.5-10.8)
[2018-11-04 04:56] LABS: BUN/Creatinine Ratio 35.3 (8-20); Calcium 8.6 mg/dL (8.6-10.3); EGFR African American 77.2 (>60); EGFR Non-African American 63.8 (>60); Potassium 3.9 mmol/L (3.5-5.0)
[2018-11-04] MEDS: Insulin LISPRO* 1 UNITS UNIT SUBCUT SCH ×4 (07:21→20:07)
[2018-11-04] MEDS ORDERED: Lisinopril TAB* 10 MG ONE (08:31)
[2018-11-04] MEDS: Tiotropium CAP.INH* CAP.INH/18 MCG (USE ORDER SET !) INH SCH (08:33)
[2018-11-04] MEDS: predniSONE TAB* 20 MG PO SCH (08:37)
[2018-11-04] MEDS: Donepezil TAB* 5 MG PO SCH (08:37)
[2018-11-04] MEDS: Calcium Carbonate CHEW TAB* 500 MG (TUMS) PO SCH ×2 (08:37→20:08)
[2018-11-04] MEDS: Atorvastatin* 20 MG TAB PO SCH (08:37)
[2018-11-04] MEDS: Metoprolol Tartrate TAB* 25 MG PO SCH ×2 (08:38→20:07)
[2018-11-04] MEDS: Pantoprazole TAB * 40 MG TAB PO SCH (08:38)
[2018-11-04] MEDS: Docusate CAP* 100 MG PO SCH ×2 (08:38→20:08)
[2018-11-04] MEDS: OLANzapine TAB* 10 MG PO SCH ×2 (08:38→20:07)
[2018-11-04] MEDS: Sertraline* 100 MG TAB PO SCH (08:38)
[2018-11-04] MEDS: Furosemide TAB* 20 MG PO SCH (08:38)
[2018-11-04] MEDS: Potassium Chlor TAB* 20 MEQ TAB.ER PO SCH ×2 (08:38→20:07)
[2018-11-04] MEDS: Lisinopril TAB* 5 MG PO SCH (08:39)
[2018-11-04] MEDS: Nicotine PATCH 7 MG/24 HR* PATCH TRANSDERM SCH (08:39)
[2018-11-04] MEDS: Nicotine GUM* 2 MG PO PRN ×2 (13:17→18:38)
[2018-11-04] MEDS: Nicotine Patch Removal NOTE FOLLOW UP SCH (20:10)
[2018-11-05 05:18] LABS: Hematocrit 26 % (42-52); Hemoglobin 8.4 g/dl (14.0-18.0); Mean Corpuscular HGB Conc 33 g/dl (31-36); Mean Corpuscular Hemoglobin 29 pg (27-31); Mean Corpuscular Volume 87 fL (80-94); Mean Platelet Volume 8.8 fL (7.4-10.4); Platelet Count 208 10^3/ul (150-450); Red Blood Count 2.93 10^6/ul (4.00-5.40); Red Cell Distribution Width 15 % (10.5-15); White Blood Count 13.8 10^3/ul (3.5-10.8)
[2018-11-05 05:33] LABS: ABS Basophils 0.1 10^3/ul (0-0.2); ABS Eosinophils 0.2 10^3/ul (0-0.6); ABS Monocytes 1.1 10^3/ul (0-0.8); ABS Neutrophils 10.3 10^3/ul (1.5-7.7); ABS Nucleated RBC 0 10^3/ul
[2018-11-05 05:34] LABS: BUN/Creatinine Ratio 28.2 (8-20); Calcium 8.5 mg/dL (8.6-10.3); EGFR African American 88.5 (>60); EGFR Non-African American 73.2 (>60); Potassium 3.9 mmol/L (3.5-5.0)
[2018-11-05 05:36] LABS: Immature Granulocytes 1 % (0-9); Lymphocytes % 14 %; Monocytes % 11 %; Neutrophil % 73 %
[2018-11-05 05:38] LABS: ABS Eosinophils 0.1 10^3/ul (0-0.6); ABS Neutrophils 10.2 10^3/ul (1.5-7.7)
[2018-11-05] MEDS: Tiotropium CAP.INH* CAP.INH/18 MCG (USE ORDER SET !) INH SCH (07:35)
--- NOTE | 2018-11-05 08:43 | PN ---
Subjective Date of Service: 11/04/18 Interval History: patient reports that his breathing is better, states that he is feeling well. Denies chest pain or shortness of breath. denies abd pain n/v/d Family History: Unchanged from Admission Social History: Unchanged from Admission Past Medical History: Unchanged from Admission Objective Active Medications: Acetaminophen (Tylenol Tab*) 650 mg PO Q6H PRN PRN Reason: PAIN Last Admin: 11/01/18 22:38 Dose: 650 mg Albuterol/Ipratropium (Duoneb (Albuterol 2.5 Mg/Ipratropium 0.5 Mg)) 1 neb INH Q6H PRN PRN Reason: SOB/WHEEZING Last Admin: 11/02/18 14:57 Dose: 1 neb Atorvastatin Calcium (Lipitor*) 20 mg PO DAILY [facility] Last Admin: 11/04/18 08:37 Dose: 20 mg Calcium Carbonate (Tums*) 500 mg PO BID [facility] Last Admin: 11/04/18 20:08 Dose: 500 mg Dextrose (D50w Syringe 50 Ml*) 12.5 gm IV PUSH .FOR FS < 60 - SS PRN PRN Reason: FS < 60 Docusate Sodium (Colace Cap*) 100 mg PO BID [facility] Last Admin: 11/04/18 20:08 Dose: 100 mg Donepezil HCl (Aricept Tab*) 10 mg PO DAILY [facility] Last Admin: 11/04/18 08:37 Dose: 10 mg Furosemide (Lasix Tab*) 20 mg PO DAILY [facility] Last Admin: 11/04/18 08:38 Dose: 20 mg Heparin Sodium (Porcine) (Heparin Flush Picc/Ml/Cvc(*)) 1 - 3 ml FLUSH 0600, 1800 [facility]; Protocol Last Admin: 11/05/18 05:01 Dose: 3 ml Insulin Human Lispro (Humalog*) 0 units SUBCUT ACHS [facility]; Protocol Last Admin: 11/04/18 20:07 Dose: 6 units Lisinopril (Prinivil Tab*) 2.5 mg PO DAILY [facility] Last Admin: 11/04/18 08:39 Dose: 2.5 mg Metoprolol Tartrate (Lopressor Tab*) 12.5 mg PO Q12HR [facility] Last Admin: 11/04/18 20:07 Dose: 12.5 mg Nicotine (Nicotine Patch 7 Mg/24 Hr*) 1 patch TRANSDERM DAILY [facility] Last Admin: 11/04/18 08:39 Dose: 1 patch Nicotine Polacrilex (Nicotine Gum*) 2 mg PO Q2H PRN PRN Reason: CRAVING Last Admin: 11/04/18 18:38 Dose: 2 mg Olanzapine (Zyprexa Tab*) 10 mg PO BID [facility] Last Admin: 11/04/18 20:07 Dose: 10 mg Pantoprazole Sodium (Protonix Tab *) 40 mg PO DAILY [facility] Last Admin: 11/04/18 08:38 Dose: 40 mg Pharmacy Profile Note (Nicotine Patch Removal Note*) 1 note FOLLOW UP 2100 [facility] Last Admin: 11/04/18 20:10 Dose: 1 note Potassium Chloride (Klor Con Er Tab*) 20 meq PO BID [facility] Last Admin: 11/04/18 20:07 Dose: 20 meq Prednisone (Deltasone Tab*) 30 mg PO DAILY [facility] Stop: 11/06/18 09:01 Prednisone (Deltasone Tab*) 20 mg PO DAILY [facility] Stop: 11/08/18 09:01 Prednisone (Deltasone Tab*) 10 mg PO DAILY [facility] Sertraline HCl (Zoloft*) 100 mg PO DAILY [facility] Last Admin: 11/04/18 08:38 Dose: 100 mg Tiotropium Sumner (Spiriva Cap.Inh*) 1 cap INH DAILY [facility] Last Admin: 11/05/18 07:35 Dose: 1 cap Vital Signs - 8 hr 11/05/18 11/05/18 11/05/18 03:29 04:09 07:37 Temperature 97.6 F Pulse Rate 70 64 72 Respiratory 20 16 14 Rate Blood Pressure 138/78 (mmHg) O2 Sat by Pulse 91 91 94 Oximetry Oxygen Devices in Use Now: High Flow Nasal Cannula Appearance: alert sittingin the chair no acute distress Eyes: No Scleral Icterus Ears/Nose/Mouth/Throat: Clear Oropharnyx, Mucous Membranes Moist Neck: NL Appearance and Movements; NL JVP, Trachea Midline Respiratory: Symmetrical Chest Expansion and Respiratory Effort, Clear to Auscultation Cardiovascular: NL Sounds; No Murmurs; No JVD Abdominal: NL Sounds; No Tenderness; No Distention Extremities: No Edema, No Clubbing, Cyanosis Skin: No Rash or Ulcers Neurological: - - minimal verbal , oriented to name Nutrition: Taking PO's Result Diagrams: 11/05/18 05:02 11/05/18 05:02 Microbiology and Other Data: Microbiology 10/23/18 09:32 Aerobic Blood Culture - Final Blood Venous No Growth Day 5 Anaerobic Blood Culture - Final No Growth Day 5 10/23/18 09:20 Aerobic Blood Culture - Final Blood Venous No Growth Day 5 Anaerobic Blood Culture - Final No Growth Day 5 10/16/18 15:45 Aerobic Blood Culture - Final Blood Line No Growth Day 5 Anaerobic Blood Culture - Final No Growth Day 5 10/16/18 00:20 Aerobic Blood Culture - Final Blood Venous Staphylococcus Epidermidis Anaerobic Blood Culture - Final Staphylococcus Epidermidis Staphylococcus Hominis Blood MRSA/MSSA (PCR) - Final Mrsa Negative S.aureus Negative 10/15/18 23:30 Aerobic Blood Culture - Final Blood Venous Staphylococcus Hominis#2 Staphylococcus Hominis Anaerobic Blood Culture - Final Staphylococcus Warneri Blood MRSA/MSSA (PCR) - Final Mrsa Negative S.aureus Negative 10/16/18 09:02 Gram Stain - Final Sputum Sputum Culture - Final YEAST Normal Ruby 10/16/18 13:23 Urine Culture - Final Urine No Growth (<1,000 CFU/mL) 10/15/18 23:30 Nasal Screen MRSA (PCR) - Final Nasal Mrsa Not Detected Diagnostic Imagin/15 CXR: bilateral insterstitial markings R more dense and >L EKG Data: Last EKG 10/25 [facility], Tele 11/03: Sinus tachycardia in 90's Assess/Plan/Problems-Billing Assessment: 63 yo M with PMH cognitive impairment/dementia and schizophrenia (controlled), COPD Gold Stage 4 with resultant pulm HTN (RVSP 69), HFpEF (EF 55-60% 10/05, largely R sided dz), who presented from [facility] with acute on chronic hypercarbic resp failure 2/2 PNA and COPD exacerbation. Hospital summary as per HPI. Xfer out of the ICU on 11/03. - Patient Problems (1) Hypercapnic respiratory failure Current Visit: Yes Status: Acute Code(s): J96.92 - RESPIRATORY FAILURE, UNSPECIFIED WITH HYPERCAPNIA SNOMED Code(s): 124553591 Comment: Admitted acute on chornic 2/2 to PNA and COPD exacerbation, possible CHF exacerbation - Chronic resp failure, remains on BiPAP QHS and for naps - Would like to see success with QHS BiPAP and naps on the floor before consider xfer to [facility] for swing status (2) HAMILTON (obstructive sleep apnea) Current Visit: Yes Status: Acute Code(s): G47.33 - OBSTRUCTIVE SLEEP APNEA ( ADULT) (PEDIATRIC) SNOMED Code(s): 54641492 (3) Schizophrenia Current Visit: Yes Status: Acute Code(s): F20.9 - SCHIZOPHRENIA, UNSPECIFIED SNOMED Code(s): 69629448 Comment: With baseline dementia and cognitive impairment as well - Home Olanzapine, home sertraline - Still working on home med rec (4) COPD exacerbation Current Visit: No Status: Acute Code(s): J44.1 - CHRONIC OBSTRUCTIVE PULMONARY DISEASE W (ACUTE) EXACERBATION SNOMED Code(s): 016235218 Comment: - 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 VAP - Completed 7 days Vanco/Cefipime on 11/01 - Continue steroids (on planned taper) and bronchodilators. (5) DVT prophylaxis Current Visit: No Status: Acute Code(s): FPA4552 - SNOMED Code(s): 391674105 Comment: - SQ heparin. (6) Full code status Current Visit: No Status: Acute Code(s): Z78.9 - OTHER SPECIFIED HEALTH STATUS SNOMED Code(s): 816309608 Status and Disposition: Inpatient, has swing bed at [facility], would like to see stable on floor prior to d/c
[2018-11-05] MEDS: Insulin LISPRO* 1 UNITS UNIT SUBCUT SCH ×4 (09:06→20:56)
[2018-11-05] MEDS: Lisinopril TAB* 5 MG PO SCH (09:07)
[2018-11-05] MEDS: Calcium Carbonate CHEW TAB* 500 MG (TUMS) PO SCH ×2 (09:07→20:56)
[2018-11-05] MEDS: Furosemide TAB* 20 MG PO SCH (09:07)
[2018-11-05] MEDS: Atorvastatin* 20 MG TAB PO SCH (09:07)
[2018-11-05] MEDS: Donepezil TAB* 5 MG PO SCH (09:08)
[2018-11-05] MEDS: Docusate CAP* 100 MG PO SCH ×2 (09:08→20:58)
[2018-11-05] MEDS: predniSONE TAB* 10 MG PO SCH (09:08)
[2018-11-05] MEDS: Sertraline* 100 MG TAB PO SCH (09:08)
[2018-11-05] MEDS: Potassium Chlor TAB* 20 MEQ TAB.ER PO SCH ×2 (09:08→20:58)
[2018-11-05] MEDS: Metoprolol Tartrate TAB* 25 MG PO SCH ×2 (09:09→20:57)
[2018-11-05] MEDS: OLANzapine TAB* 10 MG PO SCH ×2 (09:10→20:57)
[2018-11-05] MEDS: Nicotine PATCH 7 MG/24 HR* PATCH TRANSDERM SCH (09:10)
[2018-11-05] MEDS: Pantoprazole TAB * 40 MG TAB PO SCH ×2 (09:10→20:58)
[2018-11-05] MEDS: Nicotine GUM* 2 MG PO PRN (10:51)
[2018-11-05] MEDS: Ferrous Sulfate TAB* 325 MG PO SCH ×2 (13:55→20:58)
[2018-11-05 15:21] LABS: % Iron Saturation 18 % (15-55); Iron 56 ug/dL (50-212); Total Iron Binding Capacity 309 mcg/dL (250-450); Transferrin 221 mg/dL (203-362)
[2018-11-05 15:34] LABS: TSH (Thyroid Stimulating Horm) 0.62 mcIU/mL (0.34-5.60)
[2018-11-05 15:41] LABS: Urine Appearance Clear; Urine Bilirubin Negative (Negative); Urine Blood Negative (Negative); Urine Color Yellow; Urine Glucose Negative (Negative); Urine Ketones Negative (Negative); Urine Nitrite Negative (Negative); Urine Protein Negative (Negative); Urine Urobilinogen Negative (Negative)
[2018-11-05 15:45] LABS: Folate 13.05 ng/mL (>3.99)
[2018-11-05] MEDS: Nicotine Patch Removal NOTE FOLLOW UP SCH (20:59)
--- NOTE | 2018-11-05 23:03 | PN ---
Subjective Date of Service: 11/05/18 Interval History: Patient denies shortness of breath or chest pain. Denies fever or chills. denies abd pain n/v/d. resp. therapy reports that o2 was 15 liters this AM and was titrated back down to 8 liters with respiratory therapy. Baseline 02 is 3.5 liters at home. will have resp therapy adjust o2 to maintain o2 sats 88-92% patient unable to maintain o2 sats above 88% on 6 liters today- increased to 8 liters chest x ray - improved from previous Family History: Unchanged from Admission Social History: Unchanged from Admission Past Medical History: Unchanged from Admission Objective Active Medications: Acetaminophen (Tylenol Tab*) 650 mg PO Q6H PRN PRN Reason: PAIN Last Admin: 11/01/18 22:38 Dose: 650 mg Albuterol/Ipratropium (Duoneb (Albuterol 2.5 Mg/Ipratropium 0.5 Mg)) 1 neb INH Q6H PRN PRN Reason: SOB/WHEEZING Last Admin: 11/02/18 14:57 Dose: 1 neb Atorvastatin Calcium (Lipitor*) 20 mg PO DAILY [facility] Last Admin: 11/05/18 09:07 Dose: 20 mg Calcium Carbonate (Tums*) 500 mg PO BID [facility] Last Admin: 11/05/18 20:56 Dose: 500 mg Dextrose (D50w Syringe 50 Ml*) 12.5 gm IV PUSH .FOR FS < 60 - SS PRN PRN Reason: FS < 60 Docusate Sodium (Colace Cap*) 100 mg PO BID [facility] Last Admin: 11/05/18 20:58 Dose: 100 mg Donepezil HCl (Aricept Tab*) 10 mg PO DAILY [facility] Last Admin: 11/05/18 09:08 Dose: 10 mg Ferrous Sulfate (Ferrous Sulfate Tab*) 325 mg PO TID [facility] Last Admin: 11/05/18 20:58 Dose: 325 mg Furosemide (Lasix Tab*) 20 mg PO DAILY [facility] Last Admin: 11/05/18 09:07 Dose: 20 mg Heparin Sodium (Porcine) (Heparin Flush Picc/Ml/Cvc(*)) 1 - 3 ml FLUSH 0600, 1800 [facility]; Protocol Last Admin: 11/05/18 17:44 Dose: 1 ml Insulin Human Lispro (Humalog*) 0 units SUBCUT [facility]; Protocol Last Admin: 11/05/18 20:56 Dose: 2 units Lisinopril (Prinivil Tab*) 2.5 mg PO DAILY [facility] Last Admin: 11/05/18 09:07 Dose: 2.5 mg Metoprolol Tartrate (Lopressor Tab*) 12.5 mg PO Q12HR [facility] Last Admin: 11/05/18 20:57 Dose: 12.5 mg Nicotine (Nicotine Patch 7 Mg/24 Hr*) 1 patch TRANSDERM DAILY [facility] Last Admin: 11/05/18 09:10 Dose: 1 patch Nicotine Polacrilex (Nicotine Gum*) 2 mg PO Q2H PRN PRN Reason: CRAVING Last Admin: 11/05/18 10:51 Dose: 2 mg Olanzapine (Zyprexa Tab*) 10 mg PO BID [facility] Last Admin: 11/05/18 20:57 Dose: 10 mg Pantoprazole Sodium (Protonix Tab (Nf)) 40 mg PO BID [facility] Last Admin: 11/05/18 20:58 Dose: 40 mg Pharmacy Profile Note (Nicotine Patch Removal Note*) 1 note FOLLOW UP 2100 [facility] Last Admin: 11/05/18 20:59 Dose: 1 note Potassium Chloride (Klor Con Er Tab*) 20 meq PO BID [facility] Last Admin: 11/05/18 20:58 Dose: 20 meq Prednisone (Deltasone Tab*) 30 mg PO DAILY [facility] Last Admin: 11/05/18 09:08 Dose: 30 mg Sertraline HCl (Zoloft*) 100 mg PO DAILY [facility] Last Admin: 11/05/18 09:08 Dose: 100 mg Tiotropium [place] (Spiriva Cap.Inh*) 1 cap INH DAILY [facility] Last Admin: 11/05/18 07:35 Dose: 1 cap Vital Signs - 8 hr 11/05/18 11/05/18 11/05/18 15:14 16:00 16:06 Temperature 97.1 F Pulse Rate 69 83 Respiratory 16 Rate Blood Pressure 114/69 (mmHg) O2 Sat by Pulse 92 91 91 Oximetry 11/05/18 11/05/18 19:48 20:00 Temperature 97.9 F Pulse Rate 74 Respiratory 16 20 Rate Blood Pressure 130/81 (mmHg) O2 Sat by Pulse 93 Oximetry Oxygen Devices in Use Now: High Flow Nasal Cannula Appearance: alert and oriented x 3 , sitting in the chiar Eyes: No Scleral Icterus Ears/Nose/Mouth/Throat: Mucous Membranes Moist Neck: NL Appearance and Movements; NL JVP, Trachea Midline Respiratory: Symmetrical Chest Expansion and Respiratory Effort, - - crackles in the bases bilat Cardiovascular: NL Sounds; No Murmurs; No JVD, No Edema Abdominal: NL Sounds; No Tenderness; No Distention Extremities: No Edema, No Clubbing, Cyanosis Skin: No Rash or Ulcers Neurological: Alert and Oriented x 3 Nutrition: Taking PO's Result Diagrams: 11/05/18 05:02 11/05/18 05:02 Microbiology and Other Data: Microbiology 10/23/18 09:32 Aerobic Blood Culture - Final Blood Venous No Growth Day 5 Anaerobic Blood Culture - Final No Growth Day 5 10/23/18 09:20 Aerobic Blood Culture - Final Blood Venous No Growth Day 5 Anaerobic Blood Culture - Final No Growth Day 5 10/16/18 15:45 Aerobic Blood Culture - Final Blood Line No Growth Day 5 Anaerobic Blood Culture - Final No Growth Day 5 10/16/18 00:20 Aerobic Blood Culture - Final Blood Venous Staphylococcus Epidermidis Anaerobic Blood Culture - Final Staphylococcus Epidermidis Staphylococcus Hominis Blood MRSA/MSSA (PCR) - Final Mrsa Negative S.aureus Negative 10/15/18 23:30 Aerobic Blood Culture - Final Blood Venous Staphylococcus Hominis#2 Staphylococcus Hominis Anaerobic Blood Culture - Final Staphylococcus Warneri Blood MRSA/MSSA (PCR) - Final Mrsa Negative S.aureus Negative 10/16/18 09:02 Gram Stain - Final Sputum Sputum Culture - Final YEAST Normal Ruby 10/16/18 13:23 Urine Culture - Final Urine No Growth (<1,000 CFU/mL) 10/15/18 23:30 Nasal Screen MRSA (PCR) - Final Nasal Mrsa Not Detected Diagnostic Imagin/15 CXR: bilateral insterstitial markings R more dense and >L EKG Data: Last EKG 10/25 [facility], Tele 11/03: Sinus tachycardia in 90's Assess/Plan/Problems-Billing Assessment: 63 yo M with PMH cognitive impairment/dementia and schizophrenia (controlled), COPD Gold Stage 4 with resultant pulm HTN (RVSP 69), HFpEF (EF 55-60% 10/05, largely R sided dz), who presented from [facility] with acute on chronic hypercarbic resp failure 2/2 PNA and COPD exacerbation. Hospital summary as per HPI. Xfer out of the ICU on 11/03. - Patient Problems (1) Hypercapnic respiratory failure Current Visit: Yes Status: Acute Code(s): J96.92 - RESPIRATORY FAILURE, UNSPECIFIED WITH HYPERCAPNIA SNOMED Code(s): 639310871 Comment: Admitted acute on chornic 11/20 [facility] and COPD exacerbation, possible CHF exacerbation - Chronic resp failure, remains on BiPAP QHS and for naps - patient continues to require 7-8 liters of O@ to maintain o2 greater than 88% - will continue to monitor - will continue steroids at 30 mg daily - cxr showed improvement - Would like to see success with QHS BiPAP and naps on the floor before consider xfer to [facility] status (2) COPD exacerbation Current Visit: No Status: Acute Code(s): J44.1 - CHRONIC OBSTRUCTIVE PULMONARY DISEASE W (ACUTE) EXACERBATION SNOMED Code(s): 001202191 Comment: - Pressure Dispatcher suspected viral pneumonia on admission, hospital course c/b infiltrate and ? VAP - Completed 7 days Vanco/Cefipime on 11/01 - Continue steroids at 30mg and bronchodilators. - titrate o2 as able to keep o2 sts between 88-92 % (3) Anemia Current Visit: Yes Status: Acute Code(s): D64.9 - ANEMIA, UNSPECIFIED SNOMED Code(s): 481886909 Comment: h/h 8.4/24 lower than baseline - iron studues added today - low normal - folate and B12 - wnl - will add Iron 325 mgTID - will get stool for occult - if stool occult positive - consider consult to GI (4) HAMILTON (obstructive sleep apnea) Current Visit: Yes Status: Acute Code(s): G47.33 - OBSTRUCTIVE SLEEP APNEA ( ADULT) (PEDIATRIC) SNOMED Code(s): 41890814 Comment: bipap at night (5) Schizophrenia Current Visit: Yes Status: Acute Code(s): F20.9 - SCHIZOPHRENIA, UNSPECIFIED SNOMED Code(s): 48972429 Comment: With baseline dementia and cognitive impairment as well - Home Olanzapine, home sertraline - Still working on home med rec (6) DVT prophylaxis Current Visit: No Status: Acute Code(s): KJS3352 - SNOMED Code(s): 715608858 Comment: scd's - heparin d/c d/t hemoptysis when in ICU (7) Full code status Current Visit: No Status: Acute Code(s): Z78.9 - OTHER SPECIFIED HEALTH STATUS SNOMED Code(s): 484298256 Status and Disposition: Inpatient, has swing bed at [facility], can discharge when medically stable
[2018-11-06 04:58] LABS: Hematocrit 26 % (42-52); Hemoglobin 8.5 g/dl (14.0-18.0); Mean Corpuscular HGB Conc 33 g/dl (31-36); Mean Corpuscular Hemoglobin 29 pg (27-31); Mean Corpuscular Volume 86 fL (80-94); Mean Platelet Volume 8.3 fL (7.4-10.4); Platelet Count 221 10^3/ul (150-450); Red Blood Count 2.98 10^6/ul (4.00-5.40); Red Cell Distribution Width 15 % (10.5-15); White Blood Count 13.2 10^3/ul (3.5-10.8)
[2018-11-06 05:14] LABS: BUN/Creatinine Ratio 22.6 (8-20); Calcium 8.7 mg/dL (8.6-10.3); EGFR African American 85.7 (>60); EGFR Non-African American 70.8 (>60); Potassium 3.7 mmol/L (3.5-5.0)
[2018-11-06] MEDS: Insulin LISPRO* 1 UNITS UNIT SUBCUT SCH ×4 (08:06→20:35)
[2018-11-06] MEDS: Nicotine PATCH 7 MG/24 HR* PATCH TRANSDERM SCH (08:17)
[2018-11-06] MEDS: Tiotropium CAP.INH* CAP.INH/18 MCG (USE ORDER SET !) INH SCH (08:18)
[2018-11-06] MEDS: Calcium Carbonate CHEW TAB* 500 MG (TUMS) PO SCH ×2 (08:19→20:33)
[2018-11-06] MEDS: Atorvastatin* 20 MG TAB PO SCH (08:20)
[2018-11-06] MEDS: Lisinopril TAB* 5 MG PO SCH (08:20)
[2018-11-06] MEDS: Furosemide TAB* 20 MG PO SCH (08:20)
[2018-11-06] MEDS: OLANzapine TAB* 10 MG PO SCH ×2 (08:21→20:41)
[2018-11-06] MEDS: Metoprolol Tartrate TAB* 25 MG PO SCH ×2 (08:21→20:33)
[2018-11-06] MEDS: predniSONE TAB* 10 MG PO SCH (08:21)
[2018-11-06] MEDS: Pantoprazole TAB * 40 MG TAB PO SCH ×2 (08:21→20:33)
[2018-11-06] MEDS: Sertraline* 100 MG TAB PO SCH (08:22)
[2018-11-06] MEDS: Donepezil TAB* 5 MG PO SCH (08:22)
[2018-11-06] MEDS: Potassium Chlor TAB* 20 MEQ TAB.ER PO SCH ×2 (08:22→20:34)
[2018-11-06] MEDS: Ferrous Sulfate TAB* 325 MG PO SCH ×3 (08:22→20:33)
[2018-11-06] MEDS: Docusate CAP* 100 MG PO SCH ×2 (08:22→20:33)
[2018-11-06] MEDS: Nicotine GUM* 2 MG PO PRN ×3 (08:54→17:28)
[2018-11-06] MEDS: Albuterol/Ipratropium NEB.SOL* Albuterol 2.5 MG/Ipratropium 0.5 MG 3 ML INH PRN ×2 (08:54→16:57)
--- NOTE | 2018-11-06 18:17 | PN ---
Subjective Date of Service: 11/06/18 Interval History: Reports some improvement in breathing.on oxygen and nippv.still occasionally needing 8l Family History: Unchanged from Admission Social History: Unchanged from Admission Past Medical History: Unchanged from Admission Objective Active Medications: Acetaminophen (Tylenol Tab*) 650 mg PO Q6H PRN PRN Reason: PAIN Last Admin: 11/01/18 22:38 Dose: 650 mg Albuterol/Ipratropium (Duoneb (Albuterol 2.5 Mg/Ipratropium 0.5 Mg)) 1 neb INH Q6H PRN PRN Reason: SOB/WHEEZING Last Admin: 11/06/18 16:57 Dose: 1 neb Atorvastatin Calcium (Lipitor*) 20 mg PO DAILY [facility] Last Admin: 11/06/18 08:20 Dose: 20 mg Calcium Carbonate (Tums*) 500 mg PO BID [facility] Last Admin: 11/06/18 08:19 Dose: 500 mg Dextrose (D50w Syringe 50 Ml*) 12.5 gm IV PUSH .FOR FS < 60 - SS PRN PRN Reason: FS < 60 Docusate Sodium (Colace Cap*) 100 mg PO BID [facility] Last Admin: 11/06/18 08:22 Dose: 100 mg Donepezil HCl (Aricept Tab*) 10 mg PO DAILY [facility] Last Admin: 11/06/18 08:22 Dose: 10 mg Ferrous Sulfate (Ferrous Sulfate Tab*) 325 mg PO TID [facility] Last Admin: 11/06/18 13:04 Dose: 325 mg Furosemide (Lasix Tab*) 20 mg PO DAILY [facility] Last Admin: 11/06/18 08:20 Dose: 20 mg Heparin Sodium (Porcine) (Heparin Flush Picc/Ml/Cvc(*)) 1 - 3 ml FLUSH 0600, 1800 [facility]; Protocol Last Admin: 11/06/18 16:44 Dose: 1 ml Insulin Human Lispro (Humalog*) 0 units SUBCUT ACHS [facility]; Protocol Last Admin: 11/06/18 17:07 Dose: 4 units Lisinopril (Prinivil Tab*) 2.5 mg PO DAILY [facility] Last Admin: 11/06/18 08:20 Dose: 2.5 mg Metoprolol Tartrate (Lopressor Tab*) 12.5 mg PO Q12HR [facility] Last Admin: 11/06/18 08:21 Dose: 12.5 mg Nicotine (Nicotine Patch 7 Mg/24 Hr*) 1 patch TRANSDERM DAILY [facility] Last Admin: 11/06/18 08:17 Dose: 1 patch Nicotine Polacrilex (Nicotine Gum*) 2 mg PO Q2H PRN PRN Reason: CRAVING Last Admin: 11/06/18 17:28 Dose: 2 mg Olanzapine (Zyprexa Tab*) 10 mg PO BID [facility] Last Admin: 11/06/18 08:21 Dose: 10 mg Pantoprazole Sodium (Protonix Tab (Nf)) 40 mg PO BID [facility] Last Admin: 11/06/18 08:21 Dose: 40 mg Pharmacy Profile Note (Nicotine Patch Removal Note*) 1 note FOLLOW UP 2100 [facility] Last Admin: 11/05/18 20:59 Dose: 1 note Potassium Chloride (Klor Con Er Tab*) 20 meq PO BID [facility] Last Admin: 11/06/18 08:22 Dose: 20 meq Prednisone (Deltasone Tab*) 30 mg PO DAILY [facility] Last Admin: 11/06/18 08:21 Dose: 30 mg Sertraline HCl (Zoloft*) 100 mg PO DAILY [facility] Last Admin: 11/06/18 08:22 Dose: 100 mg Tiotropium [place] (Spiriva Cap.Inh*) 1 cap INH DAILY [facility] Last Admin: 11/06/18 08:18 Dose: 1 cap Vital Signs - 8 hr 11/06/18 11/06/18 11/06/18 11:59 15:29 15:33 Temperature 97.7 F 97.5 F Pulse Rate 71 80 Respiratory 20 18 Rate Blood Pressure 121/73 119/68 (mmHg) O2 Sat by Pulse 91 91 91 Oximetry Oxygen Devices in Use Now: Nasal Cannula Eyes: No Scleral Icterus Neck: NL Appearance and Movements; NL JVP Respiratory: Symmetrical Chest Expansion and Respiratory Effort, - - Dec breath sounds bronchial breath sounds Cardiovascular: RRR Abdominal: NL Sounds; No Tenderness; No Distention Extremities: No Edema Skin: No Rash or Ulcers Neurological: Alert and Oriented x 3 Result Diagrams: 11/06/18 04:40 11/06/18 04:40 Microbiology and Other Data: Microbiology 10/23/18 09:32 Aerobic Blood Culture - Final Blood Venous No Growth Day 5 Anaerobic Blood Culture - Final No Growth Day 5 10/23/18 09:20 Aerobic Blood Culture - Final Blood Venous No Growth Day 5 Anaerobic Blood Culture - Final No Growth Day 5 10/16/18 15:45 Aerobic Blood Culture - Final Blood Line No Growth Day 5 Anaerobic Blood Culture - Final No Growth Day 5 10/16/18 00:20 Aerobic Blood Culture - Final Blood Venous Staphylococcus Epidermidis Anaerobic Blood Culture - Final Staphylococcus Epidermidis Staphylococcus Hominis Blood MRSA/MSSA (PCR) - Final Mrsa Negative S.aureus Negative 10/15/18 23:30 Aerobic Blood Culture - Final Blood Venous Staphylococcus Hominis#2 Staphylococcus Hominis Anaerobic Blood Culture - Final Staphylococcus Warneri Blood MRSA/MSSA (PCR) - Final Mrsa Negative S.aureus Negative 10/16/18 09:02 Gram Stain - Final Sputum Sputum Culture - Final YEAST Normal Ruby 10/16/18 13:23 Urine Culture - Final Urine No Growth (<1,000 CFU/mL) 10/15/18 23:30 Nasal Screen MRSA (PCR) - Final Nasal Mrsa Not Detected Diagnostic Imagin/15 CXR: bilateral insterstitial markings R more dense and >L EKG Data: Last EKG 10/25 [facility], Tele 11/03: Sinus tachycardia in 90's Assess/Plan/Problems-Billing Assessment: 63 yo M with PMH cognitive impairment/dementia and schizophrenia (controlled), COPD Gold Stage 4 with resultant pulm HTN (RVSP 69), HFpEF (EF 55-60% 10/05, largely R sided dz), who presented from [facility] with acute on chronic hypercarbic resp failure 2/2 PNA and COPD exacerbation. Hospital summary as per HPI. Xfer out of the ICU on 11/03. - Patient Problems (1) Hypercapnic respiratory failure Current Visit: Yes Status: Acute Code(s): J96.92 - RESPIRATORY FAILURE, UNSPECIFIED WITH HYPERCAPNIA SNOMED Code(s): 016181539 Comment: Admitted acute on chornic 2/2 to PNA and COPD exacerbation, possible CHF exacerbation - Chronic resp failure, remains on BiPAP QHS and for naps - patient continues to require 7-8 liters of O@ to maintain o2 greater than 88% - will continue to monitor - will continue steroids at 30 mg daily - cxr showed improvement - Would like to see success with QHS BiPAP and naps on the floor before consider xfer to [facility] for swing status (2) HAMILTON (obstructive sleep apnea) Current Visit: Yes Status: Acute Code(s): G47.33 - OBSTRUCTIVE SLEEP APNEA ( ADULT) (PEDIATRIC) SNOMED Code(s): 16133164 Comment: bipap at night (3) COPD exacerbation Current Visit: No Status: Acute Code(s): J44.1 - CHRONIC OBSTRUCTIVE PULMONARY DISEASE W (ACUTE) EXACERBATION SNOMED Code(s): 493357865 Comment: - Traditional Chinese Herbalist suspected viral pneumonia on admission, hospital course c/b infiltrate and ? VAP - Completed 7 days Vanco/Cefipime on 11/01 - Continue steroids at 30mg and bronchodilators. - titrate o2 as able to keep o2 sts between 88-92 % (4) Schizophrenia Current Visit: Yes Status: Acute Code(s): F20.9 - SCHIZOPHRENIA, UNSPECIFIED SNOMED Code(s): 93845410 Comment: With baseline dementia and cognitive impairment as well - Home Olanzapine, home sertraline - Still working on home med rec Status and Disposition: Inpatient, has swing bed at [facility], can discharge when medically stable
[2018-11-06] MEDS ORDERED: Calcium Carbonate CHEW TAB* 500 MG (TUMS) PO PRN (19:35)
[2018-11-06] MEDS: Nicotine Patch Removal NOTE FOLLOW UP SCH (20:34)
[2018-11-07] MEDS: Nicotine GUM* 2 MG PO PRN ×3 (04:14→18:04)
[2018-11-07 04:55] LABS: Hematocrit 25 % (42-52); Hemoglobin 8.3 g/dl (14.0-18.0); Mean Corpuscular HGB Conc 33 g/dl (31-36); Mean Corpuscular Hemoglobin 28 pg (27-31); Mean Corpuscular Volume 87 fL (80-94); Mean Platelet Volume 8.6 fL (7.4-10.4); Platelet Count 216 10^3/ul (150-450); Red Blood Count 2.94 10^6/ul (4.00-5.40); Red Cell Distribution Width 16 % (10.5-15); White Blood Count 14.3 10^3/ul (3.5-10.8)
[2018-11-07 05:06] LABS: BUN/Creatinine Ratio 20.4 (8-20); Calcium 8.6 mg/dL (8.6-10.3); EGFR African American 88.5 (>60); EGFR Non-African American 73.2 (>60); Potassium 3.7 mmol/L (3.5-5.0)
[2018-11-07 05:14] LABS: Immature Granulocytes 1 % (0-9); Lymphocytes % 14 %; Metamyelocytes % 1 % (0-2); Monocytes % 4 %; Neutrophil % 80 %
[2018-11-07 05:17] LABS: ABS Basophils 0.1 10^3/ul (0-0.2); ABS Eosinophils 0.1 10^3/ul (0-0.6); ABS Lymphocytes 2.6 10^3/ul (1.0-4.8); ABS Monocytes 1.1 10^3/ul (0-0.8); ABS Neutrophils 10.3 10^3/ul (1.5-7.7); ABS Nucleated RBC 0 10^3/ul
[2018-11-07 05:18] LABS: ABS Eosinophils 0.14 10^3/ul (0-0.6); ABS Neutrophils 11.58 10^3/ul (1.5-7.7)
[2018-11-07] MEDS: Nicotine PATCH 7 MG/24 HR* PATCH TRANSDERM SCH (08:11)
[2018-11-07] MEDS: Tiotropium CAP.INH* CAP.INH/18 MCG (USE ORDER SET !) INH SCH (08:12)
[2018-11-07] MEDS: Lisinopril TAB* 5 MG PO SCH (08:14)
[2018-11-07] MEDS: Potassium Chlor TAB* 20 MEQ TAB.ER PO SCH ×2 (08:14→20:50)
[2018-11-07] MEDS: Ferrous Sulfate TAB* 325 MG PO SCH ×3 (08:15→20:49)
[2018-11-07] MEDS: Sertraline* 100 MG TAB PO SCH (08:15)
[2018-11-07] MEDS: Metoprolol Tartrate TAB* 25 MG PO SCH ×2 (08:17→20:50)
[2018-11-07] MEDS: Docusate CAP* 100 MG PO SCH ×2 (08:17→20:49)
[2018-11-07] MEDS: Donepezil TAB* 5 MG PO SCH (08:18)
[2018-11-07] MEDS: Pantoprazole TAB * 40 MG TAB PO SCH ×2 (08:18→20:50)
[2018-11-07] MEDS: Calcium Carbonate CHEW TAB* 500 MG (TUMS) PO SCH ×2 (08:18→20:49)
[2018-11-07] MEDS: Furosemide TAB* 20 MG PO SCH (08:19)
[2018-11-07] MEDS: predniSONE TAB* 10 MG PO SCH (08:19)
[2018-11-07] MEDS: Atorvastatin* 20 MG TAB PO SCH (08:19)
[2018-11-07] MEDS: OLANzapine TAB* 10 MG PO SCH ×2 (08:20→20:49)
[2018-11-07] MEDS: Insulin LISPRO* 1 UNITS UNIT SUBCUT SCH ×4 (08:20→20:42)
[2018-11-07] MEDS ORDERED: predniSONE TAB* 20 MG PO SCH (09:00)
--- NOTE | 2018-11-07 14:08 | PN ---
Subjective Date of Service: 11/07/18 Interval History: Reports improvement in breathing Family History: Unchanged from Admission Social History: Unchanged from Admission Past Medical History: Unchanged from Admission Objective Active Medications: Acetaminophen (Tylenol Tab*) 650 mg PO Q6H PRN PRN Reason: PAIN Last Admin: 11/01/18 22:38 Dose: 650 mg Albuterol/Ipratropium (Duoneb (Albuterol 2.5 Mg/Ipratropium 0.5 Mg)) 1 neb INH Q6H PRN PRN Reason: SOB/WHEEZING Last Admin: 11/06/18 16:57 Dose: 1 neb Atorvastatin Calcium (Lipitor*) 20 mg PO DAILY [facility] Last Admin: 11/07/18 08:19 Dose: 20 mg Calcium Carbonate (Tums*) 500 mg PO BID [facility] Last Admin: 11/07/18 08:18 Dose: 500 mg Calcium Carbonate (Tums*) 500 mg PO TID PRN PRN Reason: HEARTBURN Dextrose (D50w Syringe 50 Ml*) 12.5 gm IV PUSH .FOR FS < 60 - SS PRN PRN Reason: FS < 60 Docusate Sodium (Colace Cap*) 100 mg PO BID [facility] Last Admin: 11/07/18 08:17 Dose: 100 mg Donepezil HCl (Aricept Tab*) 10 mg PO DAILY [facility] Last Admin: 11/07/18 08:18 Dose: 10 mg Ferrous Sulfate (Ferrous Sulfate Tab*) 325 mg PO TID [facility] Last Admin: 11/07/18 12:46 Dose: 325 mg Furosemide (Lasix Tab*) 20 mg PO DAILY [facility] Last Admin: 11/07/18 08:19 Dose: 20 mg Heparin Sodium (Porcine) (Heparin Flush Picc/Ml/Cvc(*)) 1 - 3 ml FLUSH 0600, 1800 [facility]; Protocol Last Admin: 11/07/18 04:38 Dose: 3 ml Insulin Human Lispro (Humalog*) 0 units SUBCUT ACHS [facility]; Protocol Last Admin: 11/07/18 12:46 Dose: 1 units Lisinopril (Prinivil Tab*) 2.5 mg PO DAILY [facility] Last Admin: 11/07/18 08:14 Dose: 2.5 mg Metoprolol Tartrate (Lopressor Tab*) 12.5 mg PO Q12HR [facility] Last Admin: 11/07/18 08:17 Dose: 12.5 mg Nicotine (Nicotine Patch 7 Mg/24 Hr*) 1 patch TRANSDERM DAILY [facility] Last Admin: 11/07/18 08:11 Dose: 1 patch Nicotine Polacrilex (Nicotine Gum*) 2 mg PO Q2H PRN PRN Reason: CRAVING Last Admin: 11/07/18 08:26 Dose: 2 mg Olanzapine (Zyprexa Tab*) 10 mg PO BID [facility] Last Admin: 11/07/18 08:20 Dose: 10 mg Pantoprazole Sodium (Protonix Tab (Nf)) 40 mg PO BID [facility] Last Admin: 11/07/18 08:18 Dose: 40 mg Pharmacy Profile Note (Nicotine Patch Removal Note*) 1 note FOLLOW UP 2100 [facility] Last Admin: 11/06/18 20:34 Dose: 1 note Potassium Chloride (Klor Con Er Tab*) 20 meq PO BID [facility] Last Admin: 11/07/18 08:14 Dose: 20 meq Prednisone (Deltasone Tab*) 20 mg PO DAILY [facility] Sertraline HCl (Zoloft*) 100 mg PO DAILY [facility] Last Admin: 11/07/18 08:15 Dose: 100 mg Tiotropium [place] (Spiriva Cap.Inh*) 1 cap INH DAILY [facility] Last Admin: 11/07/18 08:12 Dose: 1 cap Vital Signs - 8 hr 11/07/18 11/07/18 08:00 08:29 Temperature 98.4 F Pulse Rate 87 Respiratory 18 18 Rate Blood Pressure 132/90 (mmHg) O2 Sat by Pulse 89 Oximetry Oxygen Devices in Use Now: Nasal Cannula, BiPAP Eyes: No Scleral Icterus Neck: NL Appearance and Movements; NL JVP, Trachea Midline Respiratory: Symmetrical Chest Expansion and Respiratory Effort, Clear to Auscultation, - - Dec bl air entry Cardiovascular: NL Sounds; No Murmurs; No JVD, RRR Abdominal: NL Sounds; No Tenderness; No Distention Extremities: - - Edema present Neurological: Alert and Oriented x 3 Result Diagrams: 11/07/18 04:35 11/07/18 04:35 Microbiology and Other Data: Microbiology 10/23/18 09:32 Aerobic Blood Culture - Final Blood Venous No Growth Day 5 Anaerobic Blood Culture - Final No Growth Day 5 10/23/18 09:20 Aerobic Blood Culture - Final Blood Venous No Growth Day 5 Anaerobic Blood Culture - Final No Growth Day 5 10/16/18 15:45 Aerobic Blood Culture - Final Blood Line No Growth Day 5 Anaerobic Blood Culture - Final No Growth Day 5 10/16/18 00:20 Aerobic Blood Culture - Final Blood Venous Staphylococcus Epidermidis Anaerobic Blood Culture - Final Staphylococcus Epidermidis Staphylococcus Hominis Blood MRSA/MSSA (PCR) - Final Mrsa Negative S.aureus Negative 10/15/18 23:30 Aerobic Blood Culture - Final Blood Venous Staphylococcus Hominis#2 Staphylococcus Hominis Anaerobic Blood Culture - Final Staphylococcus Warneri Blood MRSA/MSSA (PCR) - Final Mrsa Negative S.aureus Negative 10/16/18 09:02 Gram Stain - Final Sputum Sputum Culture - Final YEAST Normal Ruby 10/16/18 13:23 Urine Culture - Final Urine No Growth (<1,000 CFU/mL) 10/15/18 23:30 Nasal Screen MRSA (PCR) - Final Nasal Mrsa Not Detected Diagnostic Imagin/15 CXR: bilateral insterstitial markings R more dense and >L EKG Data: Last EKG 10/25 [facility], Tele 11/03: Sinus tachycardia in 90's Assess/Plan/Problems-Billing Assessment: 63 yo M with PMH cognitive impairment/dementia and schizophrenia (controlled), COPD Gold Stage 4 with resultant pulm HTN (RVSP 69), HFpEF (EF 55-60% 10/05, largely R sided dz), who presented from [facility] with acute on chronic hypercarbic resp failure 2/2 PNA and COPD exacerbation. Hospital summary as per HPI. Xfer out of the ICU on 11/03. - Patient Problems (1) Hypercapnic respiratory failure Current Visit: Yes Status: Acute Code(s): J96.92 - RESPIRATORY FAILURE, UNSPECIFIED WITH HYPERCAPNIA SNOMED Code(s): 161542808 Comment: Admitted acute on chornic 2/2 to PNA and COPD exacerbation, possible CHF exacerbation - Chronic resp failure, remains on BiPAP QHS and for naps - patient continues to require 7-8 liters of O@ to maintain o2 greater than 88% - will continue to monitor - Taper steroids.Reduced to 20 mg - cxr showed improvement - Would like to see success with QHS BiPAP and naps on the floor before consider xfer to [facility] for swing status. (2) HAMILTON (obstructive sleep apnea) Current Visit: Yes Status: Acute Code(s): G47.33 - OBSTRUCTIVE SLEEP APNEA ( ADULT) (PEDIATRIC) SNOMED Code(s): 60174062 Comment: bipap at night and naps (3) COPD exacerbation Current Visit: No Status: Acute Code(s): J44.1 - CHRONIC OBSTRUCTIVE PULMONARY DISEASE W (ACUTE) EXACERBATION SNOMED Code(s): 404171229 Comment: - Director Of Infection Control suspected viral pneumonia on admission, hospital course c/b infiltrate and ? VAP - Completed 7 days Vanco/Cefipime on 11/01 - Continue steroids ( tapering) and bronchodilators. - titrate o2 as able to keep o2 sts between 88-92 % (4) Schizophrenia Current Visit: Yes Status: Acute Code(s): F20.9 - SCHIZOPHRENIA, UNSPECIFIED SNOMED Code(s): 51658340 Comment: With baseline dementia and cognitive impairment as well - Home Olanzapine, home sertraline Status and Disposition: Inpatient, has swing bed at [facility], can discharge when medically stable
[2018-11-07] MEDS: Nicotine Patch Removal NOTE FOLLOW UP SCH (20:53)
[2018-11-08 04:36] LABS: ABS Basophils 0.1 10^3/ul (0-0.2); ABS Eosinophils 0.1 10^3/ul (0-0.6); ABS Lymphocytes 2.5 10^3/ul (1.0-4.8); ABS Monocytes 1.1 10^3/ul (0-0.8); ABS Neutrophils 10.9 10^3/ul (1.5-7.7); ABS Nucleated RBC 0 10^3/ul; Hematocrit 25 % (42-52); Hemoglobin 8.1 g/dl (14.0-18.0); Lymphocyte % 16.8 %; Mean Corpuscular HGB Conc 32 g/dl (31-36); Mean Corpuscular Hemoglobin 28 pg (27-31); Mean Corpuscular Volume 87 fL (80-94); Mean Platelet Volume 8.6 fL (7.4-10.4); Nucleated Red Blood Cells % 0; Platelet Count 212 10^3/ul (150-450); Red Blood Count 2.93 10^6/ul (4.00-5.40); Red Cell Distribution Width 16 % (10.5-15); White Blood Count 14.7 10^3/ul (3.5-10.8)
[2018-11-08 04:53] LABS: Calcium 8.6 mg/dL (8.6-10.3); EGFR African American 72.8 (>60); EGFR Non-African American 60.2 (>60); Potassium 3.6 mmol/L (3.5-5.0)
[2018-11-08] MEDS: Nicotine GUM* 2 MG PO PRN ×3 (05:14→12:51)
[2018-11-08] MEDS: Tiotropium CAP.INH* CAP.INH/18 MCG (USE ORDER SET !) INH SCH (08:37)
--- NOTE | 2018-11-08 08:42 | PN ---
Subjective Date of Service: 11/08/18 Interval History: HD# 25 on 11/08/18 63 yo M with PMH HTN, HLD, schizophrenia, GOLD 4 COPD on home O2 who presented on 10/16 to [facility] with acute on chronic hypercapnic resp failure requiring intubuation. xfe to floor 10/22, then back to ICU for BiPAP, xfr back to floor on 11/03, stable since then Overnight no acute events, VSS This morning: Doing well, down to 5L, approaching baseline of home 4L, feels really well, working with PT Brief Summary of Hospitlization as noted by intensitivist: 10/17: Sedation vacation, remains unresponsive 10/18: Improving mental status. Passed SBT and extubated 10/19: On BiPAP, increasing hypernatremia 10/20: Weaned to NC 10/22: Transferred to floor 10/23: Did not wear BiPAP overnight with subsequent decompensation. Transferred back to ICU. New infiltrate on CXR 10/25: Overnight developed hemoptysis. Switched from BiPAP to Highflow/ vapotherm. INR normal. ASA and Heparin SQ held. Family updated at beside 10/26: Required BiPAP again overnight for low sats. No further hemoptysis. AM CXR with worsened pulmonary edema likely due to being off BiPAP the prior day. Lasix increased 10/27: Tolerating vapotherm throughout the day and BiPAP at night. Diuresing well 10/29: Fluid restriction (2L) initiated 10/31: Vapotherm weaned to 70% and 30 LPM during day. 11/03: xfer out of ICU Family History: Unchanged from Admission Social History: Unchanged from Admission Past Medical History: Unchanged from Admission Objective Active Medications: Acetaminophen (Tylenol Tab*) 650 mg PO Q6H PRN PRN Reason: PAIN Last Admin: 11/01/18 22:38 Dose: 650 mg Albuterol/Ipratropium (Duoneb (Albuterol 2.5 Mg/Ipratropium 0.5 Mg)) 1 neb INH Q6H PRN PRN Reason: SOB/WHEEZING Last Admin: 11/06/18 16:57 Dose: 1 neb Atorvastatin Calcium (Lipitor*) 20 mg PO DAILY [facility] Last Admin: 11/07/18 08:19 Dose: 20 mg Calcium Carbonate (Tums*) 500 mg PO BID [facility] Last Admin: 11/07/18 20:49 Dose: 500 mg Calcium Carbonate (Tums*) 500 mg PO TID PRN PRN Reason: HEARTBURN Dextrose (D50w Syringe 50 Ml*) 12.5 gm IV PUSH .FOR FS < 60 - SS PRN PRN Reason: FS < 60 Docusate Sodium (Colace Cap*) 100 mg PO BID [facility] Last Admin: 11/07/18 20:49 Dose: 100 mg Donepezil HCl (Aricept Tab*) 10 mg PO DAILY [facility] Last Admin: 11/07/18 08:18 Dose: 10 mg Ferrous Sulfate (Ferrous Sulfate Tab*) 325 mg PO TID [facility] Last Admin: 11/07/18 20:49 Dose: 325 mg Furosemide (Lasix Tab*) 20 mg PO DAILY [facility] Last Admin: 11/07/18 08:19 Dose: 20 mg Heparin Sodium (Porcine) (Heparin Flush Picc/Ml/Cvc(*)) 1 - 3 ml FLUSH 0600, 1800 [facility]; Protocol Last Admin: 11/08/18 05:14 Dose: 3 ml Insulin Human Lispro (Humalog*) 0 units SUBCUT ACHS [facility]; Protocol Last Admin: 11/07/18 20:42 Dose: Not Given Lisinopril (Prinivil Tab*) 2.5 mg PO DAILY [facility] Last Admin: 11/07/18 08:14 Dose: 2.5 mg Metoprolol Tartrate (Lopressor Tab*) 12.5 mg PO Q12HR [facility] Last Admin: 11/07/18 20:50 Dose: 12.5 mg Nicotine (Nicotine Patch 7 Mg/24 Hr*) 1 patch TRANSDERM DAILY [facility] Last Admin: 11/07/18 08:11 Dose: 1 patch Nicotine Polacrilex (Nicotine Gum*) 2 mg PO Q2H PRN PRN Reason: CRAVING Last Admin: 11/08/18 05:14 Dose: 2 mg Olanzapine (Zyprexa Tab*) 10 mg PO BID [facility] Last Admin: 11/07/18 20:49 Dose: 10 mg Pantoprazole Sodium (Protonix Tab (Nf)) 40 mg PO BID [facility] Last Admin: 11/07/18 20:50 Dose: 40 mg Pharmacy Profile Note (Nicotine Patch Removal Note*) 1 note FOLLOW UP 2100 [facility] Last Admin: 01/20/19 20:53 Dose: 1 note Potassium Chloride (Klor Con Er Tab*) 20 meq PO BID [facility] Last Admin: 11/07/18 20:50 Dose: 20 meq Prednisone (Deltasone Tab*) 20 mg PO DAILY [facility] Sertraline HCl (Zoloft*) 100 mg PO DAILY [facility] Last Admin: 11/07/18 08:15 Dose: 100 mg Tiotropium [place] (Spiriva Cap.Inh*) 1 cap INH DAILY [facility] Last Admin: 11/08/18 08:37 Dose: 1 cap Vital Signs - 8 hr 11/08/18 11/08/18 11/08/18 03:32 04:53 08:00 Temperature 97.6 F Pulse Rate 73 74 84 Respiratory 18 20 18 Rate Blood Pressure 128/63 (mmHg) O2 Sat by Pulse 100 100 92 Oximetry Oxygen Devices in Use Now: Nasal Cannula, High Flow Nasal Cannula Appearance: Well man in NAD Eyes: No Scleral Icterus Ears/Nose/Mouth/Throat: NL Teeth, Lips, Gums Neck: NL Appearance and Movements; NL JVP Respiratory: Symmetrical Chest Expansion and Respiratory Effort Cardiovascular: NL Sounds; No Murmurs; No JVD Abdominal: NL Sounds; No Tenderness; No Distention, No Hepatosplenomegaly Lymphatic: No Cervical Adenopathy Extremities: No Edema Skin: No Rash or Ulcers Neurological: Alert and Oriented x 3 Result Diagrams: 11/08/18 04:21 11/08/18 04:21 Microbiology and Other Data: Microbiology 10/23/18 09:32 Aerobic Blood Culture - Final Blood Venous No Growth Day 5 Anaerobic Blood Culture - Final No Growth Day 5 10/23/18 09:20 Aerobic Blood Culture - Final Blood Venous No Growth Day 5 Anaerobic Blood Culture - Final No Growth Day 5 10/16/18 15:45 Aerobic Blood Culture - Final Blood Line No Growth Day 5 Anaerobic Blood Culture - Final No Growth Day 5 10/16/18 00:20 Aerobic Blood Culture - Final Blood Venous Staphylococcus Epidermidis Anaerobic Blood Culture - Final Staphylococcus Epidermidis Staphylococcus Hominis Blood MRSA/MSSA (PCR) - Final Mrsa Negative S.aureus Negative 10/15/18 23:30 Aerobic Blood Culture - Final Blood Venous Staphylococcus Hominis#2 Staphylococcus Hominis Anaerobic Blood Culture - Final Staphylococcus Warneri Blood MRSA/MSSA (PCR) - Final Mrsa Negative S.aureus Negative 10/16/18 09:02 Gram Stain - Final Sputum Sputum Culture - Final YEAST Normal Ruby 10/16/18 13:23 Urine Culture - Final Urine No Growth (<1,000 CFU/mL) 10/15/18 23:30 Nasal Screen MRSA (PCR) - Final Nasal Mrsa Not Detected Diagnostic Imagin/15 CXR: bilateral insterstitial markings R more dense and >L EKG Data: Last EKG 10/25 Pbeminmakenzie, Tele 11/03: Sinus tachycardia in 90's Assess/Plan/Problems-Billing Assessment: 63 yo M with PMH cognitive impairment/dementia and schizophrenia (controlled), COPD Gold Stage 4 with resultant pulm HTN (RVSP 69), HFpEF (EF 55-60% 10/05, largely R sided dz), who presented from [facility] with acute on chronic hypercarbic resp failure 2/2 PNA and COPD exacerbation. Hospital summary as per HPI. Xfer out of the ICU on 11/03. - Patient Problems (1) Hypercapnic respiratory failure Current Visit: Yes Status: Acute Code(s): J96.92 - RESPIRATORY FAILURE, UNSPECIFIED WITH HYPERCAPNIA SNOMED Code(s): 066406926 Comment: Admitted acute on chornic 2/2 to PNA and COPD exacerbation, possible CHF exacerbation - Chronic resp failure, remains on BiPAP QHS and for naps - patient now stable at 5 liters of O2 to maintain o2 greater than 88%, appraoching home levels of 4L - Taper steroids.Reduced to 20 mg - cxr showed improvement - Stabel for xfer to [facility] (2) COPD exacerbation Current Visit: No Status: Acute Code(s): J44.1 - CHRONIC OBSTRUCTIVE PULMONARY DISEASE W (ACUTE) EXACERBATION SNOMED Code(s): 848439334 Comment: - [employer] Teacher suspected viral pneumonia on admission, hospital course c/b infiltrate and ? VAP - Completed 7 days Vanco/Cefipime on 11/01 - Continue steroids ( tapering) and bronchodilators. - titrate o2 as able to keep o2 sts between 88-92 % (3) HAMILTON and COPD overlap syndrome Current Visit: Yes Status: Acute Code(s): G47.33 - OBSTRUCTIVE SLEEP APNEA ( ADULT) (PEDIATRIC); J44.9 - CHRONIC OBSTRUCTIVE PULMONARY DISEASE, UNSPECIFIED SNOMED Code(s): 09960399 Comment: - Continue BiPAP QHS and for naps, chronic retainer - Continue duonebs and tiotroprium (4) Diastolic heart failure Current Visit: Yes Status: Acute Code(s): I50.30 - UNSPECIFIED DIASTOLIC ( CONGESTIVE) HEART FAILURE SNOMED Code(s): 273622058 Comment: Echo 10/16/18 LVEF 55-60% with poorly seen diastolic fxn, e/o PAH with RVSP 69 (!) - Not on home fluid mgmt - Was on aggressive diuresis in ICU to assist in weaning, changed to PO 60 BID on 11/02, will hold today 10/24, resume at 20mg q AM 11/04, consider every other day if remains hypotensive without volume overload - On low dose BB, on statin - Lisinopril is a home med (?40mg), lowered ot 2.5 mg given persistent hypotension (5) Hypotension Current Visit: Yes Status: Acute Comment: Appears he runs baseline low, possibly related to his PAH (Type 3) - Sensitve to volume - Lower Lisinopril 10mg to 2.5mg - His BNP has trended down and last reading 11/01 was 59, Cr rising, holding Lasix today 11/03 he is not on home Lasix and will change to PO Lasix daily at 20mg (from 60 BID) given PAH is quite volume sensitive and do not want to over diurese. Euvolemic on my exam today - continue Metop 12.5 BID for presumed HFpEF - Tolerate MAP > 60 as no e/o end organ damage or mental status changes at MAP 60-65 (6) Schizophrenia Current Visit: Yes Status: Acute Code(s): F20.9 - SCHIZOPHRENIA, UNSPECIFIED SNOMED Code(s): 42112790 Comment: With baseline dementia and cognitive impairment as well - Home Olanzapine, home sertraline (7) DVT prophylaxis Current Visit: Yes Status: Acute Code(s): OJE2156 - SNOMED Code(s): 871286234 Comment: Lovenox, on PPI for ulcer PPX Status and Disposition: Stable to xfer to [facility]
[2018-11-08] MEDS: Insulin LISPRO* 1 UNITS UNIT SUBCUT SCH ×4 (08:47→20:20)
[2018-11-08] MEDS: Sertraline* 100 MG TAB PO SCH (08:54)
[2018-11-08] MEDS: Nicotine PATCH 7 MG/24 HR* PATCH TRANSDERM SCH (08:54)
[2018-11-08] MEDS: Potassium Chlor TAB* 20 MEQ TAB.ER PO SCH ×2 (08:54→20:29)
[2018-11-08] MEDS: Docusate CAP* 100 MG PO SCH ×2 (08:54→20:29)
[2018-11-08] MEDS: Ferrous Sulfate TAB* 325 MG PO SCH ×3 (08:54→20:28)
[2018-11-08] MEDS: predniSONE TAB* 20 MG PO SCH (08:55)
[2018-11-08] MEDS: Pantoprazole TAB * 40 MG TAB PO SCH ×2 (08:55→20:28)
[2018-11-08] MEDS: Donepezil TAB* 5 MG PO SCH (08:55)
[2018-11-08] MEDS: OLANzapine TAB* 10 MG PO SCH ×2 (08:56→20:29)
[2018-11-08] MEDS: Furosemide TAB* 20 MG PO SCH (08:56)
[2018-11-08] MEDS: Metoprolol Tartrate TAB* 25 MG PO SCH ×2 (08:56→20:28)
[2018-11-08] MEDS: Calcium Carbonate CHEW TAB* 500 MG (TUMS) PO SCH ×2 (08:57→20:29)
[2018-11-08] MEDS: Lisinopril TAB* 5 MG PO SCH (08:57)
[2018-11-08] MEDS: Atorvastatin* 20 MG TAB PO SCH (08:57)
--- NOTE | 2018-11-08 14:40 | DS ---
DATE OF ADMISSION: 10/15/2018. DATE OF DISCHARGE: 11/08/2018. PRIMARY DIAGNOSES: Hypercarbic respiratory failure, COPD exacerbation, pneumonia, CHF exacerbation. SECONDARY DIAGNOSES: COPD, obstructive sleep apnea on BiPAP, diastolic heart failure, hypotension, schizophrenia. MEDICATIONS ON DISCHARGE: 1. Acetaminophen 650 mg p.o. q.8 hours prn for pain. 2. Albuterol Ipratropium one puff inhaled q.i.d. 3. Ascorbic acid 250 mg p.o. daily. 4. Atorvastatin 20 mg p.o. daily. 5. Calcium Carbonate 1250 mg tab p.o. daily. 6. Cholecalciferol tab 1,000 units p.o. daily. 7. Donepezil 10 mg p.o. at bedtime. 8. Ferrous Sulfate 325 mg one tab p.o. daily. 9. Furosemide 20 mg p.o. every other day starting 11/09/2018. 10. Guaifenesin 5 ml p.o. q.4 hours for cough prn. 11. Ipratropium Albuterol nebulizer one nebulizer inhaled q.4 hours prn for shortness of breath. 12. Lisinopril 2.5 mg p.o. daily. 13. Loratadine 10 mg p.o. daily. 14. Metoprolol Tartrate 12.5 mg p.o. b.i.d. 15. Nicotine gum 2 mg p.o. q.2 hours prn for cravings. 16. Nicotine patch 7 mg apply one patch transdermally daily and remove at bedtime. 17. Olanzapine 10 mg p.o. b.i.d. 18. Potassium Chloride 20 mEq p.o. b.i.d. 19. Prednisone 20 mg p.o. daily for 4 days from discharge starting 11/09/2018, then followed by 10 mg p.o. daily times 3 days after the 20 mg is completed. 20. Senna tab 68 mg one tab p.o. at bedtime. 21. Sertraline 100 mg p.o. daily. Med changes at discharge of note: 1) Starting Furosemide 20 mg p.o. every other day 2) discontinuing Alprazolam 0.25 mg at bedtime 3) lowering Lisinopril to 2.5 mg from 5 mg daily, 4) starting Atorvastatin 20 mg p.o. daily, stopping Simvastatin former dose 5) starting Metoprolol 12.5 mg p.o. b.i.d. HISTORY OF PRESENT ILLNESS: The patient is a 63-year-old male with the above past medical history, of note is on up to 4 liters nasal cannula at home oxygen , who was brought in initially to [facility] secondary to unresponsiveness and the patient was acutely hypercarbic, and was transferred to [facility] after being intubated in [facility] and transferred for acute hypercarbic respiratory failure and management with ventilatory support in our ICU. Over the course of the hospitalization, the patient was extubated on 10/18/2018 with improving mental status. He was transferred by BiPAP at bedtime on October 19 and was initially transferred to the floor on 2018. He refused BiPAP two nights in a row and then did subsequently decompensate and transferred back to the ICU. He was also found to have a new infiltrate on chest x-ray at that time. He again required BiPAP continuously and was started on antibiotics, and then was ultimately transferred out of the ICU on 11/03/2018. Once transferred out of the ICU, his hospital course by problem is as follows. HOSPITAL COURSE BY PROBLEM: 1. Hypercarbic respiratory failure: This was thought to be secondary to pneumonia, CHF exacerbation, and COPD exacerbation. He is in chronic respiratory failure requiring up to 4 liters of home O2 and remains on home BiPAP at bedtime and for naps. Upon transfer to the nursing facility, recommend continuing supportive oxygen to titrate greater than 88 percent as well as BiPAP at bedtime and for naps. He was started on steroids and remains on a taper, currently at 20 mg and to be tapered as per schedule, 20 mg for four days, then 10 mg for three days on discharge. He was treated for presumed ventilator acquired pneumonia for a full seven days while in the ICU and chest x -ray showed improvement. 2. COPD exacerbation: As per above, did complete seven days of Vanco and Cefepime. His steroids continue to be tapered. Continue bronchodilators and nebulizers as home medications and as needed while at custodial facility, titrate oxygen to keep oxygen sats between 88 and 92 percent. 3. HAMILTON: He came from home on BiPAP and will continue to wear BiPAP at bedtime and for naps. He is a chronic retainer. Will also continue doing nebs and Tiotropium. 4. He has diastolic heart failure: He had an echocardiogram done on 2017 which showed a left ventricular ejection fraction of 55 to 60 percent with a poorly seen diastolic function and evidence of pulmonary artery hypertension with an RVSP of 69. Prior to this hospitalization, he was not on home fluid management. He required aggressive diuresis in the ICU to assist with weaning from ventilator and BiPAP, and currently he is now on Lasix 20 mg p.o. every other day to help with volume. Furthermore, he was started on a low dose beta yaquelin, Metoprolol 12.5 b.i.d., and optimized on a high dose statin, Atorvastatin from Simvastatin. Lisinopril, which was a home med at 40 mg, was lowered to 2.5 mg given persistent hypotension. 5. Hypotension: His hospital course had intermittent hypotension. While in the ICU, did require pressor support while on the ventilator secondary to the sedation. Appears he runs baseline low and possibly all related to his pulmonary artery hypertension which is type 3. Lisinopril has been lowered to 2.5 mg. His BNP did trend down quite a bit over the course of his hospitalization and was normal at the time of discharge. His Metoprolol was at low dose 12.5 mg b.i.d. for presumed heart failure, preserve ejection fraction. We tolerate a map of greater than 60. He has no evidence of end organ damage or mental status changes at map of 60 to 65. 6. Schizophrenia: He has baseline dementia and cognitive impairment per his family and he is at baseline on his home Olanzapine and home Sertraline. Of note, we did discontinue his home Alprazolam and he has not required any as needed Alprazolam while her in the hospital for 25 days. PHYSICAL EXAMINATION: Vitals on day of discharge are stable with blood pressure 128/63, temperature 97.6, pulse rate 73, respiratory rate 18, satting 100 percent on 5 liters. Physical exam is notable for a well man in no acute distress, eating breakfast with nasal cannula. His lung sounds are distant, but with no active crackles or wheezes. He has a regular rate and rhythm with no murmurs, rubs or gallops. He has no edema. His belly is soft, nontender, nondistended. He is alert and oriented times three and pleasant. LABORATORY DATA/DIAGNOSTIC STUDIES: His labs at the time of discharge are notable for a leukocytosis to 14.7 secondary to steroid, anemia of 8.1 and 25, H and H of 8.1/25, platelets of 212, this his is baseline. His BMP is notable for sodium of 141, potassium 3.6, chloride 103, bicarb 34, BUN 22, creatinine 1.2 which has been stable over the course of his hospitalization. His imaging in total over the course of his hospitalization was noted for the echocardiogram which was done on 10/16/2018. He had a head CTA on 10/16/2018 which was unremarkable for any stenosis of any vessels in the head. He also had a chest CT done on 10/16/2018 which was notable for advanced chronic obstructive pulmonary disease with a similar appear from 2016. He also had dependent bibasilar atelectasis. Last chest x-ray was performed on 11/05/2018. He had numerous chest x-rays and it showed overall improvement in a degree of variation with some persistent patchy densities in the right worst than the left. His clinic exam has improved notably in regards to his lung exam. TIME SPENT: Greater than 60 minutes on this discharge with over half of that at the bedside counseling the patient and the family. He has no primary care provider in our system to cc. We will send a copy of the discharge summary to his custodial facility so it can be distributed to primary care of his choice. His family, nor he have any further questions. He appears at his baseline pulmonary functioning status and will need continuing Prednisone taper. ITEMS TO ADDRESS ON DISCHARGE: 1. His COPD exacerbation: Taper Prednisone as provider sees janette, initially written for 20 mg for four days and 10 mg for three days. 2. Volume management for CHF: He is newly started on Furosemide on this hospitalization. Continue to monitor for overdiuresis and may dose diuretics as per PCP and facility provider. 3. HAMILTON: Encourage BiPAP nightly and for extended naps. The patient has active mental status and certainly can ask for this. [id number]/[facility] #: [id number] [facility]
[2018-11-08] MEDS: Nicotine Patch Removal NOTE FOLLOW UP SCH (20:31)
[2018-11-09 07:46] VITALS: BP 145/90
[2018-11-09] MEDS: Insulin LISPRO* 1 UNITS UNIT SUBCUT SCH (07:49)
[2018-11-09] MEDS: Ferrous Sulfate TAB* 325 MG PO SCH (07:55)
[2018-11-09] MEDS: Sertraline* 100 MG TAB PO SCH (07:55)
[2018-11-09] MEDS: Donepezil TAB* 5 MG PO SCH (07:55)
[2018-11-09] MEDS: Docusate CAP* 100 MG PO SCH (07:56)
[2018-11-09] MEDS: Potassium Chlor TAB* 20 MEQ TAB.ER PO SCH (07:56)
[2018-11-09] MEDS: Metoprolol Tartrate TAB* 25 MG PO SCH (07:56)
[2018-11-09] MEDS: OLANzapine TAB* 10 MG PO SCH (07:57)
[2018-11-09] MEDS: Pantoprazole TAB * 40 MG TAB PO SCH (07:57)
[2018-11-09] MEDS: Furosemide TAB* 20 MG PO SCH (07:57)
[2018-11-09] MEDS: Lisinopril TAB* 5 MG PO SCH (07:57)
[2018-11-09] MEDS: Nicotine GUM* 2 MG PO PRN (07:58)
[2018-11-09] MEDS: Calcium Carbonate CHEW TAB* 500 MG (TUMS) PO SCH (07:58)
[2018-11-09] MEDS: Atorvastatin* 20 MG TAB PO SCH (07:58)
[2018-11-09] MEDS: predniSONE TAB* 20 MG PO SCH (07:58)
[2018-11-09] MEDS: Nicotine PATCH 7 MG/24 HR* PATCH TRANSDERM SCH (07:59)
[2018-11-09] MEDS: Tiotropium CAP.INH* CAP.INH/18 MCG (USE ORDER SET !) INH SCH (08:08)
[2018-11-09] MEDS ORDERED: predniSONE TAB* 10 MG PO SCH (09:00)
== END 2018-11-09 09:38 | DRG 207 ==
LOC: ICU 20:45 → MED 10-22 10:13 → ICU 10-23 06:14 → MEDTELE 11-02 19:28
PROVIDERS: ADMIT Internal Medicine; ATTEND Internal Medicine
PROC: 5A1955Z Respiratory Ventilation, Greater than 96 Consecutive Hours (ICD-10-PCS; 2018-10-15)
PROC: 3E033XZ Introduction of Vasopressor into Peripheral Vein, Percutaneous Approach (ICD-10-PCS; 2018-10-16)
PROC: 05HM33Z Insertion of Infusion Device into Right Internal Jugular Vein, Percutaneous Approach (ICD-10-PCS; 2018-10-16)
PROC: 02HV33Z Insertion of Infusion Device into Superior Vena Cava, Percutaneous Approach (ICD-10-PCS; principal; 2018-10-26)
PROC: 5A09457 Assistance with Respiratory Ventilation, 24-96 Consecutive Hours, Continuous Positive Airway Pressure (ICD-10-PCS; 2018-10-26)
DX: J96.22 Acute and chronic respiratory failure with hypercapnia (principal); J69.0 Pneumonitis due to inhalation of food and vomit; I50.33 Acute on chronic diastolic (congestive) heart failure; N17.9 Acute kidney failure, unspecified; R04.2 Hemoptysis; E87.0 Hyperosmolality and hypernatremia; J43.9 Emphysema, unspecified; J96.21 Acute and chronic respiratory failure with hypoxia; G47.33 Obstructive sleep apnea (adult) (pediatric); F20.9 Schizophrenia, unspecified; Z91.19 Patient's noncompliance with other medical treatment and regimen; I95.9 Hypotension, unspecified; R53.1 Weakness; I11.0 Hypertensive heart disease with heart failure; E78.5 Hyperlipidemia, unspecified; F03.90 Unspecified dementia, unspecified severity, without behavioral disturbance, psychotic disturbance, mood disturbance, and anxiety; Z87.891 Personal history of nicotine dependence; I27.20 Pulmonary hypertension, unspecified; D64.9 Anemia, unspecified; R73.9 Hyperglycemia, unspecified; F22 Delusional disorders; E87.6 Hypokalemia; E83.42 Hypomagnesemia; E83.51 Hypocalcemia; E66.9 Obesity, unspecified; Z68.39 Body mass index [BMI] 39.0-39.9, adult; R00.0 Tachycardia, unspecified
CPT/HCPCS: 36415; 36600; 70496; 70498; 71045; 71046; 71250; 80048; 80053; 80202; 81003; 81015; 82270; 82533; 82550; 82553; 82607; 82746; 82803; 83036; 83540; 83550; 83605; 83735; 83880; 84443; 84484; 85025; 85027; 85060; 85610; 85730; 87040; 87070; 87077; 87086; 87150; 87186; 87205; 87641; 93005; 93306; 93970; 94002; 94003; 94640; 94660; A9270-GY; C1751; G8978-GP-CL; G8978-GP-CM; G8979-GP-CI; G8979-GP-CK; G8987-GO-CM; G8988-GO-CJ; J0360; J0610; J0692; J1100; J1120; J1644; J1650; J1940; J2060; J2270; J2543; J2704; J2920; J3010; J3370; J3475; J3480; J3490; J7512; Q9967

== ENCOUNTER 2020-12-17 16:53 | Inpatient (IN) ==
[2020-12-17] MEDS ORDERED: Iohexol 350 (CONTRAST) 500 ML MDV IV ONE (18:11)
[2020-12-17] MEDS ORDERED: Senna TAB 8.6 mg TAB PO PRN (20:47)
[2020-12-17] MEDS ORDERED: Albuterol/Ipratropium RESP(NF) MDI (Combivent Respimat) INH SCH (21:00)
[2020-12-17] MEDS ORDERED: Albuterol HFA INHALER 8 gm MDI INH PRN (21:08)
[2020-12-18] MEDS ORDERED: Albuterol/Ipratropium NEB.SOL (2.5/0.5 MG) 3 ML NEB.SOLN INH SCH (01:00)
[2020-12-18] MEDS: Potassium Chlor 20 meq TAB.ER PO SCH ×3 (01:01→20:36)
[2020-12-18] MEDS: Enoxaparin 40 MG/0.4 ML SYR SUBCUT SCH ×2 (01:02→20:35)
[2020-12-18] MEDS: methylPREDNISolone SOD 40 mg/ml 1 ml VIAL IV SCH ×2 (01:03→11:59)
[2020-12-18] MEDS: Albuterol/Ipratropium NEB.SOL (2.5/0.5 MG) 3 ML NEB.SOLN INH SCH ×3 (07:33→20:17)
[2020-12-18] MEDS: Mometasone/Formoter 100/5 MDI INH SCH ×2 (07:37→20:15)
[2020-12-18] MEDS: AZITHROMYCIN 500 MG TAB PO SCH (08:49)
[2020-12-18] MEDS: cefTRIAXone 1 gm/50 mL NS BAG 1 GM/50 ML BAG IVPB SCH (08:49)
[2020-12-18] MEDS: Nicotine PATCH 7 MG/24 HR PATCH TRANSDERM SCH (08:54)
[2020-12-18] MEDS ORDERED: Perflutren Lipid Microsphere 3 ML VIAL ONE (13:22)
[2020-12-18] MEDS: Nicotine GUM 2MG FRUIT FLAVOR PO PRN ×2 (14:45→21:40)
[2020-12-19] MEDS: methylPREDNISolone SOD 40 mg/ml 1 ml VIAL IV SCH (00:08)
[2020-12-19] MEDS: Albuterol/Ipratropium NEB.SOL (2.5/0.5 MG) 3 ML NEB.SOLN INH SCH ×4 (01:58→19:30)
[2020-12-19 07:07] LABS: ABS Basophils 0.1 10^3/ul (0-0.2); ABS Lymphocytes 0.7 10^3/ul (1.0-4.8); ABS Monocytes 0.4 10^3/ul (0-0.8); ABS Neutrophils 14.8 10^3/ul (1.5-7.7); Hematocrit 39 % (42-52); Hemoglobin 12.2 g/dL (14.0-18.0); Lymphocyte % 4.4 %; Mean Corpuscular HGB Conc 31 g/dL (31-36); Mean Corpuscular Hemoglobin 28 pg (27-31); Mean Corpuscular Volume 90 fL (80-94); Mean Platelet Volume 8.5 fL (7.4-10.4); Platelet Count 266 10^3/uL (150-450); Red Blood Count 4.33 10^6 /uL (4.18-5.48); Red Cell Distribution Width 15 % (10-15)
[2020-12-19] MEDS: Mometasone/Formoter 100/5 MDI INH SCH ×2 (07:09→19:30)
[2020-12-19] MEDS: Nicotine GUM 2MG FRUIT FLAVOR PO PRN ×4 (07:20→20:21)
[2020-12-19 07:27] LABS: BUN/Creatinine Ratio 27.7 (8-20); Calcium 9.2 mg/dL (8.6-10.3); EGFR African American 97.8 (>60); EGFR Non-African American 80.8 (>60); Potassium 4.5 mmol/L (3.5-5.0)
[2020-12-19] MEDS: Nicotine PATCH 7 MG/24 HR PATCH TRANSDERM SCH (08:13)
[2020-12-19] MEDS: Potassium Chlor 20 meq TAB.ER PO SCH ×2 (08:15→20:20)
[2020-12-19] MEDS: AZITHROMYCIN 500 MG TAB PO SCH (08:15)
[2020-12-19] MEDS: cefTRIAXone 1 gm/50 mL NS BAG 1 GM/50 ML BAG IVPB SCH (08:49)
[2020-12-19] MEDS: SPIRIVA Respimat (tiotropium) 2.5 mcg/inh Inhaler INH SCH (14:34)
[2020-12-19] MEDS: Enoxaparin 40 MG/0.4 ML SYR SUBCUT SCH (20:21)
[2020-12-20] MEDS: Albuterol/Ipratropium NEB.SOL (2.5/0.5 MG) 3 ML NEB.SOLN INH SCH ×4 (01:01→19:59)
[2020-12-20 06:24] LABS: ABS Basophils 0.1 10^3/ul (0-0.2); ABS Lymphocytes 1.6 10^3/ul (1.0-4.8); ABS Monocytes 1.5 10^3/ul (0-0.8); ABS Neutrophils 10.9 10^3/ul (1.5-7.7); Eosinophil % 0.2 %; Hematocrit 37 % (42-52); Hemoglobin 12.2 g/dL (14.0-18.0); Lymphocyte % 11.6 %; Mean Corpuscular HGB Conc 33 g/dL (31-36); Mean Corpuscular Hemoglobin 29 pg (27-31); Mean Corpuscular Volume 89 fL (80-94); Mean Platelet Volume 8.3 fL (7.4-10.4); Platelet Count 271 10^3/uL (150-450); Red Blood Count 4.22 10^6 /uL (4.18-5.48); Red Cell Distribution Width 15 % (10-15); White Blood Count 14.1 10^3/uL (3.5-10.8)
[2020-12-20 06:45] LABS: BUN/Creatinine Ratio 27.8 (8-20); Calcium 9.1 mg/dL (8.6-10.3); EGFR African American 94.3 (>60); EGFR Non-African American 77.9 (>60); Potassium 4.2 mmol/L (3.5-5.0)
[2020-12-20] MEDS: Mometasone/Formoter 100/5 MDI INH SCH ×2 (08:18→19:59)
[2020-12-20] MEDS: SPIRIVA Respimat (tiotropium) 2.5 mcg/inh Inhaler INH SCH (08:19)
[2020-12-20] MEDS ORDERED: Al Hydrox/Mg Hydrox/Simet LIQ 30 ML UDC PO PRN (09:19)
[2020-12-20] MEDS: Nicotine GUM 2MG FRUIT FLAVOR PO PRN ×3 (09:49→20:41)
[2020-12-20] MEDS: cefTRIAXone 1 gm/50 mL NS BAG 1 GM/50 ML BAG IVPB SCH (09:59)
[2020-12-20] MEDS: AZITHROMYCIN 500 MG TAB PO SCH (10:11)
[2020-12-20] MEDS: Potassium Chlor 20 meq TAB.ER PO SCH ×2 (10:13→20:40)
[2020-12-20] MEDS: Nicotine PATCH 7 MG/24 HR PATCH TRANSDERM SCH (10:21)
[2020-12-20] MEDS: Enoxaparin 40 MG/0.4 ML SYR SUBCUT SCH (20:41)
[2020-12-21] MEDS: Albuterol/Ipratropium NEB.SOL (2.5/0.5 MG) 3 ML NEB.SOLN INH SCH ×6 (01:01→23:20)
[2020-12-21 05:47] LABS: Hematocrit 36 % (42-52); Hemoglobin 11.2 g/dL (14.0-18.0); Mean Corpuscular HGB Conc 31 g/dL (31-36); Mean Corpuscular Hemoglobin 28 pg (27-31); Mean Corpuscular Volume 89 fL (80-94); Mean Platelet Volume 8.3 fL (7.4-10.4); Platelet Count 247 10^3/uL (150-450); Red Blood Count 4.02 10^6 /uL (4.18-5.48); Red Cell Distribution Width 15 % (10-15); White Blood Count 12.5 10^3/uL (3.5-10.8)
[2020-12-21 05:55] LABS: ABS Eosinophils 0.1 10^3/ul (0-0.6); ABS Lymphocytes 1.6 10^3/ul (1.0-4.8); ABS Monocytes 1.6 10^3/ul (0-0.8); ABS Neutrophils 9.2 10^3/ul (1.5-7.7); Eosinophil % 0.4 %; Lymphocyte % 12.9 %
[2020-12-21] MEDS: Nicotine GUM 2MG FRUIT FLAVOR PO PRN ×4 (05:59→18:43)
[2020-12-21] MEDS: Mometasone/Formoter 100/5 MDI INH SCH ×3 (06:56→19:31)
[2020-12-21] MEDS: SPIRIVA Respimat (tiotropium) 2.5 mcg/inh Inhaler INH SCH ×2 (06:58→07:28)
[2020-12-21] MEDS: cefTRIAXone 1 gm/50 mL NS BAG 1 GM/50 ML BAG IVPB SCH (09:12)
[2020-12-21] MEDS: Potassium Chlor 20 meq TAB.ER PO SCH ×2 (09:18→21:38)
[2020-12-21] MEDS: Nicotine PATCH 7 MG/24 HR PATCH TRANSDERM SCH (09:19)
[2020-12-21] MEDS ORDERED: Bumetanide IV 0.25 MG/ML 4 ml VIAL (1 mg) SLOW PUSH ONE (12:17)
[2020-12-21] MEDS ORDERED: Furosemide 20 mg/2 ml IV VIAL IV ONE (13:20)
[2020-12-21] MEDS: Enoxaparin 40 MG/0.4 ML SYR SUBCUT SCH (21:38)
[2020-12-22] MEDS: Albuterol/Ipratropium NEB.SOL (2.5/0.5 MG) 3 ML NEB.SOLN INH SCH ×5 (03:09→19:51)
[2020-12-22] MEDS: Nicotine GUM 2MG FRUIT FLAVOR PO PRN ×3 (06:17→18:16)
[2020-12-22 06:49] LABS: ABS Basophils 0.1 10^3/ul (0-0.2); ABS Eosinophils 0.1 10^3/ul (0-0.6); ABS Lymphocytes 1.7 10^3/ul (1.0-4.8); ABS Monocytes 1.3 10^3/ul (0-0.8); ABS Neutrophils 10.1 10^3/ul (1.5-7.7); Eosinophil % 0.6 %; Hematocrit 40 % (42-52); Hemoglobin 12.2 g/dL (14.0-18.0); Lymphocyte % 12.7 %; Mean Corpuscular HGB Conc 31 g/dL (31-36); Mean Corpuscular Hemoglobin 28 pg (27-31); Mean Corpuscular Volume 90 fL (80-94); Mean Platelet Volume 8.2 fL (7.4-10.4); Platelet Count 281 10^3/uL (150-450); Red Blood Count 4.41 10^6 /uL (4.18-5.48); Red Cell Distribution Width 15 % (10-15); White Blood Count 13.3 10^3/uL (3.5-10.8)
[2020-12-22 07:04] LABS: Calcium 8.8 mg/dL (8.6-10.3); EGFR African American 83.3 (>60); EGFR Non-African American 68.8 (>60); Potassium 4.6 mmol/L (3.5-5.0)
[2020-12-22] MEDS: SPIRIVA Respimat (tiotropium) 2.5 mcg/inh Inhaler INH SCH (08:38)
[2020-12-22] MEDS: Mometasone/Formoter 100/5 MDI INH SCH ×2 (08:39→19:48)
[2020-12-22] MEDS: Nicotine PATCH 7 MG/24 HR PATCH TRANSDERM SCH (09:25)
[2020-12-22] MEDS: Potassium Chlor 20 meq TAB.ER PO SCH ×2 (09:27→20:23)
[2020-12-22] MEDS: cefTRIAXone 1 gm/50 mL NS BAG 1 GM/50 ML BAG IVPB SCH (09:34)
[2020-12-22] MEDS ORDERED: Bumetanide IV 0.25 MG/ML 4 ml VIAL (1 mg) SLOW PUSH ONE (14:55)
[2020-12-22] MEDS: Enoxaparin 40 MG/0.4 ML SYR SUBCUT SCH (20:23)
[2020-12-23] MEDS: Albuterol/Ipratropium NEB.SOL (2.5/0.5 MG) 3 ML NEB.SOLN INH SCH ×5 (00:47→20:15)
[2020-12-23] MEDS: Mometasone/Formoter 100/5 MDI INH SCH ×2 (07:06→20:15)
[2020-12-23] MEDS: SPIRIVA Respimat (tiotropium) 2.5 mcg/inh Inhaler INH SCH (07:06)
[2020-12-23] MEDS: Nicotine GUM 2MG FRUIT FLAVOR PO PRN ×2 (07:38→16:45)
[2020-12-23] MEDS: cefTRIAXone 1 gm/50 mL NS BAG 1 GM/50 ML BAG IVPB SCH (09:50)
[2020-12-23] MEDS: Nicotine PATCH 7 MG/24 HR PATCH TRANSDERM SCH (09:57)
[2020-12-23] MEDS: Potassium Chlor 20 meq TAB.ER PO SCH ×2 (09:59→20:24)
[2020-12-23] MEDS ORDERED: Bumetanide IV 0.25 MG/ML 4 ml VIAL (1 mg) SLOW PUSH ONE (10:42)
[2020-12-23] MEDS: Enoxaparin 40 MG/0.4 ML SYR SUBCUT SCH (20:27)
[2020-12-24] MEDS: Albuterol/Ipratropium NEB.SOL (2.5/0.5 MG) 3 ML NEB.SOLN INH SCH ×4 (01:19→19:47)
[2020-12-24 06:07] LABS: Hematocrit 39 % (42-52); Mean Corpuscular HGB Conc 31 g/dL (31-36); Mean Corpuscular Hemoglobin 28 pg (27-31); Mean Corpuscular Volume 90 fL (80-94); Mean Platelet Volume 8.4 fL (7.4-10.4); Platelet Count 279 10^3/uL (150-450); Red Cell Distribution Width 15 % (10-15); White Blood Count 15.4 10^3/uL (3.5-10.8)
[2020-12-24 06:26] LABS: BUN/Creatinine Ratio 29.2 (8-20); Calcium 8.6 mg/dL (8.6-10.3); EGFR African American 85.1 (>60); EGFR Non-African American 70.3 (>60); Potassium 4.3 mmol/L (3.5-5.0)
[2020-12-24] MEDS: Nicotine GUM 2MG FRUIT FLAVOR PO PRN ×2 (07:37→11:38)
[2020-12-24 08:15] LABS: C Reactive Protein 3.94 mg/L (<8.01)
[2020-12-24] MEDS: Mometasone/Formoter 100/5 MDI INH SCH ×2 (08:19→19:47)
[2020-12-24] MEDS: SPIRIVA Respimat (tiotropium) 2.5 mcg/inh Inhaler INH SCH (08:19)
[2020-12-24] MEDS: Potassium Chlor 20 meq TAB.ER PO SCH ×2 (08:39→20:14)
[2020-12-24] MEDS: Nicotine PATCH 7 MG/24 HR PATCH TRANSDERM SCH (08:40)
[2020-12-24] MEDS ORDERED: Bumetanide IV 0.25 MG/ML 4 ml VIAL (1 mg) SLOW PUSH ONE (11:00)
[2020-12-24] MEDS: Enoxaparin 40 MG/0.4 ML SYR SUBCUT SCH (20:14)
[2020-12-25] MEDS: Albuterol/Ipratropium NEB.SOL (2.5/0.5 MG) 3 ML NEB.SOLN INH SCH ×3 (01:15→14:06)
[2020-12-25] MEDS: SPIRIVA Respimat (tiotropium) 2.5 mcg/inh Inhaler INH SCH (07:15)
[2020-12-25] MEDS: Mometasone/Formoter 100/5 MDI INH SCH (07:15)
[2020-12-25] MEDS: Potassium Chlor 20 meq TAB.ER PO SCH (09:01)
[2020-12-25] MEDS: Nicotine PATCH 7 MG/24 HR PATCH TRANSDERM SCH (09:03)
[2020-12-25 11:21] VITALS: BP 108/63
[2020-12-25] MEDS: Nicotine GUM 2MG FRUIT FLAVOR PO PRN (14:11)
== END 2020-12-25 17:00 | disposition home or self-care (01) | DRG 190 ==
LOC: ED 16:53 → SSU 20:43 → INTOOBSV 20:43 → SSU 12-18 00:03 → OBSVTOIN 12-18 05:24 → SUATTDRO 12-18 05:24
PROVIDERS: ADMIT Internal Medicine; ATTEND Internal Medicine